=== PATIENT | female | born 1955 | race Caucasian/White ===

== ENCOUNTER → 2017-09-11 16:34 | Outpatient (CLI) | payer MEDICARE, SELFPAY ==
[2017-09-11 17:09] LABS: Basophils # 0.1 K/mm3 (0-0.2); Basophils % 0.6 % (0.1-2.0); Eosinophils # 0.4 K/mm3 (0.0-0.4); Eosinophils % 3.2 % (0.1-12.0); Hematocrit 40.4 % (37.0-47.0); Hemoglobin 12.7 g/dL (12.2-16.2); Lymphocytes # 3.6 K/mm3 (0.7-4.5); Lymphocytes % 31.4 K/mm3 (10-50); Mean Corpuscular HGB Conc 31.5 g/dL (31.8-35.4); Mean Corpuscular Hemoglobin 29.6 pg (27.0-31.2); Mean Corpuscular Volume 93.9 fl (81-99); Mean Platelet Volume 7.4 fl (7.4-10.4); Monocytes # 0.7 K/mm3 (0.1-1.0); Monocytes % 5.9 % (1.7-9.3); Neutrophils # 6.7 K/mm3 (1.8-7.8); Neutrophils % 58.9 % (37.0-80.0); Platelet Count 489 K/mm3 (142-424); White Blood Count 11.4 K/mm3 (4.8-10.8)
[2017-09-11 18:03] LABS: Alanine Aminotransferase 32 U/L (12-78); Albumin Level 3.5 gm/dL (3.4-5.0); Albumin/Globulin Ratio 0.9 (1.1-1.8); Alkaline Phosphatase 109 U/L (46-116); Anion Gap 13.9 mEq/L (5-15); Aspartate Amino Transferase 20 U/L (15-37); Bilirubin,Total 0.2 mg/dL (0.2-1.0); Blood Urea Nitrogen 32 mg/dL (7-18); Carbon Dioxide 28 mmol/L (21.0-32.0); Chloride 106 mmol/L (98-107); Creatinine,Serum 0.97 mg/dL (0.55-1.02); Estimated Glomerular Filt Rate 59 ml/min (>60); Ferritin 29 ng/mL (8-388); Free T4 (Free Thyroxine) 0.81 ng/dl (0.76-1.46); GFR (African American) 71 ML/MIN (>60); Globulin 3.8 gm/dl (1.3-3.2); Glucose 78 mg/dL (74-106); Potassium 4.9 mmoL/L (3.5-5.1); Sodium 143 mmol/L (136-145); Thyroid Stimulating Hormone 1.49 uIU/ml (0.358-3.740); Total Protein,Serum 7.3 gm/dL (6.4-8.2)
[2017-09-15 06:16] LABS: Vitamin D 25 Hydroxy 40.7 ng/mL (30.0-100.0)
== END ==
PROVIDERS: Visit Provider Nurse Practitioner Family
DX: E21.0 Primary hyperparathyroidism (principal); I10 Essential (primary) hypertension; D50.9 Iron deficiency anemia, unspecified; E55.9 Vitamin D deficiency, unspecified
CPT/HCPCS: 36415; 80053; 82652; 82728; 84439; 84443; 85025

== ENCOUNTER → 2018-03-29 15:29 | Outpatient (CLI) | payer MEDICARE, SELFPAY ==
--- NOTE | 2018-03-29 15:36 | MM_ITS ---
MM Dig screening mamm BI w/CAD ORDERING PHYSICIAN : Kaitlin Red PATIENT AGE: 62 years GENDER: Female COMPARISON: May 2014, June 2014, March 2011 INDICATION: ITS.REASON: SCREENING No hormones. No new complaints. HISTORY of ovarian and colon cancer Family history. Maternal great aunt TECHNIQUE: Standard CC and MLO images were obtained. R2 CAD reviewed. FINDINGS: Minimal residual fibroglandular elements bilaterally. RIGHT BREAST: On right MLO view area was highlighted by CAD its superior breast,. Likely merely summation shadow as it seems to dissipate on cc view. However given its dense appearance on MLO view, this and adjacent small focal areas of density labeled A at superior breast right MLO view,- would benefit from MLO and 90 degrees spot view images., With possible cc view if persists. Again favor most likely these are some summation shadow densities. Benign intramammary lymph nodes central and lateral breast are again seen and stable since 2014 LEFT BREAST:\ . No prominent findings at the left breast. However when the patient returns I suggest a MLO and 90 degrees spot view of the area labeled X, possible cc view density persist.. Strongly favor is merely summation shadow.. IMPRESSION: Small focal areas of density at superior right and left breast on MLO views-..Most likely due to summation shadow but would suggest patient return for 90 degree & MLO spot views both right & left breast to verify such BI-RADS Category: 0 Need Additional Imaging Evaluation RECOMMENDED FOLLOW-UP: IMM - IMMEDIATE FOLLOW-UP RECOMMENDED Spot MLO and 90 degrees view both breast (A letter has been sent to the patient regarding results of the study.)
== END ==
PROVIDERS: PCP Nurse Practitioner Family; Visit Provider Nurse Practitioner Family
DX: Z12.31 Encounter for screening mammogram for malignant neoplasm of breast (principal)
CPT/HCPCS: 77067

== ENCOUNTER → 2018-05-21 12:37 | Outpatient (CLI) | payer MEDICARE, SELFPAY ==
--- NOTE | 2018-05-21 13:12 | MM_ITS ---
MM Dig mamm BI DX w/CAD. INDICATION: Follow-up abnormal mammogram ORDERING PHYSICIAN: Kaitlin Red PATIENT AGE: 62 years COMPARISON: 1029 and 18, 05/10/2014, 06/07/2014 TECHNIQUE: Bilateral spot compression views FINDINGS: Average fibroglandular tissue. The asymmetric densities in the superior aspect of both breasts appear to compress out as fibroglandular tissue. No malignant appearing mass or malignant microcalcification. IMPRESSION: No discrete mass. Probably benign findings BI-RADS Category: 3 Probably Benign Finding Short Term Follow-up RECOMMENDED FOLLOW-UP: 6M - 6 MONTH FOLLOW-UP (A letter has been sent to the patient regarding results of the study.)
== END ==
PROVIDERS: PCP Nurse Practitioner Family; Visit Provider Nurse Practitioner Family
DX: R92.8 Other abnormal and inconclusive findings on diagnostic imaging of breast (principal)
CPT/HCPCS: 77066

== ENCOUNTER → 2018-07-26 08:51 | Outpatient (CLI) | payer MEDICARE, SELFPAY ==
[2018-07-26 09:17] LABS: Basophils # 0.1 K/mm3 (0-0.2); Basophils % 0.8 % (0.1-2.0); Eosinophils # 0.4 K/mm3 (0.0-0.4); Eosinophils % 4.1 % (0.1-12.0); Hematocrit 44.6 % (37.0-47.0); Hemoglobin 13.9 g/dL (12.2-16.2); Lymphocytes # 2.5 K/mm3 (0.7-4.5); Lymphocytes % 24.5 % (10-50); Mean Corpuscular HGB Conc 31.2 g/dL (31.8-35.4); Mean Corpuscular Hemoglobin 27.3 pg (27.0-31.2); Mean Corpuscular Volume 87.6 fl (81-99); Monocytes # 0.6 K/mm3 (0.1-1.0); Monocytes % 6.3 % (1.7-9.3); Neutrophils # 6.5 K/mm3 (1.8-7.8); Neutrophils % 64.3 % (37.0-80.0); Red Blood Count 5.09 M/mm3 (4.20-5.40); Red Cell Distribution Width 13.9 % (11.5-17.5); White Blood Count 10.1 K/mm3 (4.8-10.8)
[2018-07-26 09:44] LABS: Platelet Count 626 K/mm3 (142-424)
[2018-07-26 10:24] LABS: Alanine Aminotransferase 18 U/L (12-78); Albumin Level 3.5 gm/dL (3.4-5.0); Alkaline Phosphatase 121 U/L (46-116); Anion Gap 14.8 mEq/L (5-15); Aspartate Amino Transferase 9 U/L (15-37); Bilirubin,Total 0.3 mg/dL (0.2-1.0); Blood Urea Nitrogen 17 mg/dL (7-18); Calcium 8.8 mg/dL (8.5-10.1); Carbon Dioxide 26 mmol/L (21.0-32.0); Chloride 108 mmol/L (98-107); Chol/HDL Ratio 3.1 (1-3.5); Cholesterol 177 mg/dL (140-200); Creatinine,Serum 0.67 mg/dL (0.55-1.02); Estimated Glomerular Filt Rate 90 ml/min (>60); Ferritin 11 ng/mL (8-388); GFR (African American) 109 ML/MIN (>60); Globulin 3.6 gm/dl (1.3-3.2); Glucose 130 mg/dL (74-106); HDL Cholesterol 58 mg/dL (29-89); LDL Cholesterol 102 mg/dL (0-130); Potassium 3.8 mmoL/L (3.5-5.1); Sodium 145 mmol/L (136-145); Thyroid Stimulating Hormone 1.86 uIU/ml (0.358-3.740); Total Protein,Serum 7.1 gm/dL (6.4-8.2); Triglycerides 87 mg/dL (30-200); VLDL Cholesterol 17 mg/dL (0-40)
[2018-07-27 07:32] LABS: Vitamin D 25 Hydroxy 40.5 ng/mL (30.0-100.0)
[2018-07-27 08:23] LABS: Iron 37 ug/dL (27-159); UIBC 417 ug/dL (131-425)
[2018-07-27 09:48] LABS: Iron Saturation 8 % (15-55)
== END ==
PROVIDERS: Visit Provider Nurse Practitioner Family
DX: D50.9 Iron deficiency anemia, unspecified (principal); R73.03 Prediabetes; E78.5 Hyperlipidemia, unspecified; I10 Essential (primary) hypertension; I25.9 Chronic ischemic heart disease, unspecified; E55.9 Vitamin D deficiency, unspecified; M81.0 Age-related osteoporosis without current pathological fracture
CPT/HCPCS: 36415; 80053; 80061; 82652; 82728; 83036; 83540; 83550; 84443; 85025

== ENCOUNTER → 2018-08-03 08:38 | Outpatient (CLI) | payer MEDICARE, SELFPAY ==
--- NOTE | 2018-08-03 08:48 | US_ITS ---
US Arterial Ankle Brachial Ind History: ITS.REASON: skin changes, rest pain, cold extremities, claudication, smoker ORDERING PHYSICIAN: Paula Beck DPM PATIENT AGE: 62 years TECHNIQUE: Segmental pressures obtained of both right and left leg. These are compared to brachial blood pressure to yield index at each level sampled including summary OCTAVIA. The data sheets from the procedure are available in PACS FINDINGS Rest study only performed today No prior studies available for comparison. Blood pressures reported are in millimeters mercury. RIGHT LEG OCTAVIA = 1.0. RIGHT LEG TBI=1.0 Brachial BP: 172 Thigh BP: 169 Calf BP: 172 Ankle PT: 175 Ankle DP : 155 Digit =165 LEFT LEG OCTAVIA = 1.0 LEFT LEG TBI= 0.9 Brachial BPD: 171 Thigh BP: 164 Calf BP: 181 Ankle PT:173 Ankle DP: 164 Digit = 151 Pulses and waveforms: Normal IMPRESSION: The ABIs and TBI s as reported above are within normal limits. Waveforms and pulses are also unremarkable.
== END ==
PROVIDERS: PCP Nurse Practitioner Family; Visit Provider Podiatrist
DX: R09.89 Other specified symptoms and signs involving the circulatory and respiratory systems (principal)
CPT/HCPCS: 93922

== ENCOUNTER 2018-08-25 13:32 | Outpatient (CLI) | payer MEDICARE, SELFPAY ==
[2018-08-25 13:50] VITALS: BP 154/95; PULSE 84; RESP 18; TEMP 36.6; O2SAT 94
[2018-08-25 14:20] VITALS: BP 151/90; PULSE 88; RESP 18; O2SAT 95
[2018-08-25 14:46] VITALS: BP 154/83; PULSE 80; RESP 20; O2SAT 96
== END 2018-08-25 14:50 | disposition home or self-care (01) ==
LOC: INF 13:32
PROVIDERS: Visit Provider Internal Medicine Medical Oncology
DX: D50.9 Iron deficiency anemia, unspecified (principal); T45.4X5A Adverse effect of iron and its compounds, initial encounter
CPT/HCPCS: 96365; J1439

== ENCOUNTER 2018-09-01 13:35 | Outpatient (CLI) | payer MEDICARE, SELFPAY ==
[2018-09-01 13:50] VITALS: BP 131/88; PULSE 78; RESP 18; TEMP 36.4; O2SAT 95
[2018-09-01 14:24] VITALS: BP 136/78; PULSE 69; RESP 18; TEMP 36.4; O2SAT 95
== END 2018-09-01 14:26 | disposition home or self-care (01) ==
LOC: INF 13:55
PROVIDERS: Visit Provider Internal Medicine Medical Oncology
DX: D50.9 Iron deficiency anemia, unspecified (principal); T45.4X5A Adverse effect of iron and its compounds, initial encounter
CPT/HCPCS: 96365; J1439

== ENCOUNTER → 2018-09-02 13:53 | Outpatient (CLI) | payer MEDICARE, SELFPAY ==
--- NOTE | 2018-09-02 13:57 | CT_ITS ---
EXAM: CT LUNG LOW DOSE WO CONTRAST TECHNIQUE: The exam was performed on a GE Light Speed [address] scanner using 3.0 mGy CTDI. A low dose helical CT CHEST was performed on a multi-detector scanner. All CT scans at this facility use one or more dose reduction techniques, viz.: automated exposure control, ma/kV adjustment per patient size (including targeted exams where dose is matched to indication, i.e. head) or iterative reconstruction technique. The LDCT was performed in a facility that meets the criteria for the screening program. Data regarding this exam was submitted to ACR which is an approved registry. The order for this exam indicates that it came as a result of a lung cancer screening counseling shard decision-making visit that included all the elements required of such a visit including smoking cessation. The radiologist interpreting this exam meets the [facility] criteria for the LDCT lung cancer screening program. The exam is reported using the Lung-RADS classification scale and reported to the ACR registry. NOTE: This study was performed for the specific purposes of lung cancer screening and is not an alternative to diagnostic chest CT. RADIATION DOSE: CTDI vol(CT dose Index-volume) = 2.9mGy DLP (Dose Length Product) = 96.38 mGy-cm FINDINGS: COMPARISON: Previous CT chest from November 2013 and July 2011. HISTORY: 1/2-1 pack per day X 48 years = over 30 year pack history total. Current smoker LUNG PARENCHYMA .: . Pronounced chronic changes. Advanced, prominent centrilobular emphysematous changes again seen. Patient demonstrates low-density groundglass opacity throughout anterior aspect of both lungs.. Linear areas of scarring & fibrotic features anteriorly along with some fibrotic honeycombing changes are seen at the anterior aspect of the upper lobes bilateral.. This is been seen on previous studies. . There is a small of 4.5 mm pleural-based slight nodular density Posterior aspect of the right apex axial image along the superior reflection of the major fissure 21 sagittal 35.. This was seen on previous 2013 studies as well with no significant change. There is mild pleural calcification at left base with scarring in this region accounting for some slight nodularity here. Postsurgical changes are seen in this region of the lung. No significant new features here. . Mild airway thickening. There is a 7.5 mm a noncalcified focal area slight nodular density at the anterior aspect of minor fissure on the right. It may may reflect scarring. This was seen previously . Mediastinum. No significant mediastinal adenopathy or mass and no significant change since previous studies... Heart. Prominent coronary artery calcification LAD left main followed by circumflex and right coronary.. Postsurgical changes GE junction and no remarkable findings uppermost abdomen. Cholecystectomy noted. IMPRESSION: 1. Advanced emphysematous changes with prominent chronic changes again seen.. Extensive fibrotic changes with groundglass opacities throughout the lung noriega bilaterally most notable anteriorly. . Overall similar appearance to previous 2014 CT chest 2. Small nodular densities bilaterally are similar to 2014 with no significant new findings . The stability to support benign nature and follow-up in one year adequate for these nodules. Lung RADS Category: 2 .. RECOMMENDATIONS: 12 monthd LDCT follow-up recommended and should be encouraged/emphasized
== END ==
PROVIDERS: PCP Nurse Practitioner Family; Visit Provider Internal Medicine Medical Oncology
DX: Z12.2 Encounter for screening for malignant neoplasm of respiratory organs (principal); Z87.891 Personal history of nicotine dependence

== ENCOUNTER → 2018-10-29 14:40 | Outpatient (CLI) | payer MEDICARE, SELFPAY ==
[2018-10-29 15:11] LABS: Basophils # 0.1 K/mm3 (0-0.2); Basophils % 0.8 % (0.1-2.0); Eosinophils # 0.3 K/mm3 (0.0-0.4); Eosinophils % 3.3 % (0.1-12.0); Hematocrit 43.8 % (37.0-47.0); Hemoglobin 14.5 g/dL (12.2-16.2); Lymphocytes # 2.9 K/mm3 (0.7-4.5); Lymphocytes % 29.8 % (10-50); Mean Corpuscular Hemoglobin 29.5 pg (27.0-31.2); Mean Corpuscular Volume 89.3 fl (81-99); Mean Platelet Volume 7.1 fl (7.4-10.4); Monocytes # 0.6 K/mm3 (0.1-1.0); Monocytes % 6.2 % (1.7-9.3); Neutrophils # 5.9 K/mm3 (1.8-7.8); Neutrophils % 59.9 % (37.0-80.0); Platelet Count 428 K/mm3 (142-424); Red Cell Distribution Width 15.3 % (11.5-17.5); White Blood Count 9.8 K/mm3 (4.8-10.8)
[2018-10-29 17:28] LABS: Ferritin 53 ng/mL (8-388)
[2018-10-31 06:42] LABS: Iron 64 ug/dL (27-159); UIBC 232 ug/dL (131-425)
[2018-10-31 17:08] LABS: Iron Saturation 22 % (15-55)
== END ==
PROVIDERS: Visit Provider Internal Medicine Medical Oncology
DX: D50.9 Iron deficiency anemia, unspecified (principal); Z72.0 Tobacco use
CPT/HCPCS: 36415; 82728; 83540; 83550; 85025

== ENCOUNTER → 2019-04-14 16:59 | Outpatient (CLI) | payer MEDICARE, SELFPAY ==
[2019-04-14 17:24] LABS: Hemoglobin A1C 6.1 % (0.0-7.0)
[2019-04-14 18:47] LABS: Basophils # 0.1 K/mm3 (0-0.2); Eosinophils # 0.7 K/mm3 (0.0-0.4); Eosinophils % 5.3 % (0.1-12.0); Hematocrit 43.4 % (37.0-47.0); Hemoglobin 13.7 g/dL (12.2-16.2); Lymphocytes # 3.9 K/mm3 (0.7-4.5); Lymphocytes % 31.3 % (10-50); Mean Corpuscular HGB Conc 31.5 g/dL (31.8-35.4); Mean Corpuscular Hemoglobin 29.5 pg (27.0-31.2); Mean Corpuscular Volume 93.7 fl (81-99); Monocytes # 0.8 K/mm3 (0.1-1.0); Monocytes % 6.5 % (1.7-9.3); Neutrophils % 55.9 % (37.0-80.0); Platelet Count 519 K/mm3 (142-424); Red Blood Count 4.63 M/mm3 (4.20-5.40); Red Cell Distribution Width 14.8 % (11.5-17.5); White Blood Count 12.6 K/mm3 (4.8-10.8)
[2019-04-14 19:31] LABS: Alanine Aminotransferase 20 U/L (12-78); Albumin Level 3.4 gm/dL (3.4-5.0); Albumin/Globulin Ratio 1.1 (1.1-1.8); Alkaline Phosphatase 96 U/L (46-116); Anion Gap 9.8 mEq/L (5-15); Aspartate Amino Transferase 16 U/L (15-37); Bilirubin,Total 0.3 mg/dL (0.2-1.0); Blood Urea Nitrogen 22 mg/dL (7-18); Calcium 8.3 mg/dL (8.5-10.1); Carbon Dioxide 28 mmol/L (21.0-32.0); Chloride 107 mmol/L (98-107); Creatinine,Serum 0.74 mg/dL (0.55-1.02); Estimated Glomerular Filt Rate 80 ml/min (>60); Ferritin 27 ng/mL (8-388); GFR (African American) 97 ML/MIN (>60); Globulin 3.1 gm/dl (1.3-3.2); Glucose 97 mg/dL (74-106); Potassium 3.8 mmoL/L (3.5-5.1); Sodium 141 mmol/L (136-145); Total Protein,Serum 6.5 gm/dL (6.4-8.2)
[2019-04-16 18:12] LABS: Vitamin D 25 Hydroxy 36.4 ng/mL (30.0-100.0)
== END ==
PROVIDERS: Visit Provider Nurse Practitioner Family
DX: R73.03 Prediabetes (principal); D50.9 Iron deficiency anemia, unspecified; I10 Essential (primary) hypertension; E55.9 Vitamin D deficiency, unspecified
CPT/HCPCS: 36415; 80053; 82652; 82728; 83036; 85025

== ENCOUNTER 2019-12-12 19:44 | Observation (INO) | payer MEDICARE, SELFPAY ==
[2019-12-12 19:45] VITALS: BP 160/87; PULSE 91; RESP 16; TEMP 37.3; O2SAT 94; BMI 31.6
--- NOTE | 2019-12-12 19:55 | XR_ITS ---
PROCEDURE: XR KNEE LT 3V CLINICAL INDICATION: left knee injury Knee pain COMPARISON: [id number] XR knee RT 3V from 04/19/2018 CT KNEE LT WO CON from 12/12/2019 FINDINGS: Prior total knee replacement. There is a nondisplaced mildly impacted fracture of the distal femur at the metaphyseal diaphyseal junction with minimal impaction medially. There is a fat fluid level indicating lipohemarthrosis.. The proximal tibia has an unremarkable appearance. The knee prosthesis is in good position. There is generalized vascular calcification. IMPRESSION: Prior total knee replacement with nondisplaced mildly impacted acute fracture of the distal femur at the diaphyseal metaphyseal junction with lipohemarthrosis Dictated by: Gavino Baeza MD 12/13/2019 07:58 Electronically signed by Gavino Baeza MD in [place] 12/13/2019 07:58
--- NOTE | 2019-12-12 19:55 | CT_ITS ---
PROCEDURE: CT KNEE LT WO CON CLINICAL HISTORY: twisted left knee Posttraumatic pain, injury with with limited range of motion COMPARISON: XR KNEE LT 3V from 12/12/2019 TECHNIQUE: Axial images obtained with sagittal and coronal reformats. All CT scans at the facility use one or more dose reduction, viz: automated exposure control, ma/kV adjustment per patient size (including targeted exams where dose is matched to indication, i.e. head), or iterative reconstruction technique. FINDINGS: There is a minimally impacted fracture of the distal femur at the diaphyseal metaphyseal junction. There is minimal impaction along the medial aspect the fracture. There is minimal medial displacement of the distal fracture fragment medially. Along the posterior aspect of the distal femur the fracture line is 12 mm proximal to the posterior aspect the femoral component of the prosthesis. There is lipohemarthrosis. The tibia has an unremarkable appearance. There is considerable artifact from the prosthesis. IMPRESSION: Mildly displaced and impacted fracture of the distal femur with associated lipohemarthrosis and total knee prosthesis in place. Dictated by: Gavino Baeza MD 12/13/2019 08:29 Electronically signed by Gavino Baeza MD in [place] 12/13/2019 08:29
--- NOTE | 2019-12-12 20:12 | HMH.EDLOEX ---
ED Disposition Clinical Impression: Obesity (BMI 30.0-34.9), Tobacco use Femoral condyle fracture Qualifiers: Encounter type: initial encounter Fracture type: closed Fracture alignment: displaced Laterality: left Qualified Code(s): S72.412A - Displaced unspecified condyle fracture of lower end of left femur, initial encounter for closed fracture COPD (chronic obstructive pulmonary disease) Qualifiers: COPD type: unspecified COPD Qualified Code(s): J44.9 - Chronic obstructive pulmonary disease, unspecified Disposition: Admitted as Observation Condition on Discharge: Good Referrals: Provider,Referral, [Referring] - - Critical Care Critical Care Time: No Attestation: On 12/12/19, the high probability of a clinically significant, sudden or life threatening deterioration of the following system(s) required my full and direct attention, intervention and personal management. The time I documented below is in addition to time spent performing reported procedures but includes the following listed in this critical care notation. Medical Decision Making - Medical Records Medical records reviewed: Yes: I reviewed the patient's medical records. - Raoul Inquiry Pt receiving controlled substance: No Vital Signs: 12/12/19 19:45 Temperature 99.1 F Temperature Source Oral Pulse Rate [Left Radial] 91 H Respiratory Rate 16 Blood Pressure [Right Arm] 160/87 H Blood Pressure Mean [Right Arm] 111 Blood Pressure Source [Right Arm] Automatic Cuff Blood Pressure Position [Right Arm] Sitting 02 Sat by Pulse Oximetry 94 L Oxygen Delivery Method Room Air - Lab Data Lab results reviewed: Yes: I reviewed the patient's lab results. Lab Results 12/12/19 20:49: WBC 15.0 H, RBC 4.72, Hgb 12.6, Hct 41.0, MCV 86.9, MCH 26.8 L, MCHC 30.8 L, RDW 14.8, Plt Count 590 H, MPV 7.7, Neut % (Auto) 76.6, Lymph % (Auto) 15.6, [place] % (Auto) 5.1, Eos % (Auto) 1.9, Baso % (Auto) 0.7, Neut # (Auto) 11.5 H, Lymph # (Auto) 2.3, [place] # (Auto) 0.8, Eos # (Auto) 0.3, Baso # (Auto) 0.1, Total Counted 100, Neutrophils % (Manual) 80 H, Lymphocytes % (Manual) 16, Eosinophils % (Manual) 3, Basophils % (Manual) 1.0, Platelet Estimate Normal, Stomatocytes 1+ 12/12/19 20:49: Sodium 141, Potassium 3.8, Chloride 111 H, Carbon Dioxide 24, Anion Gap 9.8, BUN 24 H, Creatinine 0.90, Estimated Creat Clear 82, Estimated GFR 63, Est GFR ( Amer) 77, Glucose 112 H, Calcium 9.1, Total Bilirubin 0.2, AST 25, ALT 13, Alkaline Phosphatase 102, Total Protein 6.7, Albumin 3.6, Globulin 3.1, Albumin/Globulin Ratio 1.2 Result diagrams: 12/12/19 20:49 12/12/19 20:49 Orders (Tests/Meds): ED MEDICATIONS Generic Name Dose Route Start Last Admin Trade Name Freq PRN Reason Stop Dose Admin Sodium Chloride 1,000 mls @ 999 mls/hr 12/12/19 21:10 12/12/19 21:27 Sod Chlor 0.9% 1000ml Bag IV 12/12/19 22:10 999 mls/hr .Q1H1M KADEEM Administration Discontinued Medications Generic Name Dose Route Start Last Admin Trade Name Freq PRN Reason Stop Dose Admin Morphine Sulfate 4 mg 12/12/19 21:10 12/12/19 21:27 Morphine 4mg/Ml Syringe IV 12/12/19 21:11 4 mg ONCE ONE Administration Ondansetron HCl 4 mg 12/12/19 21:10 12/12/19 21:27 Zofran 4mg/2ml Vial IV 12/12/19 21:11 4 mg ONCE ONE Administration ORDERS Category Date Time Status CT knee LT wo con Stat Cat Scan 12/12/19 19:55 Taken XR knee LT 3V Stat Exams 12/12/19 19:55 Taken Hemoglobin A1C Stat Lab 12/12/19 21:41 Ordered - Radiology Data #1 Image(s): Knee Image Reviewed: Yes I reviewed the patient's radiology image Preliminary Findings: Abnormal (fx seen ) - CT Data CT Scan: Other (knee) Time Received: 21:[address] Reviewed: Yes: I have viewed the radiologist's interpretation Preliminary Findings: Abnormal (fx and hematoma ) - ECG Data Tracing #1 Normal Sinus Rhythm: Yes Ischemic changes: non-specific ST-T wave changes - Physician Consults Physician Consul
--- NOTE | 2019-12-12 20:50 | PC.NURSE ---
speaking with Dr. Sahu
--- NOTE | 2019-12-12 20:54 | PC.NURSE ---
pt reports no ride at home. dr nair advises patient would need to transfer elsewhere for repair.
--- NOTE | 2019-12-12 21:01 | PC.NURSE ---
speaking with Dr. Cosme
--- NOTE | 2019-12-12 21:03 | PC.NURSE ---
calling around for pt placement with Ortho.
[2019-12-12 21:12] LABS: Basophils # 0.1 K/mm3 (0-0.2); Basophils % 0.7 % (0.1-2.0); Chloride 111 mmol/L (98-107); Eosinophils # 0.3 K/mm3 (0.0-0.4); Eosinophils % 1.9 % (0.1-12.0); Hemoglobin 12.6 g/dL (12.2-16.2); Lymphocytes # 2.3 K/mm3 (0.7-4.5); Lymphocytes % 15.6 % (10-50); Mean Corpuscular HGB Conc 30.8 g/dL (31.8-35.4); Mean Corpuscular Hemoglobin 26.8 pg (27.0-31.2); Mean Corpuscular Volume 86.9 fl (81-99); Mean Platelet Volume 7.7 fl (7.4-10.4); Monocytes # 0.8 K/mm3 (0.1-1.0); Monocytes % 5.1 % (1.7-9.3); Neutrophils # 11.5 K/mm3 (1.8-7.8); Neutrophils % 76.6 % (37.0-80.0); Platelet Count 590 K/mm3 (142-424); Red Blood Count 4.72 M/mm3 (4.20-5.40); Red Cell Distribution Width 14.8 % (11.5-17.5); Sodium 141 mmol/L (136-145)
[2019-12-12 21:13] LABS: Potassium 3.8 mmoL/L (3.5-5.1)
[2019-12-12 21:14] LABS: MANUAL DIFFERENTIAL MANUAL DIFFERENTIAL (MANUAL DIFF)
[2019-12-12 21:15] VITALS: BP 145/97; PULSE 67; RESP 16; O2SAT 97
[2019-12-12 21:15] LABS: Alanine Aminotransferase 13 U/L (12-78); Albumin Level 3.6 g/dl (3.5-5.0); Albumin/Globulin Ratio 1.2 (1.1-1.8); Alkaline Phosphatase 102 U/L (38-126); Anion Gap 9.8 mEq/L (5-15); Aspartate Amino Transferase 25 U/L (14-36); Bilirubin,Total 0.2 mg/dl (0.2-1.3); Blood Urea Nitrogen 24 mg/dl (7-17); Carbon Dioxide 24 mmol/L (22.0-30.0); Creatinine Clearance Estimated 82 mL/min (50-200); Estimated Glomerular Filt Rate 63 ml/min (>60); GFR (African American) 77 ML/MIN (>60); Globulin 3.1 g/dL (1.3-3.2); Total Protein,Serum 6.7 g/dl (6.3-8.2)
--- NOTE | 2019-12-12 21:15 | PC.NURSE ---
calling [facility] at this time.
[2019-12-12 21:16] LABS: Calcium 9.1 mg/dl (8.4-10.2); Glucose 112 mg/dl (74-100)
--- NOTE | 2019-12-12 21:19 | PC.NURSE ---
awaiting for dr. dorman to call back.
--- NOTE | 2019-12-12 21:20 | PC.NURSE ---
Dr. Sahu spoke with Dr. Alan about taking pt. he accepted pt. will speak to [facility] for an accepting admitting MD
[2019-12-12 21:33] LABS: Eosinophils % 3 % (0-3); Lymphocytes % 16 % (10-50); Neutrophils % 80 % (42-76); Total Cells Counted 100
--- NOTE | 2019-12-12 21:33 | PC.NURSE ---
on phone with dr. dorman at this time
[2019-12-12 21:34] LABS: Platelet Estimate Normal; Stomatocytes 1+
--- NOTE | 2019-12-12 21:36 | PC.NURSE ---
pt is placed on facility wait list at this time. pt and family updated on plan of care
--- NOTE | 2019-12-12 21:49 | PC.NURSE ---
notified yumi with lab of new orders
[2019-12-12 21:58] LABS: Hemoglobin A1C 6.3 % (4.0-6.0)
[2019-12-12 22:00] VITALS: BP 173/98; PULSE 78; RESP 16; O2SAT 94
[2019-12-12 22:17] LABS: Coronavirus 19 IgG Antibody Negative (Negative); Coronavirus 19 IgM Antibody Negative (Negative)
[2019-12-12 22:30] VITALS: BP 159/84; PULSE 82; RESP 16; O2SAT 95
--- NOTE | 2019-12-12 22:49 | PC.NURSE ---
report called to Sasha Zhao RN
--- NOTE | 2019-12-12 23:13 | PC.NURSE ---
PT ARRIVED TO THE FLOOR VIA STRETCHER FROM ED AT [id number].
[2019-12-12 23:16] VITALS: BP 112/75; PULSE 81; RESP 19; TEMP 36.7; O2SAT 98
[2019-12-12 23:20] VITALS: BMI 33.4
[2019-12-12 23:30] VITALS: BP 157/91; PULSE 77; RESP 20; TEMP 36.7; O2SAT 93
[2019-12-13 04:26] VITALS: BP 149/81; PULSE 71; RESP 18; TEMP 36.9; O2SAT 92
--- NOTE | 2019-12-13 04:49 | PC.NURSE ---
PT. MAIN COMPLAINT IS PAIN IN L KNEE. KNEE IMMOBILIZER AND ICE PACK IN PLACE. PT. HAS NOT C/O N/V/D, SOA OR DIZZINESS.
[2019-12-13 05:30] VITALS: BMI 33.6
[2019-12-13 06:15] LABS: Chloride 109 mmol/L (98-107); Potassium 3.5 mmoL/L (3.5-5.1); Sodium 141 mmol/L (136-145)
[2019-12-13 06:16] LABS: Basophils # 0.1 K/mm3 (0-0.2); Basophils % 0.6 % (0.1-2.0); Eosinophils # 0.4 K/mm3 (0.0-0.4); Eosinophils % 2.6 % (0.1-12.0); Hematocrit 38.6 % (37.0-47.0); Lymphocytes # 3.3 K/mm3 (0.7-4.5); Lymphocytes % 21.9 % (10-50); Mean Corpuscular Volume 87.1 fl (81-99); Mean Platelet Volume 7.8 fl (7.4-10.4); Monocytes # 0.9 K/mm3 (0.1-1.0); Monocytes % 5.7 % (1.7-9.3); Neutrophils # 10.3 K/mm3 (1.8-7.8); Neutrophils % 69.1 % (37.0-80.0); Platelet Count 550 K/mm3 (142-424); Red Blood Count 4.43 M/mm3 (4.20-5.40); Red Cell Distribution Width 14.9 % (11.5-17.5); White Blood Count 14.9 K/mm3 (4.8-10.8)
[2019-12-13 06:18] LABS: Anion Gap 10.5 mEq/L (5-15); Blood Urea Nitrogen 19 mg/dl (7-17); Calcium 8.5 mg/dl (8.4-10.2); Carbon Dioxide 25 mmol/L (22.0-30.0); Creatinine Clearance Estimated 87 mL/min (50-200); Estimated Glomerular Filt Rate 85 ml/min (>60); GFR (African American) 103 ML/MIN (>60); Glucose 108 mg/dl (74-100)
[2019-12-13 06:57] LABS: POC Glucose,Bedside 120 (70-110)
--- NOTE | 2019-12-13 07:30 | HMH.HP ---
*Admission Date: 12/12/19 *Chief complaint: leg pain, knee fracture *History of present illness: Ms. Rocha is a 64-year-old female with multiple comorbidities and extensive tobacco use history who fell, developed onset of knee pain, and came to the ER. Status post bilateral total knee arthroplasty in 2000. Has had minimal difficulty from her prostheses. States she was walking in her yard yesterday when she stepped in a hole, tripped, and fell feeling intense pain in her left knee. She denies hitting her head, loss of consciousness. On arrival to the ER imaging of her knee was performed showing fracture of her distal femur and presence of prosthetic joint. Given complexity of case, orthopedics was consulted and recommended patient be referred to tertiary care center. The emergency room contacted [facility], patient was accepted for transfer however no bed was available. Patient admitted pending transfer to [facility] for surgical intervention. Has been maintained overnight on IV pain meds with intermittent control of her pain. N.p.o. overnight in anticipation of transfer for surgery however given no transfer and site, will allow for clear liquid diet at this time. Patient denies any chest pain, shortness of breath, nausea, vomiting, diarrhea. [facility] History I have reviewed the patient's past medical history: Yes Medical History: Reports:: Cancer (Thyroid CA.), Chronic Obstructive Pulmonary Disease (COPD), Cerebrovascular Accident, Deep Vein Thrombosis, Diabetes Mellitus Type 2, Gastroesophageal Reflux Disease(GERD), Hyperlipidemia, Hypertension, Lung Disease, Myocardial Infarction, Peripheral Vascular Disease Denies:: Diabetes Mellitus Type 1, Internal Pacemaker, MRSA, Seizures *Have you ever received a pneumonia vaccine?: Yes *Have you received a flu vaccine this season?: No Other Medical History: Reports: Anemia, Arthritis, Fibromyalgia, Sinus Problems, Thyroid Disease, Other Laterality Cases: Bilateral: Arthroscopy Knee, Tonsillectomy, Total Knee Replacement Other Surgeries: Yes: Appendectomy, Cancer Surgery, Cardiac Catheterization, Cholecystectomy, Colonoscopy, EGD, Hysterectomy-Total, Hysterectomy-Partial. No: Pacemaker Amputation: No Fractures: Yes - *Social History Last grade of school completed: Some college Smoking Status: Current every day smoker Tobacco Type: cigarettes # Packs/Day (cigarettes): 1 Alcohol Intake: never Alcohol Intake Frequency:: other Substance Use Type: denies use *Occupational Status:: disabled Housing: apartment Household Members: other *Travel in the last 8 weeks: None Family Hx:: Cancer, Diabetes, Heart Attack, Hyperlipidemia, Hypertension, Stroke, Tuberculosis, Alcoholism, Mental illness Review of Systems - Review of Systems Review of systems:: pertinent systems reviewed and negative unless documented below (14 point review of systems performed, pertinent positives and negatives as per HPI) - *Neurologic Denies seizure-like activity Meds Home Medications Medication Instructions Recorded Confirmed Type alprazolam 1 mg tablet 1 mg PO QIDP PRN 30 Days tab 07/26/18 12/12/19 History amlodipine 5 mg tablet 10 mg PO DAILY 30 Days tab 07/26/18 12/12/19 History aspirin 81 mg tablet,delayed 81 mg PO DAILY 07/26/18 12/12/19 History release clopidogrel 75 mg tablet 75 mg PO DAILY 30 Days tab 07/26/18 12/12/19 History duloxetine 60 mg capsule,delayed 60 mg PO DAILY 30 Days cap 07/26/18 12/12/19 History release gabapentin 600 mg tablet 600 mg PO TID 30 Days tab 07/26/18 12/12/19 History omeprazole 40 mg capsule,delayed 40 mg PO DAILY 30 Days cap 07/26/18 12/12/19 History release pravastatin 20 mg tablet 20 mg PO HS 30 Days tab 07/26/18 12/12/19 History ramipril 10 mg capsule 10 mg PO DAILY 30 Days cap 07/26/18 12/12/19 History topiramate 100 mg tablet 100 mg PO BID 30 Days tab 07/26/18 12/13/19 History Metformin HCl 500 mg PO DAILY 12/13/19 12/13/19 History PARoxetine HCL [Paxil] 2
[2019-12-13 08:00] VITALS: BP 158/83; PULSE 83; RESP 20; TEMP 36.9; O2SAT 94
--- NOTE | 2019-12-13 08:04 | HMH.PHAVTE ---
[facility] Pharmacy VTE Monitoring - Patient Demographics Admission date: 12/12/19 Report Date: 12/13/19 Time: 08:04 Allergies/Adverse Reactions: Patient Allergies erythromycin base Allergy (Unknown, Verified 12/12/19 23:45) I-HIVES Penicillins Allergy (Unknown, Verified 12/12/19 23:45) I-HIVES propoxyphene Allergy (Unknown, Verified 12/12/19 23:45) I-HIVES Height: 1.68 m Weight: 94.886 kg Patient Problems: Current Active Problems Femoral condyle fracture (Acute) Obesity (BMI 30.0-34.9) (Acute) Tobacco use (Acute) COPD (chronic obstructive pulmonary disease) (Acute) - VTE Risk Labs: VTE Related Lab Results Hgb 12.0 g/dL (12.2-16.2) L 12/13/19 05:35 Hct 38.6 % (37.0-47.0) 12/13/19 05:35 Plt Count 550 K/mm3 (142-424) H 12/13/19 05:35 BUN 19 mg/dl (7-17) H 12/13/19 05:35 Creatinine 0.70 mg/dl (0.52-1.04) D 12/13/19 05:35 Estimated Creat Clear 87 mL/min (50-200) 12/13/19 05:35 VTE Score: 7 Clinical Trial Participant: No - Prophylaxis VTE Prophylaxis Ordered?: Yes Types of VTE Prophylaxis: TEDS Knee High
--- NOTE | 2019-12-13 09:36 | HMH.PHAINT ---
MEDICATION RECONCILIATION COMPLETED ON PATIENT USING EXTERNAL FILL HISTORY FROM PHARMACY AND LIST FROM MD OFFICE. -RIVKA CROUCHD
[2019-12-13 11:35] LABS: POC Glucose,Bedside 113 (70-110)
[2019-12-13 16:00] VITALS: BP 165/107; PULSE 75; RESP 19; TEMP 36.8; O2SAT 92
--- NOTE | 2019-12-13 16:40 | HMH.HPDC ---
General - General Admission date:: 12/12/19 Discharge date: 12/13/19 *Admission Date: 12/12/19 *Chief complaint: left knee pain/fracture *History of present illness: Ms. Rocha is a 64-year-old female with multiple comorbidities and extensive tobacco use history who fell, developed onset of knee pain, and came to the ER. Status post bilateral total knee arthroplasty in 2000. Has had minimal difficulty from her prostheses. States she was walking in her yard yesterday when she stepped in a hole, tripped, and fell feeling intense pain in her left knee. She denies hitting her head, loss of consciousness. On arrival to the ER imaging of her knee was performed showing fracture of her distal femur and presence of prosthetic joint. Given complexity of case, orthopedics was consulted and recommended patient be referred to tertiary care center. The emergency room contacted [facility], patient was accepted for transfer however no bed was available. Patient admitted pending transfer to [facility] for surgical intervention. Has been maintained overnight on IV pain meds with intermittent control of her pain. N.p.o. overnight in anticipation of transfer for surgery however given no transfer and site, will allow for clear liquid diet at this time. Patient denies any chest pain, shortness of breath, nausea, vomiting, diarrhea. [facility] History I have reviewed the patient's past medical history: Yes Medical History: Reports:: Cancer (Thyroid CA.), Chronic Obstructive Pulmonary Disease (COPD), Cerebrovascular Accident, Deep Vein Thrombosis, Diabetes Mellitus Type 2, Gastroesophageal Reflux Disease(GERD), Hyperlipidemia, Hypertension, Lung Disease, Myocardial Infarction, Peripheral Vascular Disease Denies:: Diabetes Mellitus Type 1, Internal Pacemaker, MRSA, Seizures *Have you ever received a pneumonia vaccine?: Yes *Have you received a flu vaccine this season?: No Other Medical History: Reports: Anemia, Arthritis, Fibromyalgia, Sinus Problems, Thyroid Disease, Other Laterality Cases: Bilateral: Arthroscopy Knee, Tonsillectomy, Total Knee Replacement Other Surgeries: Yes: Appendectomy, Cancer Surgery, Cardiac Catheterization, Cholecystectomy, Colonoscopy, EGD, Hysterectomy-Total, Hysterectomy-Partial. No: Pacemaker Amputation: No Fractures: Yes - *Social History Last grade of school completed: Some college Smoking Status: Current every day smoker Tobacco Type: cigarettes # Packs/Day (cigarettes): 1 Alcohol Intake: never Alcohol Intake Frequency:: other Substance Use Type: denies use *Occupational Status:: disabled Housing: apartment Household Members: other *Travel in the last 8 weeks: None Family Hx:: Cancer, Diabetes, Heart Attack, Hyperlipidemia, Hypertension, Stroke, Tuberculosis, Alcoholism, Mental illness Review of Systems - Review of Systems Review of systems:: pertinent systems reviewed and negative unless documented below (14 point review of systems performed, pertinent positives and negatives as per HPI) - *Neurologic Denies seizure-like activity Exam Vital signs and Labs for Last 24 Hours: Temp Pulse Resp BP Pulse Ox 98.4 F 83 20 158/83 H 94 L 12/13/19 08:00 12/13/19 08:00 12/13/19 08:00 12/13/19 08:00 12/13/19 08:00 Laboratory Results - last 24 hr 12/12/19 20:49: WBC 15.0 H, RBC 4.72, Hgb 12.6, Hct 41.0, MCV 86.9, MCH 26.8 L, MCHC 30.8 L, RDW 14.8, Plt Count 590 H, MPV 7.7, Neut % (Auto) 76.6, Lymph % (Auto) 15.6, [place] % (Auto) 5.1, Eos % (Auto) 1.9, Baso % (Auto) 0.7, Neut # (Auto) 11.5 H, Lymph # (Auto) 2.3, [place] # (Auto) 0.8, Eos # (Auto) 0.3, Baso # (Auto) 0.1, Total Counted 100, Neutrophils % (Manual) 80 H, Lymphocytes % (Manual) 16, Eosinophils % (Manual) 3, Basophils % (Manual) 1.0, Platelet Estimate Normal, Stomatocytes 1+ 12/12/19 20:49: Sodium 141, Potassium 3.8, Chloride 111 H, Carbon Dioxide 24, Anion Gap 9.8, BUN 24 H, Creatinine 0.90, Estimated Creat Clear 82, Estimated GFR 63, Est GFR ( Amer)
--- NOTE | 2019-12-13 17:22 | PC.NURSE ---
delon lam rn at [facility] called for report and with bed @ [phone]
--- NOTE | 2019-12-13 17:23 | PC.NURSE ---
[facility] notified for transport
--- NOTE | 2019-12-13 20:54 | ECG_ITS ---
APPROVED REPORT Exam: Resting ECG HR:72 bpm ECG Measurements Heart Rate 72 AXES AZ 146 P 64 QRSd 82 QRS 14 QT 358 T -2 QTc 392 <Conclusion> Normal sinus rhythm Possible Left atrial enlargement Nonspecific ST-T wave abnormalities Abnormal ECG Electronically signed by : Lamine Jeffrey, 12/13/2019 15:33:46
== END 2019-12-13 18:53 | disposition short-term general hospital (02) ==
LOC: ER 21:43 → 2ND 22:27
PROVIDERS: Admitting Provider Emergency Medicine; Emergency Provider Emergency Medicine; PCP Nurse Practitioner Family; Visit Provider Internal Medicine Adolescent Medicine
DX: M97.12XA Periprosthetic fracture around internal prosthetic left knee joint, initial encounter (principal); S72.412A Displaced unspecified condyle fracture of lower end of left femur, initial encounter for closed fracture; Z72.0 Tobacco use; E11.9 Type 2 diabetes mellitus without complications; W01.0XXA Fall on same level from slipping, tripping and stumbling without subsequent striking against object, initial encounter; Y92.017 Garden or yard in single-family (private) house as the place of occurrence of the external cause; Z96.653 Presence of artificial knee joint, bilateral; Z79.84 Long term (current) use of oral hypoglycemic drugs; Z79.899 Other long term (current) drug therapy; Z79.02 Long term (current) use of antithrombotics/antiplatelets; Z79.82 Long term (current) use of aspirin
CPT/HCPCS: 36415; 73562; 73700; 80048; 80053; 82962; 83036; 85007; 85025; 86328; 93005; 96365; 96375; 99284; G0378; J2405

== ENCOUNTER 2021-11-12 13:35 | Inpatient (IN) | payer MEDICARE, SELFPAY ==
[2021-11-12] VITALS (11 sets, daily range): BP systolic 137–201; BP diastolic 62–88; PULSE 75–94; RESP 16–28; TEMP 36.6–37; O2SAT 96–100; BMI 23.8; BMI 25.1
--- NOTE | 2021-11-12 13:43 | XR_ITS ---
FINAL REPORT CLINICAL HISTORY: trauma, fall COMPARISON: 04/19/2018 FINDINGS: PELVIS A single view was obtained. There is no acute fracture or dislocation. There is chronic appearing deformity of the right greater trochanter which is new since the prior, likely represent sequela of prior fracture. There are mild degenerative changes of both hips. Note is made of vascular calcification. IMPRESSION: Irregularity of the greater trochanter, likely represent sequela of prior fracture. If indicated, CT or MRI could further evaluate. Reviewed, Interpreted and Dictated by Jesus Harding III, MD Transcribed by Ruthie Hagen Authenticated and [facility]
--- NOTE | 2021-11-12 13:43 | XR_ITS ---
FINAL REPORT CLINICAL HISTORY: trauma, fall COMPARISON: 04/19/2018 FINDINGS: SINGLE-VIEW CHEST The heart size is normal. The mediastinum is normal. There is mild pulmonary vascular congestion. There is no pneumothorax. There are postoperative changes in the left thorax. There is an impacted fracture of the right femoral neck and head. IMPRESSION: No acute cardiopulmonary process. Impacted fracture of the right femoral neck and head. Reviewed, Interpreted and Dictated by Jesus Harding III, MD Transcribed by Ruthie Hagen Authenticated and [facility]
--- NOTE | 2021-11-12 13:43 | XR_ITS ---
FINAL REPORT CLINICAL HISTORY: trauma, fall FINDINGS: RIGHT SHOULDER Three views were obtained. There is mild AC joint degenerative change. There is a comminuted, impacted fracture of the right femoral head and neck. There is mild glenohumeral degenerative change. IMPRESSION: Comminuted, impacted fracture of the right femoral head and neck. Reviewed, Interpreted and Dictated by Jesus Harding III, MD Transcribed by Ruthie Hagen Authenticated and [facility]
--- NOTE | 2021-11-12 13:43 | XR_ITS ---
FINAL REPORT CLINICAL HISTORY: trauma, fall FINDINGS: RIGHT FEMUR Two views were obtained. There is no acute fracture or dislocation. There are postoperative changes from right knee arthroplasty. Moderate vascular calcification is identified. There are mild degenerative changes of the hip. There is chronic irregularity of the greater trochanter consistent with a chronic fracture. IMPRESSION: Degenerative and chronic appearing findings as above. Reviewed, Interpreted and Dictated by Jesus Harding III, MD Transcribed by Ruthie Hagen Authenticated and [facility]
--- NOTE | 2021-11-12 13:45 | HMH.EDFALL ---
ED Disposition Clinical Impression: Closed right hip fracture Qualifiers: Encounter type: initial encounter Qualified Code(s): S72.001A - Fracture of unspecified part of neck of right femur, initial encounter for closed fracture Closed right humeral fracture Qualifiers: Encounter type: initial encounter Humerus Location: proximal Fracture morphology: other fracture Fracture alignment: displaced Qualified Code(s): S42.291A - Other displaced fracture of upper end of right humerus, initial encounter for closed fracture UTI (urinary tract infection) Qualifiers: Urinary tract infection type: acute cystitis Hematuria presence: without hematuria Qualified Code(s): N30.00 - Acute cystitis without hematuria Disposition: Admitted As Inpatient Condition on Discharge: Good Referrals: Kaitlin Red APRN [Primary Care Provider] - - Critical Care Critical Care Time: No Attestation: On , the high probability of a clinically significant, sudden or life threatening deterioration of the following system(s) required my full and direct attention, intervention and personal management. The time I documented below is in addition to time spent performing reported procedures but includes the following listed in this critical care notation. Medical Decision Making - Medical Records Medical records reviewed: Yes: I reviewed the patient's medical records. - Raoul Inquiry Pt receiving controlled substance: No Vital Signs: 11/12/21 13:36 11/12/21 14:04 11/12/21 14:07 Temperature 98.6 F Temperature Source Oral Pulse Rate 85 85 Pulse Rate [Radial] 75 Respiratory Rate 28 H 24 24 Blood Pressure 201/87 H 160/78 H Blood Pressure [Right Arm] 137/70 Blood Pressure Mean 125 136 Blood Pressure Mean [Right Arm] 92 Blood Pressure Position [Right Arm] Sitting 02 Sat by Pulse Oximetry 96 100 100 Oxygen Delivery Method Room Air 11/12/21 14:32 11/12/21 15:02 Temperature Temperature Source Pulse Rate 85 84 Pulse Rate [Radial] Respiratory Rate 22 20 Blood Pressure 171/88 H 184/80 H Blood Pressure [Right Arm] Blood Pressure Mean 115 114 Blood Pressure Mean [Right Arm] Blood Pressure Position [Right Arm] 02 Sat by Pulse Oximetry 100 99 Oxygen Delivery Method - Lab Data Lab Results 11/12/21 13:44: WBC 14.7 H, RBC 4.39, Hgb 7.0 L, Hct 25.4 L, MCV 57.9 L, MCH 16.1 L, MCHC 27.7 L, RDW 23.2 H, Plt Count 844 H, MPV 8.4, Neut % (Auto) 88.4 H, Lymph % (Auto) 7.2 L, [place] % (Auto) 4.0, Eos % (Auto) 0.0 L, Baso % (Auto) 0.4, Neut # (Auto) 13.0 H, Lymph # (Auto) 1.0, [place] # (Auto) 0.6, Eos # (Auto) 0.0, Baso # (Auto) 0.1, Total Counted 100, Neutrophils % (Manual) 93 H, Lymphocytes % (Manual) 3 L, Monocytes % (Manual) 4, Platelet Estimate Marked increase, Hypochromasia 3+, Anisocytosis 2+, Microcytosis 3+ 11/12/21 13:44: Sodium 141, Potassium 3.3 L, Chloride 110 H, Carbon Dioxide 22, Anion Gap 12.3, BUN 24 H, Creatinine 0.60, Estimated Creat Clear 54, Estimated GFR 101, Est GFR ( Amer) 122, Glucose 148 H, Calcium 9.1, Total Bilirubin 0.5, AST 53 H, ALT 37, Alkaline Phosphatase 108, Total Creatine Kinase 465 H, Troponin I 0.02, Total Protein 6.8, Albumin 3.7, Globulin 3.1, Albumin/Globulin Ratio 1.2 11/12/21 14:30: Stool Occult Blood Negative 11/12/21 14:55: Urine Color Yellow, Urine Appearance Clear, Urine pH 6.0, Ur Specific [place] 1.015, Urine Protein Negative, Urine Glucose (UA) Negative, Urine Ketones Trace, Urine Blood Trace-i, Urine Nitrate Positive, Urine Bilirubin Negative, Urine Urobilinogen 0.2, Ur Leukocyte Esterase 2+ A, Urine RBC 3-5, Urine WBC 50-100, Ur Squamous Epith Cells Occasional, Amorphous Sediment 1+, Urine Bacteria 4+, Urine Yeast 2+ 11/12/21 15:05: Blood Type O Positive, Antibody Screen Negative, Crossmatch ([facility]) See Detail Result diagrams: 11/12/21 13:44 11/12/21 13:44 Orders (Tests/Meds): ED MEDICATIONS Generic Name Dose Route Start Last Admin Trade Name Freq PRN Reason Stop Dose
[2021-11-12 14:02] LABS: Chloride 110 mmol/L (98-107); Sodium 141 mmol/L (136-145)
[2021-11-12 14:03] LABS: Potassium 3.3 mmoL/L (3.5-5.1)
[2021-11-12 14:05] LABS: Alanine Aminotransferase 37 U/L (12-78); Alkaline Phosphatase 108 U/L (38-126); Anion Gap 12.3 mEq/L (5-15); Aspartate Amino Transferase 53 U/L (14-36); Bilirubin,Total 0.5 mg/dl (0.2-1.3); Blood Urea Nitrogen 24 mg/dl (7-17); Calcium 9.1 mg/dl (8.4-10.2); Carbon Dioxide 22 mmol/L (22.0-30.0); Creatine Kinase 465 U/L (30-135); Creatinine Clearance Estimated 54 mL/min (50-200); Estimated Glomerular Filt Rate 101 ml/min (>60); GFR (African American) 122 ML/MIN (>60); Glucose 148 mg/dl (74-100)
[2021-11-12 14:06] LABS: Albumin Level 3.7 g/dl (3.5-5.0); Albumin/Globulin Ratio 1.2 (1.1-1.8); Globulin 3.1 g/dL (1.3-3.2); Total Protein,Serum 6.8 g/dl (6.3-8.2)
--- NOTE | 2021-11-12 14:12 | PC.NURSE ---
PT CLEANED,DEPENDS CHANGED. CHEST WITH REDNESS NOTED. PT STATES SHE WAS SCOOTING AROUND ON THE FLOOR SINCE THURSDAY
[2021-11-12 14:18] LABS: Troponin I 0.02 ng/ml (0.00-0.034)
[2021-11-12 14:19] LABS: Basophils # 0.1 K/mm3 (0-0.2); Basophils % 0.4 % (0.1-2.0); Hematocrit 25.4 % (37.0-47.0); Lymphocytes % 7.2 % (10-50); Mean Corpuscular HGB Conc 27.7 g/dL (31.8-35.4); Mean Corpuscular Hemoglobin 16.1 pg (27.0-31.2); Mean Corpuscular Volume 57.9 fl (81-99); Mean Platelet Volume 8.4 fl (7.4-10.4); Monocytes # 0.6 K/mm3 (0.1-1.0); Neutrophils % 88.4 % (37.0-80.0); Platelet Count 844 K/mm3 (142-424); Red Blood Count 4.39 M/mm3 (4.20-5.40); Red Cell Distribution Width 23.2 % (11.5-17.5); White Blood Count 14.7 K/mm3 (4.8-10.8)
[2021-11-12 14:20] LABS: MANUAL DIFFERENTIAL MANUAL DIFFERENTIAL (MANUAL DIFF)
--- NOTE | 2021-11-12 14:24 | PC.NURSE ---
rad at for portable xrays
--- NOTE | 2021-11-12 14:30 | ECG_ITS ---
APPROVED REPORT Exam: Resting ECG HR:82 bpm ECG Measurements Heart Rate 82 AXES OH 149 P 53 QRSd 90 QRS 14 QT 387 T 70 QTc 425 Conclusion SINUS RHYTHM LEFT ATRIAL ENLARGEMENT [-0.15mV P-WAVE IN V1/V2] LEFT VENTRICULAR HYPERTROPHY AND ST-T CHANGE [VOLTAGE CRITERIA PLUS ST/T ABNORMALITY] ABNORMAL ECG UNCONFIRMED REPORT Electronically signed by : Bi Díaz MD 11/15/2021 18:07:10
[2021-11-12 14:52] LABS: Occult Blood,Stool Negative (Negative)
[2021-11-12 15:01] LABS: Microscopic, Urine URINE MICROSCOPIC (MICROSCOPIC)
[2021-11-12 15:07] LABS: Lymphocytes % 3 % (10-50); Monocytes % 4 % (2-9); Neutrophils % 93 % (42-76); Total Cells Counted 100
[2021-11-12 15:09] LABS: Microcytosis 3+
[2021-11-12 15:10] LABS: Anisocytosis 2+; Hypochromasia 3+
[2021-11-12 15:11] LABS: Platelet Estimate Marked Increase
--- NOTE | 2021-11-12 15:17 | PC.NURSE ---
waiting pss delivery professional back from dr. cantu, office staff states he is in a room with a pt.
--- NOTE | 2021-11-12 15:26 | CT_ITS ---
FINAL REPORT CLINICAL HISTORY: fall, anemia, hip fracture FINDINGS: Technique: The patient was injected with intravenous contrast. Axial images through the abdomen and pelvis were performed. This study was performed with techniques to keep radiation doses as low as reasonably achievable (ALARA). Individualized dose reduction techniques using automated exposure control or adjustment of mA and/or kV according to the patient's size were employed. Abdomen: There is mild pulmonary scarring. There are postoperative changes near the GE junction. There are postoperative changes from cholecystectomy. The liver is normal in size and attenuation. The spleen is unremarkable. The adrenals are normal. The pancreas is unremarkable. There are multiple nonobstructing bilateral renal stones with the largest measuring 8 mm on the left. There are bilateral renal cysts with the largest measuring 24 mm on the left. The aorta is normal in caliber. There is no free fluid or adenopathy. There are diffuse vascular calcifications. There is a severe L1 compression fracture with up to 80% loss of height, favor chronic. Pelvis: The appendix is normal. A Hernandez catheter is present. There are postoperative changes from hysterectomy. There is a large amount of retained stool within the colon. There is no free fluid or adenopathy. There are subacute to chronic fractures of the bilateral sacral ala. There are left inferior and superior pubic rami fractures which are subacute to chronic. There is a comminuted fracture of the right greater trochanter. A greater trochanter fracture fragment is displaced superiorly approximately 18 mm. This fracture is favored to be subacute or chronic. There is a fracture along the medial proximal femur seen on axial image 113 that may be acute. IMPRESSION: Multiple nonobstructing renal stones. Multiple fractures as described, most are favored subacute to chronic. Fracture along the medial border of the proximal femur may be acute. If indicated, MRI may be helpful to evaluate for bone marrow edema which would indicate an acute fracture. Reviewed, Interpreted and Dictated by Jesus Harding III, MD Transcribed by Rosalba Santos Authenticated and [facility]
[2021-11-12 15:28] LABS: Appearance,Urine CLEAR (Clear); Bilirubin,Urine Negative (Negative); Blood, Urine TRACE-I (Negative); Color,Urine YELLOW (Yellow); Glucose,Urine (UA) Negative (Negative); Ketones,Urine TRACE (Negative); Leukocyte Esterase,Urine 2+ (Negative); Nitrate,Urine POSITIVE (Negative); Protein,Urine Negative (Negative); Specific Gravity, Urine 1.015 (1.005-1.030); Urobilinogen,Urine 0.2 EU/dl (0.2)
--- NOTE | 2021-11-12 15:39 | PC.NURSE ---
waiting customer relations assistant back from dr. alfred, office staff states in a room with a pt
--- NOTE | 2021-11-12 16:07 | PC.NURSE ---
PEr , states that pt injuries are non operative.
[2021-11-12 16:16] LABS: Coronavirus 19, PCR Not Detected (NotDetected); Influenza A, PCR Not Detected (NotDetected); Influenza B, PCR Not Detected (NotDetected)
--- NOTE | 2021-11-12 16:18 | PC.NURSE ---
PT WANTED HER NIECE CALLED AND UPDATE HER ON PLAN OF CARE. CALLED SPOKE WITH BO [place] AND INFORMED HER OF PT'S CONDITION AND PLAN OF CARE
[2021-11-12 16:27] LABS: Amorphous Sediment,Urine 1+ /lpf; Bacteria,Urine 4+ /lpf; Squamous Epithelial Cell,Urine Occasional #/hpf (0-5); WBC,Urine 50-100 #/hpf (0-3)
[2021-11-12 16:28] LABS: Yeast,Urine 2+ /lpf
--- NOTE | 2021-11-12 16:35 | PC.NURSE ---
NO RETURN CALL FROM DR TELLO, CALLED OFFICE, OFFICE CLOSED. DR DE LA VEGA IS AUTO DAMAGE APPRAISER FOR DR KRISHNAN. DR DE LA VEGA PAGED
--- NOTE | 2021-11-12 16:45 | PC.NURSE ---
RETURN CALL FROM DR DE LA VEGA
--- NOTE | 2021-11-12 17:09 | PC.NURSE ---
SLING APPLIED TO RT ARM
--- NOTE | 2021-11-12 17:44 | PC.NURSE ---
pt daughter called at this time (Carley), states she had been trying to call pts cell phone. Told pt daughter that I dont believe pt has her phone with her. Notified her that her daughter (pts grand daughter) lanny is at BS with pt at this time, offered to take the phone to pt/grand daughter, she was agreeable to this. Call transferred to portable phone and taken to pts room.
--- NOTE | 2021-11-12 17:50 | PC.NURSE ---
REPORT CALLED TO FLOOR
--- NOTE | 2021-11-12 17:59 | PC.NURSE ---
Pt to floor via stretcher at this time. [id number]
[2021-11-13] VITALS (22 sets, daily range): BP systolic 115–195; BP diastolic 67–100; PULSE 72–84; RESP 16–20; TEMP 36.6–37; O2SAT 97–100; BMI 25.9
--- NOTE | 2021-11-13 05:56 | PC.NURSE ---
Pt received 1 unit of blood. Pt tolerated well. Pt readjusted in bed and c/o shoulder pain. Pt was given lortab for pain and it was not effective. given 2nd pill and pt reported that she was finally pain free. Pt did c/o anxiety and requested her home xanax be restarted and Dr. Vasquez agreed. Medicaiton admin. and she voiced that she felt better.
[2021-11-13 06:50] LABS: Basophils # 0.1 K/mm3 (0-0.2); Basophils % 0.9 % (0.1-2.0); Eosinophils # 0.2 K/mm3 (0.0-0.4); Eosinophils % 1.5 % (0.1-12.0); Hematocrit 24.3 % (37.0-47.0); Hemoglobin 7.4 g/dL (12.2-16.2); Lymphocytes # 2.2 K/mm3 (0.7-4.5); Lymphocytes % 19.6 % (10-50); Mean Corpuscular HGB Conc 30.6 g/dL (31.8-35.4); Mean Corpuscular Hemoglobin 18.1 pg (27.0-31.2); Mean Platelet Volume 7.9 fl (7.4-10.4); Monocytes # 0.7 K/mm3 (0.1-1.0); Monocytes % 6.5 % (1.7-9.3); Neutrophils % 71.5 % (37.0-80.0); Platelet Count 618 K/mm3 (142-424); Red Blood Count 4.12 M/mm3 (4.20-5.40); White Blood Count 11.2 K/mm3 (4.8-10.8)
[2021-11-13 07:07] LABS: Chloride 111 mmol/L (98-107); Potassium 3.2 mmoL/L (3.5-5.1); Sodium 139 mmol/L (136-145)
[2021-11-13 07:10] LABS: Anion Gap 10.2 mEq/L (5-15); Blood Urea Nitrogen 15 mg/dl (7-17); Calcium 8.3 mg/dl (8.4-10.2); Carbon Dioxide 21 mmol/L (22.0-30.0); Creatinine Clearance Estimated 58 mL/min (50-200); Estimated Glomerular Filt Rate 101 ml/min (>60); GFR (African American) 122 ML/MIN (>60); Glucose 99 mg/dl (74-100)
[2021-11-13 07:11] LABS: Red Cell Distribution Width 25.5 % (11.5-17.5)
--- NOTE | 2021-11-13 07:21 | P.CONPHA_ITS ---
[facility] VTE Monitoring - Patient Demographics Admission date: 11/12/21 Report Date: 11/13/21 Time: 07:21 Allergies/Adverse Reactions: Patient Allergies erythromycin base Allergy (Unknown, Verified 12/12/19 23:45) I-HIVES Penicillins Allergy (Unknown, Verified 12/12/19 23:45) I-HIVES propoxyphene Allergy (Unknown, Verified 12/12/19 23:45) I-HIVES Height: 1.57 m Weight: 63.957 kg Patient Problems: Current Active Problems Closed right hip fracture (Acute) Closed right humeral fracture (Acute) UTI (urinary tract infection) (Acute) - VTE Risk Labs: VTE Related Lab Results Hgb 7.4 g/dL (12.2-16.2) L 11/13/21 06:15 Hct 24.3 % (37.0-47.0) L 11/13/21 06:15 Plt Count 618 K/mm3 (142-424) H D 11/13/21 06:15 BUN 15 mg/dl (7-17) D 11/13/21 06:15 Creatinine 0.60 mg/dl (0.52-1.04) 11/13/21 06:15 Estimated Creat Clear 58 mL/min (50-200) 11/13/21 06:15 Was VTE Risk Assessment Performed: Yes VTE Score: 8 VTE Risk Level: Moderate Risk - Prophylaxis VTE Prophylaxis Ordered?: Yes Types of VTE Prophylaxis: TEDS Knee High Location of Applied Device: Bilateral Lower Extremeties
--- NOTE | 2021-11-13 07:59 | HMH.PHAINT ---
MEDICATION RECONCILIATION COMPLETED ON PATIENT USING EXTERNAL FILL HISTORY FROM PHARMACY. -KATIE VALLE, RIVKAD
--- NOTE | 2021-11-13 08:39 | HMH.HP ---
*Admission Date: 11/12/21 *Chief complaint: Fall at home with significant pain *History of present illness: 65-year-old white female who suffers from significant osteoporosis secondary to hyperparathyroidism in the past with chronic hypocalcemia status post parathyroidectomy, who fell at home slipping on wood floor in her sock feet, and was unable to get up for a couple of days until family checked on her. She was in significant pain in the legs and right shoulder taken to the emergency department. ER evaluation revealed a UTI, and she had a comminuted impacted right humeral fracture along with multiple old fractures of the femur and ribs. She was admitted for pain control, orthopedic consult, and further evaluation. This morning she feels little better except for significant TV issues and pain in the shoulder area. She notes that she is not been out to see our office in over 6 months. She has been afraid of exposure to coronavirus. [facility] History I have reviewed the patient's past medical history: Yes Medical History: Reports:: Cancer, Chronic Obstructive Pulmonary Disease (COPD), Cerebrovascular Accident, Deep Vein Thrombosis, Diabetes Mellitus Type 2, Gastroesophageal Reflux Disease(GERD), Hyperlipidemia, Hypertension, Lung Disease, Myocardial Infarction, Peripheral Vascular Disease Denies:: Diabetes Mellitus Type 1, Internal Pacemaker, MRSA, Seizures *Have you ever received a pneumonia vaccine?: No *Have you received a flu vaccine this season?: No Other Medical History: Reports: Anemia, Arthritis, Fibromyalgia, Sinus Problems, Thyroid Disease, Other Laterality Cases: Bilateral: Arthroscopy Knee, Tonsillectomy Other Surgeries: Yes: Appendectomy, Cancer Surgery, Cardiac Catheterization, Cholecystectomy, Colonoscopy, EGD, Hysterectomy-Total, Hysterectomy-Partial. No: Pacemaker Amputation: No Fractures: Yes - *Social History Smoking Status: Current every day smoker Tobacco Type: cigarettes # Packs/Day (cigarettes): 1 Alcohol Intake: never Alcohol Intake Frequency:: other Substance Use Type: denies use *Occupational Status:: disabled Housing: apartment Household Members: none *Travel in the last 8 weeks: None Family Hx:: Cancer, Diabetes, Heart Attack, Hyperlipidemia, Hypertension, Stroke, Tuberculosis, Alcoholism, Mental illness Review of Systems - Review of Systems Review of systems:: pertinent systems reviewed and negative unless documented below In addition to her pains patient reports increasing fatigue. Reports cough has been nonproductive. Reports no chronic chest pain. Meds Home Medications Medication Instructions Recorded Confirmed Type alprazolam 1 mg tablet 1 mg PO QIDP PRN 30 Days tab 07/26/18 11/12/21 History aspirin 81 mg tablet,delayed 81 mg PO DAILY 07/26/18 11/12/21 History release duloxetine 60 mg capsule,delayed 60 mg PO DAILY 30 Days cap 07/26/18 11/12/21 History release gabapentin 600 mg tablet 600 mg PO TID 30 Days tab 07/26/18 11/12/21 History ramipril 10 mg capsule 20 mg PO DAILY 30 Days cap 07/26/18 11/13/21 History topiramate 100 mg tablet 100 mg PO BID 30 Days tab 07/26/18 11/12/21 History Metformin HCl 500 mg PO DAILY 12/13/19 11/12/21 History Amlodipine Besylate [Amlodipine 10 mg PO DAILY 11/13/21 11/13/21 History 10mg Tab] Bisoprolol Fumarate [Bisoprolol 5 mg PO DAILY 11/13/21 11/13/21 History 5mg Tablet] PARoxetine HCL [Paxil] 10 mg PO DAILY 11/13/21 11/13/21 History Pantoprazole Sodium [Protonix 40mg 40 mg PO DAILY 11/13/21 11/13/21 History tablet] Pravastatin Sodium [Pravachol 40mg 40 mg PO HS 11/13/21 11/13/21 History Tablet] Allergies Allergy/AdvReac Type Severity Reaction Status Date / Time erythromycin base Allergy Unknown I-HIVES Verified 12/12/19 23:45 Penicillins Allergy Unknown I-HIVES Verified 12/12/19 23:45 propoxyphene Allergy Unknown I-HIVES Verified 12/12/19 23:45 Exam Vital signs and Labs for Last 24 Hours: Temp Pulse Resp
--- NOTE | 2021-11-13 10:12 | HMH.OTEV ---
OT Inpatient Evaluation Rehab OT IP Evaluation Start: 11/13/21 08:36 Freq: ONCE Status: Complete Protocol: Document 11/13/21 10:03 JAN (Rec: 11/13/21 10:12 JAN [id number]) Rehab OT IP Assessment Subjective History 65-year-old white female who suffers from significant osteoporosis secondary to hyperparathyroidism in the past with chronic hypocalcemia status post parathyroidectomy , who fell at home slipping on wood floor in her sock feet, and was unable to get up for a couple of days until family checked on her. She was in significant pain in the legs and right shoulder taken to the emergency department. ER evaluation revealed a UTI, and she had a comminuted impacted right humeral fracture along with multiple old fractures of the femur and ribs. She was admitted for pain control, orthopedic consult, and further evaluation. This morning she feels little better except for significant TV issues and pain in the shoulder area. She notes that she is not been out to see our office in over 6 months. She has been afraid of exposure to coronavirus. [facility] History I have reviewed the patient's past medical history: Yes Medical History: Reports:: Cancer, Chronic Obstructive Pulmonary Disease (COPD), Cerebrovascular Accident, Deep Vein Thrombosis, Diabetes Mellitus Type 2, Gastroesophageal Reflux Disease(GERD), Hyperlipidemia, Hypertension, Lung Disease, Myocardial Infarction, Peripheral Vascular Disease Patient stated to live alone
--- NOTE | 2021-11-13 10:25 | MR_ITS ---
FINAL REPORT CLINICAL HISTORY: right hip fracture COMPARISON: 11/12/2021 FINDINGS: Multiplanar MR imaging of the right hip was performed without contrast. There is a fracture of the greater trochanter with up to 18 mm of distraction. The fracture appears chronic. There is however an acute nondisplaced mildly comminuted fracture which extends from the lesser trochanter to the base of the greater trochanter with bone marrow edema. A small joint effusion is identified. There is a moderate to large amount fluid which overlies the greater trochanter, may represent seroma or hematoma. There is hemorrhage or edema in the bilateral adductor musculature, right greater than left. IMPRESSION: Acute nondisplaced fracture extends from the lesser trochanter to the base of the greater trochanter. Chronic fracture of the greater trochanter. Reviewed, Interpreted and Dictated by Jesus Harding III, MD Transcribed by Ruthie Hagen Authenticated and [facility]
--- NOTE | 2021-11-13 10:28 | CT_ITS ---
FINAL REPORT TECHNIQUE: Axial images through the right shoulder was performed by computed tomography. Sagittal and coronal reformatted images were obtained and reviewed. 3D reformats were obtained. This study was performed with techniques to keep radiation doses as low as reasonably achievable (ALARA). Individualized dose reduction techniques using automated exposure control or adjustment of mA and/or kV according to the patient's size were employed. CLINICAL HISTORY: proximal humerus fracture FINDINGS: There is a comminuted, impacted fracture of the humeral head and neck. There is mild posterior rotation of the humeral head fragment. There is no evidence of dislocation. There is mild AC joint degenerative change. Small joint effusion is identified. IMPRESSION: Comminuted, impacted fracture of the humeral head and neck. Reviewed, Interpreted and Dictated by Jesus Harding III, MD Transcribed by Ruthie Hagen Authenticated and [facility]
--- NOTE | 2021-11-13 11:05 | PC.NURSE ---
1103 pt off unit for CT scan then MRI
--- NOTE | 2021-11-13 11:37 | HMH.PTEV ---
Physical Therapy Evaluation Rehab PT IP Evaluation Start: 11/13/21 08:36 Freq: ONCE Status: Active Protocol: Document 11/13/21 11:29 LAWRENCE (Rec: 11/13/21 11:37 LAWRENCE [id number]) Subjective/History History History Patient is a 65-year-old white female who suffers from significant osteoporosis secondary to hyperparathyroidism in the past with chronic hypocalcemia status post parathyroidectomy , who fell at home slipping on wood floor in her sock feet, and was unable to get up for a couple of days until family checked on her. Patient previously required Rollator at home, though it was used seldomly per daughter report. Subjective Subjective I don't want to get up and walk. Patient agreed to participate in PT evaluation. Rehab PT IP Eval Objective Appearance Patient Behavior Appropriate,Cooperative Patient Orientation Person,Place,Birthday Difficulty following instructions none Speech Pattern Clear Ambulation Patient Able to Ambulate No Balance Ability to Arise Unable Sitting Balance Steady, safe Standing Balance Steady, wide stance Dynamic Sitting Balance Ability Good Dynamic Standing Balance Ability Good Transfers Bed Transfer Ability Moderate x 2 (50% assist) Sit to Stand Bed Transfer Ability Moderate x 2 (50% assist) Pain Right Shoulder Pain Intensity 6 ROM RUE PT ROM Status ABN Abnormal ROM Comment NT for ortopedic precautions MMT RUE PT MMT ABN Abnormal MMT Grade NT for othopedic precautions Rehab PT IP prob,goals,plan Problems Date of Evaluation: 11/13/21 PT IP Problems Bed Mobility,Transfers,Gait, Balance,Self care,Safety Rehab Potential Rehab Potential Fair Equipment Needs Assistive Devices Rolling / Wheeled Walker Plan PT Intervention Plan Bed Mobility,Transfers,Gait, Balance,Self care,Safety, Therapeutic Exercise PT Plan Frequency BID Duration LOS Discharge Goals Bed Transfer Ability Minimal x 1 (25% assist) Sit to Stand Chair Transfer Ability Minimal x 1 (25%
--- NOTE | 2021-11-13 12:04 | PC.NURSE ---
back on unit at this time
[2021-11-13 12:22] LABS: POC Glucose,Bedside 165 (70-110)
--- NOTE | 2021-11-13 12:59 | PC.NURSE ---
Addendum entered by Betsy Waters RN 11/13/21 14:26: 1332 Dr Díaz returned call. informed him of Ortho plans to take pt to surgery in the am to repair her hip. Dr Wong requests that dr Díaz look into h/h and hypokalemia. New orders: type and cross 2 units of prbc's infuse 4 10meg runs of potassium. bmp 1999(11/13) and 06 (11/14) Original Note: [address] Díaz per Dr Wong's request to update him on pt POC. message left for MD to return call
--- NOTE | 2021-11-13 13:30 | HMH.ORTHOCON ---
*Admission Date: 11/12/21 <Ashli Mondragon - 11/13/21 13:30> *Reason for consult:: right humerus fracture, right hip fracture <Ashli Mondragon 11/13/21 13:30> *History of present illness: Patient is a 65-year-old female admitted to the acute inpatient service yesterday 11/13/2021 after sustaining a fall at home. She reports that she fell in her own home after slipping on wooden floor, and was unable to get up for a couple days until family found her. She reports that she fell on 11/09/2021. Evaluation in the [facility] emergency department demonstrates a comminuted, impacted right humerus fracture. Subsequent evaluation with MRI of the right hip demonstrates a right nondisplaced intertrochanteric femur fracture. Today the patient continues to report right shoulder pain and right hip pain. She denies any distal numbness/tingling. At baseline she reports that she lives alone in her own home and uses a Rollator to walk. Her past medical history is significant for osteoporosis, hyperparathyroidism, chronic hypocalcemia, diabetes, GERD, hypertension, hyperlipidemia, and COPD without oxygen dependence. She is a chronic smoker. She denies any other injuries, hitting her head, loss of consciousness, chest pain, palpitations, or shortness of breath. She denies any other symptoms or concerns at this time. <Ashli Mondragon 11/13/21 13:50> [facility] History Medical History: Reports:: Cancer, Chronic Obstructive Pulmonary Disease (COPD), Cerebrovascular Accident, Deep Vein Thrombosis, Diabetes Mellitus Type 2, Gastroesophageal Reflux Disease(GERD), Hyperlipidemia, Hypertension, Lung Disease, Myocardial Infarction, Peripheral Vascular Disease Denies:: Diabetes Mellitus Type 1, Internal Pacemaker, MRSA, Seizures <Ashli Mondragon 11/13/21 13:30> *Have you ever received a pneumonia vaccine?: No <Ashli Mondragon 11/13/21 13:30> *Have you received a flu vaccine this season?: No <Ashli Mondragon 11/13/21 13:30> Other Medical History: Reports: Anemia, Arthritis, Fibromyalgia, Sinus Problems, Thyroid Disease, Other <Ashli Mondragon 11/13/21 13:30> Laterality Cases: Bilateral: Arthroscopy Knee, Tonsillectomy <Ashli Mondragon 11/13/21 13:30> Other Surgeries: Yes: Appendectomy, Cancer Surgery, Cardiac Catheterization, Cholecystectomy, Colonoscopy, EGD, Hysterectomy-Total, Hysterectomy-Partial. No: Pacemaker <Ashli Mondragon 11/13/21 13:30> Amputation: No <Ashli Mondragon 11/13/21 13:30> Fractures: Yes <Ashli Mondragon 11/13/21 13:30> - *Social History Smoking Status: Current every day smoker <Ashli Mondragon 11/13/21 13:30> Tobacco Type: cigarettes <Ashli Mondragon 11/13/21 13:30> # Packs/Day (cigarettes): 1 <Ashli Mondragon 11/13/21 13:30> Alcohol Intake: never <Ashli Mondragon 11/13/21 13:30> Alcohol Intake Frequency:: other <Ashli Mondragon 11/13/21 13:30> Substance Use Type: denies use <Ashli Mondragon 11/13/21 13:30> *Occupational Status:: disabled <Ashli Mondragon 11/13/21 13:30> Housing: apartment <Ashli Mondragon 11/13/21 13:30> Household Members: none <Ashli Mondragon 11/13/21 13:30> *Travel in the last 8 weeks: None <Ashli Mondragon 11/13/21 13:30> Family Hx:: Cancer, Diabetes, Heart Attack, Hyperlipidemia, Hypertension, Stroke, Tuberculosis, Alcoholism, Mental illness <Ashli Mondragon 11/13/21 13:30> Review of Systems - Review of Systems Review of systems:: pertinent systems reviewed and negative unless documented below <Ashli Mondragon 11/13/21 13:50> - Constitutional Denies anorexia, Denies body ache(s), Denies chills, Denies fatigue, Denies fever(s), Denies headache(s), Denies malaise <Ashli Mondragon 11/13/21 13:50> - Eyes Denies change in vision, Denies loss of vision <Ashli Mondragon - 11/13/21 13:50> - ENT Denies dizziness, Denies headache(s), Denies nasal congestion, Denies neck lump, Denies neck pain, Denies sore throat <Ashli Mondragon - 11/13/21 13:50>
--- NOTE | 2021-11-13 16:08 | PC.NURSE ---
Pt has rested in room this shift, PT attempted to work with pt, she was able to stand at bedside but did state that she was having pain. lungs are clear, bowel sounds are active in all quads. nad. MRI results show that pt has a fractured R hip that is to be repaired on 11/14. pt is a difficult IV stick. US was attempted. 20 was started in the left fa. Spoke with Dr Díaz at 1605, states that it is ok at this time to focus on infusing the runs of potassium, and once that is complete, start the blood transfusions. family aware of POC
[2021-11-13 20:12] LABS: POC Glucose,Bedside 129 (70-110)
[2021-11-13 20:12] LABS: POC Glucose,Bedside 146 (70-110)
[2021-11-13 21:11] LABS: Chloride 108 mmol/L (98-107); Potassium 3.3 mmoL/L (3.5-5.1); Sodium 137 mmol/L (136-145)
[2021-11-13 21:14] LABS: Anion Gap 8.3 mEq/L (5-15); Blood Urea Nitrogen 13 mg/dl (7-17); Carbon Dioxide 24 mmol/L (22.0-30.0); Creatinine Clearance Estimated 58 mL/min (50-200); Estimated Glomerular Filt Rate 101 ml/min (>60); GFR (African American) 122 ML/MIN (>60)
[2021-11-13 21:15] LABS: Calcium 7.9 mg/dl (8.4-10.2); Glucose 146 mg/dl (74-100)
[2021-11-14] VITALS (30 sets, daily range): BP systolic 97–197; BP diastolic 43–98; PULSE 65–89; RESP 16–20; TEMP 36.4–37.1; O2SAT 92–100; BMI 25.4
--- NOTE | 2021-11-14 04:55 | PC.NURSE ---
Pt received 2 units of blood this shift. Has tolerated well. Pt has been hypertensive t/o night. She has c/o discomfort to shoulder, (R) hip and chronic back pain. MD notified of concerns. New orders received and carried out. Pt was administered one dose of amlodipine 5 mg po. [place] was DC due to pt not tolerating medication. Morphine 2 mg IV was ordered in place. Pt is NPO. Operative consent is signed and on chart. Will continue to monitor.
[2021-11-14 05:15] LABS: POC Glucose,Bedside 128 (70-110)
[2021-11-14 06:22] LABS: Basophils # 0.1 K/mm3 (0-0.2); Basophils % 0.9 % (0.1-2.0); Eosinophils # 0.3 K/mm3 (0.0-0.4); Eosinophils % 2.5 % (0.1-12.0); Hematocrit 33.9 % (37.0-47.0); Lymphocytes % 17.9 % (10-50); Mean Corpuscular HGB Conc 31.3 g/dL (31.8-35.4); Mean Corpuscular Hemoglobin 20.6 pg (27.0-31.2); Mean Corpuscular Volume 65.8 fl (81-99); Mean Platelet Volume 7.6 fl (7.4-10.4); Monocytes % 8.7 % (1.7-9.3); Neutrophils # 7.9 K/mm3 (1.8-7.8); Neutrophils % 70.1 % (37.0-80.0); Platelet Count 545 K/mm3 (142-424); Red Blood Count 5.15 M/mm3 (4.20-5.40); White Blood Count 11.3 K/mm3 (4.8-10.8)
[2021-11-14 06:23] LABS: Chloride 107 mmol/L (98-107); Potassium 3.1 mmoL/L (3.5-5.1); Sodium 140 mmol/L (136-145)
[2021-11-14 06:26] LABS: Anion Gap 10.1 mEq/L (5-15); Blood Urea Nitrogen 14 mg/dl (7-17); Calcium 8.1 mg/dl (8.4-10.2); Carbon Dioxide 26 mmol/L (22.0-30.0); Creatinine Clearance Estimated 57 mL/min (50-200); Estimated Glomerular Filt Rate 101 ml/min (>60); GFR (African American) 122 ML/MIN (>60); Glucose 143 mg/dl (74-100)
[2021-11-14 06:39] LABS: Hemoglobin 10.6 g/dL (12.2-16.2); Red Cell Distribution Width 28.7 % (11.5-17.5)
--- NOTE | 2021-11-14 08:19 | HMH.ACPN2 ---
Internal Medicine - PN: Subj *Date: 11/14/21 *Time: 08:19 Interval history: Overnight patient had pain, had some cognitive changes with [place] earlier and declined this. We tried morphine injection which she did very well for her. Blood pressure has been a little high but I think this is from pain symptomatology. Appreciate Ortho input yesterday. Potassium continues to be slightly low. Blood counts responded extremely well to her 2 units of packed cells. Exam Vital signs and Labs for Last 24 Hours: Temp Pulse Resp BP Pulse Ox 98.4 F 80 16 192/85 H 97 11/14/21 08:00 11/14/21 08:00 11/14/21 08:00 11/14/21 08:00 11/14/21 08:00 Laboratory Results - last 24 hr 11/12/21 14:55: Urine Color Yellow, Urine Appearance Clear, Urine pH 6.0, Ur Specific [place] 1.015, Urine Protein Negative, Urine Glucose (UA) Negative, Urine Ketones Trace, Urine Blood Trace-i, Urine Nitrate Positive, Urine Bilirubin Negative, Urine Urobilinogen 0.2, Ur Leukocyte Esterase 2+ A, Urine RBC 3-5, Urine WBC 50-100, Ur Squamous Epith Cells Occasional, Amorphous Sediment 1+, Urine Bacteria 4+, Urine Yeast 2+ 11/12/21 15:05: Blood Type O Positive, Antibody Screen Negative, Crossmatch (AHG) See Detail 11/13/21 12:12: POC Glucose 165 H 11/13/21 17:15: POC Glucose 146 H 11/13/21 19:50: POC Glucose 129 H 11/13/21 20:55: Sodium 137, Potassium 3.3 L, Chloride 108 H, Carbon Dioxide 24, Anion Gap 8.3, BUN 13, Creatinine 0.60, Estimated Creat Clear 58, Estimated GFR 101, Est GFR ( Amer) 122, Glucose 146 H D, Calcium 7.9 L 11/14/21 05:05: POC Glucose 128 H 11/14/21 05:48: WBC 11.3 H, RBC 5.15, Hgb 10.6 L D, Hct 33.9 L, MCV 65.8 L, MCH 20.6 L, MCHC 31.3 L, RDW 28.7 H*, Plt Count 545 H, MPV 7.6, Neut % (Auto) 70.1, Lymph % (Auto) 17.9, [place] % (Auto) 8.7, Eos % (Auto) 2.5, Baso % (Auto) 0.9, Neut # (Auto) 7.9 H, Lymph # (Auto) 2.0, [place] # (Auto) 1.0, Eos # (Auto) 0.3, Baso # (Auto) 0.1 11/14/21 05:48: Sodium 140, Potassium 3.1 L, Chloride 107, Carbon Dioxide 26, Anion Gap 10.1, BUN 14, Creatinine 0.60, Estimated Creat Clear 57, Estimated GFR 101, Est GFR ( Amer) 122, Glucose 143 H, Calcium 8.1 L I & O for Last 24 hours: Intake & Output 11/11/21 11/12/21 11/13/21 11/14/21 11:59 11:59 11:59 11:59 Intake Total 1910 / 1910 1015 / 1015 Output Total 2130 / 2130 6700 / 6700 Balance -220 / -220 -5685 / -5685 Weight 141 lb 138 lb Microbiology Reports for the Last 24 Hours: Microbiology 11/12/21 14:55 Urine,Clean Catch Urine Culture - Preliminary Gram Negative Rods Narrative: Alert, pleasant. Oriented x3. Lungs have minimal wheezing but good air movement, heart rate regular. Abdomen soft. Arm in the sling. Legs and head stockings. Able to wiggle her toes well. Assessment and Plan (1) Frequent falls Status: Acute Category: Medical Code(s): R29.6 - Repeated falls (2) Microcytic anemia Status: Acute Category: Medical Code(s): D50.9 - Iron deficiency anemia, unspecified (3) Closed right humeral fracture Status: Acute Qualifiers: Encounter type: initial encounter Humerus Location: proximal Fracture morphology: other fracture Fracture alignment: displaced Qualified Code(s): S42.291A - Other displaced fracture of upper end of right humerus, initial encounter for closed fracture Category: Medical Code(s): S42.301A - Unspecified fracture of shaft of humerus, right arm, initial encounter for closed fracture (4) UTI (urinary tract infection) Status: Acute Qualifiers: Urinary tract infection type: acute cystitis Hematuria presence: without hematuria Qualified Code(s): N30.00 - Acute cystitis without hematuria Category: Medical Code(s): N39.0 - Urinary tract infection, site not specified (5) COPD (chronic obstructive pulmonary disease) Status: Chronic Qualifiers: COPD type: unspecified COPD Qualified Code(s): J44.9 - Chronic obstructive
--- NOTE | 2021-11-14 08:51 | HMH.ORTHPN ---
Subjective Date: 11/14/21 <Ashli Mondragon - 11/14/21 08:51> Time: 08:25 <Ashli Mondragon - 11/14/21 08:51> Principal diagnosis: Right hip fracture, right humerus fracture <Ashli Mondragon - 11/14/21 08:51> Interval history: Patient is 65-year-old female admitted to the acute inpatient service 11/13/2021 after sustaining a fall at home. Evaluation at [facility] demonstrates a proximal right humerus fracture and a right nondisplaced intertrochanteric femur fracture. This morning the patient is lying comfortably in bed. She continues to report right shoulder and right hip pain but states that they are well controlled with rest and as needed pain medication. She denies any distal numbness/tingling. She reports that she was able to rest well last night and denies any episodes of nausea or vomiting. She has been n.p.o. since midnight. She denies any chest pain, shortness of breath, or palpitations. She received an additional 2 units of packed red blood cells yesterday. She denies any other symptoms or concerns at this time. <Ashli Mondragon - 11/14/21 08:56> PN: Obj Ex Vital signs: Temp Pulse Resp BP Pulse Ox 97.8 F 73 16 132/83 100 11/14/21 18:35 11/14/21 18:35 11/14/21 18:35 11/14/21 18:35 11/14/21 18:35 <Freddie Wong - 11/14/21 20:39> Temp Pulse Resp BP Pulse Ox 98.4 F 80 16 192/85 H 97 11/14/21 08:00 11/14/21 08:00 11/14/21 08:00 11/14/21 08:00 11/14/21 08:00 <Ashli Mondragon - 11/14/21 08:51> - Constitutional no acute distress, cooperative <Ashli Mondragon - 11/14/21 08:56> - Routine HEENT Exam Head: Present: normocephalic, atraumatic <Ashli Mondragon 11/14/21 08:56> Eye: Present: EOMI, PERRL <Ashli Mondragon 11/14/21 08:56> ENT: Present: mucous membranes moist <Ashli Mondragon 11/14/21 08:56> - Routine Neck Exam Present: supple, full ROM, trachea midline. Absent: JVD, lymphadenopathy <Ashli Mondragon 11/14/21 08:56> - Routine Respiratory Exam Absent: accessory muscle use, respiratory distress <Ashli Mondragon 11/14/21 08:56> Comments: Symmetric chest movement, able to speak in complete sentences <Ashli Mondragon 11/14/21 08:56> - Routine Cardiovascular Exam Present: RRR <Ashli Mondragon 11/14/21 08:56> Comments: Normal peripheral pulses <Ashli Mondragon 11/14/21 08:56> - Routine Abdominal Exam Present: soft. Absent: tenderness <Ashli Mondragon 11/14/21 08:56> - Routine Extremities Exam Comments: Upon examination of the lower extremities: Limb lengths are equal. Upon examination of the right hip, the skin is intact. No lacerations, abrasions, wounds, or ulcerations evident. The right hip and proximal femur are tender to palpation. Attempted movements of the right hip are somewhat painful. Thigh and calf are soft and nontender; Homans' sign is negative. No clinical evidence of DVT noted. Posterior tibial pulse 1+; capillary refill is brisk. Sensation to light touch is grossly intact throughout. Patient is actively mobilizing the foot, ankle, and toes. Upon examination of the right shoulder/upper extremity: The skin is intact. No lacerations, abrasions, wounds, or ulcerations evident. The right shoulder is tender to palpation. Attempted movements of the right shoulder are painful. Range of motion of the elbow, forearm, wrist, and fingers is full and nonpainful. Radial pulse 2+; capillary refill is brisk. Sensation to light touch is grossly intact throughout. <Ashli Mondragon 11/14/21 08:57> - Routine Skin Exam Present: intact, warm, normal turgor. Absent: cyanosis, erythema, lesions, jaundice <Ashli Mondragon 11/14/21 08:56> - Routine Neurological Exam Present: alert, oriented X3, CN II-XII intact, moving all extremities, normal tone, normal speech. Absent: sensory deficit, motor deficit, altered mental status <Ashli Mondragon - 11/14/21 08:56> - Routine Psychiatric Exam Present: normal
[2021-11-14 12:29] LABS: Chloride 111 mmol/L (98-107); Sodium 139 mmol/L (136-145)
[2021-11-14 12:32] LABS: Blood Urea Nitrogen 16 mg/dl (7-17); Creatinine Clearance Estimated 57 mL/min (50-200); Estimated Glomerular Filt Rate 125 ml/min (>60); GFR (African American) 151 ML/MIN (>60)
[2021-11-14 12:33] LABS: Calcium 8.3 mg/dl (8.4-10.2); Carbon Dioxide 23 mmol/L (22.0-30.0); Glucose 153 mg/dl (74-100)
[2021-11-14 12:46] LABS: Anion Gap 10.2 mEq/L (5-15); Potassium 5.2 mmoL/L (3.5-5.1)
--- NOTE | 2021-11-14 14:05 | HMH.ANESCL ---
[facility] Anesthesia Checklist - Patient Identification Patient Identification: Arm Band - Structural Data Admitted From: Home Planned Operative Procedure/s: Gamma nail Consent for Planned Operative Procedure(s) Verified: Yes - NPO Status Verified Time NPO: 00:00 - Additional verifications Anesthesia Reactions: Yes (PONV) - Airway Assessment C-Spine Mobility Assessed: Yes TMJ Mobility Assessed: Yes Dentition: Edentulous - Neurological Assessment Level of Consciousness: Awake Hx Seizures: No Numbness or tingling in extremities: No - Anesthesia Plan Anesthesia Risk discussed: Yes Anesthesia Plan: Verified ASA Class: III Anesthesia Type: MAC w/Spinal [facility] History Medical History: Reports:: Cancer, Chronic Obstructive Pulmonary Disease (COPD), Cerebrovascular Accident, Deep Vein Thrombosis, Diabetes Mellitus Type 2, Gastroesophageal Reflux Disease(GERD), Hyperlipidemia, Hypertension, Lung Disease, Myocardial Infarction, Peripheral Vascular Disease Denies:: Diabetes Mellitus Type 1, Internal Pacemaker, MRSA, Seizures *Have you ever received a pneumonia vaccine?: No *Have you received a flu vaccine this season?: No Other Medical History: Reports: Anemia, Arthritis, Fibromyalgia, Sinus Problems, Thyroid Disease, Other Anesthesia experience/problems:: None Laterality Cases: Bilateral: Arthroscopy Knee, Tonsillectomy Other Surgeries: Yes: Appendectomy, Cancer Surgery, Cardiac Catheterization, Cholecystectomy, Colonoscopy, EGD, Hysterectomy-Total, Hysterectomy-Partial. No: Pacemaker Amputation: No Fractures: Yes - *Social History Smoking Status: Current every day smoker Tobacco Type: cigarettes # Packs/Day (cigarettes): 1 Alcohol Intake: never Alcohol Intake Frequency:: other Substance Use Type: denies use *Occupational Status:: disabled Housing: apartment Household Members: none *Travel in the last 8 weeks: None Family Hx:: Cancer, Diabetes, Heart Attack, Hyperlipidemia, Hypertension, Stroke, Tuberculosis, Alcoholism, Mental illness
--- NOTE | 2021-11-14 14:24 | XR_ITS ---
PROCEDURE INFORMATION: Exam: XR Right Hip Exam date and time: 11/14/2021 2:15 PM Age: 65 years old Clinical indication: Device placement; Other: Right hip gamma nail; Additional info: Orif right hip, gamma nail, c-arm case TECHNIQUE: Imaging protocol: Radiologic exam of the Right hip. Views: 2 or 3 views hip with pelvis when performed. COMPARISON: MR HIP RT WO CON 11/13/2021 11:18 AM FINDINGS: Bones/joints: Fluoroscopic images demonstrating proximal femoral fixation hardware with intramedullary mohini and cannulated cross-locking trochanteric nail. Soft tissues: Unremarkable. IMPRESSION: Proximal femur fixation.
--- NOTE | 2021-11-14 15:33 | SW/DCPLANNER ---
Addendum entered by [facility] 11/19/21 14:39: This patient can discharge to [facility] today per [facility]. COVID swab has been ordered and Sarthak bhatt/ Pharmacy is working on medications. Addendum entered by [facility] 11/19/21 14:22: Lavnone bhatt/ [facility] has received approval and can accept this patient tomorrow. Patient will require a COVID swab prior to discharge. Addendum entered by [facility] 11/19/21 10:43: Per Lavonne [facility]: precert is still pending at this time. Addendum entered by [facility] 11/18/21 14:34: Lavonne stated that insurance requested additional information at this time. Addendum entered by [facility] 11/18/21 10:33: Precert is still pending per Lavonne bhatt/ [facility] at this time. Addendum entered by [facility] 11/15/21 10:20: Precert has been started on this patient. Addendum entered by [facility] 11/15/21 09:33: Patient information has been faxed to Lavonne Duque. Per Lavonne: patient's insurance is in network with [facility]. Original Note: Patient expressed an interest in placement once medically stable for discharge. Patient prefers [place] facility: [facility] have a female bed at this time. [facility] reviewed patient's insurance and is in network. I will fax all patient information once surgery and PT/OT evaluation is completed.
--- NOTE | 2021-11-14 16:47 | PC.NURSE ---
No acute changes noted this shift, patient currently in OR, FC patent and draining clear yellow urine, alert and oriented x4, has been treated for pain x1 this shift with good results, bed bath and linen change completed, remains on RA, vss.
--- NOTE | 2021-11-14 17:41 | HMH.OPNOTE ---
Date of procedure: 11/14/21 Pre-op Diagnosis:: 1. Closed, nondisplaced intertrochanteric fracture, right proximal femur 2. Old, displaced greater trochanter fracture, right proximal femur Post-op Diagnosis:: Same Procedure performed:: 1. Cephalomedullary nailing, right femur 2. Repair of greater trochanter fracture, right proximal femur Surgeon:: Freddie Wong MD Plumbing Manager(s):: Ashli Mondragon PA-C AUTOMATIC BANDSAW TENDER:: Jaxson Simmons Anesthesia: spinal Estimated blood loss (mL): 100 Clinical Note:: Patient is a 65-year-old female who slipped and fell on wooden lori at her home sustaining an injury to her RIGHT hip and right shoulder few days ago. Following evaluation in the emergency room patient was admitted to the hospital for further management. Evaluation including MRI scan of the right hip showed an old displaced fracture of the greater trochanter along with a new nondisplaced intertrochanteric fracture of the right femur. After evaluating the patient, I have discussed the diagnosis and management options in detail including nonsurgical and surgical, with the patient and her daughter. After a detailed discussion with the patient/family, a decision was made to fix the intertrochanteric femur fracture internally with a cephalo-medullary nail. I have discussed the procedure, risks and benefits, postoperative recovery and rehabilitation and the expected outcomes. The complications discussed include but are not limited to DVT, PE, infection, bleeding, injury to nerves and blood vessels, screw cut-out/implant failure, loss of fixation, nonunion, malunion/malrotation, osteonecrosis of the femoral head, femoral shaft fracture, painful hardware, heterotopic ossification, stiffness, weakness, incomplete relief of pain, incomplete return of function or motion and the likely need for further surgery in future, and anesthetic/medical complications including heart attack, stroke, transfusion reaction or . The patient and her daughter wished to proceed with the surgical remediation. Consent form was reviewed and signed by me. The limb was appropriately marked and initialed by me. Following appropriate preoperative workup and medical clearance, patient is brought to the operating room for surgery. The surgery is indicated to reduce and stabilize the fracture, relieve pain and improve function. Patient understood the risks, agreed to proceed with surgery, signed the consent form and no guarantees or assurances were given or implied. She also sustained a right proximal humerus fracture which we have decided to manage nonoperatively. Operative findings:: Nondisplaced intertrochanteric fracture RIGHT proximal femur along with a displaced old radial trochanter fracture, as noted on the preoperative imaging. The fracture is fixed in a stable fashion with a cephalomedullary nailing. The tip-apex distance at the end of the procedure is [15] mm. The greater trochanter fracture fragment was reduced onto the proximal femur and repaired with #2 FiberWire. Bone quality is soft/osteoporotic. Operative note:: Nondisplaced intertrochanteric fracture RIGHT proximal femur along with a displaced old radial trochanter fracture, as noted on the preoperative imaging. The fracture is fixed in a stable fashion with a cephalomedullary nailing. The greater trochanter fracture fragment was reduced onto the proximal femur and repaired with #2 FiberWire. Bone quality is soft/osteoporotic. Following appropriate preoperative workup and medical clearance, patient is brought to the operating room and a spinal anesthesia was administered by the supervisor major appliance assembly. Patient was then positioned supine on the fracture table and all the bony prominences were appropriately padded. The RIGHT foot was secured in the footplate and the footplate was attached to the fracture table. The LEFT leg was placed out of the way in a leg post. The RIGHT hip and thigh were then prepped and draped in the usual sterile fashio
[2021-11-14 18:13] LABS: POC Glucose,Bedside 185 (70-110)
--- NOTE | 2021-11-14 18:15 | SUR.PHASEI ---
Patient awake and answering questions appropriately while in phase I. Spinal still intact. Patient denies pain. Report called to floor. Patient transported to floor. Daughter present in room. Report given to Puma Rock RN.
[2021-11-14 23:19] LABS: POC Glucose,Bedside 174 (70-110)
[2021-11-15 00:35] VITALS: BP 177/89; PULSE 81; RESP 19; TEMP 36.8; O2SAT 99
--- NOTE | 2021-11-15 03:02 | PC.NURSE ---
Patient has been treated per JUL for pain. Patient has slept fairly okay this shift. SCUD remains in place to the left leg. Dressing is clean, dry and intact to the right hip. Patient remains on RA. Patient's henriquez is draining yellow, clear urine at bedside.
[2021-11-15 04:00] VITALS: BP 150/68; PULSE 68; RESP 17; TEMP 36.8; O2SAT 96
[2021-11-15 04:57] VITALS: BMI 25.4
[2021-11-15 06:04] LABS: Basophils # 0.2 K/mm3 (0-0.2); Basophils % 1.5 % (0.1-2.0); Eosinophils # 0.4 K/mm3 (0.0-0.4); Eosinophils % 2.3 % (0.1-12.0); Hematocrit 32.5 % (37.0-47.0); Hemoglobin 9.9 g/dL (12.2-16.2); Lymphocytes # 1.5 K/mm3 (0.7-4.5); Lymphocytes % 9.4 % (10-50); Mean Corpuscular HGB Conc 30.5 g/dL (31.8-35.4); Mean Corpuscular Hemoglobin 20.3 pg (27.0-31.2); Mean Corpuscular Volume 66.5 fl (81-99); Mean Platelet Volume 9.2 fl (7.4-10.4); Monocytes # 1.2 K/mm3 (0.1-1.0); Monocytes % 7.9 % (1.7-9.3); Neutrophils # 12.2 K/mm3 (1.8-7.8); Neutrophils % 78.9 % (37.0-80.0); Platelet Count 339 K/mm3 (142-424); Red Blood Count 4.89 M/mm3 (4.20-5.40); Red Cell Distribution Width 29.2 % (11.5-17.5); White Blood Count 15.5 K/mm3 (4.8-10.8)
[2021-11-15 06:05] LABS: MANUAL DIFFERENTIAL MANUAL DIFFERENTIAL (MANUAL DIFF)
[2021-11-15 06:17] LABS: Chloride 113 mmol/L (98-107); Sodium 137 mmol/L (136-145)
[2021-11-15 06:18] LABS: Potassium 4.7 mmoL/L (3.5-5.1)
[2021-11-15 06:20] LABS: Alanine Aminotransferase 23 U/L (12-78); Albumin Level 2.8 g/dl (3.5-5.0); Alkaline Phosphatase 97 U/L (38-126); Anion Gap 6.7 mEq/L (5-15); Aspartate Amino Transferase 43 U/L (14-36); Bilirubin,Total 0.4 mg/dl (0.2-1.3); Blood Urea Nitrogen 13 mg/dl (7-17); Carbon Dioxide 22 mmol/L (22.0-30.0); Creatinine Clearance Estimated 57 mL/min (50-200); Estimated Glomerular Filt Rate 125 ml/min (>60); GFR (African American) 151 ML/MIN (>60); Globulin 2.9 g/dL (1.3-3.2); Total Protein,Serum 5.7 g/dl (6.3-8.2)
[2021-11-15 06:21] LABS: Calcium 8.3 mg/dl (8.4-10.2); Glucose 132 mg/dl (74-100)
[2021-11-15 06:51] LABS: Eosinophils % 2 % (0-3); Lymphocytes % 12 % (10-50); Monocytes % 5 % (2-9); Neutrophils % 81 % (42-76); Poikilocytosis 1+; Target Cells 1+; Total Cells Counted 100
[2021-11-15 06:52] LABS: Anisocytosis 2+; Hypochromasia 1+; Microcytosis 2+; Ovalocytes 1+; Platelet Estimate Normal
[2021-11-15 07:11] LABS: POC Glucose,Bedside 122 (70-110)
--- NOTE | 2021-11-15 07:26 | HMH.ORTHPN ---
Subjective Date: 11/15/21 Time: 07:10 Principal diagnosis: Right hip fracture, right humerus fracture Interval history: Patient is 65-year-old female who underwent an uneventful right cephalomedullary nailing yesterday 11/14/2021. This morning the patient is postop day #1. This morning she is lying comfortably in bed. She reports some right hip pain but states that it is well controlled with as needed pain medication and rest. She states that her right shoulder pain is worse, she has a proximal right humerus fracture that is being managed nonoperatively in a sling. She reports that she does not have much of an appetite but has been eating and drinking well, she denies any episodes of nausea or vomiting. She has not yet ambulated. She denies any history of fevers, chills, rigors, or distal tingling/numbness. She denies any other symptoms or concerns at this time. PN: Obj Ex Vital signs: Temp Pulse Resp BP Pulse Ox 98.2 F 68 17 150/68 H 96 11/15/21 04:00 11/15/21 04:00 11/15/21 04:00 11/15/21 04:00 11/15/21 04:00 - Constitutional no acute distress, thin, cooperative - Routine HEENT Exam Head: Present: normocephalic, atraumatic Eye: Present: EOMI, PERRL ENT: Present: mucous membranes moist - Routine Neck Exam Present: supple, full ROM, tracheal deviation. Absent: JVD, lymphadenopathy - Routine Respiratory Exam Absent: accessory muscle use, respiratory distress Comments: symmetric chest movement, able to speak in complete sentences - Routine Cardiovascular Exam Present: RRR Comments: normal peripheral pulses - Routine Abdominal Exam Present: soft. Absent: tenderness - Routine Extremities Exam Comments: Upon examination of the lower extremities: Limb lengths are equal. Upon examination of the right hip, dressings present are clean, dry, and intact. No evidence of drainage or bleeding noted. The right hip and proximal femur are tender to palpation. Attempted movements of the right hip are somewhat painful. Thigh and calf are soft and nontender; Homans' sign is negative. No clinical evidence of DVT noted. Posterior tibial pulse 1+; capillary refill is brisk. Sensation to light touch is grossly intact throughout. Patient is actively mobilizing the foot, ankle, and toes. Upon examination of the right shoulder/upper extremity: The skin is intact. No lacerations, abrasions, wounds, or ulcerations evident. The right shoulder is tender to palpation. There is an arm sling in place. Attempted movements of the right shoulder are painful. Range of motion of the elbow, forearm, wrist, and fingers is full and nonpainful. Radial pulse 2+; capillary refill is brisk. Sensation to light touch is grossly intact throughout. - Routine Skin Exam Present: intact, warm, normal turgor. Absent: cyanosis, erythema, lesions, jaundice - Routine Neurological Exam Present: alert, oriented X3, CN II-XII intact, moving all extremities, normal tone, normal speech. Absent: sensory deficit, motor deficit, altered mental status - Routine Psychiatric Exam Present: normal affect, cooperative - Urinary Catheter Management Hernandez Cath placed during this visit: no Urethral indwelling: Yes Progress Note: A&P (1) Frequent falls Status: Acute (2) Microcytic anemia Status: Acute (3) Closed right humeral fracture Status: Acute (4) UTI (urinary tract infection) Status: Acute (5) COPD (chronic obstructive pulmonary disease) Status: Chronic (6) Hypokalemia Status: Acute (7) Hypocalcemia Status: Acute (8) Osteoporosis Status: Acute Assessment and Plan for All Diagnoses:: Right proximal humerus fracture: Continue conservative management with continued sling immobilization and avoid any weightbearing on the right upper extremity. Continue rest, ice, activity modification, and pain medication as needed. Right intertrochanteric femur fracture: I have discussed the clinical findings and
[2021-11-15 08:00] VITALS: BP 189/95; PULSE 84; RESP 18; TEMP 36.9; O2SAT 95
--- NOTE | 2021-11-15 09:25 | HMH.OTEV ---
OT Inpatient Evaluation Rehab OT IP Evaluation Start: 11/13/21 08:36 Freq: ONCE Status: Complete Protocol: Document 11/13/21 10:03 JAN (Rec: 11/13/21 10:12 JAN [id number]) Rehab OT IP Assessment Subjective History 65-year-old white female who suffers from significant osteoporosis secondary to hyperparathyroidism in the past with chronic hypocalcemia status post parathyroidectomy , who fell at home slipping on wood floor in her sock feet, and was unable to get up for a couple of days until family checked on her. She was in significant pain in the legs and right shoulder taken to the emergency department. ER evaluation revealed a UTI, and she had a comminuted impacted right humeral fracture along with multiple old fractures of the femur and ribs. She was admitted for pain control, orthopedic consult, and further evaluation. This morning she feels little better except for significant TV issues and pain in the shoulder area. She notes that she is not been out to see our office in over 6 months. She has been afraid of exposure to coronavirus. [facility] History I have reviewed the patient's past medical history: Yes Medical History: Reports:: Cancer, Chronic Obstructive Pulmonary Disease (COPD), Cerebrovascular Accident, Deep Vein Thrombosis, Diabetes Mellitus Type 2, Gastroesophageal Reflux Disease(GERD), Hyperlipidemia, Hypertension, Lung Disease, Myocardial Infarction, Peripheral Vascular Disease Patient stated to live alone
[2021-11-15 12:00] VITALS: BP 165/97; PULSE 88; RESP 22; TEMP 36.9; O2SAT 95
[2021-11-15 16:00] VITALS: BP 165/60; PULSE 82; RESP 18; TEMP 37.1; O2SAT 95
--- NOTE | 2021-11-15 17:40 | HMH.ACPN2 ---
Internal Medicine - PN: Subj *Date: 11/15/21 *Time: 08:30 Interval history: Did well overnight. Status post surgery yesterday to fix intertrochanteric fracture. Pain controlled on current regimen. Denies shortness of breath, chest pain, nausea, vomiting, diarrhea. Exam Vital signs and Labs for Last 24 Hours: Temp Pulse Resp BP Pulse Ox 98.8 F 82 18 165/60 H 95 11/15/21 16:00 11/15/21 16:00 11/15/21 16:00 11/15/21 16:00 11/15/21 16:00 Laboratory Results - last 24 hr 11/14/21 17:58: POC Glucose 185 H 11/14/21 21:34: POC Glucose 174 H 11/15/21 05:35: POC Glucose 122 H 11/15/21 05:42: WBC 15.5 H D, RBC 4.89, Hgb 9.9 L, Hct 32.5 L, MCV 66.5 L, MCH 20.3 L, MCHC 30.5 L, RDW 29.2 H*, Plt Count 339 D, MPV 9.2, Neut % (Auto) 78.9, Lymph % (Auto) 9.4 L, [place] % (Auto) 7.9, Eos % (Auto) 2.3, Baso % (Auto) 1.5, Neut # (Auto) 12.2 H, Lymph # (Auto) 1.5, [place] # (Auto) 1.2 H, Eos # (Auto) 0.4, Baso # (Auto) 0.2, Total Counted 100, Neutrophils % (Manual) 81 H, Lymphocytes % (Manual) 12, Monocytes % (Manual) 5, Eosinophils % (Manual) 2, Platelet Estimate Normal, Hypochromasia 1+, Poikilocytosis 1+, Anisocytosis 2+, Microcytosis 2+, Target Cells 1+, Ovalocytes 1+ 11/15/21 05:42: Sodium 137, Potassium 4.7, Chloride 113 H, Carbon Dioxide 22, Anion Gap 6.7, BUN 13, Creatinine 0.50 L, Estimated Creat Clear 57, Estimated GFR 125, Est GFR ( Amer) 151, Glucose 132 H, Calcium 8.3 L, Total Bilirubin 0.4, AST 43 H, ALT 23 D, Alkaline Phosphatase 97, Total Protein 5.7 L, Albumin 2.8 L, Globulin 2.9, Albumin/Globulin Ratio 1.0 L I & O for Last 24 hours: Intake & Output 11/12/21 11/13/21 11/14/21 11/15/21 23:59 23:59 23:59 23:59 Intake Total 1290 / 1290 1460 / 1460 425 / 425 1563 / 1563 Output Total 350 / 1150 5480 / 5480 4975 / 4975 2200 / 2200 Balance 940 / 140 -4020 / -4020 -4550 / -4550 -637 / -637 Weight 62.369 kg 63.957 kg 62.86 kg 62.868 kg Microbiology Reports for the Last 24 Hours: Microbiology 11/12/21 14:55 Urine,Clean Catch Urine Culture - Preliminary Gram Negative Rods - Constitutional mild distress, thin, chronically ill appearing - *Routine HEENT Exam Head: Present: normocephalic Eye: Present: EOMI, PERRL ENT: Present: mucous membranes moist - *Routine Neck Exam Present: supple. Absent: lymphadenopathy - *Routine Respiratory Exam Present: CTA bilaterally - *Routine Cardiovascular Exam Present: RRR - *Routine Abdominal Exam Present: soft, normoactive bowel sounds. Absent: tenderness - *Routine Extremities Exam Absent: cyanosis, clubbing, edema Comments: Tender over right hip, right arm in sling, tender over right shoulder. - *Routine Skin Exam Present: warm. Absent: rash - *Routine Neurological Exam Present: alert, oriented X3 Assessment and Plan (1) Frequent falls Status: Acute Category: Medical Code(s): R29.6 - Repeated falls (2) Microcytic anemia Status: Acute Category: Medical Code(s): D50.9 - Iron deficiency anemia, unspecified (3) Closed right humeral fracture Status: Acute Qualifiers: Encounter type: initial encounter Humerus Location: proximal Fracture morphology: other fracture Fracture alignment: displaced Qualified Code(s): S42.291A - Other displaced fracture of upper end of right humerus, initial encounter for closed fracture Category: Medical Code(s): S42.301A - Unspecified fracture of shaft of humerus, right arm, initial encounter for closed fracture (4) UTI (urinary tract infection) Status: Acute Qualifiers: Urinary tract infection type: acute cystitis Hematuria presence: without hematuria Qualified Code(s): N30.00 - Acute cystitis without hematuria Category: Medical Code(s): N39.0 - Urinary tract infection, site not specified (5) COPD (chronic obstructive pulmonary disease) Status: Chronic Qualifiers: COPD type: unspecified COPD Qualified Code(s): J44.9 - C
[2021-11-15 20:00] VITALS: BP 162/82; PULSE 84; RESP 20; TEMP 37.6; O2SAT 95
[2021-11-15 20:36] LABS: POC Glucose,Bedside 120 (70-110)
[2021-11-16] VITALS: BP 165/83; PULSE 84; RESP 18; TEMP 37.2; O2SAT 94
[2021-11-16 04:00] VITALS: BP 142/75; PULSE 77; RESP 20; TEMP 37.7; O2SAT 93
[2021-11-16 05:00] VITALS: BMI 26.1
[2021-11-16 06:22] LABS: POC Glucose,Bedside 101 (70-110)
[2021-11-16 06:41] LABS: Basophils # 0.1 K/mm3 (0-0.2); Basophils % 0.9 % (0.1-2.0); Eosinophils # 0.4 K/mm3 (0.0-0.4); Eosinophils % 3.3 % (0.1-12.0); Hematocrit 32.7 % (37.0-47.0); Lymphocytes # 2.6 K/mm3 (0.7-4.5); Mean Corpuscular HGB Conc 30.5 g/dL (31.8-35.4); Mean Corpuscular Hemoglobin 20.4 pg (27.0-31.2); Mean Corpuscular Volume 66.9 fl (81-99); Mean Platelet Volume 8.1 fl (7.4-10.4); Monocytes # 1.2 K/mm3 (0.1-1.0); Monocytes % 9.2 % (1.7-9.3); Neutrophils # 8.8 K/mm3 (1.8-7.8); Neutrophils % 66.6 % (37.0-80.0); Platelet Count 477 K/mm3 (142-424); Red Blood Count 4.89 M/mm3 (4.20-5.40); White Blood Count 13.2 K/mm3 (4.8-10.8)
[2021-11-16 07:01] LABS: Chloride 113 mmol/L (98-107); Red Cell Distribution Width 29.9 % (11.5-17.5); Sodium 135 mmol/L (136-145)
[2021-11-16 07:02] LABS: Potassium 4.3 mmoL/L (3.5-5.1)
[2021-11-16 07:04] LABS: Blood Urea Nitrogen 12 mg/dl (7-17); Creatinine Clearance Estimated 59 mL/min (50-200); Estimated Glomerular Filt Rate 125 ml/min (>60); GFR (African American) 151 ML/MIN (>60)
[2021-11-16 07:05] LABS: Anion Gap 6.3 mEq/L (5-15); Calcium 8.2 mg/dl (8.4-10.2); Carbon Dioxide 20 mmol/L (22.0-30.0); Glucose 107 mg/dl (74-100); Magnesium 1.7 mg/dl (1.6-2.3)
[2021-11-16 08:00] VITALS: BP 132/82; PULSE 79; RESP 14; TEMP 36.4; O2SAT 91
--- NOTE | 2021-11-16 08:55 | HMH.ACPN2 ---
Internal Medicine - PN: Subj *Date: 11/16/21 *Time: 08:55 Interval history: Patient is alert, talkative. Pleasant. Does have some expected postoperative pain but is tolerating this well. Exam Vital signs and Labs for Last 24 Hours: Temp Pulse Resp BP Pulse Ox 97.6 F 79 14 132/82 91 L 11/16/21 08:00 11/16/21 08:00 11/16/21 08:00 11/16/21 08:00 11/16/21 08:00 Laboratory Results - last 24 hr 11/15/21 20:26: POC Glucose 120 H 11/16/21 06:10: POC Glucose 101 11/16/21 06:35: WBC 13.2 H, RBC 4.89, Hgb 10.0 L, Hct 32.7 L, MCV 66.9 L, MCH 20.4 L, MCHC 30.5 L, RDW 29.9 H*, Plt Count 477 H D, MPV 8.1, Neut % (Auto) 66.6, Lymph % (Auto) 20.0, [place] % (Auto) 9.2, Eos % (Auto) 3.3, Baso % (Auto) 0.9, Neut # (Auto) 8.8 H, Lymph # (Auto) 2.6, [place] # (Auto) 1.2 H, Eos # (Auto) 0.4, Baso # (Auto) 0.1 11/16/21 06:35: Sodium 135 L, Potassium 4.3, Chloride 113 H, Carbon Dioxide 20 L, Anion Gap 6.3, BUN 12, Creatinine 0.50 L, Estimated Creat Clear 59, Estimated GFR 125, Est GFR ( Amer) 151, Glucose 107 H, Calcium 8.2 L, Magnesium 1.7 I & O for Last 24 hours: Intake & Output 11/13/21 11/14/21 11/15/21 11/16/21 11:59 11:59 11:59 11:59 Intake Total 0 / 1910 1015 / 1015 1240 / 1240 693 / 693 Output Total 0 / 0 6700 / 6700 4175 / 4175 1350 / 1350 Balance -220 / -220 -5685 / -5685 -2935 / -2935 -657 / -657 Weight 141 lb 138 lb 138 lb 9.6 oz 142 lb Microbiology Reports for the Last 24 Hours: Microbiology 11/12/21 14:55 Urine,Clean Catch Urine Culture - Preliminary Gram Negative Rods Narrative: Anterior lung noriega are clear, heart rate regular. Perfusion is good. Arm in sling. Hip dressing appropriately clean and dry and intact. She is neurologically intact. Moving all extremities well except for some painful movements with her affected joints and extremities. Assessment and Plan (1) Frequent falls Status: Acute Category: Medical Code(s): R29.6 - Repeated falls (2) Microcytic anemia Status: Acute Category: Medical Code(s): D50.9 - Iron deficiency anemia, unspecified (3) Closed right humeral fracture Status: Acute Qualifiers: Encounter type: initial encounter Humerus Location: proximal Fracture morphology: other fracture Fracture alignment: displaced Qualified Code(s): S42.291A - Other displaced fracture of upper end of right humerus, initial encounter for closed fracture Category: Medical Code(s): S42.301A - Unspecified fracture of shaft of humerus, right arm, initial encounter for closed fracture (4) UTI (urinary tract infection) Status: Acute Qualifiers: Urinary tract infection type: acute cystitis Hematuria presence: without hematuria Qualified Code(s): N30.00 - Acute cystitis without hematuria Category: Medical Code(s): N39.0 - Urinary tract infection, site not specified (5) COPD (chronic obstructive pulmonary disease) Status: Chronic Qualifiers: COPD type: unspecified COPD Qualified Code(s): J44.9 - Chronic obstructive pulmonary disease, unspecified Category: Medical Code(s): J44.9 - Chronic obstructive pulmonary disease, unspecified (6) Hypokalemia Status: Acute Category: Medical Code(s): E87.6 - Hypokalemia (7) Hypocalcemia Status: Acute Category: Medical Code(s): E83.51 - Hypocalcemia (8) Osteoporosis Status: Acute Category: Medical Code(s): M81.0 - Age-related osteoporosis without current pathological fracture (9) Closed right hip fracture Status: Acute Qualifiers: Encounter type: initial encounter Qualified Code(s): S72.001A - Fracture of unspecified part of neck of right femur, initial encounter for closed fracture Category: Medical Code(s): S72.001A - Fracture of unspecified part of neck of right femur, initial encounter for closed fracture - Assessment and plan all Dx Assessment and Plan for all problems:: 1. UTI-continue thera
[2021-11-16 11:08] LABS: POC Glucose,Bedside 122 (70-110)
[2021-11-16 15:58] VITALS: BP 141/77; PULSE 69; RESP 14; TEMP 36.5; O2SAT 91
[2021-11-16 16:14] LABS: POC Glucose,Bedside 133 (70-110)
--- NOTE | 2021-11-16 17:30 | PC.NURSE ---
PT IS ALERT AND ORIENTED. MEDICATED PER JUL 1X THIS SHIFT FOR PAIN WITH ADEQUATE RELIEF. DRESSING TO RIGHT HIP IS C/D/I. PT REMAINS ON ROOM AIR. VOIDING PER FAITH. VSS.
[2021-11-16 20:00] VITALS: BP 145/76; PULSE 81; RESP 20; TEMP 37.1; O2SAT 93; O2SAT 96
[2021-11-16 20:48] LABS: POC Glucose,Bedside 119 (70-110)
--- NOTE | 2021-11-16 20:50 | HMH.ORTHPN ---
Subjective Date: 11/16/21 Time: 20:30 Principal diagnosis: Right hip fracture, right humerus fracture Interval history: Patient is status post right hip cephalomedullary nailing post op day #2. Patient is lying down in the bed and says she is doing well. Patient has minimal pain and says it's well-controlled with medication. No history of any nausea or vomiting. No history of any cough, chest pain, shortness of breath or palpitations. Patient says she is eating and drinking well. No history of any distal tingling or numbness. She also has a right proximal humerus fracture which is being treated nonoperatively. PN: Obj Ex Vital signs: Temp Pulse Resp BP Pulse Ox 97.7 F 69 14 141/77 H 96 11/16/21 15:58 11/16/21 15:58 11/16/21 15:58 11/16/21 15:58 11/16/21 20:00 Narrative: Laboratory Results - last 24 hr 11/16/21 06:10: POC Glucose 101 11/16/21 06:35: WBC 13.2 H, RBC 4.89, Hgb 10.0 L, Hct 32.7 L, MCV 66.9 L, MCH 20.4 L, MCHC 30.5 L, RDW 29.9 H*, Plt Count 477 H D, MPV 8.1, Neut % (Auto) 66.6, Lymph % (Auto) 20.0, [place] % (Auto) 9.2, Eos % (Auto) 3.3, Baso % (Auto) 0.9, Neut # (Auto) 8.8 H, Lymph # (Auto) 2.6, [place] # (Auto) 1.2 H, Eos # (Auto) 0.4, Baso # (Auto) 0.1 11/16/21 06:35: Sodium 135 L, Potassium 4.3, Chloride 113 H, Carbon Dioxide 20 L, Anion Gap 6.3, BUN 12, Creatinine 0.50 L, Estimated Creat Clear 59, Estimated GFR 125, Est GFR ( Amer) 151, Glucose 107 H, Calcium 8.2 L, Magnesium 1.7 11/16/21 11:00: POC Glucose 122 H 11/16/21 16:00: POC Glucose 133 H 11/16/21 20:26: POC Glucose 119 H Exam: General appearance: alert, active, awake, no acute distress Cardiovascular: regular rate & rhythm, normal peripheral pulses Respiratory: No respiratory distress noted, speaks in full sentences ABD: soft and non tender Neuro: alert, awake, oriented x 3 Psych: Appropriate mood and affect On examination of the lower extremities the limb lengths are equal. Thigh and calf are soft and nontender. On examination of the right hip the dressings are clean, dry and intact. No evidence of any bleeding or discharge is noted. Distal pulses are 1+. Distal sensation is intact to light touch throughout. No motor deficits noted distally. On examination of the right shoulder, the skin is intact. She is tender over the right shoulder. Any attempted movements of the right shoulder painful. She has good range of elbow, wrist and finger movements. Distal neurovascular status intact. - Urinary Catheter Management Hernandez Cath placed during this visit: no Urethral indwelling: Yes Progress Note: A&P (1) Frequent falls Status: Acute (2) Microcytic anemia Status: Acute (3) Closed right humeral fracture Status: Acute (4) UTI (urinary tract infection) Status: Acute (5) COPD (chronic obstructive pulmonary disease) Status: Chronic (6) Hypokalemia Status: Acute (7) Hypocalcemia Status: Acute (8) Osteoporosis Status: Acute (9) Closed right hip fracture Status: Acute Assessment and Plan for All Diagnoses:: I have reviewed the clinical findings and progress with the patient. Patient is doing well from an orthopedic standpoint and reports no postop problems. Continue mobilization weightbearing as tolerated on the right lower extremity. No weightbearing on the right upper extremity until further recommendation. Ontinue DVT prophylaxis-recommend DVT prophylaxis for 6 weeks postop. Discontinue IV fluids as patient is eating and drinking well. Case management looking into discharge planning-[facility]. Follow-up in my office in 2 weeks? time with check x-ray right hip and right shoulder. Please feel free to call our office at [phone] for any orthopaedic questions. Continue medical management as per Dr. Díaz.
--- NOTE | 2021-11-16 22:19 | PC.NURSE ---
Dr. Wong came to bedside, d/c fluids at this time considering patient is tolerating eating and drinking well.
[2021-11-17] VITALS: BP 143/79; PULSE 80; RESP 18; TEMP 36.9; O2SAT 89
--- NOTE | 2021-11-17 04:12 | PC.NURSE ---
Patient has been attempting to rest, has been unsuccessful due to shoulder pain and headache. Medications administered per MAR. No other changes or concerns this shift. Will continue to monitor. Call light in place and working appropriately.
[2021-11-17 04:13] VITALS: BP 130/70; PULSE 79; RESP 18; TEMP 36.9; O2SAT 92
[2021-11-17 05:00] VITALS: BMI 27.9
[2021-11-17 07:48] LABS: POC Glucose,Bedside 100 (70-110)
[2021-11-17 08:00] VITALS: BP 151/82; PULSE 82; RESP 16; TEMP 36.8; O2SAT 94
--- NOTE | 2021-11-17 08:48 | HMH.ACPN2 ---
Internal Medicine - PN: Subj *Date: 11/17/21 *Time: 08:48 Interval history: Patient is alert, pleasant, talkative, was able to get up in the chair yesterday for about 3 hours. Exam Vital signs and Labs for Last 24 Hours: Temp Pulse Resp BP Pulse Ox 98.3 F 82 16 151/82 H 94 L 11/17/21 08:00 11/17/21 08:00 11/17/21 08:00 11/17/21 08:00 11/17/21 08:00 Laboratory Results - last 24 hr 11/16/21 11:00: POC Glucose 122 H 11/16/21 16:00: POC Glucose 133 H 11/16/21 20:26: POC Glucose 119 H 11/17/21 05:52: POC Glucose 100 I & O for Last 24 hours: Intake & Output 11/14/21 11/15/21 11/16/21 11/17/21 11:59 11:59 11:59 11:59 Intake Total 1015 / 1015 1240 / 1240 933 / 933 2940 / 2940 Output Total 6700 / 6700 4175 / 4175 1350 / 1350 500 / 500 Balance -5685 / -5685 -2935 / -2935 -417 / -417 2440 / 2440 Weight 138 lb 138 lb 9.6 oz 142 lb 151 lb 11.2 oz Narrative: Alert and pleasant. Lung noriega in the anterior aspect clear, heart rate regular, abdomen soft, extremity exam per orthopedics. No changes in exam, extremities are warm and well-perfused. Pain is minimal with movement Assessment and Plan (1) Frequent falls Status: Acute Category: Medical Code(s): R29.6 - Repeated falls (2) Microcytic anemia Status: Acute Category: Medical Code(s): D50.9 - Iron deficiency anemia, unspecified (3) Closed right humeral fracture Status: Acute Qualifiers: Encounter type: initial encounter Humerus Location: proximal Fracture morphology: other fracture Fracture alignment: displaced Qualified Code(s): S42.291A - Other displaced fracture of upper end of right humerus, initial encounter for closed fracture Category: Medical Code(s): S42.301A - Unspecified fracture of shaft of humerus, right arm, initial encounter for closed fracture (4) UTI (urinary tract infection) Status: Acute Qualifiers: Urinary tract infection type: acute cystitis Hematuria presence: without hematuria Qualified Code(s): N30.00 - Acute cystitis without hematuria Category: Medical Code(s): N39.0 - Urinary tract infection, site not specified (5) COPD (chronic obstructive pulmonary disease) Status: Chronic Qualifiers: COPD type: unspecified COPD Qualified Code(s): J44.9 - Chronic obstructive pulmonary disease, unspecified Category: Medical Code(s): J44.9 - Chronic obstructive pulmonary disease, unspecified (6) Hypokalemia Status: Acute Category: Medical Code(s): E87.6 - Hypokalemia (7) Hypocalcemia Status: Acute Category: Medical Code(s): E83.51 - Hypocalcemia (8) Osteoporosis Status: Acute Category: Medical Code(s): M81.0 - Age-related osteoporosis without current pathological fracture (9) Closed right hip fracture Status: Acute Qualifiers: Encounter type: initial encounter Qualified Code(s): S72.001A - Fracture of unspecified part of neck of right femur, initial encounter for closed fracture Category: Medical Code(s): S72.001A - Fracture of unspecified part of neck of right femur, initial encounter for closed fracture - Assessment and plan all Dx Assessment and Plan for all problems:: Overall doing well, metabolic condition stable after transfusion and electrolyte replacement. Await precertification for transfer to skilled care tomorrow
[2021-11-17 11:12] LABS: POC Glucose,Bedside 123 (70-110)
--- NOTE | 2021-11-17 13:14 | P.PN_ITS ---
Subjective Date: 11/17/21 Time: 13:00 Principal diagnosis: Right hip fracture, right humerus fracture Interval history: Patient is status post right hip cephalomedullary nailing post op day #3. Patient is lying down in the bed and says she is doing well. Patient reports that her pain is well-controlled with as needed pain medication. No history of any nausea or vomiting. No history of any cough, chest pain, shortness of breath or palpitations. Patient says she is eating and drinking well. No history of any distal tingling or numbness. She also has a right proximal humerus fracture which is being treated nonoperatively. PN: Obj Ex Vital signs: Temp Pulse Resp BP Pulse Ox 98.3 F 82 16 151/82 H 94 L 11/17/21 08:00 11/17/21 08:00 11/17/21 08:00 11/17/21 08:00 11/17/21 08:00 Narrative: Laboratory Results - last 24 hr 11/16/21 16:00: POC Glucose 133 H 11/16/21 20:26: POC Glucose 119 H 11/17/21 05:52: POC Glucose 100 11/17/21 11:05: POC Glucose 123 H Exam: General appearance: alert, active, awake, no acute distress Cardiovascular: regular rate & rhythm, normal peripheral pulses Respiratory: No respiratory distress noted, speaks in full sentences ABD: soft and non tender Neuro: alert, awake, oriented x 3 Psych: Appropriate mood and affect On examination of the lower extremities the limb lengths are equal. Thigh and calf are soft and nontender. On examination of the right hip the dressings are clean, dry and intact. The dressings are changed by me. There is no soakage of the dressings. The incision looks clean and healthy. No evidence of any infection or other complications is noted. Distal pulses are 1+. Distal sensation is intact to light touch throughout. No motor deficits noted distally. On examination of the right shoulder, the skin is intact. She is tender over the right shoulder. Any attempted movements of the right shoulder painful. She has good range of elbow, wrist and finger movements. Distal neurovascular status intact. - Urinary Catheter Management Hernandez Cath placed during this visit: no Urethral indwelling: Yes Progress Note: A&P (1) Frequent falls Status: Acute (2) Microcytic anemia Status: Acute (3) Closed right humeral fracture Status: Acute (4) UTI (urinary tract infection) Status: Acute (5) COPD (chronic obstructive pulmonary disease) Status: Chronic (6) Hypokalemia Status: Acute (7) Hypocalcemia Status: Acute (8) Osteoporosis Status: Acute (9) Closed right hip fracture Status: Acute Assessment and Plan for All Diagnoses:: I have reviewed the clinical findings and progress with the patient. Patient is doing well from an orthopedic standpoint and reports no postop problems. Continue mobilization weightbearing as tolerated on the right lower extremity. No weightbearing on the right upper extremity until further recommendation. Ontinue DVT prophylaxis-recommend DVT prophylaxis for 6 weeks postop. Case management looking into discharge planning-likely to be discharged to a senior living facility for rehab after the weekend. Follow-up in my office in 2 weeks? time with check x-ray right hip and right shoulder. Please feel free to call our office at [phone] for any orthopaedic questions. Continue medical management as per Dr. Díaz.
[2021-11-17 15:25] VITALS: BP 151/83; PULSE 78; RESP 16; TEMP 36.7; O2SAT 95
[2021-11-17 17:40] LABS: POC Glucose,Bedside 115 (70-110)
--- NOTE | 2021-11-17 18:29 | PC.NURSE ---
PT IS ALERT AND ORIENTED X4. SHE HAS BEEN MEDICATED PER MAR FOR PAIN X3 AND ANXIETY X1. UP WITH PT TO THE BATHROOM WITH X2 ASSIST TO STAND AND AMBULATES WITH STANDBY TO 1 ASSIST. UNABLE TO EFFECTIVELY USE WALKER DUE TO RIGHT ARM BEING IN A SLING. THE DRESSING TO HER RIGHT HIP WAS REMOVED TODAY AND IS OPEN TO AIR. SURGICAL INCISIONS ARE C/D/I.
[2021-11-17 20:50] VITALS: BP 138/78; PULSE 75; RESP 18; TEMP 36.7; O2SAT 91
[2021-11-18] VITALS: BP 139/71; PULSE 79; RESP 16; TEMP 37.1; O2SAT 92
[2021-11-18 06:13] LABS: POC Glucose,Bedside 106 (70-110)
--- NOTE | 2021-11-18 07:44 | PC.NURSE ---
Pt requested a pain pill last night for leg pain. PT does not want to take pain medication and prefers to Try and wait it out Discussed with patient about proper pain management and she agreed to take the medication. Pt slept all night and appeared pain free after taking the medication.
[2021-11-18 08:00] VITALS: BP 159/81; PULSE 79; RESP 19; RESP 22; TEMP 36.8; O2SAT 94; BMI 27.1
--- NOTE | 2021-11-18 10:13 | HMH.DCSUM ---
General - General Admission date:: 11/12/21 Discharge date: 11/18/21 HPI HPI: 65-year-old white female who suffers from significant osteoporosis secondary to hyperparathyroidism in the past with chronic hypocalcemia status post parathyroidectomy, who fell at home slipping on wood floor in her sock feet, and was unable to get up for a couple of days until family checked on her. She was in significant pain in the legs and right shoulder taken to the emergency department. ER evaluation revealed a UTI, and she had a comminuted impacted right humeral fracture along with multiple old fractures of the femur and ribs. She was admitted for pain control, orthopedic consult, and further evaluation. This morning she feels little better except for significant TV issues and pain in the shoulder area. She notes that she is not been out to see our office in over 6 months. She has been afraid of exposure to coronavirus. Hospital Course Hospital Course: Patient was admitted. Found to have urinary tract infection, placed on broad-spectrum antibiotics. Gram-positive cocci has grown out of urine but final cultures pending. Has been on linezolid and doing well. Found to have humerus fracture, orthopedics recommended nonoperative intervention and pain control. Also found to have new femur fracture, this was treated with ORIF 3 days ago. She done well with that. Found to have significant normocytic anemia, probably from nutrition and chronic medical disease. Transfused with good follow-up, will continue to observe. Given her weakness and significant protein calorie malnutrition halfway placement was recommended for skilled rehab with a goal of going home. Bed was found at [facility] and she will be transferred there today pending precertification from her insurance. Showed a PT/OT/dietary consult. She will need follow-up with orthopedics in the next week. Follow-up will be per our halfway rounds. Pain control as noted with oral narcotics. She will be on linezolid twice daily for the next week to treat her UTI as well as an antibiotic listed. She will need BMP and CBC in 4 days. Objective Vital signs: Temp Pulse Resp BP Pulse Ox 98.2 F 79 22 159/81 H 94 L 11/18/21 08:00 11/18/21 08:00 11/18/21 08:00 11/18/21 08:00 11/18/21 08:00 no acute distress, thin, chronically ill appearing - *Routine HEENT Exam Head: Present: normocephalic Eye: Present: EOMI, PERRL ENT: Present: mucous membranes moist - *Routine Neck Exam Present: supple - *Routine Respiratory Exam Present: rhonchi - *Routine Cardiovascular Exam Present: RRR - *Routine Abdominal Exam Present: soft, normoactive bowel sounds. Absent: tenderness - *Routine Extremities Exam Absent: cyanosis, clubbing, edema Comments: Right arm in a sling. Right leg hip dressing looks good. No evidence of leg length discrepancy. Distal extremities are warm and well-perfused. Wiggling her toes well. - *Routine Skin Exam Present: warm. Absent: rash - Detailed Eye Exam Eyelids: Bilateral normal inspection Results Labs on day of discharge: Labs from last 24 hours 11/18/21 11/17/21 11/17/21 06:06 16:24 11:05 POC Glucose 106 115 H 123 H Preliminary micro results at discharge 11/12/21 14:55 Urine Culture - Preliminary Urine,Clean Catch Gram Positive Cocci DS: Diagnosis - Discharge Diagnosis (1) Frequent falls Status: Chronic (2) Microcytic anemia Status: Chronic (3) Closed right humeral fracture Status: Acute (4) UTI (urinary tract infection) Status: Acute (5) COPD (chronic obstructive pulmonary disease) Status: Chronic (6) Hypokalemia Status: Acute (7) Hypocalcemia Status: Acute (8) Osteoporosis Status: Acute (9) Closed right hip fracture Status: Acute (10) Severe protein-calorie malnutrition Status: Acute (11) Personal hi
--- NOTE | 2021-11-18 10:34 | PC.NURSE ---
DISCHARGE ORDER IS IN HOWEVER STILL WAITING ON [facility]
[2021-11-18 11:45] VITALS: BP 155/83; PULSE 79; RESP 19; TEMP 36.4; O2SAT 96
--- NOTE | 2021-11-18 14:10 | HMH.ORTHPN ---
Subjective Date: 11/18/21 Time: 07:05 Principal diagnosis: Right hip fracture, right humerus fracture Interval history: Patient is status post right hip cephalomedullary nailing post op day #4. This morning the patient is sitting up comfortably in bed and is eating breakfast. She states that her pain is well-controlled with as needed pain medication and rest. No history of any nausea or vomiting. No history of any cough, chest pain, shortness of breath or palpitations. She is eating and drinking well. No history of fever, chills, rigors, or distal tingling/numbness. She also has a right proximal humerus fracture which is being treated nonoperatively. PN: Obj Ex Vital signs: Temp Pulse Resp BP Pulse Ox 97.5 F L 79 19 155/83 H 96 11/18/21 11:45 11/18/21 11:45 11/18/21 11:45 11/18/21 11:45 11/18/21 11:45 - Constitutional no acute distress, thin, cooperative - Routine HEENT Exam Head: Present: normocephalic, atraumatic Eye: Present: EOMI, PERRL ENT: Present: mucous membranes moist - Routine Neck Exam Present: supple, full ROM, trachea midline. Absent: JVD, lymphadenopathy - Routine Respiratory Exam Absent: accessory muscle use, respiratory distress Comments: Symmetric chest movement, able to speak in complete sentences - Routine Cardiovascular Exam Present: RRR Comments: Normal peripheral pulses - Routine Abdominal Exam Present: soft, normoactive bowel sounds. Absent: tenderness - Routine Extremities Exam Comments: Upon examination of the lower extremities: Limb lengths are equal. Upon examination of the right hip, dressings present are clean, dry, and intact. No evidence of drainage or bleeding noted. The right hip and proximal femur are tender to palpation. Attempted movements of the right hip are somewhat painful. Thigh and calf are soft and nontender; Homans' sign is negative. No clinical evidence of DVT noted. Posterior tibial pulse 1+; capillary refill is brisk. Sensation to light touch is grossly intact throughout. Patient is actively mobilizing the foot, ankle, and toes. Upon examination of the right shoulder/upper extremity: The skin is intact. No lacerations, abrasions, wounds, or ulcerations evident. The right shoulder is tender to palpation. There is an arm sling in place. Attempted movements of the right shoulder are painful. Range of motion of the elbow, forearm, wrist, and fingers is full and nonpainful. Radial pulse 2+; capillary refill is brisk. Sensation to light touch is grossly intact throughout. - Routine Skin Exam Present: intact, warm, normal turgor. Absent: cyanosis, erythema, lesions, jaundice - Routine Neurological Exam Present: alert, oriented X3, CN II-XII intact, moving all extremities, normal tone, normal speech. Absent: sensory deficit, motor deficit, altered mental status - Routine Psychiatric Exam Present: normal affect, cooperative - Urinary Catheter Management Hernandez Cath placed during this visit: no Urethral indwelling: No Progress Note: A&P (1) Frequent falls Status: Chronic (2) Microcytic anemia Status: Chronic (3) Closed right humeral fracture Status: Acute (4) UTI (urinary tract infection) Status: Acute (5) COPD (chronic obstructive pulmonary disease) Status: Chronic (6) Hypokalemia Status: Acute (7) Hypocalcemia Status: Acute (8) Osteoporosis Status: Acute (9) Closed right hip fracture Status: Acute (10) Severe protein-calorie malnutrition Status: Acute (11) Personal history of nicotine dependence Status: Acute Assessment and Plan for All Diagnoses:: I have reviewed the clinical findings and progress with the patient. Overall she is doing well from an orthopedic standpoint and can be discharged when medically appropriate. Continue mobilization weightbearing as tolerated on the right lower extremity. No weightbearing on the right upper extremity until further recommendati
--- NOTE | 2021-11-18 14:39 | CARE MANAGER ---
Patient's discharge cancelled as precert will not be obtained today. RAEANN Borja
[2021-11-18 16:00] VITALS: BP 131/74; PULSE 69; RESP 16; TEMP 36.9; O2SAT 95
[2021-11-18 20:00] VITALS: BP 154/80; PULSE 58; RESP 22; TEMP 36.9; O2SAT 90
[2021-11-18 22:42] LABS: POC Glucose,Bedside 110 (70-110)
[2021-11-19] VITALS: BP 165/87; PULSE 80; RESP 18; TEMP 37.1; O2SAT 94
[2021-11-19 04:00] VITALS: BP 150/83; PULSE 79; RESP 20; TEMP 38.1; O2SAT 91
--- NOTE | 2021-11-19 04:24 | PC.NURSE ---
Pt A&O x3. Has rested well this shift. Has c/o discomfort to head, shoulder and (R) hip x1. Medicated per jul. Has ambulated to BR x1. Tolerated fair. Temp is slightly elevated this AM. Other VSS. Will continue to monitor.
[2021-11-19 04:45] VITALS: BMI 24.3
[2021-11-19 06:29] LABS: POC Glucose,Bedside 115 (70-110)
--- NOTE | 2021-11-19 07:40 | XR_ITS ---
FINAL REPORT CLINICAL HISTORY: new O2 requirement and fever COMPARISON: November 12, 2021 FINDINGS: A single portable view of the chest was obtained. The heart size is within normal limits. There is worsening pulmonary vascular congestion. The mediastinum is within normal limits. There are pulmonary opacities, favor edema. There is a worsening small right pleural effusion. The bony thorax is intact. Again noted is a comminuted impacted humeral neck fracture. IMPRESSION: Worsening pulmonary vascular congestion and small right pleural effusion. Pulmonary opacities favoring edema. Reviewed, Interpreted and Dictated by Jesus Harding III, MD Transcribed by Marizol Cespedes Authenticated and [facility]
[2021-11-19 08:00] VITALS: BP 119/63; PULSE 67; PULSE 70; RESP 16; TEMP 36.8; O2SAT 85; O2SAT 95
[2021-11-19 08:21] VITALS: O2SAT 85
[2021-11-19 08:25] VITALS: PULSE 76; PULSE 78; O2SAT 85
[2021-11-19 11:43] LABS: Basophils # 0.1 K/mm3 (0-0.2); Basophils % 0.6 % (0.1-2.0); Eosinophils # 0.2 K/mm3 (0.0-0.4); Eosinophils % 1.8 % (0.1-12.0); Hematocrit 32.1 % (37.0-47.0); Hemoglobin 9.6 g/dL (12.2-16.2); Lymphocytes # 1.9 K/mm3 (0.7-4.5); Lymphocytes % 14.6 % (10-50); Mean Corpuscular HGB Conc 29.9 g/dL (31.8-35.4); Mean Corpuscular Hemoglobin 21.1 pg (27.0-31.2); Mean Corpuscular Volume 70.4 fl (81-99); Mean Platelet Volume 7.4 fl (7.4-10.4); Monocytes # 0.9 K/mm3 (0.1-1.0); Platelet Count 560 K/mm3 (142-424); Red Blood Count 4.56 M/mm3 (4.20-5.40); White Blood Count 13.1 K/mm3 (4.8-10.8)
[2021-11-19 11:47] LABS: Chloride 108 mmol/L (98-107); Potassium 4.2 mmoL/L (3.5-5.1); Sodium 138 mmol/L (136-145)
[2021-11-19 11:49] LABS: Blood Urea Nitrogen 18 mg/dl (7-17); Creatinine Clearance Estimated 55 mL/min (50-200); Estimated Glomerular Filt Rate 85 ml/min (>60); GFR (African American) 102 ML/MIN (>60)
[2021-11-19 11:50] LABS: Alanine Aminotransferase 20 U/L (12-78); Albumin Level 2.8 g/dl (3.5-5.0); Albumin/Globulin Ratio 0.9 (1.1-1.8); Alkaline Phosphatase 114 U/L (38-126); Anion Gap 7.2 mEq/L (5-15); Aspartate Amino Transferase 42 U/L (14-36); Bilirubin,Total 0.3 mg/dl (0.2-1.3); Calcium 8.7 mg/dl (8.4-10.2); Carbon Dioxide 27 mmol/L (22.0-30.0); Globulin 3.2 g/dL (1.3-3.2); Glucose 128 mg/dl (74-100)
[2021-11-19 11:51] LABS: Red Cell Distribution Width 31.5 % (11.5-17.5)
--- NOTE | 2021-11-19 13:29 | HMH.ORTHPN ---
Subjective Date: 11/19/21 Time: 12:45 Principal diagnosis: Right hip fracture, right humerus fracture Interval history: Patient is status post right hip cephalomedullary nailing post op day #5. This morning the patient is sitting up comfortably in bed and is eating lunch. She states that her pain is well-controlled with as needed pain medication and rest. No history of any nausea or vomiting. She is eating and drinking well. No history of chills, rigors, or distal tingling/numbness. She also has a right proximal humerus fracture which is being treated nonoperatively in a sling. She denies any other symptoms or concerns at this time. PN: Obj Ex Vital signs: Temp Pulse Resp BP Pulse Ox 98.3 F 78 16 119/63 85 L 11/19/21 08:00 11/19/21 08:25 11/19/21 08:00 11/19/21 08:00 11/19/21 08:25 - Constitutional no acute distress, thin, cooperative - Routine HEENT Exam Head: Present: normocephalic, atraumatic Eye: Present: EOMI, PERRL ENT: Present: mucous membranes moist - Routine Neck Exam Present: supple, full ROM, trachea midline. Absent: JVD, lymphadenopathy - Routine Respiratory Exam Absent: accessory muscle use, respiratory distress Comments: Symmetric chest movement, able to speak in complete sentences - Routine Cardiovascular Exam Present: RRR Comments: Normal peripheral pulses - Routine Abdominal Exam Present: soft. Absent: tenderness - Routine Extremities Exam Comments: Upon examination of the lower extremities: Limb lengths are equal. Upon examination of the right hip, dressings present are clean, dry, and intact. No evidence of drainage or bleeding noted. The right hip and proximal femur are tender to palpation. Attempted movements of the right hip are somewhat painful. Thigh and calf are soft and nontender; Homans' sign is negative. No clinical evidence of DVT noted. Posterior tibial pulse 1+; capillary refill is brisk. Sensation to light touch is grossly intact throughout. Patient is actively mobilizing the foot, ankle, and toes. Upon examination of the right shoulder/upper extremity: The skin is intact. No lacerations, abrasions, wounds, or ulcerations evident. The right shoulder is tender to palpation. There is an arm sling in place. Attempted movements of the right shoulder are painful. Range of motion of the elbow, forearm, wrist, and fingers is full and nonpainful. Radial pulse 2+; capillary refill is brisk. Sensation to light touch is grossly intact throughout. - Routine Skin Exam Present: intact, warm, normal turgor. Absent: cyanosis, erythema, lesions, jaundice - Routine Neurological Exam Present: alert, oriented X3, CN II-XII intact, moving all extremities, normal tone, normal speech. Absent: sensory deficit, motor deficit, altered mental status - Routine Psychiatric Exam Present: normal affect, cooperative - Urinary Catheter Management Hernandez Cath placed during this visit: no Urethral indwelling: No Progress Note: A&P (1) Frequent falls Status: Chronic (2) Microcytic anemia Status: Chronic (3) Closed right humeral fracture Status: Acute (4) UTI (urinary tract infection) Status: Acute (5) COPD (chronic obstructive pulmonary disease) Status: Chronic (6) Hypokalemia Status: Acute (7) Hypocalcemia Status: Acute (8) Osteoporosis Status: Acute (9) Closed right hip fracture Status: Acute (10) Severe protein-calorie malnutrition Status: Acute (11) Personal history of nicotine dependence Status: Acute Assessment and Plan for All Diagnoses:: I have reviewed the clinical findings and progress with the patient. Overall she is doing well from an orthopedic standpoint and can be discharged when medically appropriate. Continue mobilization weightbearing as tolerated on the right lower extremity. No weightbearing on the right upper extremity until further recommendation. Continue DVT prophylaxis for 6 weeks po
[2021-11-19 14:52] LABS: Coronavirus 19, PCR Not Detected (NotDetected); Influenza A, PCR Not Detected (NotDetected); Influenza B, PCR Not Detected (NotDetected)
--- NOTE | 2021-11-19 14:52 | PC.NURSE ---
PATIENT TO BE DISCHARGED TO [place] WILL NEED COVID SWAB FIRST
--- NOTE | 2021-11-19 16:38 | PC.NURSE ---
Report called to [facility] at [phone]. called PT daughter and informed her of dc at [phone]
--- NOTE | 2021-11-19 17:28 | PC.WOUNDNOTE ---
left with EMS at [phone]
[2021-11-19 18:10] LABS: POC Glucose,Bedside 107 (70-110)
--- NOTE | 2021-11-20 15:02 | CARE MANAGER ---
Spoke with Lucinda at [facility] for post-discharge follow-up, she states no needs at this time.
== END 2021-11-19 17:25 | DRG 481 ==
LOC: ER 16:54 → 2ND 17:26
PROVIDERS: Internal Medicine Adolescent Medicine; Orthopaedic Surgery; Admitting Provider Family Medicine; Emergency Provider Emergency Medicine; PCP Nurse Practitioner Family; Visit Provider Internal Medicine Adolescent Medicine
PROC: 0QS606Z Reposition Right Upper Femur with Intramedullary Internal Fixation Device, Open Approach (ICD-10-PCS; principal; 2021-11-14 15:00)
DX: S72.141A Displaced intertrochanteric fracture of right femur, initial encounter for closed fracture (principal); N30.00 Acute cystitis without hematuria; S72.111A Displaced fracture of greater trochanter of right femur, initial encounter for closed fracture; W01.0XXA Fall on same level from slipping, tripping and stumbling without subsequent striking against object, initial encounter; Z85.850 Personal history of malignant neoplasm of thyroid; F17.210 Nicotine dependence, cigarettes, uncomplicated; J44.9 Chronic obstructive pulmonary disease, unspecified; Z86.73 Personal history of transient ischemic attack (TIA), and cerebral infarction without residual deficits; I73.9 Peripheral vascular disease, unspecified; M81.0 Age-related osteoporosis without current pathological fracture; D50.9 Iron deficiency anemia, unspecified; Z86.718 Personal history of other venous thrombosis and embolism; E87.6 Hypokalemia; E83.51 Hypocalcemia
CPT/HCPCS: 27245; 27248; 36415; 51702; 71045; 72170; 73030; 73200; 73502; 73552; 73721; 74177; 76000; 80048; 80053; 81001; 82272; 82550; 82962; 83735; 84484; 85007; 85025; 86850; 87086; 87088; 87186; 93005; 94640; 94760; 94761; 97110; 97116; 97163; 97165; 97530; 99285; C1713; C1769; C1776; C9803; G0328; J0696; J2704; J3475; P9016; Q9967; U0003; U0005

== ENCOUNTER → 2021-11-27 14:04 | Outpatient (CLI) | payer MEDICARE, SELFPAY ==
--- NOTE | 2021-11-27 14:10 | XR_ITS ---
FINAL REPORT CLINICAL HISTORY: humerus frcture; pt. states fall COMPARISON: November 12, 2021 FINDINGS: RIGHT HUMERUS 2 views were obtained. There is a comminuted fracture of the proximal humeral head and neck. There is medial rotation of the humeral head fracture fragment. The bony alignment is similar to the prior examination. There is increased callus formation at the fracture site. There is no soft tissue abnormality. IMPRESSION: Comminuted fracture of the proximal humeral head and neck with medial rotation of the humeral head the fracture fragment. Reviewed, Interpreted and Dictated by Jesus Harding III, MD Transcribed by Rosalba Santos Authenticated and [facility]
--- NOTE | 2021-11-27 14:10 | XR_ITS ---
FINAL REPORT CLINICAL HISTORY: rt hip pain; pt. states fall; hx ORIF hip COMPARISON: November 12, 2021 FINDINGS: LEFT HIP Two views including an AP pelvis demonstrate postoperative changes of the proximal femur. There is medial displacement of the greater trochanter fracture fragment. There is mild degenerative change. There are vascular calcifications. IMPRESSION: Postoperative changes of the proximal femur. Medial displacement of the greater trochanter fracture fragment. Reviewed, Interpreted and Dictated by Jesus Harding III, MD Transcribed by Rosalba Santos Authenticated and [facility]
== END ==
PROVIDERS: PCP Nurse Practitioner Family; Visit Provider Orthopaedic Surgery
DX: S72.001A Fracture of unspecified part of neck of right femur, initial encounter for closed fracture (principal); S42.301A Unspecified fracture of shaft of humerus, right arm, initial encounter for closed fracture
CPT/HCPCS: 73060; 73502

== ENCOUNTER → 2021-12-25 13:59 | Outpatient (CLI) | payer MEDICARE, SELFPAY ==
--- NOTE | 2021-12-25 14:16 | XR_ITS ---
PROCEDURE INFORMATION: Exam: XR Right Hip Exam date and time: 12/25/2021 2:17 PM Age: 66 years old Clinical indication: Hip pain; Right hip; Prior surgery; Surgery date: 1-6 months; Additional info: S/P RT hip surgery TECHNIQUE: Imaging protocol: Radiologic exam of the Right hip. Views: 2 or 3 views hip with pelvis when performed. COMPARISON: CR XR HIP RT 2-3V W/PELVIS 11/27/2021 2:12 PM FINDINGS: Bones/joints: Intramedullary mohini enters from above the right greater trochanter and terminates in the proximal femoral diaphysis with a single of distal transversely oriented approximation screw. A 2nd intramedullary mohini/screw enters from below the greater trochanter and traverses the 1st, terminating in the femoral head. These prosthetic components are satisfactory and unchanged in configuration. Healing fractures of the left symphysis, medial superior and inferior rami are once again seen. Diffuse bone demineralization. Stable benign bone island in the proximal left femur. Degenerative spondylosis and facet arthropathy within the lower lumbar spine. Soft tissues: Unremarkable. Vasculature: Extensive arterial calcifications. IMPRESSION: Satisfactory configuration internal fixation right hip fracture.
--- NOTE | 2021-12-25 14:16 | XR_ITS ---
PROCEDURE INFORMATION: Exam: XR Right Shoulder Exam date and time: 12/25/2021 2:17 PM Age: 66 years old Clinical indication: Pain; Shoulder; Right; Additional info: RT shoulder fracture TECHNIQUE: Imaging protocol: Radiologic exam of the Right shoulder. Views: 2 or more views. COMPARISON: CT SHOULDER RT WO CON 11/13/2021 11:04 AM FINDINGS: Bones/joints: The comminuted impacted fracture at the junction of the right humeral head and humeral diaphysis is once again identified. There is increased acute angulation to approximately 90 degrees at the fracture site and the distal fragment appears to have migrated slightly cephalad compared to the prior exam. Although there is healing surrounding and callus formation, incomplete union and recurrent injury may be present. Diffuse bone demineralization. Lungs: Diffuse interstitial thickening of the lungs. Vasculature: Calcification of thoracic aorta. Soft tissues: Normal. IMPRESSION: 1. The comminuted impacted fracture at the junction of the right humeral head and humeral diaphysis is once again identified. There is increased acute angulation to approximately 90 degrees at the fracture site and the distal fragment appears to have migrated slightly cephalad compared to the prior exam. Although there is healing surrounding callus formation, incomplete union and recurrent injury may be present. 2. Osteopenia/osteoporosis. 3. Atherosclerotic vascular disease. 4. Diffuse interstitial lung disease.
== END ==
PROVIDERS: PCP Nurse Practitioner Family; Visit Provider Orthopaedic Surgery
DX: S42.91XA Fracture of right shoulder girdle, part unspecified, initial encounter for closed fracture; S72.411A Displaced unspecified condyle fracture of lower end of right femur, initial encounter for closed fracture
CPT/HCPCS: 73030; 73502

== ENCOUNTER → 2022-02-12 13:44 | Outpatient (CLI) | payer MEDICARE, SELFPAY ==
--- NOTE | 2022-02-12 13:49 | XR_ITS ---
FINAL REPORT CLINICAL HISTORY: shoulder fracture COMPARISON: December 25, 2021 FINDINGS: RIGHT SHOULDER: 3 views of the right shoulder were obtained. There is a fracture through the neck of the right humerus. There is significant medial rotation of the humeral head fracture fragment. There is increased callus formation at the fracture site. The joint spaces are intact. There is no soft tissue abnormality. IMPRESSION: Healing fracture of the neck of the right humerus. Reviewed, Interpreted and Dictated by Jesus Hardnig III, MD Transcribed by Irineo Peterson Authenticated and . [facility]
--- NOTE | 2022-02-12 13:49 | XR_ITS ---
FINAL REPORT CLINICAL HISTORY: hip fracture COMPARISON: December 25, 2021 FINDINGS: Right hip with pelvis. There are postoperative changes from ORIF of the proximal right femur. There are chronic fractures of the left superior and inferior pubic rami. There is no dislocation. Vascular calcifications are present. IMPRESSION: Post ORIF changes, stable. Chronic left superior and inferior pubic rami fractures. Reviewed, Interpreted and Dictated by Jesus Harding III, MD Transcribed by Irineo Peterson Authenticated and [facility]
== END ==
PROVIDERS: PCP Nurse Practitioner Family; Visit Provider Orthopaedic Surgery
DX: S42.301A Unspecified fracture of shaft of humerus, right arm, initial encounter for closed fracture (principal); S72.001A Fracture of unspecified part of neck of right femur, initial encounter for closed fracture
CPT/HCPCS: 73030; 73502

== ENCOUNTER → 2022-12-10 14:09 | Outpatient (CLI) | payer MEDICARE, SELFPAY ==
[2022-12-10 14:48] LABS: Basophils # 0.1 K/mm3 (0-0.2); Basophils % 0.6 % (0.1-2.0); Eosinophils # 0.3 K/mm3 (0.0-0.4); Eosinophils % 2.4 % (0.1-12.0); Hematocrit 30.6 % (37.0-47.0); Lymphocytes # 2.1 K/mm3 (0.7-4.5); Lymphocytes % 14.5 % (10-50); Mean Corpuscular HGB Conc 29.3 g/dL (31.8-35.4); Mean Corpuscular Hemoglobin 21.5 pg (27.0-31.2); Mean Corpuscular Volume 73.5 fl (81-99); Mean Platelet Volume 7.8 fl (7.4-10.4); Monocytes # 0.9 K/mm3 (0.1-1.0); Monocytes % 6.2 % (1.7-9.3); Neutrophils # 10.9 K/mm3 (1.8-7.8); Neutrophils % 76.3 % (37.0-80.0); Platelet Count 580 K/mm3 (142-424); Red Blood Count 4.17 M/mm3 (4.20-5.40); Red Cell Distribution Width 20.7 % (11.5-17.5); White Blood Count 14.2 K/mm3 (4.8-10.8)
[2022-12-10 15:32] LABS: Alanine Aminotransferase 31 U/L (12-78); Albumin Level 2.6 g/dl (3.5-5.0); Alkaline Phosphatase 105 U/L (38-126); Anion Gap 7.8 mEq/L (5-15); Aspartate Amino Transferase 51 U/L (14-36); Blood Urea Nitrogen 19 mg/dl (7-17); Calcium 7.9 mg/dl (8.4-10.2); Carbon Dioxide 26 mmol/L (22.0-30.0); Chloride 111 mmol/L (98-107); Chol/HDL Ratio 1.6 (1-3.5); Cholesterol 88 mg/dl (140-200); Estimated Glomerular Filt Rate 84 ml/min (>60); GFR (African American) 102 ML/MIN (>60); Globulin 2.5 g/dL (1.3-3.2); Glucose 102 mg/dl (74-100); HDL Cholesterol 55 mg/dl (40-60); Potassium 3.8 mmoL/L (3.5-5.1); Sodium 141 mmol/L (136-145); Total Protein,Serum 5.1 g/dl (6.3-8.2); Triglycerides 63 mg/dl (30-150); VLDL Cholesterol 13 mg/dL (0-40)
[2022-12-10 15:33] LABS: Bilirubin,Total < 0.1 mg/dl (0.2-1.3)
[2022-12-10 15:45] LABS: Hemoglobin A1C 5.4 % (4.0-6.0)
[2022-12-10 16:41] LABS: Direct LDL Cholesterol 34.74 mg/dL (100-129)
[2022-12-10 16:50] LABS: 25-OH Vitamin D, Total < 12.8 ng/mL (30-100)
[2022-12-10 17:04] LABS: Thyroid Stimulating Hormone 1.35 uIU/mL (0.465-4.68)
[2022-12-10 17:23] LABS: Vitamin B12 295 pg/mL (239-931)
[2022-12-10 17:54] LABS: Iron 23 ug/dL (37-170)
[2022-12-10 18:04] LABS: Total Iron Binding Capacity 402 ug/dL (265-497)
[2022-12-10 18:31] LABS: Ferritin 10.1 ng/ml (11.1-264)
== END ==
LOC: LAB 14:09
PROVIDERS: PCP Nurse Practitioner Family; Visit Provider Nurse Practitioner Family
DX: D50.9 Iron deficiency anemia, unspecified (principal); R73.03 Prediabetes; E78.5 Hyperlipidemia, unspecified; E55.9 Vitamin D deficiency, unspecified; J44.9 Chronic obstructive pulmonary disease, unspecified; M81.0 Age-related osteoporosis without current pathological fracture
CPT/HCPCS: 36415; 80053; 80061; 82306; 82607; 82728; 83036; 83540; 83550; 84443; 85025

== ENCOUNTER 2023-01-06 16:23 | Inpatient (IN) | payer MEDICARE, SELFPAY ==
[2023-01-06 17:02] VITALS: BP 198/81; PULSE 76; RESP 18; TEMP 36.8; O2SAT 98; BMI 30.5
[2023-01-06 17:35] LABS: Basophils % 0.3 % (0.1-2.0); Eosinophils # 0.1 K/mm3 (0.0-0.4); Eosinophils % 0.7 % (0.1-12.0); Hemoglobin 8.6 g/dL (12.2-16.2); Lymphocytes # 1.9 K/mm3 (0.7-4.5); Lymphocytes % 15.2 % (10-50); Mean Corpuscular HGB Conc 30.5 g/dL (31.8-35.4); Mean Corpuscular Hemoglobin 23.1 pg (27.0-31.2); Mean Corpuscular Volume 75.8 fl (81-99); Mean Platelet Volume 7.9 fl (7.4-10.4); Monocytes % 7.8 % (1.7-9.3); Neutrophils # 9.4 K/mm3 (1.8-7.8); Platelet Count 908 K/mm3 (142-424); Red Cell Distribution Width 23.2 % (11.5-17.5); White Blood Count 12.4 K/mm3 (4.8-10.8)
[2023-01-06 17:48] LABS: Anion Gap 6.4 mEq/L (5-15); Blood Urea Nitrogen 11 mg/dl (7-17); Calcium 7.3 mg/dl (8.4-10.2); Carbon Dioxide 26 mmol/L (22.0-30.0); Chloride 114 mmol/L (98-107); Creatinine Clearance Estimated 76 mL/min (50-200); Estimated Glomerular Filt Rate 100 ml/min (>60); GFR (African American) 121 ML/MIN (>60); Glucose 75 mg/dl (74-100); Lactic Acid 0.9 mmol/L (0.7-2.1); Sodium 144 mmol/L (136-145)
[2023-01-06 17:54] LABS: Potassium 2.4 mmoL/L (3.5-5.1)
--- NOTE | 2023-01-06 17:59 | ECG_ITS ---
APPROVED REPORT Exam: Resting ECG HR:70 bpm ECG Measurements Heart Rate 70 AXES WI 154 P 59 QRSd 109 QRS 16 QT 418 T 34 QTc 438 Conclusion SINUS RHYTHM Left atrial abnormality NONSPECIFIC T-WAVE ABNORMALITY BORDERLINE ECG UNCONFIRMED REPORT Electronically signed by : Bi Díaz MD 01/06/2023 20:42:04
--- NOTE | 2023-01-06 18:37 | PC.NURSE ---
notified dr. tejada of abnormal labs, k 2.4, VO for k 40mg po once now. verified clindamycin order. open area to back of rt leg, scattered scabs to rle. stage 2 on coccyx, see pictures on wound note. 20g iv in lfa. alert x4. per terrell, okay to use purewick on pt due to weakness in lower extremities. cb w/i reach. daughter at bedside, no needs at this time.
[2023-01-06 20:00] VITALS: BP 180/64; PULSE 70; RESP 22; TEMP 36.6; O2SAT 98
--- NOTE | 2023-01-06 21:03 | EXP.HP ---
History of Present Illness *Admission Date: 01/06/23 *Reason for visit:: Cellulitis *History of present illness: 67 yr old female seen today in her home at her request secondary to persistent lower extremity edema, erythema, pain. She noted increased lower extremity edema 2-3 weeks ago but did not seek care until her daughter visited her the following weekend. Started oral furosemide then, elevation, but edema persisted. Over the past week has developed erythema and she called me over the weekend reporting worse pain, weeping and persistent edema. Started oral cephalexin and I sent potassium supplement as well but she hasn't started that at this point. On exam today she was hypertensive, tachycardic, with active drainage from her right lower extremity wound, slough and concern for infection that was not improving with outpatient therapy. After much discussion she was agreeable to admission for IV antibiotics and wound care. Of note, she is quite limited by very poor eyesight secondary to stroke history and has some difficulty monitoring her wounds. [facility] Disclaimer: The information contained in this section may have been updated after the patient was seen, as this information can be updated by other users. Medical History (Updated 01/06/23 @ 21:38 by Kaitlin Red APRN) Anemia Anxiety Arthritis Cervical cancer Colon cancer CVA (cerebral vascular accident) Depression DM2 (diabetes mellitus, type 2) DVT (deep venous thrombosis) Fibromyalgia GERD (gastroesophageal reflux disease) Heart attack HLD (hyperlipidemia) HTN (hypertension) PVD (peripheral vascular disease) Skin cancer Surgical History (Updated 01/06/23 @ 21:18 by Kaitlin Red APRN) History of parathyroid surgery History of total bilateral knee replacement Hx of appendectomy Hx of cardiac cath Hx of cholecystectomy Hx of hysterectomy Family History No significant family history Social History Smoking Status: Current every day smoker tobacco type: cigarettes packs per day: 1 alcohol intake: never substance use type: denies use current occupational status: disabled Travel in the last 8 weeks: None household members: none and other housing: apartment caffeine: Yes Review of Systems Review of Systems Review of systems:: pertinent systems reviewed and negative unless documented below Constitutional Constitutional: Denies fever(s), Denies frequent falls and Reports weakness Eyes Eyes: Reports other visual disturbances (poor vision since CVA) ENT Ears, Nose, Mouth, and Throat: Denies change in voice, Reports disequilibrium and Denies vertigo *Cardiovascular Cardiovascular: Reports as per HPI, Denies chest pain and Reports dyspnea (at baseline) *Respiratory Respiratory: Reports dyspnea (at baseline) *Gastrointestinal Gastrointestinal: Denies abdominal pain and Denies change in bowel habits *Genitourinary Genitourinary: Reports urinary incontinence *Musculoskeletal Musculoskeletal: Reports back pain and Reports numbness Integumentary/Breasts Skin/Breast: Reports as per HPI *Neurologic Neurologic: Reports disequilibrium, Denies frequent falls, Reports numbness, Denies vertigo and Reports weakness Psychiatric Psychiatric: Reports anxiety and Reports depression Meds Home Medications and Allergies Home Medications Medication Instructions Recorded Confirmed Type alprazolam 1 mg tablet 1 mg PO QIDP PRN Anxiety 30 days 07/26/18 01/06/23 History aspirin 81 mg tablet,delayed 81 mg PO DAILY HEART HEALTH 07/26/18 01/06/23 History release (Adult Low Dose Aspirin) duloxetine 60 mg capsule,delayed 60 mg PO DAILY Depression 30 days 07/26/18 01/06/23 History release ramipril 10 mg capsule 20 mg PO DAILY Hypertension 30 days 07/26/18 01/06/23 History topiramate 100 mg tablet 100 mg PO BID Headache 30 days 07/26/18 01/06/23 Hi
--- NOTE | 2023-01-07 | CA_ITS ---
FINAL REPORT CLINICAL HISTORY: NON HEALING ULCERS, Smoker, CAD, cellulitis COMPARISON: None FINDINGS: BILATERAL LOWER EXTREMITY DUPLEX DOPPLER Color Doppler and duplex Doppler of the bilateral lower extremity was performed. Spectral analysis was also performed. Velocities were measured at multiple levels. All velocities are in centimeters per second. RIGHT STOKER INSTALLER: 89 Prof: 53 SFA Prox: 112 SFA Mid: 138 SFA Distal: 203 IT SECURITY ARCHITECT: 88 KADY: 57 Per Prox: 75 Waveforms are monophasic throughout the right consistent with inflow disease. LEFT STOKER INSTALLER: 123 Prof: 87 SFA Prox: 169 SFA Mid: 124 SFA Distal: 131 IT SECURITY ARCHITECT: 88 KADY: 141 Per Prox: 72 Waveforms are biphasic with the exception of left anterior tibial which is monophasic worrisome for distal disease. IMPRESSION: Monophasic waveforms on the right consistent with inflow disease. Biphasic waveforms on the left with the exception of left anterior tibial which is monophasic, worrisome for distal disease. Findings can be further evaluated with CT angiogram or catheter angiogram Reviewed, Interpreted and Dictated by Jesus Harding III, MD Transcribed by Marizol Cespedes Authenticated and . [facility]
[2023-01-07 04:00] VITALS: BP 195/78; PULSE 72; RESP 22; TEMP 36.9; O2SAT 92; BMI 31.1
--- NOTE | 2023-01-07 04:29 | PC.NURSE ---
Patient has not rested well tonight. Has been in pain most of the night. Bre was notified and more medication was added. Patient states it helped a little. R leg is starting to weep chucks were put underneath to help. patient still remains unable to get up to bedside due to being weak
[2023-01-07 06:47] LABS: Basophils % 0.3 % (0.1-2.0); Eosinophils # 0.2 K/mm3 (0.0-0.4); Eosinophils % 2.2 % (0.1-12.0); Hematocrit 29.2 % (37.0-47.0); Hemoglobin 8.8 g/dL (12.2-16.2); Lymphocytes # 1.9 K/mm3 (0.7-4.5); Mean Corpuscular Hemoglobin 22.4 pg (27.0-31.2); Mean Corpuscular Volume 74.6 fl (81-99); Mean Platelet Volume 7.6 fl (7.4-10.4); Monocytes # 0.9 K/mm3 (0.1-1.0); Neutrophils # 6.9 K/mm3 (1.8-7.8); Neutrophils % 69.5 % (37.0-80.0); Platelet Count 930 K/mm3 (142-424); Red Blood Count 3.91 M/mm3 (4.20-5.40); Red Cell Distribution Width 22.9 % (11.5-17.5)
[2023-01-07 06:54] LABS: Anion Gap 5.3 mEq/L (5-15); Blood Urea Nitrogen 7 mg/dl (7-17); Calcium 7.2 mg/dl (8.4-10.2); Carbon Dioxide 27 mmol/L (22.0-30.0); Chloride 113 mmol/L (98-107); Creatinine Clearance Estimated 78 mL/min (50-200); Estimated Glomerular Filt Rate 100 ml/min (>60); GFR (African American) 121 ML/MIN (>60); Glucose 80 mg/dl (74-100); Sodium 143 mmol/L (136-145)
[2023-01-07 07:05] LABS: Potassium 2.3 mmoL/L (3.5-5.1)
[2023-01-07 07:56] VITALS: BP 179/79; PULSE 70; RESP 18; TEMP 36.9; O2SAT 92
--- NOTE | 2023-01-07 08:03 | EXP.PHA.CONS ---
Pharmacy Consult Date: 01/07/23 Time: 08:08 Referring provider: DR KRISHNAN Reason for Consult:: VANCOMYCIN DOSING CONSULT Allergies Allergy/AdvReac Type Severity Reaction Status Date / Time erythromycin base Allergy Unknown I-HIVES Verified 02/12/22 14:40 Penicillins Allergy Unknown I-HIVES Verified 02/12/22 14:40 propoxyphene Allergy Unknown I-HIVES Verified 02/12/22 14:40 Home Medications Medication Instructions Recorded Confirmed Type alprazolam 1 mg tablet 1 mg PO QIDP PRN Anxiety 30 days 07/26/18 01/06/23 History aspirin 81 mg tablet,delayed 81 mg PO DAILY HEART HEALTH 07/26/18 01/06/23 History release (Adult Low Dose Aspirin) duloxetine 60 mg capsule,delayed 60 mg PO DAILY Depression 30 days 07/26/18 01/06/23 History release ramipril 10 mg capsule 20 mg PO DAILY Hypertension 30 days 07/26/18 01/06/23 History topiramate 100 mg tablet 100 mg PO BID Headache 30 days 07/26/18 01/06/23 History metformin 500 mg tablet 500 mg PO DAILY Diabetes 12/13/19 01/06/23 History amlodipine 10 mg tablet 10 mg PO DAILY Hypertension 11/13/21 01/06/23 History bisoprolol fumarate 5 mg tablet 5 mg PO DAILY Hypertension 11/13/21 01/06/23 History pantoprazole 40 mg tablet,delayed 40 mg PO DAILY GERD 11/13/21 01/06/23 History release paroxetine HCl 10 mg tablet 10 mg PO DAILY MOOD 11/13/21 01/06/23 History pravastatin 40 mg tablet 40 mg PO HS Cholesterol 11/13/21 01/06/23 History gabapentin 600 mg tablet 600 mg PO TID nerve pain 30 days 11/18/21 01/06/23 Rx #90 tabs ipratropium 0.5 mg-albuterol 3 mg 3 ml inhalation Q6HP PRN Dyspnea 11/19/21 01/06/23 Rx (2.5 mg base)/3 mL nebulization 10 days #120 mL soln cyanocobalamin (vitamin B-12) 100 100 mcg PO DAILY Supplement 01/06/23 01/06/23 History mcg tablet ferrous sulfate 325 mg (65 mg 325 mg PO DAILY ANEMIA 01/06/23 01/06/23 History iron) tablet (FeroSul) fluticasone fur. 100 mcg-umeclid 1 puff IH DAILY Copd 01/06/23 01/06/23 History 62.5 mcg-vilant 25 mcg inhalat.powder furosemide 40 mg tablet 40 mg PO DAILY Fluid 01/06/23 01/06/23 History potassium chloride 10 mEq 10 meq PO BID Supplement 01/06/23 01/06/23 History capsule,extended release New Prescriptions to Start Prescriptions: Height: 1.68 m Weight: 87.77 kg Laboratory Results:: Laboratory Results - last 24 hr 01/06/23 17:14: WBC 12.4 H, RBC 3.70 L, Hgb 8.6 L, Hct 28.0 L, MCV 75.8 L, MCH 23.1 L, MCHC 30.5 L, RDW 23.2 H, Plt Count 908 H*, MPV 7.9, Neut % (Auto) 76.0, Lymph % (Auto) 15.2, [place] % (Auto) 7.8, Eos % (Auto) 0.7, Baso % (Auto) 0.3, Neut # (Auto) 9.4 H, Lymph # (Auto) 1.9, [place] # (Auto) 1.0, Eos # (Auto) 0.1, Baso # (Auto) 0.0, Sodium 144, Potassium 2.4 L*, Chloride 114 H, Carbon Dioxide 26, Anion Gap 6.4, BUN 11, Creatinine 0.60, Estimated Creat Clear 76, Estimated GFR 100, Est GFR ( Amer) 121, Glucose 75, Lactate 0.9, Calcium 7.3 L 01/07/23 06:29: WBC 10.0, RBC 3.91 L, Hgb 8.8 L, Hct 29.2 L, MCV 74.6 L, MCH 22.4 L, MCHC 30.0 L, RDW 22.9 H, Plt Count 930 H*, MPV 7.6, Neut % (Auto) 69.5, Lymph % (Auto) 19.0, [place] % (Auto) 9.0, Eos % (Auto) 2.2, Baso % (Auto) 0.3, Neut # (Auto) 6.9, Lymph # (Auto) 1.9, [place] # (Auto) 0.9, Eos # (Auto) 0.2, Baso # (Auto) 0.0, Sodium 143, Potassium 2.3 L*, Chloride 113 H, Carbon Dioxide 27, Anion Gap 5.3, BUN 7 D, Creatinine 0.60, Estimated Creat Clear 78, Estimated GFR 100, Est GFR ( Amer) 121, Glucose 80, Calcium 7.2 L Medical History: Medical History (Updated 01/06/23 @ 21:38 by Kaitlin Red APRN) Anemia Anxiety Arthritis Cervical cancer Colon cancer CVA (cerebral vascular accident) Depression DM2 (diabetes mellitus, type 2) DVT (deep venous thrombosis) Fibromyalgia GERD (gastroesophageal reflux disease) Heart attack HLD (hyperlipidemia) HTN (hypertension) PVD (peripheral vascular disease) Skin cancer Assessment and Plan Assessment and plan all Dx Assessment and Plan for all problems:: Pharmacokinetic dosing service =
--- NOTE | 2023-01-07 08:30 | EXP.ACUTE.PN ---
Subjective *Date: 01/07/23 *Time: 08:30 Interval history: Patient overnight has felt poorly, and her sleep has been interrupted by staff several times. Ultrasounds have been done this morning of her leg and are pending. PT evaluation for wound care is pending. She tolerated antibiotics well. Appreciate pharmacy input vis-?-vis vancomycin dosing. Blood pressures been slightly elevated without home meds overnight. Medical Exam Vital signs and Labs for Last 24 Hours: Vital Signs Temp Pulse Resp BP Pulse Ox O2 Del Method 01/07/23 07:56 98.5 F 70 18 179/79 H 92 L Room Air 01/07/23 04:00 98.4 F 72 22 195/78 H 92 L Room Air 01/07/23 01:00 Room Air 01/07/23 06:47 Room Air 01/07/23 05:00 Room Air 01/07/23 03:00 Room Air 01/06/23 23:00 Room Air 01/06/23 21:00 Room Air 01/06/23 20:00 Room Air 01/06/23 20:00 98 F 70 22 180/64 H 98 Room Air 01/06/23 18:49 Room Air 01/06/23 17:00 Room Air 01/06/23 17:02 98.3 F 76 18 198/81 H 98 Room Air Intake and Output 01/06/23 01/07/23 01/07/23 19:59 03:59 11:59 Intake Total 1050 / 1050 Output Total 0 / 500 500 / 500 Balance 1050 / 550 -500 / 550 Intake: Intake, Total IV Amount 1050 / 1050 0.9 % Sodium Chloride 1000ML 1, 600 / 600 000 ml @ 50 mls/hr IV .Q20H KADEEM Rx#:[id number] Clindamycin Phosphate/D5w 900 100 / 100 mg In 50 ml @ 100 mls/hr IV Q8H KADEEM Rx#:[id number] Vancomycin/Water For Inj (Peg) 350 / 350 1.75 gm In 350 ml @ 175 mls/hr IV ONCE ONE Rx#:[id number] Output: Output, Urine Amount 0 / 500 500 / 500 Other: Number of Unmeasured Voids 1 Number of Urine Attends/Diapers 1 Number of Bowel Movements 1 Weight 189 lb 1 oz 193 lb 8 oz Patient Weight 01/07/23 11:59 Weight 193 lb 8 oz Laboratory Results - last 24 hr 01/06/23 17:14: WBC 12.4 H, RBC 3.70 L, Hgb 8.6 L, Hct 28.0 L, MCV 75.8 L, MCH 23.1 L, MCHC 30.5 L, RDW 23.2 H, Plt Count 908 H*, MPV 7.9, Neut % (Auto) 76.0, Lymph % (Auto) 15.2, [place] % (Auto) 7.8, Eos % (Auto) 0.7, Baso % (Auto) 0.3, Neut # (Auto) 9.4 H, Lymph # (Auto) 1.9, [place] # (Auto) 1.0, Eos # (Auto) 0.1, Baso # (Auto) 0.0, Sodium 144, Potassium 2.4 L*, Chloride 114 H, Carbon Dioxide 26, Anion Gap 6.4, BUN 11, Creatinine 0.60, Estimated Creat Clear 76, Estimated GFR 100, Est GFR ( Amer) 121, Glucose 75, Lactate 0.9, Calcium 7.3 L 01/07/23 06:29: WBC 10.0, RBC 3.91 L, Hgb 8.8 L, Hct 29.2 L, MCV 74.6 L, MCH 22.4 L, MCHC 30.0 L, RDW 22.9 H, Plt Count 930 H*, MPV 7.6, Neut % (Auto) 69.5, Lymph % (Auto) 19.0, [place] % (Auto) 9.0, Eos % (Auto) 2.2, Baso % (Auto) 0.3, Neut # (Auto) 6.9, Lymph # (Auto) 1.9, [place] # (Auto) 0.9, Eos # (Auto) 0.2, Baso # (Auto) 0.0, Sodium 143, Potassium 2.3 L*, Chloride 113 H, Carbon Dioxide 27, Anion Gap 5.3, BUN 7 D, Creatinine 0.60, Estimated Creat Clear 78, Estimated GFR 100, Est GFR ( Amer) 121, Glucose 80, Calcium 7.2 L I & O for Labs for Last 24 Hours: Intake & Output 01/04/23 01/05/23 01/06/23 01/07/23 11:59 11:59 11:59 11:59 Intake Total 1050 / 1050 Output Total 500 / 500 Balance 550 / 550 Weight 193 lb 8 oz Comment:: Patient is alert, appears chronically ill. Lungs with smokers rhonchi, heart rate regular. Abdomen soft, right leg is significant redness, lots of excoriated cellulitic abrasions on the back of the calf into the lateral aspect of the calf with drainage. Pulses are diminished in both lower extremities which is an old finding. Assessment and Plan *Assessment and plan (1) Cellulitis of both lower extremities: Status: Acute Category: Medical Code(s): L03.115 - Cellulitis of right lower limb; L03.116 - Cellulitis of left lower limb (2) Hypokalemia: Status: Acute Category: Medical Code(s): E87.6 - Hypokalemia (3) Microcytic anemia: Status: Chronic Category: Medical
--- NOTE | 2023-01-07 09:17 | P.CONPHA_ITS ---
Pharmacy Intervention Comments: Patient's home medications were verified by the [facility], [facility], and [facility]. -Rick Vargas, PharmD student
--- NOTE | 2023-01-07 09:17 | HMH.PHAINT1 ---
Pharmacy Intervention Comments: Patient's home medications were verified by the [facility], [facility], and [facility]. -Rick Vargas, PharmD student
[2023-01-07 13:02] LABS: Anion Gap 6.7 mEq/L (5-15); Blood Urea Nitrogen 6 mg/dl (7-17); Calcium 7.3 mg/dl (8.4-10.2); Carbon Dioxide 26 mmol/L (22.0-30.0); Chloride 112 mmol/L (98-107); Creatinine Clearance Estimated 78 mL/min (50-200); Estimated Glomerular Filt Rate 124 ml/min (>60); GFR (African American) 150 ML/MIN (>60); Glucose 81 mg/dl (74-100); Sodium 142 mmol/L (136-145)
[2023-01-07 13:08] LABS: Potassium 2.7 mmoL/L (3.5-5.1)
--- NOTE | 2023-01-07 13:47 | HMH.OTEV ---
OT Inpatient Evaluation Rehab OT IP Evaluation Start: 01/07/23 08:29 Freq: ONCE Status: Active Protocol: Document 01/07/23 13:40 [facility] (Rec: 01/07/23 13:47 [facility] [id number]) Rehab OT IP Assessment Subjective History Pt oriented x 3 on arrival. Pt agreeable to engage in therapy evaluation. Pt admitted on 01/06/23 due to cellulitis in bilateral LE's. Prior to being in the hospital, pt lived at home with her grandson. Pt reports normally she is able to complete all ADLs independently. Pt's family completes all IADLs. Pt did use a rollator during functional transfers. Pt has a past medical history of: Anemia Anxiety Arthritis Cervical cancer Colon cancer CVA (cerebral vascular accident) Depression DM2 (diabetes mellitus, type 2 ) DVT (deep venous thrombosis) Fibromyalgia GERD (gastroesophageal reflux disease) Heart attack HLD (hyperlipidemia) HTN (hypertension) PVD (peripheral vascular disease) Skin cancer Subjective I am still in pain. Objective Patient Orientation Person,Place,Birthday Upper Extremity Gross ROM WFL Bed Mobility bed mobility-scooting,bed mobility - supine/sit,bed mobility - rolling Assist Level Minimal x 1 (25% assist) Rehab OT IP prob,goals,plan Problems Date of Evaluation: 01/07/23 OT IP Problems Bed Mobility,Transfers,Balance ,Self care,Safety Rehab Potential Rehab Potential Good Equipment Needs Assistive Devices Rolling / Wheeled Walker Plan OT intervention Plan Bed Mobility,Transfers,Balance ,Self care,Sa
[2023-01-07 15:06] VITALS: BMI 31.1
--- NOTE | 2023-01-07 15:17 | HMH.PTWOUND ---
Rehab Inpt Wound Evaluation Rehab IP Wound Evaluation Start: 01/07/23 11:53 Freq: ONCE Status: Active Protocol: Document 01/07/23 15:06 BRADAdilsonRASHEEDA (Rec: 01/07/23 15:17 [facility] [id number]) Rehab PT Wound Assessment Subjective Subjective 67 yowf adm to [facility] with B LE cellulitis. She has hx of HTN, HLD, CVA, [place], anxiety, DM, cervical cancer, colon cancer. She reports she lives with family, 1 step to enter the home and she is generally independent with all mobility at baseline. B LE with mild erythema, multiple areas of excoriation noted, moderate serous drainage from R LE. Wound Right Lower Leg Wound Type cellulitis Is This a Chronic Wound Yes Wound Length (cm) 10.0 Wound Width (cm) 6.0 Wound Depth (cm) 0.1 Wound Bed Appearance Parnell Wound Margins Description Indistinct Surrounding Tissue Appearance Parnell Edema Type Pitting Edema Degree 1+ Query Text:1+ Trace, Barely Detectable, Rebound 15-30 seconds 2+ Moderate, Slight Indentation, Rebound 10-20 seconds 3+ Deep, Deeper Indentation, Rebound > 30 seconds 4+ Very Deep, Rebound > 60 seconds Wound Drainage Description Serous Drainage Amount Moderate Primary Dressing Unna Boot Wound Secondary Dressing Type Gauze Roll/Wrap,Adhering Gauze Roll Wound Debridement Method Gauze Wound Debridement Amount of Tissue Minimal Removed Dressing Change Patient Tolerance Tolerated Well Plan/Recommendation Comment Continue Unna Boot changed every 3-4 days as needed. Eval Complexity Eval Charge Codes 84458 - High Complexity PHYSICIAN CERTIFICATION: I certify the specified therapy services for Brandon Rocha are required, authorized, and reviewed every 30 days.
--- NOTE | 2023-01-07 15:19 | HMH.PTEV ---
Physical Therapy Evaluation Rehab PT IP Evaluation Start: 01/07/23 08:29 Freq: ONCE Status: Active Protocol: Document 01/07/23 15:17 [facility] (Rec: 01/07/23 15:19 [facility] [id number]) Subjective/History History History 67 yowf adm to [facility] with B LE cellulitis. She has hx of HTN, HLD, CVA, [place], anxiety, DM, cervical cancer, colon cancer. She reports she lives with family, 1 step to enter the home and she is generally independent with all mobility at baseline. B LE with mild erythema, multiple areas of excoriation noted, moderate serous drainage from R LE. Subjective Subjective Continues to c/o significant pain in B LE. Rehab PT IP Eval Objective Appearance Patient Behavior Appropriate Patient Orientation Person,Place,Time Difficulty following instructions none Speech Pattern Clear Ambulation Patient Able to Ambulate No Balance Ability to Arise Able, uses arms to help Sitting Balance Steady, safe Standing Balance Steady, wide stance Dynamic Sitting Balance Ability Good Dynamic Standing Balance Ability Fair Transfers Bed Transfer Ability Minimal x 1 (25% assist) Chair Transfer Ability Minimal x 1 (25% assist) Sit to Stand Bed Transfer Ability Minimal x 1 (25% assist) Sit to Stand Chair Transfer Ability Minimal x 1 (25% assist) Rehab PT IP prob,goals,plan Problems Date of Evaluation: 01/07/23 PT IP Problems Bed Mobility,Transfers,Gait Rehab Potential Rehab Potential Good Plan PT Intervention Plan Bed Mobility,Transfers,Gait, Therapeutic Exercise PT Plan Frequency Daily Duration LOS Discharge Goals Bed Transfer Ability Contact Guard/Hand Hold Sit to Stand Chair Transfer Ability Contact Guard/Hand Hold Ambulation Assistive Device Rolling Walker Ambulation Distance (feet) 10 Discharge Plan PT Discharge Plan Pt is appropriate to return home once medically stable if she continues to have assistance at home. G -code Required No Eval Complexity Eval Charge Codes 35123 - High Complexity PHYSICIAN CERTIFICATION: I certify the specified therapy services for Brandon Rocha are required, authorized, and reviewed e
[2023-01-07 15:47] VITALS: BP 187/78; PULSE 63; RESP 18; TEMP 36.6; O2SAT 93
--- NOTE | 2023-01-07 16:04 | CA_ITS ---
APPROVED REPORT EXAM: Comprehensive 2D, Doppler, and color-flow Echocardiogram Silviculture Forester: Beth Aguillon CRT Ht: 5 ft 6 in Wt: 193lbs BSA: 1.97 BP: 180/64 mmHg Indications: COPD, CVA/TIA, Diabetes, Hyperlipidemia, Hypertension/HDD, Smoker, CA, old dvt, old mi, pvd 2D Dimensions LVOT 2.01 cm (M/F) 1.5-2.5 LA Volume 65.20 mL LA Volume Index 32.30 mL/m2 (M/F) 16-34 M-Mode Dimensions RVDd 2.64 cm (0.9-2.6) LA Diam 5.01 cm (1.9-4.0) LVDd 4.82 cm (3.5-5.7) Ao Diam 3.60 cm (2.0-3.7) LVDs 3.51 cm (3.5-5.7) IVSd 1.89 cm (0.6-1.1) PWd 1.19 cm (0.6-1.1) EF (Teich) 52.90% FS 27.20% EDV (Teich) 108.60 mL TAPSE 2.17 (<1.7) ESV (Teich) 51.20 mL LV Diastology E Decel Time 93.00 (160-240 msec) E/A Ratio 0.64 MED E' 8.40 (< 7 cm/sec) MED A' 12.10 cm/s E'/MED E' Ratio 8.58 (>14) LAT E' 7.60 (<10 cm/sec) LAT A' 15.10 cm/s E/LAT E' Ratio 9.49 (>14) Aortic Valve LVOT Max 168.00 (70-110 cm/s) LVOT VTI 30.40 cm AoV Peak Bret. 161.00 (50-130 cm/s) AO Peak GR. 10.60 mmHg AO Mean GR. 5.60 (<5 mmHg) AO VTI 29.86 (18-25 cm) TATO (VTI) 3.23 (2.5-4.5 cm2) Mitral Valve MV A Velocity 113.00 (40-130 cm/s) E/A Ratio 0.64 MV Decel. Time 93.00 (160-240 ms) Pulmonary Valve PV Peak Velocity 116.00 (50-150 cm/s) Tricuspid Valve TR P. Velocity 157.00 cm/s RAP Estimate 10.00 mmHg RVSP 19.90 mmHg Left Ventricle The left ventricle is normal size. The left ventricular systolic function is normal. The left ventricular ejection fraction is within the normal range. There is normal left ventricular wall thickness. There is moderate hypokinesis in the lateral and anterolateral LV julien. Transmitral Doppler flow pattern suggests impaired LV relaxation. LVEF is 55%. Right Ventricle The right ventricle is normal size. The right ventricular systolic function is normal. Atria The left atrium size is normal. The right atrium size is normal. There is no Doppler evidence of interatrial shunt. Aortic Valve The aortic valve is trileaflet. The aortic valve opens well. There is no aortic valvular stenosis. Trace aortic regurgitation. Mitral Valve The mitral valve is normal in structure. No evidence of mitral valve stenosis. Trace mitral regurgitation. Tricuspid Valve The tricuspid valve leaflets are thin and pliable. Trace tricuspid regurgitation. RVSP is 20-25 mmHg. Pulmonic Valve The pulmonary valve is normal in structure. Trace pulmonic regurgitation. Great Vessels The aortic root is normal in size. The ascending aorta is not well visualized. The IVC is dilated, but collapsible > 50% with respirophasic variation. RA pressure is estimated at 8 mmHg. Pericardium There is no pericardial effusion. Other Information Study Quality: Fair Conclusion Normal biventricular systolic function. Hypokinesis of the lateral and anterolateral LV julien. No significant valvular disease. Electronically signed by : Aileen Melchor, 01/07/2023 12:22:23
--- NOTE | 2023-01-07 16:04 | CA_ITS ---
FINAL REPORT CLINICAL HISTORY: edema, cellulitis FINDINGS: Color Doppler, duplex Doppler and compression sonography of the bilateral lower extremities was performed. There is no evidence of deep venous thrombosis from the level of the groin to the calf. The deep veins are patent and compressible. IMPRESSION: No evidence of deep venous thrombosis bilateral lower extremities. Reviewed, Interpreted and Dictated by Jesus Harding III, MD Transcribed by Ruthie Hagen Authenticated and [facility]
--- NOTE | 2023-01-07 18:38 | PC.NURSE ---
Patient reported pain throughout day in bilateral day. Patient getting IV antibiotics.
[2023-01-07 19:37] VITALS: BP 133/69; PULSE 67; RESP 16; TEMP 37.1; O2SAT 93
[2023-01-08 04:00] VITALS: BP 130/87; PULSE 60; RESP 20; TEMP 36.9; O2SAT 92; BMI 31.5
--- NOTE | 2023-01-08 04:17 | PC.NURSE ---
NO ACUTE CHANGES THIS SHIFT. PT HAS RESTED WELL. NO C/O PAIN. VSS. REMAINS ON ROOM AIR. A&O X4.
[2023-01-08 07:17] LABS: Basophils % 0.4 % (0.1-2.0); Eosinophils # 0.4 K/mm3 (0.0-0.4); Hematocrit 30.8 % (37.0-47.0); Lymphocytes % 19.6 % (10-50); Mean Corpuscular HGB Conc 29.2 g/dL (31.8-35.4); Mean Corpuscular Hemoglobin 22.3 pg (27.0-31.2); Mean Corpuscular Volume 76.4 fl (81-99); Mean Platelet Volume 7.7 fl (7.4-10.4); Monocytes # 0.8 K/mm3 (0.1-1.0); Monocytes % 7.9 % (1.7-9.3); Platelet Count 851 K/mm3 (142-424); Red Blood Count 4.03 M/mm3 (4.20-5.40); Red Cell Distribution Width 22.5 % (11.5-17.5); White Blood Count 10.2 K/mm3 (4.8-10.8)
[2023-01-08 07:19] LABS: Chloride 114 mmol/L (98-107)
[2023-01-08 07:20] LABS: Sodium 142 mmol/L (136-145)
[2023-01-08 07:22] LABS: Blood Urea Nitrogen 7 mg/dl (7-17)
[2023-01-08 07:23] LABS: Anion Gap 5.8 mEq/L (5-15); Calcium 7.4 mg/dl (8.4-10.2); Carbon Dioxide 25 mmol/L (22.0-30.0); Creatinine Clearance Estimated 79 mL/min (50-200); Estimated Glomerular Filt Rate 100 ml/min (>60); GFR (African American) 121 ML/MIN (>60); Glucose 92 mg/dl (74-100)
[2023-01-08 07:35] LABS: Potassium 2.8 mmoL/L (3.5-5.1)
[2023-01-08 08:00] VITALS: BP 148/68; PULSE 64; RESP 18; TEMP 36.7; O2SAT 95
--- NOTE | 2023-01-08 08:31 | EXP.ACUTE.PN ---
Subjective *Date: 01/08/23 *Time: 08:31 Interval history: Overall patient feels better. Unna boot was placed yesterday and this has enabled her pain control to be much improved and she slept well last night. States that she is breathing well but cannot wait to get home and have a cigarette. No chest pain, eating well. Medical Exam Vital signs and Labs for Last 24 Hours: Vital Signs Temp Pulse Resp BP Pulse Ox O2 Del Method 01/08/23 06:46 Room Air 01/08/23 05:00 Room Air 01/08/23 04:00 98.4 F 60 20 130/87 92 L Room Air 01/08/23 03:00 Room Air 01/08/23 01:00 Room Air 01/07/23 23:00 Room Air 01/07/23 21:00 Room Air 01/07/23 20:00 Room Air 01/07/23 19:37 98.7 F 67 16 133/69 93 L Room Air 01/07/23 15:47 98 F 63 18 187/78 H 93 L Room Air Intake and Output 01/07/23 01/08/23 01/08/23 19:59 03:59 11:59 Intake Total 360 / 360 Output Total 700 / 1500 800 / 1500 Balance -340 / -1140 -800 / -1140 Intake: Intake, Oral Amount 360 / 360 Output: Output, Urine Amount 700 / 1500 800 / 1500 Other: Number of Unmeasured Voids 0 Number of Bowel Movements 1 Weight 193 lb 7.995 oz 196 lb 4.8 oz Patient Weight 01/08/23 11:59 Weight 196 lb 4.8 oz Laboratory Results - last 24 hr 01/07/23 11:20: Sodium 142, Potassium 2.7 L*, Chloride 112 H, Carbon Dioxide 26, Anion Gap 6.7, BUN 6 L, Creatinine 0.50 L, Estimated Creat Clear 78, Estimated GFR 124, Est GFR ( Amer) 150 D, Glucose 81, Calcium 7.3 L 01/08/23 06:47: WBC 10.2, RBC 4.03 L, Hgb 9.0 L, Hct 30.8 L, MCV 76.4 L, MCH 22.3 L, MCHC 29.2 L, RDW 22.5 H, Plt Count 851 H, MPV 7.7, Neut % (Auto) 68.0, Lymph % (Auto) 19.6, [place] % (Auto) 7.9, Eos % (Auto) 4.0, Baso % (Auto) 0.4, Neut # (Auto) 7.0, Lymph # (Auto) 2.0, [place] # (Auto) 0.8, Eos # (Auto) 0.4, Baso # (Auto) 0.0, Sodium 142, Potassium 2.8 L*, Chloride 114 H, Carbon Dioxide 25, Anion Gap 5.8, BUN 7, Creatinine 0.60, Estimated Creat Clear 79, Estimated GFR 100, Est GFR ( Amer) 121, Glucose 92, Calcium 7.4 L I & O for Labs for Last 24 Hours: Intake & Output 01/05/23 01/06/23 01/07/23 01/08/23 11:59 11:59 11:59 11:59 Intake Total 1050 / 1050 360 / 360 Output Total 1100 / 1100 1500 / 1500 Balance -50 / -50 -1140 / -1140 Weight 193 lb 8 oz 196 lb 4.8 oz Microbiology Reports for the Last 24 Hours: Microbiology 01/06/23 19:23 Urine,Clean Catch Urine Culture - Preliminary Comment:: Patient is alert, appears chronically ill. Lungs with smokers rhonchi, heart rate regular. Abdomen soft, Unna boot in place on the right calf. Perfusion in the left leg is diminished as previously noted but no redness or swelling. Patient is much more talkative and happy with her situation. Assessment and Plan *Assessment and plan (1) Cellulitis of both lower extremities: Status: Acute Category: Medical Code(s): L03.115 - Cellulitis of right lower limb; L03.116 - Cellulitis of left lower limb (2) Hypokalemia: Status: Acute Category: Medical Code(s): E87.6 - Hypokalemia (3) Microcytic anemia: Status: Chronic Category: Medical Code(s): D50.9 - Iron deficiency anemia, unspecified (4) COPD (chronic obstructive pulmonary disease): Status: Chronic Qualifiers: COPD type: unspecified COPD Qualified Code(s): J44.9 - Chronic obstructive pulmonary disease, unspecified Category: Medical Code(s): J44.9 - Chronic obstructive pulmonary disease, unspecified (5) Tobacco use: Status: Chronic Category: Social Hx Code(s): Z72.0 - Tobacco use (6) Protein calorie malnutrition: Status: Acute Qualifiers: Protein-calorie malnutrition severity: unspecified severity Qualified Code(s): E46 - Unspecified protein-calorie malnutrition Category: Medical Code(s): E46 - Unspecified protein-calorie malnutrit
--- NOTE | 2023-01-08 08:39 | SW/DCPLANNER ---
Addendum entered by [facility] 01/12/23 14:41: [facility] I have updated patient and MD. Addendum entered by [facility] 01/12/23 14:23: [facility] is not in network with patient's insurance. Patient does NOT want [facility]. Patient information/order has been faxed to [facility] for unaboots, PT/OT and lab draws scheduled for 01/13/23. I will follow up with Luana at [facility] once patient information/order is reviewed. Addendum entered by [facility] 01/09/23 07:44: Patient will discharge home today. I will fax patient information/order to [facility]. Addendum entered by [facility] 01/08/23 11:18: Patient prefers to use [facility] once medically stable for discharge. Original Note: PT evaluated patient yesterday and recommended home health services for this patient. Patient is agreeable to home health services at time of discharge for PT/OT/wound care (unaboots). I will set patient up with home health services once medially stable for discharge. Per MD pending no setbacks patient should be ready for discharge tomorrow.
[2023-01-08 08:41] LABS: Magnesium 1.8 mg/dl (1.6-2.3)
[2023-01-08 16:00] VITALS: BP 147/75; PULSE 72; RESP 22; TEMP 36.9; O2SAT 93
[2023-01-08 17:19] LABS: Chloride 113 mmol/L (98-107); Potassium 3.1 mmoL/L (3.5-5.1); Sodium 140 mmol/L (136-145)
[2023-01-08 17:22] LABS: Blood Urea Nitrogen 8 mg/dl (7-17); Creatinine Clearance Estimated 79 mL/min (50-200); Estimated Glomerular Filt Rate 84 ml/min (>60); GFR (African American) 102 ML/MIN (>60)
[2023-01-08 17:23] LABS: Anion Gap 6.1 mEq/L (5-15); Calcium 7.6 mg/dl (8.4-10.2); Carbon Dioxide 24 mmol/L (22.0-30.0); Glucose 114 mg/dl (74-100)
--- NOTE | 2023-01-08 18:29 | PC.NURSE ---
A&OX4. TOLERATING RA WELL. PT HAS HAD NO C/O THIS SHIFT. HAS BEEN INCONTINENT TO BOWEL AND BLADDER. PT HAS BEEN VERY RELUCTANT TO GET OOB THIS SHIFT BUT DID GET UP TO THE CHAIR WITH PT. CIERRA BOOTS REMAIN IN PLACE. NO NEEDS AT THIS TIME. VSS.
[2023-01-08 20:00] VITALS: BP 153/78; PULSE 69; RESP 20; TEMP 36.8; O2SAT 90
[2023-01-09 04:00] VITALS: BP 184/80; PULSE 66; RESP 18; TEMP 36.5; O2SAT 90; BMI 31.0
--- NOTE | 2023-01-09 04:06 | PC.NURSE ---
No acute changes this shift. Pt has not rested well this shift. Has c/o pain in her right leg x3 and has been medicated per MAR for pain. Has been turning in bed independently. BP is elevated this am. Other vitals are stable. Pt has voiced no other concerns this shift.
[2023-01-09 06:27] LABS: MANUAL DIFFERENTIAL MANUAL DIFFERENTIAL (MANUAL DIFF)
[2023-01-09 06:31] LABS: Basophils % 0.3 % (0.1-2.0); Eosinophils # 0.5 K/mm3 (0.0-0.4); Eosinophils % 5.1 % (0.1-12.0); Hematocrit 29.9 % (37.0-47.0); Hemoglobin 8.6 g/dL (12.2-16.2); Lymphocytes # 2.1 K/mm3 (0.7-4.5); Mean Corpuscular HGB Conc 28.6 g/dL (31.8-35.4); Mean Corpuscular Hemoglobin 21.9 pg (27.0-31.2); Mean Corpuscular Volume 76.7 fl (81-99); Mean Platelet Volume 7.4 fl (7.4-10.4); Monocytes # 0.7 K/mm3 (0.1-1.0); Monocytes % 7.7 % (1.7-9.3); Neutrophils # 5.9 K/mm3 (1.8-7.8); Neutrophils % 63.9 % (37.0-80.0); Platelet Count 718 K/mm3 (142-424); Red Cell Distribution Width 22.6 % (11.5-17.5); White Blood Count 9.3 K/mm3 (4.8-10.8)
[2023-01-09 06:53] LABS: Chloride 114 mmol/L (98-107); Potassium 3.3 mmoL/L (3.5-5.1); Sodium 142 mmol/L (136-145)
[2023-01-09 06:56] LABS: Anion Gap 5.3 mEq/L (5-15); Blood Urea Nitrogen 6 mg/dl (7-17); Calcium 7.5 mg/dl (8.4-10.2); Carbon Dioxide 26 mmol/L (22.0-30.0); Creatinine Clearance Estimated 78 mL/min (50-200); Estimated Glomerular Filt Rate 124 ml/min (>60); GFR (African American) 150 ML/MIN (>60); Glucose 86 mg/dl (74-100)
[2023-01-09 07:04] LABS: Anisocytosis 1+; Eosinophils % 1 % (0-3); Hypochromasia 1+; Lymphocytes % 27 % (10-50); Monocytes % 9 % (2-9); Neutrophils % 63 % (42-76); Ovalocytes 1+; Platelet Estimate Moderate Increase; Total Cells Counted 100
[2023-01-09 07:13] LABS: Vancomycin,Trough 13.2 ug/mL (5.0-10.0)
--- NOTE | 2023-01-09 07:40 | EXP.DC.SUM ---
General Admission date:: 01/06/23 Discharge date: 01/09/23 HPI HPI HPI: 67 yr old female seen today in her home at her request secondary to persistent lower extremity edema, erythema, pain. She noted increased lower extremity edema 2-3 weeks ago but did not seek care until her daughter visited her the following weekend. Started oral furosemide then, elevation, but edema persisted. Over the past week has developed erythema and she called me over the weekend reporting worse pain, weeping and persistent edema. Started oral cephalexin and I sent potassium supplement as well but she hasn't started that at this point. On exam today she was hypertensive, tachycardic, with active drainage from her right lower extremity wound, slough and concern for infection that was not improving with outpatient therapy. After much discussion she was agreeable to admission for IV antibiotics and wound care. Of note, she is quite limited by very poor eyesight secondary to stroke history and has some difficulty monitoring her wounds. Hospital Course Hospital Course Hospital Course: Patient was admitted. Placed on broad-spectrum antibiotics to cover skin infection. Vancomycin and clindamycin were used. She had tolerated these well. Blood cultures were negative. Urine cultures grew 2 species of gram-negative rods which are both greater than 100,000 colonies but sensitivities and official identification are pending at the time of discharge. She had no fevers. PT and wound care evaluate her leg. Dopplers for arterial flow and venous flow were normal and Unna boot was placed. This caused a good deal of symptomatic relief. Patient did well with PT but they felt that she would benefit from home health for wound care, changing Unna boot every 3 to 4 days and follow-up with PT, OT, home safety. Plan to be to discharge home today. We will prescribe cefdinir to treat gram-negative rods as well as skin issues. She was also hypokalemic during her hospital stay and potassium was replaced orally. She will be placed on 20 mEq of potassium at home, as she only recently started on 10 mEq. I would like home health to draw a CBC and a BMP on 01/13/2023. We will follow her up per her normal home visit service per Neda. Of note, she had some erratic blood pressures in the hospital however I will await what she does at home with home health monitoring before we adjust blood pressure medication Exam Data for Last 24 hours Vital signs and Labs for Last 24 Hours: Temp Pulse Resp BP Pulse Ox O2 Del Method 97.7 F 66 18 184/80 H 90 L Room Air 01/09/23 04:00 01/09/23 04:00 01/09/23 04:00 01/09/23 04:00 01/09/23 04:00 01/09/23 06:51 Laboratory Results - last 24 hr 01/08/23 06:47: Magnesium 1.8 01/08/23 17:00: Sodium 140, Potassium 3.1 L, Chloride 113 H, Carbon Dioxide 24, Anion Gap 6.1, BUN 8, Creatinine 0.70, Estimated Creat Clear 79, Estimated GFR 84, Est GFR ( Amer) 102, Glucose 114 H D, Calcium 7.6 L 01/09/23 06:08: WBC 9.3, RBC 3.90 L, Hgb 8.6 L, Hct 29.9 L, MCV 76.7 L, MCH 21.9 L, MCHC 28.6 L, RDW 22.6 H, Plt Count 718 H, MPV 7.4, Neut % (Auto) 63.9, Lymph % (Auto) 23.0, [place] % (Auto) 7.7, Eos % (Auto) 5.1, Baso % (Auto) 0.3, Neut # (Auto) 5.9, Lymph # (Auto) 2.1, [place] # (Auto) 0.7, Eos # (Auto) 0.5 H, Baso # (Auto) 0.0, Total Counted 100, Neutrophils % (Manual) 63, Lymphocytes % (Manual) 27, Monocytes % (Manual) 9, Eosinophils % (Manual) 1, Platelet Estimate Moderate increase, Hypochromasia 1+, Anisocytosis 1+, Ovalocytes 1+, Sodium 142, Potassium 3.3 L, Chloride 114 H, Carbon Dioxide 26, Anion Gap 5.3, BUN 6 L, Creatinine 0.50 L D, Estimated Creat Clear 78, Estimated GFR 124, Est GFR ( Amer) 150 D, Glucose 86 D, Calcium 7.5 L, Vancomycin Trough 13.2 H I & O for Last 24 hours: Intake & Output 01/06/23 01/07/23 01/08/23 01/09/23 11:59 11:59 11:59 11:59 Intake Total 1050 / 1050 840 / 840 2709 / 2709 Output Total 1100 / 1100 1
[2023-01-09 08:00] VITALS: BP 182/90; PULSE 71; RESP 22; TEMP 36.9; O2SAT 93
--- NOTE | 2023-01-09 08:34 | PC.NURSE ---
TECH NOTE; NOTIFIED NURSE OF BLOOD PRESSURE FOR 0800 VITAL SIGNS Alistair LEWIS, SRNA
--- NOTE | 2023-01-12 13:05 | CARE MANAGER ---
Spoke with patient related to hospital discharge. She states she is not doing well. She is waiting to hear from home health. I provided with her the phone number for home health to follow up. She states the doctor will come see her tomorrow and she has her antibiotic. RAEANN Borja
== END 2023-01-09 10:55 | disposition home health service (06) | DRG 603 ==
PROVIDERS: Admitting Provider Internal Medicine Adolescent Medicine; PCP Internal Medicine Adolescent Medicine; Visit Provider Internal Medicine Adolescent Medicine
DX: L03.115 Cellulitis of right lower limb (principal); E46 Unspecified protein-calorie malnutrition; L03.116 Cellulitis of left lower limb; E87.6 Hypokalemia; D50.9 Iron deficiency anemia, unspecified; J44.9 Chronic obstructive pulmonary disease, unspecified; D75.839 Thrombocytosis, unspecified; R60.9 Edema, unspecified; E11.9 Type 2 diabetes mellitus without complications; Z86.718 Personal history of other venous thrombosis and embolism; M79.7 Fibromyalgia; Z85.038 Personal history of other malignant neoplasm of large intestine; K21.9 Gastro-esophageal reflux disease without esophagitis; I25.2 Old myocardial infarction; Z68.31 Body mass index [BMI] 31.0-31.9, adult; Z85.41 Personal history of malignant neoplasm of cervix uteri; M19.90 Unspecified osteoarthritis, unspecified site; E11.51 Type 2 diabetes mellitus with diabetic peripheral angiopathy without gangrene; Z85.828 Personal history of other malignant neoplasm of skin; Z96.653 Presence of artificial knee joint, bilateral; F17.210 Nicotine dependence, cigarettes, uncomplicated
CPT/HCPCS: G0379; 36415; 80048; 80202; 83605; 83735; 85007; 85014; 85018; 85025; 85048; 85049; 87040; 87086; 87088; 87186; 93005; 93306; 93925; 93970; 94640; 97163; 97166; 97530

== ENCOUNTER → 2023-01-13 19:04 | Outpatient (CLI) | payer MEDICARE, SELFPAY ==
[2023-01-13 19:40] LABS: Basophils % 0.5 % (0.1-2.0); Eosinophils # 0.2 K/mm3 (0.0-0.4); Eosinophils % 2.3 % (0.1-12.0); Hematocrit 35.4 % (37.0-47.0); Hemoglobin 10.5 g/dL (12.2-16.2); Lymphocytes % 22.2 % (10-50); Mean Corpuscular HGB Conc 29.5 g/dL (31.8-35.4); Mean Corpuscular Hemoglobin 22.4 pg (27.0-31.2); Monocytes % 10.8 % (1.7-9.3); Neutrophils # 5.9 K/mm3 (1.8-7.8); Neutrophils % 64.2 % (37.0-80.0); Platelet Count 754 K/mm3 (142-424); Red Blood Count 4.66 M/mm3 (4.20-5.40); Red Cell Distribution Width 21.6 % (11.5-17.5); White Blood Count 9.2 K/mm3 (4.8-10.8)
[2023-01-13 21:03] LABS: Anion Gap 13.8 mEq/L (5-15); Blood Urea Nitrogen 12 mg/dl (7-17); Calcium 8.1 mg/dl (8.4-10.2); Carbon Dioxide 28 mmol/L (22.0-30.0); Chloride 104 mmol/L (98-107); Estimated Glomerular Filt Rate 50 ml/min (>60); GFR (African American) 60 ML/MIN (>60); Glucose 97 mg/dl (74-100); Potassium 3.8 mmoL/L (3.5-5.1); Sodium 142 mmol/L (136-145)
== END ==
PROVIDERS: PCP Internal Medicine Adolescent Medicine; Visit Provider Internal Medicine Adolescent Medicine
DX: L03.115 Cellulitis of right lower limb (principal); L03.116 Cellulitis of left lower limb
CPT/HCPCS: 80048; 85025

== ENCOUNTER → 2023-02-14 12:01 | Outpatient (CLI) | payer MEDICARE, SELFPAY | PROVIDERS: PCP Nurse Practitioner Family; Visit Provider Nurse Practitioner Family | DX: L84 Corns and callosities (principal); B96.1 Klebsiella pneumoniae [K. pneumoniae] as the cause of diseases classified elsewhere | CPT/HCPCS: 87070; 87077; 87186; 87205 ==

== ENCOUNTER 2023-05-12 09:51 | Day surgery (SDC) | payer MEDICARE, SELFPAY ==
[2023-05-12] VITALS (8 sets, daily range): BP systolic 134–160; BP diastolic 65–78; PULSE 58–68; RESP 16–20; TEMP 36.4–37.2; O2SAT 94–99; BMI 27.4
[2023-05-12] MEDS: TETRACAINE 0.5% OPTH SOL 15ML OP ×3 (10:53→11:08)
[2023-05-12] MEDS: CYCLOPENTOLATE 2% OPHTH SOLN 2ML BOTTLE OP ×3 (10:53→11:08)
[2023-05-12] MEDS: PHENYLEPHRINE 2.5% OPHTH SOLN 2ML 0.0500000000000000028 ML OP ×3 (10:54→11:08)
[2023-05-12] MEDS: SODIUM CHLORIDE 0.9% 10ML FLUSH SYRINGE 10 ML IV (11:08)
[2023-05-12 11:40] LABS: POC Glucose,Bedside 152 (70-110)
[2023-05-12] MEDS: MIDAZOLAM 2MG/2ML VIAL 1 MG IV (12:06)
[2023-05-12] MEDS: TRI-MOXI 15MG/1MG/ML 1ML OPHTH VIAL 1 ML OP (12:17)
[2023-05-12] MEDS: TIMOLOL 0.5% OPTH SOLN 5ML OP (12:17)
[2023-05-12] MEDS: LIDOCAINE 1% PF 2ML AMPULE 2 ML IJ (12:17)
== END 2023-05-12 12:44 | disposition home or self-care (01) ==
PROVIDERS: PCP Nurse Practitioner Family; Visit Provider Ophthalmology
PROC: (CPT 66982; principal; 2023-05-12 12:30)
DX: E11.36 Type 2 diabetes mellitus with diabetic cataract (principal); H25.89 Other age-related cataract
CPT/HCPCS: 66982; 82962; V2632

== ENCOUNTER 2023-06-09 08:53 | Day surgery (SDC) | payer MEDICARE, SELFPAY ==
[2023-06-04 16:45] VITALS: BMI 28.2
[2023-06-09] VITALS (8 sets, daily range): BP systolic 158–186; BP diastolic 71–86; PULSE 59–71; RESP 17–20; TEMP 36.3–36.4; O2SAT 92–100
[2023-06-09] MEDS: TETRACAINE 0.5% OPTH SOL 15ML OP ×3 (09:15→09:16)
[2023-06-09] MEDS: CYCLOPENTOLATE 2% OPHTH SOLN 2ML BOTTLE OP ×3 (09:16→09:17)
[2023-06-09] MEDS: PHENYLEPHRINE 2.5% OPHTH SOLN 2ML 0.0500000000000000028 ML OP ×3 (09:17)
[2023-06-09] MEDS: SODIUM CHLORIDE 0.9% 10ML FLUSH SYRINGE 10 ML IV (10:27)
[2023-06-09] MEDS: MIDAZOLAM 2MG/2ML VIAL 1 MG IV (10:27)
[2023-06-09] MEDS: LIDOCAINE 1% PF 2ML AMPULE 2 ML IJ (10:35)
[2023-06-09] MEDS: TIMOLOL 0.5% OPTH SOLN 5ML OP (10:36)
[2023-06-09] MEDS: TRI-MOXI 15MG/1MG/ML 1ML OPHTH VIAL 1 ML OP (10:37)
[2023-06-09 11:33] LABS: POC Glucose,Bedside 146 (70-110)
== END 2023-06-09 11:09 | disposition home or self-care (01) ==
PROVIDERS: PCP Nurse Practitioner Family; Visit Provider Ophthalmology
PROC: (CPT 66982; principal; 2023-06-09 10:30)
DX: E11.36 Type 2 diabetes mellitus with diabetic cataract (principal); H25.9 Unspecified age-related cataract
CPT/HCPCS: 66982; 82962; V2632

== ENCOUNTER 2023-09-20 19:25 | Inpatient (IN) | payer MEDICARE, SELFPAY ==
[2023-09-20 19:25] VITALS: BP 136/70; PULSE 88; RESP 22; TEMP 36.7; O2SAT 91; BMI 35.2
--- NOTE | 2023-09-20 19:28 | ED_ITS ---
<Statement entered by Yonatan Broderick MD - 09/21/23 00:32> I was consulted by the CARMELO, and we discussed the complexity of the problems being addressed. I approved the treatment and management plan for this patient's care in the emergency department, thus performing a substantive portion of the medical decision making. Yonatan Broderick MD Discharge Plan Disposition Patient Disposition: Admitted Condition: Serious Clinical Impressions Clinical Impression: Acute and chronic respiratory failure with hypoxia, Community acquired pneumonia, Sepsis, Acute non-ST elevation myocardial infarction (NSTEMI), Atrial fibrillation with rapid ventricular response Discharge ED Provider: Yonatan Broderick HPI <ALEXSANDER Willett - Last Filed: 09/20/23 23:28> General Chief Complaint: Shortness of Breath/Dyspnea Stated Complaint: SOA Time Seen by Provider: 09/20/23 19:29 History of Present Illness HPI narrative: Patient presents for evaluation of hypoxia. Patient was seen by EMS earlier this date after having fallen out of her mechanical chair and unable to get back up patient refused transport at that time. EMS was called back this evening after it was noted that she was hypoxic. When EMS arrived patient was satting in the 70s. She reports a headache and some subjective shortness of breath but no chest pain fever chills hemoptysis hematochezia melena nausea vomit diarrhea. When patient arrived she was noted to be in atrial fibrillation with rapid ventricular response with a right sustained above 140. She does not have a previous history of A-fib that I can find and is not anticoagulated. Related Data Home Medications Medication Instructions Recorded Confirmed alprazolam 1 mg tablet 1 mg PO QIDP PRN Anxiety 30 days 07/26/18 09/20/23 aspirin 81 mg tablet,delayed 81 mg PO DAILY heart health 07/26/18 09/20/23 release (Adult Low Dose Aspirin) duloxetine 60 mg capsule,delayed 60 mg PO DAILY Mood 30 days 07/26/18 09/20/23 release ramipril 10 mg capsule 20 mg PO DAILY Blood preussre 30 07/26/18 09/20/23 days topiramate 100 mg tablet 100 mg PO BID Headache 30 days 07/26/18 09/20/23 metformin 500 mg tablet 500 mg PO DAILY Diabetes 12/13/19 09/20/23 amlodipine 10 mg tablet 10 mg PO DAILY Blood pressure 11/13/21 09/20/23 bisoprolol fumarate 5 mg tablet 5 mg PO DAILY Blood pressure 11/13/21 09/20/23 pantoprazole 40 mg tablet,delayed 40 mg PO DAILY Acid Reflux 11/13/21 09/20/23 release paroxetine HCl 10 mg tablet 10 mg PO DAILY MOOD 11/13/21 09/20/23 pravastatin 40 mg tablet 40 mg PO HS Cholesterol 11/13/21 09/20/23 cyanocobalamin (vitamin B-12) 100 100 mcg PO DAILY Supplement 01/06/23 09/20/23 mcg tablet ferrous sulfate 325 mg (65 mg 325 mg PO DAILY Supplement 01/06/23 09/20/23 iron) tablet (FeroSul) furosemide 40 mg tablet 40 mg PO DAILY PRN Fluid 01/06/23 09/20/23 ergocalciferol (vitamin D2) 1,250 50,000 unit PO WEEKLY Supplement 01/07/23 09/20/23 mcg (50,000 unit) capsule Previous Rx's Medication Instructions Recorded gabapentin 600 mg tablet 600 mg PO TID nerve pain 30 days 11/18/21 #90 tabs potassium chloride 10 mEq 10 meq PO BID Supplement 30 days 01/09/23 capsule,extended release #60 caps Allergies Allergy/AdvReac Type Severity Reaction Status Date / Time erythromycin base Allergy Unknown I-HIVES Verified 05/12/23 10:43 Penicillins Allergy Unknown I-HIVES Verified 05/12/23 10:43 propoxyphene Allergy Unknown I-HIVES Verified 05/12/23 10:43 [facility] <ALEXSANDER Willett - Last Filed: 09/20/23 23:28> [facility] Disclaimer: The information contained in this section may have been updated after the patient was seen, as this information can be updated by other users. Medical History (Updated 09/20/23 @ 23:28 by ALEXSANDER Willett) Skin cancer CVA (cerebral vascular accident) Heart attack Colon cancer Cervical cancer Anxiety Depression Fibromyalgia Arthritis Anemia PVD (peripheral vascular disease) HTN (hypertension) HLD (hyperlipidemia) DVT (deep venous thrombosis) DM2 (diabetes mellitus, type 2) GERD (gastroesophageal reflux disease) Surgical History History of parathyroid surgery Hx of appendectomy Hx of cardiac cath Hx of cholecystectomy History of total bilateral knee replacement Hx of hysterectomy Family History No significant family history Social History Smoking Status: Current every day smoker tobacco type: cigarettes packs per day: 1 alcohol intake: never substance use type: denies use current occupational status: disabled Travel in the last 8 weeks: None household members: none and other housing: apartment caffeine: Yes <ALEXSANDER Willett - Last Filed: 09/20/23 23:28> ROS Obtained: Yes Systems reviewed as appropriate & no additional complaints except as documented Physical Exam <ALEXSANDER Willett - Last Filed: 09/20/23 23:28> General General appearance: alert and in no apparent distress Head Head exam: atraumatic and normal inspection Eye Eye exam: Present normal appearance, PERRL and EOMI ENT ENT exam: Present normal exam, normal oropharynx and mucous membranes moist Neck Neck exam: Present normal inspection, full ROM and trachea midline; Absent lymphadenopathy Chest Chest inspection: Present normal inspection and symmetric chest wall rise Respiratory Respiratory exam: Present wheezes (Inspiratory wheezes); Absent normal lung sounds bilaterally (Rales in all 4 noriega) or accessory muscle use Cardiovascular Cardiovascular exam: Present normal heart sounds, +S1, +S2 and other (Patient has a fast irregularly irregular rate and rhythm on arrival greater than 140 on the bedside monitor) Abdominal Exam Abdominal exam: Present soft (Obese) and normal bowel sounds; Absent tenderness Extremities Exam Extremities exam: Present normal inspection and full ROM Back Exam Back exam: Present normal inspection and full ROM Neurological Exam Neurological exam: Present alert, oriented X3 and CN II-XII intact Psychiatric Psychiatric exam: Present normal affect and normal mood Skin Skin exam: Present warm, dry and normal color HEART Score <ALEXSANDER Willett - Last Filed: 09/20/23 23:28> HEART Score HEART Score assessment performed?: Yes History (anamnesis): Slightly suspicious ECG: Non-specific disturbance Age: >65 years Risk factors: 3 or more risk factors Troponin: 1-3x normal limit HEART Score: 6 <Yonatan Broderick MD - Last Filed: 09/21/23 00:31> HEART Score HEART Score: 6 Critical Care <ALEXSANDER Willett - Last Filed: 09/20/23 23:28> Critical Care Time Critical Care Time: Yes Attestation: On 09/20/23, the high probability of a clinically significant, sudden or life threatening deterioration of the following system(s) required my full and direct attention, intervention and personal management. The time I documented below is in addition to time spent performing reported procedures but includes the following listed in this critical care notation. Total Time Total Critical Care Time: 35 Medical Decision Making <ALEXSANDER Willett - Last Filed: 09/20/23 23:28> Medical Records Medical records reviewed: Yes I reviewed the patient's medical records. Vital Signs Vital Signs: 09/20/23 19:25 09/20/23 20:20 09/20/23 20:30 Temperature 98.1 F Temperature Source Oral Pulse Rate 90 Pulse Rate [Left] 88 Respiratory Rate 22 Blood Pressure Blood Pressure [Right Arm] 136/70 Blood Pressure Mean [Right Arm] 92 Blood Pressure Source Blood Pressure Source [Right Arm] Automatic Cuff Blood Pressure Position 02 Sat by Pulse Oximetry 91 L Oxygen Delivery Method Room Air Vapotherm Oxygen Flow Rate (LPM) 25 09/20/23 21:17 09/20/23 21:31 09/20/23 21:49 Temperature 98.1 F Temperature Source Oral Pulse Rate 94 H 91 H 89 Pulse Rate [Left] Respiratory Rate 24 28 H 27 H Blood Pressure 141/73 H 158/76 H 158/76 H Blood Pressure [Right Arm] Blood Pressure Mean [Right Arm] Blood Pressure Source Automatic Cuff Blood Pressure Source [Right Arm] Blood Pressure Position Sitting 02 Sat by Pulse Oximetry 96 96 Oxygen Delivery Method Vapotherm Oxygen Flow Rate (LPM) 30 30 30 Lab Data Lab results reviewed: Yes I reviewed the patient's lab results. Labs: Lab Results 09/20/23 19:33: Specimen Source rr, O2 % ra, ABG pH 7.29 L, ABG pCO2 35.2, ABG pO2 68.8 L, ABG HCO3 16.6 L, ABG Total CO2 17.7 L, ABG O2 Saturation 92, ABG Base Excess -9.9 L, Gavino Test y 09/20/23 19:34: WBC 20.5 H*, RBC 5.03, Hgb 13.4, Hct 44.3, MCV 88.0, MCH 26.6 L, MCHC 30.2 L, RDW 18.3 H, Plt Count 476 H, MPV 8.3, Neut % (Auto) 79.8, Lymph % (Auto) 12.0, Mitchell % (Auto) 6.4, Eos % (Auto) 1.3, Baso % (Auto) 0.5, Neut # (Auto) 16.4 H, Lymph # (Auto) 2.5, Mitchell # (Auto) 1.3 H, Eos # (Auto) 0.3, Baso # (Auto) 0.1, Total Counted 100, Neutrophils % (Manual) 82 H, Lymphocytes % (Manual) 12, Monocytes % (Manual) 4, Eosinophils % (Manual) 2, Platelet Estimate Slight increase, Hypochromasia 2+, Target Cells 1+, PT 10.3, INR 0.95, Sodium 149 H, Potassium 3.2 L, Chloride 120 H, Carbon Dioxide 22, Anion Gap 10.2, BUN 27 H, Creatinine 0.70, Estimated Creat Clear 90, Estimated GFR 84, Est GFR ( Amer) 102, Glucose 137 H, Lactate 1.2, Calcium 9.4, Magnesium 2.0, Total Bilirubin 0.3, AST 36, ALT 34, Alkaline Phosphatase 132 H, Troponin I 0.04 H, NT-Pro-B Natriuret Pep 3480 H, Total Protein 6.9 D, Albumin 3.7, Globulin 3.2, Albumin/Globulin Ratio 1.2, Procalcitonin 0.054, TSH 1.27 09/20/23 20:01: Chlamy pneumoniae PCR TNP, Adenovirus (PCR) Not detected, B. pertussis DNA (PCR) TNP, Coronavirus OC43 (PCR) Not detected, Coronavirus HKU1 (PCR) Not detected, Coronavirus 229E (PCR) Not detected, SARS-CoV-2 (PCR) Not detected, Coronavirus NL63 (PCR) Not detected, Human Metapneumovir PCR Not detected, Influenza A (H1) PCR Not detected, Influ A (H1N1/09) PCR Not detected, Influenza A (H3) PCR Not detected, Influenza Type A (PCR) Not detected, Influenza Type B (PCR) Not detected, M. pneumoniae (PCR) TNP, Parainfluenza 1 (PCR) Not detected, Parainfluenza 2 (PCR) Not detected, Parainfluenza 3 (PCR) Not detected, Parainfluenza 4 (PCR) Not detected, RSV (PCR) Not detected, Entero/Rhino (PCR) Not detected 09/20/23 20:15: Urine Color Yellow, Urine Appearance Clear, Urine pH 6.0, Ur Specific [place] 1.020, Urine Protein Negative, Urine Glucose (UA) Negative, Urine Ketones Negative, Urine Blood Negative, Urine Nitrate Negative, Urine Bilirubin Negative, Urine Urobilinogen 0.2, Ur Leukocyte Esterase Negative, Urine RBC None, Urine WBC 3-5, Ur Squamous Epith Cells Occasional, Urine Bacteria Trace 09/20/23 19:34 09/20/23 19:34 Response Orders (Tests/Meds): ED MEDICATIONS Generic Name Dose Route Start Last Admin Trade Name Freq PRN Reason Stop Dose Admin Acetaminophen 650 mg 09/20/23 22:13 Acetaminophen 325mg Tab PO 10/20/23 22:12 Q4HP PRN Fever or Mild Pain (1-3) Enoxaparin Sodium 40 mg 09/21/23 09:00 Enoxaparin 40mg/0.4ml Syringe SQ 10/21/23 08:59 DAILY KADEEM Ceftriaxone Sodium 1 gm/ 50 mls @ 100 mls/hr 09/20/23 19:30 09/20/23 20:20 Sodium Chloride IV 09/30/23 19:29 100 mls/hr Q24H KADEEM Administration Morphine Sulfate 2 mg 09/20/23 22:13 Morphine 2mg/Ml Syringe IV 10/20/23 22:12 Q2HP PRN Severe Pain (7-10) Nicotine 21 mg 09/20/23 22:13 Nicotine 21mg/24hr Patch TD 10/20/23 22:12 DAILYP PRN Nicotine Cravings Ondansetron HCl 4 mg 09/20/23 22:13 Ondansetron 4mg/2ml Vial IV 10/20/23 22:12 Q8HP PRN Nausea Pantoprazole Sodium 40 mg 09/21/23 09:00 Pantoprazole 40mg Tablet PO 10/21/23 08:59 DAILY KADEEM Sodium Chloride 10 ml 09/20/23 20:56 09/20/23 20:57 Sodium Chloride 0.9% 10ml Syr (Rad Only) IV 10/20/23 20:55 10 ml NEEDED PRN Administration Maintain IV Site Discontinued Medications Generic Name Dose Route Start Last Admin Trade Name Chaz PRN Reason Stop Dose Admin Acetaminophen 1,000 mg 09/20/23 19:29 09/20/23 19:41 Acetaminophen 1,000mg/100ml Vial IV 09/20/23 19:30 1,000 mg ONCE ONE Administration Albuterol/Ipratropium 3 ml 09/20/23 19:29 09/20/23 20:00 Ipratropium/Albuterol 3 Ml Neb IH 09/20/23 19:30 3 ml ONCE ONE Administration Aspirin 324 mg 09/20/23 19:43 09/20/23 20:08 Aspirin 81mg Chewable Tablet PO 09/20/23 19:44 Not Given ONCE ONE Iopamidol 70 ml 09/20/23 20:56 09/20/23 20:57 Iopamidol-370 (76%);100ml Bottle IV 09/20/23 20:57 70 ml ONCE ONE Administration Methylprednisolone Sodium Succinate 125 mg 09/20/23 19:43 09/20/23 20:05 Methylprednisolone Sod Succ 125mg Vial IV 09/20/23 19:44 125 mg ONCE ONE Administration Sodium Chloride 50 ml 09/20/23 20:56 09/20/23 20:57 0.9 % Sodium Chloride 50 Ml Vial IV 09/20/23 20:57 50 ml ONCE ONE Administration ORDERS Category Date Time Status CT angio chest PE protocol Stat Cat Scan 09/20/23 19:[address] head/brain wo con Stat Cat Scan 09/20/23 19:31 Completed BNP [NT Pro Brain Natriuretic Pep.] Stat Lab 09/20/23 19:34 Completed CBC w/Auto Diff [Complete Blood Count Auto Diff] Stat Lab 09/20/23 19:34 Completed CMP [Comprehensive Metabolic Panel] Stat Lab 09/20/23 19:34 Completed Full Resp Panel w/COVID ([facility]) Routine Lab 09/20/23 20:01 Completed INR [Prothrombin Time INR] Stat Lab 09/20/23 19:34 Completed Lactic Acid Stat Lab 09/20/23 19:34 Completed Magnesium Stat Lab 09/20/23 19:34 Completed Procalcitonin Stat Lab 09/20/23 19:34 Completed TSH [Thyroid Stimulating Hormone] Stat Lab 09/20/23 19:34 Completed Trop I [Troponin I] Stat Lab 09/20/23 19:34 Completed Troponin I Q3H Lab 09/20/23 22:35 Received Troponin I Q3H Lab 09/21/23 01:45 Ordered UA [Urinalysis and Microscopic] Stat Lab 09/20/23 20:15 Completed Blood Culture Stat Micro 09/20/23 20:25 Received Arterial Blood Gas Stat RT 09/20/23 19:33 Completed MDM Narrative Medical Decision Narrative: In summary patient is a 67-year-old female who presents to the emergency department for evaluation of shortness of breath. Patient is patient is normotensive but with a heart rate greater than 140 palpable upon arrival, but afebrile. Physical exam shows a unwell appearing 67-year-old female does not appear to be in acute distress. Physical exam is remarkable for diminished breath sounds at the bases with rales. Differential diagnosis includes A-fib RVR, ACS, pneumonia, COPD exacerbation etc. Initial workup will be conducted with hematologic labs CT scan of the head and chest. Initial interventions include breathing treatment Toradol Tylenol. Initial workup reviewed by me shows that she has elevated white count elevated troponin elevated NT proBNP and my informal read of her CT scan of her chest shows interstitial disease versus early infiltrates. Given the findings thus far I had a discussion about patient management with hospital medicine. Patient is spontaneously converted out of A- fib RVR however remains critically ill with 1 or more system dysfunctions that remain a threat to life. Subsequently she was going to be admitted for further evaluation and care <Yonatan Broderick MD - Last Filed: 09/21/23 00:31> Raoul Inquiry Pt receiving controlled substance: No Vital Signs Vital Signs: 09/20/23 19:25 09/20/23 20:20 09/20/23 20:30 Temperature 98.1 F Temperature Source Oral Pulse Rate 90 Pulse Rate [Left] 88 Respiratory Rate 22 Blood Pressure Blood Pressure [Right Arm] 136/70 Blood Pressure Mean [Right Arm] 92 Blood Pressure Source Blood Pressure Source [Right Arm] Automatic Cuff Blood Pressure Position 02 Sat by Pulse Oximetry 91 L Oxygen Delivery Method Room Air Vapotherm Oxygen Flow Rate (LPM) 09/20/23 21:17 09/20/23 21:31 09/20/23 21:49 Temperature 98.1 F Temperature Source Oral Pulse Rate 94 H 91 H 89 Pulse Rate [Left] Respiratory Rate 24 28 H 27 H Blood Pressure 141/73 H 158/76 H 158/76 H Blood Pressure [Right Arm] Blood Pressure Mean [Right Arm] Blood Pressure Source Automatic Cuff Blood Pressure Source [Right Arm] Blood Pressure Position Sitting 02 Sat by Pulse Oximetry 96 96 Oxygen Delivery Method Vapotherm Oxygen Flow Rate (LPM) 30 30 30 Lab Data Labs: Lab Results 09/20/23 19:33: Specimen Source rr, O2 % ra, ABG pH 7.29 L, ABG pCO2 35.2, ABG pO2 68.8 L, ABG HCO3 16.6 L, ABG Total CO2 17.7 L, ABG O2 Saturation 92, ABG Base Excess -9.9 L, Gavino Test y 09/20/23 19:34: WBC 20.5 H*, RBC 5.03, Hgb 13.4, Hct 44.3, MCV 88.0, MCH 26.6 L, MCHC 30.2 L, RDW 18.3 H, Plt Count 476 H, MPV 8.3, Neut % (Auto) 79.8, Lymph % (Auto) 12.0, Mitchell % (Auto) 6.4, Eos % (Auto) 1.3, Baso % (Auto) 0.5, Neut # (Auto) 16.4 H, Lymph # (Auto) 2.5, Mitchell # (Auto) 1.3 H, Eos # (Auto) 0.3, Baso # (Auto) 0.1, Total Counted 100, Neutrophils % (Manual) 82 H, Lymphocytes % (Manual) 12, Monocytes % (Manual) 4, Eosinophils % (Manual) 2, Platelet Estimate Slight increase, Hypochromasia 2+, Target Cells 1+, PT 10.3, INR 0.95, Sodium 149 H, Potassium 3.2 L, Chloride 120 H, Carbon Dioxide 22, Anion Gap 10.2, BUN 27 H, Creatinine 0.70, Estimated Creat Clear 90, Estimated GFR 84, Est GFR ( Amer) 102, Glucose 137 H, Lactate 1.2, Calcium 9.4, Magnesium 2.0, Total Bilirubin 0.3, AST 36, ALT 34, Alkaline Phosphatase 132 H, Troponin I 0.04 H, NT-Pro-B Natriuret Pep 3480 H, Total Protein 6.9 D, Albumin 3.7, Globulin 3.2, Albumin/Globulin Ratio 1.2, Procalcitonin 0.054, TSH 1.27 09/20/23 20:01: Chlamy pneumoniae PCR TNP, Adenovirus (PCR) Not detected, B. pertussis DNA (PCR) TNP, Coronavirus OC43 (PCR) Not detected, Coronavirus HKU1 (PCR) Not detected, Coronavirus 229E (PCR) Not detected, SARS-CoV-2 (PCR) Not detected, Coronavirus NL63 (PCR) Not detected, Human Metapneumovir PCR Not detected, Influenza A (H1) PCR Not detected, Influ A (H1N1/09) PCR Not detected, Influenza A (H3) PCR Not detected, Influenza Type A (PCR) Not detected, Influenza Type B (PCR) Not detected, M. pneumoniae (PCR) TNP, Parainfluenza 1 (PCR) Not detected, Parainfluenza 2 (PCR) Not detected, Parainfluenza 3 (PCR) Not detected, Parainfluenza 4 (PCR) Not detected, RSV (PCR) Not detected, Entero/Rhino (PCR) Not detected 09/20/23 20:15: Urine Color Yellow, Urine Appearance Clear, Urine pH 6.0, Ur Specific [place] 1.020, Urine Protein Negative, Urine Glucose (UA) Negative, Urine Ketones Negative, Urine Blood Negative, Urine Nitrate Negative, Urine Bilirubin Negative, Urine Urobilinogen 0.2, Ur Leukocyte Esterase Negative, Urine RBC None, Urine WBC 3-5, Ur Squamous Epith Cells Occasional, Urine Bacteria Trace Response Orders (Tests/Meds): ED MEDICATIONS Generic Name Dose Route Start Last Admin Trade Name Freq PRN Reason Stop Dose Admin Acetaminophen 650 mg 09/20/23 22:13 Acetaminophen 325mg Tab PO 10/20/23 22:12 Q4HP PRN Fever or Mild Pain (1-3) Enoxaparin Sodium 40 mg 09/21/23 09:00 Enoxaparin 40mg/0.4ml Syringe SQ 10/21/23 08:59 DAILY KADEEM Ceftriaxone Sodium 1 gm/ 50 mls @ 100 mls/hr 09/20/23 19:30 09/20/23 20:20 Sodium Chloride IV 09/30/23 19:29 100 mls/hr Q24H KADEEM Administration Morphine Sulfate 2 mg 09/20/23 22:13 Morphine 2mg/Ml Syringe IV 10/20/23 22:12 Q2HP PRN Severe Pain (7-10) Nicotine 21 mg 09/20/23 22:13 Nicotine 21mg/24hr Patch TD 10/20/23 22:12 DAILYP PRN Nicotine Cravings Ondansetron HCl 4 mg 09/20/23 22:13 Ondansetron 4mg/2ml Vial IV 10/20/23 22:12 Q8HP PRN Nausea Pantoprazole Sodium 40 mg 09/21/23 09:00 Pantoprazole 40mg Tablet PO 10/21/23 08:59 DAILY KADEEM Sodium Chloride 10 ml 09/20/23 20:56 09/20/23 20:57 Sodium Chloride 0.9% 10ml Syr (Rad Only) IV 10/20/23 20:55 10 ml NEEDED PRN Administration Maintain IV Site Discontinued Medications Generic Name Dose Route Start Last Admin Trade Name Freq PRN Reason Stop Dose Admin Acetaminophen 1,000 mg 09/20/23 19:29 09/20/23 19:41 Acetaminophen 1,000mg/100ml Vial IV 09/20/23 19:30 1,000 mg ONCE ONE Administration Albuterol/Ipratropium 3 ml 09/20/23 19:29 09/20/23 20:00 Ipratropium/Albuterol 3 Ml Neb IH 09/20/23 19:30 3 ml ONCE ONE Administration Aspirin 324 mg 09/20/23 19:43 09/20/23 20:08 Aspirin 81mg Chewable Tablet PO 09/20/23 19:44 Not Given ONCE ONE Iopamidol 70 ml 09/20/23 20:56 09/20/23 20:57 Iopamidol-370 (76%);100ml Bottle IV 09/20/23 20:57 70 ml ONCE ONE Administration Methylprednisolone Sodium Succinate 125 mg 09/20/23 19:43 09/20/23 20:05 Methylprednisolone Sod Succ 125mg Vial IV 09/20/23 19:44 125 mg ONCE ONE Administration Sodium Chloride 50 ml 09/20/23 20:56 09/20/23 20:57 0.9 % Sodium Chloride 50 Ml Vial IV 09/20/23 20:57 50 ml ONCE ONE Administration ORDERS Category Date Time Status CT angio chest PE protocol Stat Cat Scan 09/20/23 19:[address] head/brain wo con Stat Cat Scan 09/20/23 19:31 Completed BNP [NT Pro Brain Natriuretic Pep.] Stat Lab 09/20/23 19:34 Completed CBC w/Auto Diff [Complete Blood Count Auto Diff] Stat Lab 09/20/23 19:34 Completed CMP [Comprehensive Metabolic Panel] Stat Lab 09/20/23 19:34 Completed Full Resp Panel w/COVID ([facility]) Routine Lab 09/20/23 20:01 Completed INR [Prothrombin Time INR] Stat Lab 09/20/23 19:34 Completed Lactic Acid Stat Lab 09/20/23 19:34 Completed Magnesium Stat Lab 09/20/23 19:34 Completed Procalcitonin Stat Lab 09/20/23 19:34 Completed TSH [Thyroid Stimulating Hormone] Stat Lab 09/20/23 19:34 Completed Trop I [Troponin I] Stat Lab 09/20/23 19:34 Completed Troponin I Q3H Lab 09/20/23 22:35 Received Troponin I Q3H Lab 09/21/23 01:45 Ordered UA [Urinalysis and Microscopic] Stat Lab 09/20/23 20:15 Completed Blood Culture Stat Micro 09/20/23 20:25 Received Arterial Blood Gas Stat RT 09/20/23 19:33 Completed ECG Data Tracing #1: ECG Narrative: Independently interpreted by me, rate is 180, rhythm is irregular, A-fib with RVR, no ST elevation in anatomical contiguous leads MDM Narrative Medical Decision Narrative: In summary patient is a 67-year-old female who presents to the emergency department for evaluation of shortness of breath. Patient is patient is normotensive but with a heart rate greater than 140 palpable upon arrival, but afebrile. Physical exam shows a unwell appearing 67-year-old female does not appear to be in acute distress. Physical exam is remarkable for diminished breath sounds at the bases with rales. Differential diagnosis includes A-fib RVR, ACS, pneumonia, COPD exacerbation etc. Initial workup will be conducted with hematologic labs CT scan of the head and chest. Initial interventions include breathing treatment Toradol Tylenol, DuoNebs, ceftriaxone, methylprednisolone. Azithromycin will be deferred given allergy to erythromycin. Initial workup reviewed by me shows that she has elevated white count elevated troponin elevated NT proBNP and my informal read of her CT scan of her chest shows interstitial disease versus early infiltrates. Given the findings thus far I had a discussion about patient management with hospital medicine. Patient is spontaneously converted out of A-fib RVR however remains critically ill with 1 or more system dysfunctions that remain a threat to life. Subsequently she was going to be admitted for further evaluation and care.
--- NOTE | 2023-09-20 19:31 | CT_ITS ---
PROCEDURE INFORMATION: Exam: CTA Chest With Contrast Exam date and time: 09/20/2023 8:49 PM Age: 67 years old Clinical indication: Shortness of breath; Additional info: Acute on chronic hypoxemic respiratory failure TECHNIQUE: Imaging protocol: Computed tomographic angiography of the chest with contrast. Exam focused on the arteries. 3D rendering (Not supervised by radiologist): MIP and/or 3D reconstructed images were created by the technologist. Radiation optimization: All CT scans at this facility use at least one of these dose optimization techniques: automated exposure control; mA and/or kV adjustment per patient size (includes targeted exams where dose is matched to clinical indication); or iterative reconstruction. Contrast material: ISOUVE 370; Contrast volume: 70 ml; Contrast route: INTRAVENOUS (IV); COMPARISON: [facility] CT lung screening 09/02/2018 2:09 PM FINDINGS: Pulmonary arteries: Normal. No pulmonary emboli. Aorta: Unremarkable. No aortic aneurysm. No aortic dissection. Lungs: Chronic interstitial lung disease and pulmonary fibrosis. Scattered superimposed atelectasis less likely pneumonia. 5 mm pulmonary nodule in the right upper lobe. Pleural spaces: Unremarkable. No pneumothorax. No pleural effusion. Heart: Cardiomegaly. Lymph nodes: Unremarkable. No enlarged lymph nodes. Bones/joints: Unremarkable. No acute fracture. Soft tissues: Unremarkable. IMPRESSION: 1. No pulmonary embolism 2. Chronic interstitial lung disease and pulmonary fibrosis. Scattered superimposed atelectasis less likely pneumonia. For patients at low risk (minimal or absent history of smoking and of other known risk factors), no routine follow-up is indicated. For patients at high risk (history of smoking or of other known risk factors), consider optional CT at 12 months. (rodney Shukla., Fle[employer], 2017)
--- NOTE | 2023-09-20 19:31 | CT_ITS ---
PROCEDURE INFORMATION: Exam: CT Head Without Contrast Exam date and time: 09/20/2023 8:43 PM Age: 67 years old Clinical indication: Pain; Headache TECHNIQUE: Imaging protocol: Computed tomography of the head without contrast. Radiation optimization: All CT scans at this facility use at least one of these dose optimization techniques: automated exposure control; mA and/or kV adjustment per patient size (includes targeted exams where dose is matched to clinical indication); or iterative reconstruction. COMPARISON: No relevant prior studies available. FINDINGS: Brain: There is diffuse enlargement CSF containing spaces consistent with global parenchymal volume loss. No acute intracranial hemorrhage. Patchy encephalomalacia within the right frontal and temporal lobes Encephalomalacia within the right temporal/occipital lobe. Remote lacunar infarct left thalamus. No significant cerebral edema, mass effect, or midline shift. Cerebral ventricles: No hydrocephalus. Paranasal sinuses: Mild mucosal thickening within the maxillary sinuses and ethmoidal air cells. Mastoid air cells: The mastoid air cells are clear. Orbital cavities: Postsurgical changes of the lenses. Bones/joints: No acute fracture. Soft tissues: The superficial soft tissues are normal. IMPRESSION: 1. No acute intracranial hemorrhage. 2. Encephalomalacia involving the right MCA and [employer] territories likely represent remote infarcts. Recommend correlation with history/physical exam and if acute on chronic injury is suspected recommend further evaluation with MRI. 3. Other findings as above.
--- NOTE | 2023-09-20 19:38 | ECG_ITS ---
APPROVED REPORT Exam: Resting ECG HR:180 bpm ECG Measurements Heart Rate 180 AXES QRSd 92 QRS 13 QT 248 T 179 QTc 343 Conclusion ATRIAL FIBRILLATION WITH RAPID VENTRICULAR RESPONSE MODERATE VOLTAGE CRITERIA FOR LVH, CONSIDER NORMAL VARIANT [MEETS CRITERIA IN ONE OF: R(aVL), S(V1), R(V5), R(V5/V6)+S(V1)] POSSIBLE SEPTAL MYOCARDIAL INFARCTION , OF INDETERMINATE AGE [30 ms Q WAVE IN V1/V2] MODERATE T-WAVE ABNORMALITY, CONSIDER LATERAL ISCHEMIA [-0.1+ mV T-WAVE IN I/aVL/V5/V6] CRITICAL TEST RESULT UNCONFIRMED REPORT Electronically signed by : JOSE BRASWELL, 09/21/2023 02:55:57
[2023-09-20] MEDS: ACETAMINOPHEN 1,000MG/100ML VIAL 1000 MG IV (19:41)
--- NOTE | 2023-09-20 19:42 | PC.NURSE ---
pt o2 sat dropped to 84% on RA placed on 3L NC and then titrated to 4L NC
[2023-09-20 19:53] LABS: Basophils # 0.1 K/mm3 (0-0.2); Basophils % 0.5 % (0.1-2.0); Eosinophils # 0.3 K/mm3 (0.0-0.4); Eosinophils % 1.3 % (0.1-12.0); Hematocrit 44.3 % (37.0-47.0); Hemoglobin 13.4 g/dL (12.2-16.2); Lymphocytes # 2.5 K/mm3 (0.7-4.5); Mean Corpuscular HGB Conc 30.2 g/dL (31.8-35.4); Mean Corpuscular Hemoglobin 26.6 pg (27.0-31.2); Mean Platelet Volume 8.3 fl (7.4-10.4); Monocytes # 1.3 K/mm3 (0.1-1.0); Monocytes % 6.4 % (1.7-9.3); Neutrophils # 16.4 K/mm3 (1.8-7.8); Neutrophils % 79.8 % (37.0-80.0); Platelet Count 476 K/mm3 (142-424); Red Blood Count 5.03 M/mm3 (4.20-5.40); Red Cell Distribution Width 18.3 % (11.5-17.5); White Blood Count 20.5 K/mm3 (4.8-10.8)
[2023-09-20 19:54] LABS: MANUAL DIFFERENTIAL MANUAL DIFFERENTIAL (MANUAL DIFF)
[2023-09-20 19:56] LABS: INR 0.95 (0.9-1.1); Prothrombin Time 10.3 seconds (10.1-12.5)
--- NOTE | 2023-09-20 19:57 | PC.NURSE ---
Pt bathed, brief applied, purewick connected, lab notified to draw BC x 2 before starting Rocephin
[2023-09-20 19:58] LABS: Alanine Aminotransferase 34 U/L (12-78); Albumin Level 3.7 g/dl (3.5-5.0); Albumin/Globulin Ratio 1.2 (1.1-1.8); Alkaline Phosphatase 132 U/L (38-126); Anion Gap 10.2 mEq/L (5-15); Aspartate Amino Transferase 36 U/L (14-36); Bilirubin,Total 0.3 mg/dl (0.2-1.3); Blood Urea Nitrogen 27 mg/dl (7-17); Calcium 9.4 mg/dl (8.4-10.2); Carbon Dioxide 22 mmol/L (22.0-30.0); Chloride 120 mmol/L (98-107); Creatinine Clearance Estimated 90 mL/min (50-200); Estimated Glomerular Filt Rate 84 ml/min (>60); GFR (African American) 102 ML/MIN (>60); Globulin 3.2 g/dL (1.3-3.2); Glucose 137 mg/dl (74-100); Potassium 3.2 mmoL/L (3.5-5.1); Sodium 149 mmol/L (136-145); Total Protein,Serum 6.9 g/dl (6.3-8.2)
[2023-09-20 19:59] LABS: Lactic Acid 1.2 mmol/L (0.7-2.1)
[2023-09-20] MEDS: IPRATROPIUM/ALBUTEROL 3 ML NEB IH (20:00)
[2023-09-20 20:04] LABS: ABG Base Excess -9.9 mmol/L (-2.4-2.3); ABG HCO3 16.6 mmhg (22.0-26.0); ABG Oxygen Saturation 92 % (90-100); ABG PCO2 35.2 mmhg (35.0-45.0); ABG PH 7.29 mmol/L (7.35-7.45); ABG PO2 68.8 mmhg (80-100); ABG TCO2 17.7 mmhg (23-27)
[2023-09-20 20:05] LABS: Allen's Test y; Oxygen ra %; Source rr
[2023-09-20] MEDS: METHYLPREDNISOLONE SOD SUCC 125MG VIAL 125 MG IV (20:05)
[2023-09-20 20:06] LABS: Adenovirus,PCR Not Detected (NotDetected); Coronavirus 19, PCR Not Detected (NotDetected); Coronavirus 229E Not Detected (NotDetected); Coronavirus NL63 Not Detected (NotDetected); Coronavirus OC43 Not Detected (NotDetected); Coronovirus HKU1,PCR Not Detected (NotDetected); Human Metapneumovirus Not Detected (NotDetected); Influenza A, PCR Not Detected (NotDetected); Influenza AH1, 2009 Not Detected (NotDetected); Influenza AH1, PCR Not Detected (NotDetected); Influenza AH3,PCR Not Detected (NotDetected); Influenza B, PCR Not Detected (NotDetected); Parainfluenza 1, PCR Not Detected (NotDetected); Parainfluenza 2, PCR Not Detected (NotDetected); Parainfluenza 3, PCR Not Detected (NotDetected); Parainfluenza 4, PCR Not Detected (NotDetected); Respiratory Syncytial Virus Not Detected (NotDetected); Rhinovirus/Enterovirus Not Detected (NotDetected)
[2023-09-20 20:07] LABS: NT Pro Brain Natriuretic Pep. 3480 pg/mL (0-125)
[2023-09-20 20:09] LABS: Troponin I 0.04 ng/ml (0.00-0.034)
[2023-09-20 20:15] LABS: Eosinophils % 2 % (0-3); Lymphocytes % 12 % (10-50); Monocytes % 4 % (2-9); Neutrophils % 82 % (42-76); Procalcitonin 0.054 ng/mL (0.0-2.0); Total Cells Counted 100
[2023-09-20 20:16] LABS: Hypochromasia 2+; Platelet Estimate Slight Increase; Target Cells 1+
[2023-09-20 20:20] VITALS: PULSE 90
[2023-09-20 20:20] LABS: Microscopic, Urine URINE MICROSCOPIC (MICROSCOPIC)
[2023-09-20] MEDS: CEFTRIAXONE SODIUM 1 GM in 0.9 % SODIUM CHLORIDE 50 ML IV (20:20)
[2023-09-20 20:22] LABS: Appearance,Urine CLEAR (Clear); Bilirubin,Urine Negative (Negative); Blood, Urine Negative (Negative); Color,Urine YELLOW (Yellow); Glucose,Urine (UA) Negative (Negative); Ketones,Urine Negative (Negative); Leukocyte Esterase,Urine Negative (Negative); Nitrate,Urine Negative (Negative); Protein,Urine Negative (Negative); Urobilinogen,Urine 0.2 EU/dl (0.2)
[2023-09-20 20:28] LABS: Thyroid Stimulating Hormone 1.27 uIU/mL (0.465-4.68)
[2023-09-20 20:32] LABS: Bacteria,Urine Trace /lpf; Squamous Epithelial Cell,Urine Occasional #/hpf (0-5)
[2023-09-20] MEDS: SODIUM CHLORIDE 0.9% 10ML SYR (RAD ONLY) 10 ML IV (20:57)
[2023-09-20] MEDS: 0.9 % SODIUM CHLORIDE 50 ML VIAL IV (20:57)
[2023-09-20] MEDS: IOPAMIDOL-370 (76%);100ML BOTTLE 70 ML IV (20:57)
[2023-09-20 21:17] VITALS: BP 141/73; PULSE 94; RESP 24; O2SAT 96
--- NOTE | 2023-09-20 21:19 | PC.NURSE ---
Resp at bedside, pt provided water, no needs at this time
[2023-09-20 21:31] VITALS: BP 158/76; PULSE 91; RESP 28; O2SAT 96
[2023-09-20 21:49] VITALS: BP 158/76; PULSE 89; RESP 27; TEMP 36.7; O2SAT 98
--- NOTE | 2023-09-20 21:52 | PC.NURSE ---
Report called to Janeen CARY
[2023-09-20 22:00] VITALS: BP 130/75; PULSE 83; RESP 20; TEMP 37.1; O2SAT 97
--- NOTE | 2023-09-20 22:16 | P.HP_ITS ---
History of Present Illness *Admission Date: 09/20/23 *Reason for visit:: SOB *History of present illness: This is a 67 yo female with PMHx of COPD, current smoker, HTN, presented to ED for evaluation of hypoxia. Patient was seen by EMS earlier this date after having fallen out of her mechanical chair and unable to get back up patient refused transport at that time. EMS was called back this evening after it was noted that she was hypoxic. When EMS arrived patient was satting in the 70s. She reports a headache and some subjective shortness of breath but no chest pain fever chills hemoptysis hematochezia melena nausea vomit diarrhea. When patient arrived she was noted to be in atrial fibrillation with rapid ventricular response with a right sustained above 140. She does not have a previous history of A-fib that I can find and is not anticoagulated. Admitted for management. [facility] Disclaimer: The information contained in this section may have been updated after the aldo ent was seen, as this information can be updated by other users. Medical History (Updated 09/21/23 @ 11:31 by Honorio Smith MD) Fibrosis of lung ILD (interstitial lung disease) Skin cancer CVA (cerebral vascular accident) Heart attack Colon cancer Cervical cancer Anxiety Depression Fibromyalgia Arthritis Anemia PVD (peripheral vascular disease) HTN (hypertension) HLD (hyperlipidemia) DVT (deep venous thrombosis) DM2 (diabetes mellitus, type 2) GERD (gastroesophageal reflux disease) Surgical History History of parathyroid surgery Hx of appendectomy Hx of cardiac cath Hx of cholecystectomy History of total bilateral knee replacement Hx of hysterectomy Family History No significant family history Social History Smoking Status: Current every day smoker tobacco type: cigarettes packs per day: 1 alcohol intake: never substance use type: denies use current occupational status: disabled Travel in the last 8 weeks: None household members: none and other housing: apartment caffeine: Yes Review of Systems Review of Systems Review of systems:: pertinent systems reviewed and negative unless documented below Meds Home Medications and Allergies Home Medications Medication Instructions Recorded Confirmed Type alprazolam 1 mg tablet 1 mg PO QIDP PRN Anxiety 30 days 07/26/18 09/20/23 History aspirin 81 mg tablet,delayed 81 mg PO DAILY heart health 07/26/18 09/20/23 History release (Adult Low Dose Aspirin) duloxetine 60 mg capsule,delayed 60 mg PO DAILY 30 days 07/26/18 09/20/23 History release ramipril 10 mg capsule 20 mg PO DAILY 30 days 07/26/18 09/20/23 History topiramate 100 mg tablet 100 mg PO BID 30 days 07/26/18 09/20/23 History metformin 500 mg tablet 500 mg PO DAILY 12/13/19 09/20/23 History amlodipine 10 mg tablet 10 mg PO DAILY 11/13/21 09/20/23 History bisoprolol fumarate 5 mg tablet 5 mg PO DAILY 11/13/21 09/20/23 History pantoprazole 40 mg tablet,delayed 40 mg PO DAILY 11/13/21 09/20/23 History release paroxetine HCl 10 mg tablet 10 mg PO DAILY 11/13/21 09/21/23 History pravastatin 40 mg tablet 40 mg PO HS 11/13/21 09/20/23 History gabapentin 600 mg tablet 600 mg PO TID nerve pain 30 days 11/18/21 09/20/23 Rx #90 tabs cyanocobalamin (vitamin B-12) 100 100 mcg PO DAILY 01/06/23 09/20/23 History mcg tablet ferrous sulfate 325 mg (65 mg 325 mg PO .3X A WEEK 01/06/23 09/21/23 History iron) tablet (FeroSul) ergocalciferol (vitamin D2) 1,250 50,000 unit PO WEEKLY 01/07/23 09/20/23 History mcg (50,000 unit) capsule potassium chloride 10 mEq 10 meq PO BID Supplement 30 days 01/09/23 09/20/23 Rx capsule,extended release #60 caps tamsulosin 0.4 mg capsule 0.4 mg PO DAILY 09/21/23 09/21/23 History New Prescriptions to Start Prescriptions: Allergies Allergy/AdvReac Type Severity Reaction Status Date / Time erythromycin base Allergy Unknown I-HIVES Verified 05/12/23 10:43 Penicillins Allergy Unknown I-HIVES Verified 05/12/23 10:43 propoxyphene Allergy Unknown I-HIVES Verified 05/12/23 10:43 Exam Data for Last 24 hours Vital signs and Labs for Last 24 Hours: Temp Pulse Resp BP Pulse Ox O2 Del Method O2 Flow Rate 98.1 F 89 27 H 158/76 H 96 Vapotherm 30 09/20/23 21:49 09/20/23 21:49 09/20/23 21:49 09/20/23 21:49 09/20/23 21:31 09/20/23 21:49 09/20/23 21:49 Laboratory Results - last 24 hr 09/20/23 19:33: Specimen Source rr, O2 % ra, ABG pH 7.29 L, ABG pCO2 35.2, ABG pO2 68.8 L, ABG HCO3 16.6 L, ABG Total CO2 17.7 L, ABG O2 Saturation 92, ABG Ba se Excess -9.9 L, Gavino Test y 09/20/23 19:34: WBC 20.5 H*, RBC 5.03, Hgb 13.4, Hct 44.3, MCV 88.0, MCH 26.6 L, MCHC 30.2 L, RDW 18.3 H, Plt Count 476 H, MPV 8.3, Neut % (Auto) 79.8, Lymph % (Auto) 12.0, [place] % (Auto) 6.4, Eos % (Auto) 1.3, Baso % (Auto) 0.5, Neut # (Auto) 16.4 H, Lymph # (Auto) 2.5, [place] # (Auto) 1.3 H, Eos # (Auto) 0.3, Baso # (Auto) 0.1, Total Counted 100, Neutrophils % (Manual) 82 H, Lymphocytes % (Manual) 12, Monocytes % (Manual) 4, Eosinophils % (Manual) 2, Platelet Estimate Slight increase, Hypochromasia 2+, Target Cells 1+, PT 10.3, INR 0.95, Sodium 149 H, Potassium 3.2 L, Chloride 120 H, Carbon Dioxide 22, Anion Gap 10.2, BUN 27 H, Creatinine 0.70, Estimated Creat Clear 90, Estimated GFR 84, Est GFR ( Amer) 102, Glucose 137 H, Lactate 1.2, Calcium 9.4, Magnesium 2.0, Total Bilirubin 0.3, AST 36, ALT 34, Alkaline Phosphatase 132 H, Troponin I 0.04 H, NT-Pro-B Natriuret Pep 3480 H, Total Protein 6.9 D, Albumin 3.7, Globulin 3.2, Albumin/Globulin Ratio 1.2, Procalcitonin 0.054, TSH 1.27 09/20/23 20:15: Urine Color Yellow, Urine Appearance Clear, Urine pH 6.0, Ur Specific [place] 1.020, Urine Protein Negative, Urine Glucose (UA) Negative, Urine Ketones Negative, Urine Blood Negative, Urine Nitrate Negative, Urine Bilirubin Negative, Urine Urobilinogen 0.2, Ur Leukocyte Esterase Negative, Urine RBC None, Urine WBC 3-5, Ur Squamous Epith Cells Occasional, Urine Bacteria Trace Temp Pulse Resp BP Pulse Ox O2 Del Method 98 F 70 22 180/64 H 98 Room Air 01/06/23 20:00 01/06/23 20:00 01/06/23 20:00 01/06/23 20:00 01/06/23 20:00 01/06/23 20:00 Laboratory Results - last 24 hr 01/06/23 17:14: WBC 12.4 H, RBC 3.70 L, Hgb 8.6 L, Hct 28.0 L, MCV 75.8 L, MCH 23.1 L, MCHC 30.5 L, RDW 23.2 H, Plt Count 908 H*, MPV 7.9, Neut % (Auto) 76.0, Lymph % (Auto) 15.2, [place] % (Auto) 7.8, Eos % (Auto) 0.7, Baso % (Auto) 0.3, Neut # (Auto) 9.4 H, Lymph # (Auto) 1.9, [place] # (Auto) 1.0, Eos # (Auto) 0.1, Baso # (Auto) 0.0, Sodium 144, Potassium 2.4 L*, Chloride 114 H, Carbon Dioxide 26, Anion Gap 6.4, BUN 11, Creatinine 0.60, Estimated Creat Clear 76, Estimated GFR 100, Est GFR ( Amer) 121, Glucose 75, Lactate 0.9, Calcium 7.3 L I & O for Last 24 hours: Intake & Output 09/17/23 09/18/23 09/19/23 09/20/23 23:59 23:59 23:59 23:59 Weight 102.058 kg Intake & Output 08/0601/05/23 01/06/23 01/07/23 11:59 11:59 11:59 11:59 Output Total 0 / 0 Balance 0 / 0 Weight 189 lb 1 oz Constitutional Constitutional: mild distress and combative *Routine HEENT Exam Head: Present normocephalic Eye: Present conjunctivae pink ENT: Present mucous membranes moist *Routine Neck Exam Neck: Present supple; Absent lymphadenopathy *Routine Respiratory Exam Respiratory: Present decreased breath sounds, CTA bilaterally, crackles and diminished air movement; Absent accessory muscle use *Routine Cardiovascular Exam Cardiovascular: Present RRR and murmur *Routine Abdominal Exam Abdominal: Present soft and normoactive bowel sounds; Absent tenderness *Routine Rectal Exam Rectal:: deferred *Routine Genitalia Exam Genitalia:: deferred *Routine Extremities Exam Extremities: Present clubbing, edema and pulses intact *Routine Skin Exam Comments: erythema bilateral lower extremities, right worse than left, with open areas on the posterior right lower leg, slough and some darker areas concerning for eschar *Routine Neurological Exam Neurological: Present alert, oriented X3 and normal speech H&P: Result Imaging and Cardiology EKG: Status: image reviewed by me, Preliminary report and final report CT scan - chest: Status: image reviewed by me, Preliminary report and final report Assessment and Plan *Assessment and plan (1) Acute and chronic respiratory failure with hypoxia: Status: Acute Category: Medical Code(s): J96.21 - Acute and chronic respiratory failure with hypoxia (2) Atrial fibrillation with rapid ventricular response: Status: Acute Category: Medical Code(s): I48.91 - Unspecified atrial fibrillation (3) Acute non-ST elevation myocardial infarction (NSTEMI): Status: Acute Category: Medical Code(s): I21.4 - Non-ST elevation (NSTEMI) myocardial infarction (4) COPD exacerbation: Status: Acute Category: Medical Code(s): J44.1 - Chronic obstructive pulmonary disease with (acute) exacerbation (5) HTN (hypertension): Status: Acute Qualifiers: Hypertension type: unspecified Qualified Code(s): I10 - Essential (pr imary) hypertension Category: Medical Code(s): I10 - Essential (primary) hypertension (6) Personal history of nicotine dependence: Status: Acute Category: Medical Code(s): Z87.891 - Personal history of nicotine dependence Plan 67 yo female with PMHx of COPD, current smoker, HTN, presented to ED for evaluation of hypoxia. Initially patient had a fall. Later on EMS was called back for hypoxia. Patient was found satting send on the 70's. Brought to the ER. Arrived on atrial fibrillation with RVR. initial work up showed elevated white count, elevated troponin, elevated NT proBNP and CT scan of her chest shows interstitial disease and pulmonary fibrosis. Findings discussed with ED. Agreed for admission. Plan as follow: -Acute hypoxic respiratory failure Secondary to COPD exacerbation: Diagnosis to rule out are community acquired pneumonia versus aspiration pneumonia Chronic interstitial disease with fibrosis Admit patient for services. Dispo stepdown Pulmonary consult Plan continue BiPAP. Improved moved to high flow Vapotherm at 60% Monitor for O2 saturation DuoNeb every 6 Monitor for sepsis. CBC daily watch white count On ceftriaxone Sputum pending Speech therapy to rule out to rule out dysphagia and aspiration Atrial fibrillation with rapid ventricular response: Resolved on his own after saturation normalized Continue monitoring Cardiac monitoring Serial troponin elevated. Likely to oxygen demand Cardiac consult Hypertension Resume amlodipine bisoprolol aspirin ramipril on statin, and lasix Patient referred Per patient she has medical history of diabetes, there is not documentation of prior diagnosis. Per chart review patient is taking metformin 500 mg daily Will continue to Accu-Chek before meals Obtain A1c in the morning Nicotine dependence: On nicotine patch
[2023-09-21] VITALS (17 sets, daily range): BP systolic 121–151; BP diastolic 66–74; PULSE 65–89; RESP 18–118; TEMP 36.7–37.5; O2SAT 90–100; BMI 31.8
[2023-09-21 00:32] LABS: Troponin I 0.06 ng/ml (0.00-0.034)
[2023-09-21 02:49] LABS: Troponin I 0.09 ng/ml (0.00-0.034)
--- NOTE | 2023-09-21 05:48 | PC.NURSE ---
pt has wore vapotherm t/o night and tolerated well. per hospitalist bedside swallow was performed by this RN with pt sitting straight up, patient demonstrated frequent coughing and throat clearing after drinking thin liquid, now awaiting speech eval. 2+/3+ pitting edema in the BLE. Daughter called and reports that patient is suppose to wear oxygen at home but doesn't and refuses and also frequently falls at home - patient has been found with vapotherm off 2x tonight and educated on the importance of wearing oxygen. Bed alarm is on.
[2023-09-21 07:02] LABS: Basophils # 0.1 K/mm3 (0-0.2); Basophils % 0.4 % (0.1-2.0); Eosinophils % 0.2 % (0.1-12.0); Hematocrit 39.8 % (37.0-47.0); Lymphocytes # 1.4 K/mm3 (0.7-4.5); Lymphocytes % 7.8 % (10-50); Mean Corpuscular Hemoglobin 25.6 pg (27.0-31.2); Mean Corpuscular Volume 88.3 fl (81-99); Mean Platelet Volume 8.3 fl (7.4-10.4); Monocytes # 0.6 K/mm3 (0.1-1.0); Monocytes % 3.2 % (1.7-9.3); Neutrophils # 15.6 K/mm3 (1.8-7.8); Neutrophils % 88.4 % (37.0-80.0); Platelet Count 439 K/mm3 (142-424); Red Cell Distribution Width 18.1 % (11.5-17.5); White Blood Count 17.7 K/mm3 (4.8-10.8)
[2023-09-21 07:07] LABS: Chloride 122 mmol/L (98-107); MANUAL DIFFERENTIAL MANUAL DIFFERENTIAL (MANUAL DIFF); Potassium 3.2 mmoL/L (3.5-5.1); Sodium 147 mmol/L (136-145)
[2023-09-21 07:09] LABS: Blood Urea Nitrogen 25 mg/dl (7-17); Creatinine Clearance Estimated 82 mL/min (50-200); Estimated Glomerular Filt Rate 100 ml/min (>60); GFR (African American) 121 ML/MIN (>60)
[2023-09-21 07:10] LABS: Alanine Aminotransferase 27 U/L (12-78); Albumin/Globulin Ratio 1.1 (1.1-1.8); Alkaline Phosphatase 97 U/L (38-126); Anion Gap 5.2 mEq/L (5-15); Aspartate Amino Transferase 27 U/L (14-36); Bilirubin,Total 0.3 mg/dl (0.2-1.3); Calcium 8.9 mg/dl (8.4-10.2); Carbon Dioxide 23 mmol/L (22.0-30.0); Globulin 2.8 g/dL (1.3-3.2); Glucose 159 mg/dl (74-100); Phosphorous 4.7 mg/dl (2.5-4.5); Total Protein,Serum 5.8 g/dl (6.3-8.2)
--- NOTE | 2023-09-21 07:38 | HMH.PHAINT1 ---
Pharmacy Intervention Comments: HOME MEDICATION LIST VERIFIED VIA OUTSIDE PHARMACY AND LAST ER DISCHARGE
[2023-09-21 08:18] LABS: Lymphocytes % 4 % (10-50); Monocytes % 5 % (2-9); Neutrophils % 91 % (42-76); Platelet Estimate Slight Increase; RBC Morphology Normal; Total Cells Counted 100
[2023-09-21] MEDS: FERROUS SULFATE 325MG TABLET 325 MG PO (08:39)
[2023-09-21] MEDS: TOPIRAMATE 100MG TABLET 100 MG PO ×2 (08:39→21:14)
[2023-09-21] MEDS: ASPIRIN EC 81MG TABLET 81 MG PO (08:39)
[2023-09-21] MEDS: RAMIPRIL 10MG CAPSULE 20 MG PO (08:39)
[2023-09-21] MEDS: GABAPENTIN 600MG TABLET 600 MG PO ×3 (08:39→21:14)
[2023-09-21] MEDS: BISOPROLOL 5MG TABLET 5 MG PO (08:39)
[2023-09-21] MEDS: DULOXETINE 30MG CAPSULE.DR 60 MG PO (08:40)
[2023-09-21] MEDS: PARoxetine 10MG TABLET 10 MG PO (08:40)
[2023-09-21] MEDS: ENOXAPARIN 40MG/0.4ML SYRINGE 40 MG SQ (08:40)
[2023-09-21 08:41] LABS: Hemoglobin 11.5 g/dL (12.2-16.2)
[2023-09-21] MEDS: AMLODIPINE 10MG TABLET 10 MG PO (08:41)
--- NOTE | 2023-09-21 09:56 | P.CONS_ITS ---
History of Present Illness History of present illness: Ms. Rocha is a 67-year-old female current smoker, greater than 30 PPD used to smoke 4 to 5 packs a day currently down to 1 pack/week, carries a diagnosis COPD, not using any oxygen supplementation at baseline, hypertension presented with worsening respiratory's and hypoxia and pulmonary was called for further evaluation and management. Upon admission patient was also found to be in A-fib RVR. She admits worsening respiratory along with cough and productive cough for the last 3 to 4 days prior to admission [facility] Disclaimer: The information contained in this section may have been updated after the patient was seen, as this information can be updated by other users. Medical History (Updated 09/21/23 @ 11:31 by Honorio Smith MD) Fibrosis of lung ILD (interstitial lung disease) Skin cancer CVA (cerebral vascular accident) Heart attack Colon cancer Cervical cancer Anxiety Depression Fibromyalgia Arthritis Anemia PVD (peripheral vascular disease) HTN (hypertension) HLD (hyperlipidemia) DVT (deep venous thrombosis) DM2 (diabetes mellitus, type 2) GERD (gastroesophageal reflux disease) Surgical History History of parathyroid surgery Hx of appendectomy Hx of cardiac cath Hx of cholecystectomy History of total bilateral knee replacement Hx of hysterectomy Family History No significant family history Social History Smoking Status: Current every day smoker tobacco type: cigarettes packs per day: 1 alcohol intake: never substance use type: denies use current occupational status: disabled Travel in the last 8 weeks: None household members: none and other housing: apartment caffeine: Yes Review of Systems Constitutional Constitutional: Reports anorexia, Reports body ache(s) and Reports fatigue Eyes Eyes: Denies eye discharge, Denies dry eyes, Denies irritation and Denies itchy eyes ENT Ears, Nose, Mouth, and Throat: Denies epistaxis, Denies facial pain, Denies lip swelling and Denies throat swelling *Cardiovascular Cardiovascular: Reports dyspnea and Reports dyspnea on exertion *Respiratory Respiratory: Reports chest congestion, Reports cough, Reports dyspnea, Reports dyspnea on exertion, Reports excessive phlegm production, Denies hemoptysis, Denies pain on inspiration, Denies pain with cough and Reports wheezing *Gastrointestinal Gastrointestinal: Denies abdominal pain, Denies belching and Denies cramping *Musculoskeletal Musculoskeletal: Reports back pain, Reports myalgias and Reports other (No small joint swelling or Pain) Psychiatric Psychiatric: Denies homicidal ideation and Denies suicidal ideation Endocrine Endocrine: Reports fatigue and Denies heat intolerance Hematologic/Lymphatic Hematologic/Lymphatic: Denies easy bleeding and Denies lymphadenopathy Allergic/Immunologic Allergic/Immunologic: Denies itchy eyes, Denies lip swelling, Denies throat swelling and Reports wheezing Pulmonology Exam Inpatient Vital signs and Labs for Last 24 Hours: Temp Pulse Resp BP Pulse Ox O2 Del Method O2 Flow Rate 98.1 F 79 20 144/74 H 100 Vapotherm 20 09/21/23 08:00 09/21/23 08:00 09/21/23 08:00 09/21/23 08:00 09/21/23 08:06 09/21/23 08:55 09/21/23 08:55 FiO2 70 09/21/23 08:06 Laboratory Results - last 24 hr 09/20/23 19:33: Specimen Source rr, O2 % ra, ABG pH 7.29 L, ABG pCO2 35.2, ABG pO2 68.8 L, ABG HCO3 16.6 L, ABG Total CO2 17.7 L, ABG O2 Saturation 92, ABG Base Excess -9.9 L, Gavino Test y 09/20/23 19:34: WBC 20.5 H*, RBC 5.03, Hgb 13.4, Hct 44.3, MCV 88.0, MCH 26.6 L, MCHC 30.2 L, RDW 18.3 H, Plt Count 476 H, MPV 8.3, Neut % (Auto) 79.8, Lymph % (Auto) 12.0, Gem % (Auto) 6.4, Eos % (Auto) 1.3, Baso % (Auto) 0.5, Neut # (Auto) 16.4 H, Lymph # (Auto) 2.5, Gem # (Auto) 1.3 H, Eos # (Auto) 0.3, Baso # (Auto) 0.1, Total Counted 100, Neutrophils % (Manual) 82 H, Lymphocytes % (Manual) 12, Monocytes % (Manual) 4, Eosinophils % (Manual) 2, Platelet Estimate Slight increase, Hypochromasia 2+, Target Cells 1+, PT 10.3, INR 0.95, Sodium 149 H, Potassium 3.2 L, Chloride 120 H, Carbon Dioxide 22, Anion Gap 10.2, BUN 27 H, Creatinine 0.70, Estimated Creat Clear 90, Estimated GFR 84, Est GFR ( Amer) 102, Glucose 137 H, Lactate 1.2, Calcium 9.4, Magnesium 2.0, Total Bilirubin 0.3, AST 36, ALT 34, Alkaline Phosphatase 132 H, Troponin I 0.04 H, NT-Pro-B Natriuret Pep 3480 H, Total Protein 6.9 D, Albumin 3.7, Globulin 3.2, Albumin/Globulin Ratio 1.2, Procalcitonin 0.054, TSH 1.27 09/20/23 20:01: Chlamy pneumoniae PCR TNP, Adenovirus (PCR) Not detected, B. pertussis DNA (PCR) TNP, Coronavirus OC43 (PCR) Not detected, Coronavirus HKU1 (PCR) Not detected, Coronavirus 229E (PCR) Not detected, SARS-CoV-2 (PCR) Not detected, Coronavirus NL63 (PCR) Not detected, Human Metapneumovir PCR Not detected, Influenza A (H1) PCR Not detected, Influ A (H1N1/09) PCR Not detected, Influenza A (H3) PCR Not detected, Influenza Type A (PCR) Not detected, Influenza Type B (PCR) Not detected, M. pneumoniae (PCR) TNP, Parainfluenza 1 (PCR) Not detected, Parainfluenza 2 (PCR) Not detected, Parainfluenza 3 (PCR) Not detected, Parainfluenza 4 (PCR) Not detected, RSV (PCR) Not detected, Entero/Rhino (PCR) Not detected 09/20/23 20:15: Urine Color Yellow, Urine Appearance Clear, Urine pH 6.0, Ur Specific [place] 1.020, Urine Protein Negative, Urine Glucose (UA) Negative, Urine Ketones Negative, Urine Blood Negative, Urine Nitrate Negative, Urine Bilirubin Negative, Urine Urobilinogen 0.2, Ur Leukocyte Esterase Negative, Urine RBC None, Urine WBC 3-5, Ur Squamous Epith Cells Occasional, Urine Bacteria Trace 09/20/23 22:35: Troponin I 0.06 H 09/21/23 02:10: Troponin I 0.09 H 09/21/23 05:31: WBC 17.7 H, RBC 4.50, Hgb 11.5 L D, Hct 39.8, MCV 88.3, MCH 25.6 L, MCHC 29.0 L, RDW 18.1 H, Plt Count 439 H, MPV 8.3, Neut % (Auto) 88.4 H, L ymph % (Auto) 7.8 L, Gem % (Auto) 3.2, Eos % (Auto) 0.2, Baso % (Auto) 0.4, N eut # (Auto) 15.6 H, Lymph # (Auto) 1.4, Gem # (Auto) 0.6, Eos # (Auto) 0.0, Baso # (Auto) 0.1, Total Counted 100, Neutrophils % (Manual) 91 H, Lymphocytes % (Manual) 4 L, Monocytes % (Manual) 5, Platelet Estimate Slight increase, RBC Morphology Normal, Sodium 147 H, Potassium 3.2 L, Chloride 122 H, Carbon Dioxide 23, Anion Gap 5.2, BUN 25 H, Creatinine 0.60, Estimated Creat Clear 82, Estimated GFR 100, Est GFR ( Amer) 121, Glucose 159 H, Hemoglobin A1c 6.0, Calcium 8.9, Phosphorus 4.7 H, Magnesium 2.0, Total Bilirubin 0.3, AST 27, ALT 27, Alkaline Phosphatase 97, Total Protein 5.8 L, Albumin 3.0 L D, Globulin 2.8, Albumin/Globulin Ratio 1.1 I & O for Labs for Last 24 Hours: Intake & Output 09/18/23 09/19/23 09/20/23 09/21/23 23:59 23:59 23:59 23:59 Intake Total 342 / 342 Output Total 500 / 500 Balance -158 / -158 Weight 225 lb 203 lb 4.8 oz Constitutional: Present moderate distress Head: Present normocephalic and atraumatic ENT: Present normal exam, normal oropharynx and mucous membranes moist Neck: Present normal inspection and full ROM Respiratory: Present rales, respiratory distress, rhonchi, wheezes and diminished air movement; Absent able to speak in complete sentences Cardiac: Present S1/S2, Tachycardia and radial pulses present GI: Present soft and distention; Absent tenderness or guarding Rectal (female): Present deferred (female): Present deferred Skin: Present intact; Absent cyanosis or jaundice Neuro: Present alert, awake and oriented x 3 Extremities: Present normal inspection; Absent clubbing or cyanosis Psychiatric: Present normal affect and cooperative Meds Home Medications and Allergies Home Medications Medication Instructions Recorded Confirmed Type alprazolam 1 mg tablet 1 mg PO QIDP PRN Anxiety 30 days 07/26/18 09/20/23 History aspirin 81 mg tablet,delayed 81 mg PO DAILY heart health 07/26/18 09/20/23 History release (Adult Low Dose Aspirin) duloxetine 60 mg capsule,delayed 60 mg PO DAILY 30 days 07/26/18 09/20/23 History release ramipril 10 mg capsule 20 mg PO DAILY 30 days 07/26/18 09/20/23 History topiramate 100 mg tablet 100 mg PO BID 30 days 07/26/18 09/20/23 History metformin 500 mg tablet 500 mg PO DAILY 12/13/19 09/20/23 History amlodipine 10 mg tablet 10 mg PO DAILY 11/13/21 09/20/23 History bisoprolol fumarate 5 mg tablet 5 mg PO DAILY 11/13/21 09/20/23 History pantoprazole 40 mg tablet,delayed 40 mg PO DAILY 11/13/21 09/20/23 History release paroxetine HCl 10 mg tablet 10 mg PO DAILY 11/13/21 09/21/23 History pravastatin 40 mg tablet 40 mg PO HS 11/13/21 09/20/23 History gabapentin 600 mg tablet 600 mg PO TID nerve pain 30 days 11/18/21 09/20/23 Rx #90 tabs cyanocobalamin (vitamin B-12) 100 100 mcg PO DAILY 01/06/23 09/20/23 History mcg tablet ferrous sulfate 325 mg (65 mg 325 mg PO .3X A WEEK 01/06/23 09/21/23 History iron) tablet (FeroSul) ergocalciferol (vitamin D2) 1,250 50,000 unit PO WEEKLY 01/07/23 09/20/23 History mcg (50,000 unit) capsule potassium chloride 10 mEq 10 meq PO BID Supplement 30 days 01/09/23 09/20/23 Rx capsule,extended release #60 caps tamsulosin 0.4 mg capsule 0.4 mg PO DAILY 09/21/23 09/21/23 History New Prescriptions to Start Prescriptions: Allergies Allergy/AdvReac Type Severity Reaction Status Date / Time erythromycin base Allergy Unknown I-HIVES Verified 05/12/23 10:43 Penicillins Allergy Unknown I-HIVES Verified 05/12/23 10:43 propoxyphene Allergy Unknown I-HIVES Verified 05/12/23 10:43 Results Laboratory Findings 09/21/23 05:31 09/21/23 05:31 ABG ABG pH 7.29 mmol/L (7.35-7.45) L 09/20/23 19:33 ABG pCO2 35.2 mmhg (35.0-45.0) 09/20/23 19:33 ABG pO2 68.8 mmhg (80-100) L 09/20/23 19:33 ABG O2 Saturation 92 % (90-100) 09/20/23 19:33 PT/INR, D-dimer PT 10.3 seconds (10.1-12.5) 09/20/23 19:34 INR 0.95 (0.9-1.1) 09/20/23 19:34 Abnormal lab findings: Abnormal Labs 09/20/23 09/20/23 09/20/23 19:33 19:34 22:35 WBC 20.5 H* Hgb MCH 26.6 L MCHC 30.2 L RDW 18.3 H Plt Count 476 H Neut % (Auto) Lymph % (Auto) Neut # (Auto) 16.4 H Gem # (Auto) 1.3 H Neutrophils % (Manual) 82 H Lymphocytes % (Manual) ABG pH 7.29 L ABG pO2 68.8 L ABG HCO3 16.6 L ABG Total CO2 17.7 L ABG Base Excess -9.9 L Sodium 149 H Potassium 3.2 L Chloride 120 H BUN 27 H Glucose 137 H Phosphorus Alkaline Phosphatase 132 H Troponin I 0.04 H 0.06 H NT-Pro-B Natriuret Pep 3480 H Total Protein Albumin 09/21/23 09/21/23 02:10 05:31 WBC 17.7 H Hgb 11.5 L D MCH 25.6 L MCHC 29.0 L RDW 18.1 H Plt Count 439 H Neut % (Auto) 88.4 H Lymph % (Auto) 7.8 L Neut # (Auto) 15.6 H Gem # (Auto) Neutrophils % (Manual) 91 H Lymphocytes % (Manual) 4 L ABG pH ABG pO2 ABG HCO3 ABG Total CO2 ABG Base Excess Sodium 147 H Potassium 3.2 L Chloride 122 H BUN 25 H Glucose 159 H Phosphorus 4.7 H Alkaline Phosphatase Troponin I 0.09 H NT-Pro-B Natriuret Pep Total Protein 5.8 L Albumin 3.0 L D Assessment and Plan *Assessment and plan (1) Acute and chronic respiratory failure with hypoxia: Status: Acute Category: Medical Code(s): J96.21 - Acute and chronic respiratory failure with hypoxia (2) COPD exacerbation: Status: Acute Category: Medical Code(s): J44.1 - Chronic obstructive pulmonary disease with (acute) exacerbation (3) ILD (interstitial lung disease): Status: Acute Category: Medical Code(s): J84.9 - Interstitial pulmonary disease, unspecified (4) Fibrosis of lung: Status: Acute Category: Medical Code(s): J84.10 - Pulmonary fibrosis, unspecified Plan Ms. Rocha is a 67-year-old female current smoker, greater than 30 PPD used to smoke 4 to 5 packs a day currently down to 1 pack/week, carries a diagnosis COPD, not using any oxygen supplementation at baseline, hypertension presented with worsening respiratory's and hypoxia and pulmonary was called for further evaluation and management. Upon admission patient was also found to be in A-fib RVR. Significant neutrophilic leukocytosis upon admission. Arterial blood gas upon admission showed metabolic acidosis with hypoxic respiratory failure. Comprehensive respiratory viral PCR panel negative. CTA upon admission no evidence of pulmonary embolism. Bilateral interstitial groundglass opacity which are new from her prior CT from 2019 along with chronic fibrotic changes noted. Patient low-dose CT from 2019 also showed upper lobe predominant interstitial lung disease along with upper lobe predominant honeycombing. Patient was initiated on ceftriaxone upon admission. On examination patient appeared to be in severe respiratory distress, needing high flow nasal cannula oxygen supplementation. Wheezing noted on auscultation. Plan: Continue high flow nasal oxygen supplementation, wean as tolerated to nasal cannula. Initiate DuoNebs every 4 hours and Pulmicort every 12 scheduled Continue ceftriaxone, add doxycycline Follow with autoimmune workup for the noted ILD. Also concerning for smoking- related ILD. ILD review of systems otherwise negative. Continue prednisone 40 mg daily # Thank you for involving pulmonary in this patient care. Will continue to follow.
[2023-09-21 11:21] LABS: C-Reactive Protein 128.7 mg/L (0-4)
[2023-09-21 11:31] LABS: POC Glucose,Bedside 165 (70-110)
[2023-09-21 11:47] LABS: Lactate Dehydrogenase 222 U/L (313-618)
[2023-09-21 12:00] LABS: POC Glucose,Bedside 152 (70-110)
[2023-09-21] MEDS: DOXYCYCLINE HYCL 100 MG TABLET PO ×2 (12:10→21:14)
[2023-09-21] MEDS: predniSONE 20MG TAB 40 MG PO (12:10)
[2023-09-21] MEDS: ALPRAZolam 1MG TABLET 1 MG PO ×2 (12:11→19:28)
[2023-09-21] MEDS: SODIUM CHLORIDE 3% 15ML NEB 3 ML IH (13:46)
[2023-09-21] MEDS: IPRATROPIUM/ALBUTEROL 3 ML NEB IH ×3 (13:46→22:08)
--- NOTE | 2023-09-21 13:57 | HMH.OTEV ---
OT Inpatient Evaluation Rehab OT IP Evaluation Start: 09/21/23 10:25 Freq: ONCE Status: Active Protocol: Document 09/21/23 13:53 [facility] (Rec: 09/21/23 13:57 [facility] [id number]) Rehab OT IP Assessment Subjective History Pt oriented x 3 on arrival. Pt agreeable to engage in therapy evaluation. Pt admitted on 09/20/23 due to PNA and respiratory failure. History and physical: This is a 67 yo female with PMHx of COPD, current smoker, HTN, presented to ED for evaluation of hypoxia. Patient was seen by EMS earlier this date after having fallen out of her mechanical chair and unable to get back up patient refused transport at that time. EMS was called back this evening after it was noted that she was hypoxic. When EMS arrived patient was satting in the 70s. She reports a headache and some subjective shortness of breath but no chest pain fever chills hemoptysis hematochezia melena nausea vomit diarrhea. When patient arrived she was noted to be in atrial fibrillation with rapid ventricular response with a right sustained above 140. She does not have a previous history of A-fib that I can find and is not anticoagulated . Admitted for management. Subjective I live alone. Pt reports prior to being in the hospital, she lived alone. Pt claims normally she is independent with all ADLs such as dressing, feeding, and bathing. She does use a rollator during funcitonal transfers and a shower bench. However, she is dependent upon family for completing some IADLs such as cleaning. She is able to complete simple microwave meals independently . Objective Patient Orientation Person,Place,Birthday Right Upper Extremity Gross ROM WFL Left Upper Extremity Gross ROM WFL Bed Mobility bed mobility-scooting,bed mobility - supine/sit Assist Level Minimal x 1 (25% assist) Transfer Training Sit/Stand Transfer Assist Level Minimal x 1 (25% assist) Rehab OT IP prob,goals,plan Problems Date of Evaluation: 09/21/23 OT IP Problems Bed Mobility,Transfers,Balance ,Self care,Safety Rehab Potential Rehab Potential Good Equipment Needs Assistive Devices Rolling / Wheeled Walker Plan OT intervention Plan Bed Mobility,Transfers,Balance ,Self care,Safety,Therapeutic Exercise OT Plan Frequency Daily Duration LOS Discharge Goals Bed Mobility Ability Standby Assistance Sit to Stand Chair Transfer Ability Contact Guard/Hand Hold Chair Transfer Ability Contact Guard/Hand Hold Chair Transfer Technique Sit to/from Ambulatory Chair Transfer Assistive Devices Rolling Walker Feeding Ability Assist with Tray Set Up Lower Body Dressing Ability Minimal Assistance Upper Body Dressing Ability Standby Assistance Bathing Ability Minimal Assistance Performing Toilet Hygiene Ability Minimal Assistance Overall Commode/Toilet Transfer Ability Contact Guard Commode/Toilet Transfer Technique Sit to/from Ambulatory Commode/Toilet Transfer Assistive Grab Bars Devices Oral Care Assist Standby Assistance Decrease in Endurance Yes Discharge Plan OT Discharge Plan Pt will continue to be seen for OT services while at [facility]. Pt would benefit most from short term rehab at [facility] following hopsital stay. Continued skilled therapy is important in order for patient to improve strength, safety, endurance, ADL independence, and functional transfers to reach PLOF. Eval Complexity Eval Charge Codes 85632 - Moderate Complexity PHYSICIAN CERTIFICATION: I certify the specified therapy services for Brandon Rocha are required, authorized, and reviewed every 30 days.
--- NOTE | 2023-09-21 14:15 | EXP.PN ---
Subjective *Date: 09/21/23 *Time: 14:15 Interval history: patient is seen at bedside, denied CP, SOB Exam Data for Last 24 hours Vital signs and Labs for Last 24 Hours: Temp Pulse Resp BP Pulse Ox O2 Del Method O2 Flow Rate 98.0 F 65 20 121/67 95 Nasal Cannula 3 09/21/23 13:33 09/21/23 14:00 09/21/23 14:00 09/21/23 14:00 09/21/23 14:00 09/21/23 14:00 09/21/23 14:00 FiO2 50 09/21/23 12:00 Laboratory Results - last 24 hr 09/20/23 19:33: Specimen Source rr, O2 % ra, ABG pH 7.29 L, ABG pCO2 35.2, ABG pO2 68.8 L, ABG HCO3 16.6 L, ABG Total CO2 17.7 L, ABG O2 Saturation 92, ABG Base Excess -9.9 L, Gavino Test y 09/20/23 19:34: WBC 20.5 H*, RBC 5.03, Hgb 13.4, Hct 44.3, MCV 88.0, MCH 26.6 L, MCHC 30.2 L, RDW 18.3 H, Plt Count 476 H, MPV 8.3, Neut % (Auto) 79.8, Lymph % (Auto) 12.0, [place] % (Auto) 6.4, Eos % (Auto) 1.3, Baso % (Auto) 0.5, Neut # (Auto) 16.4 H, Lymph # (Auto) 2.5, [place] # (Auto) 1.3 H, Eos # (Auto) 0.3, Baso # (Auto) 0.1, Total Counted 100, Neutrophils % (Manual) 82 H, Lymphocytes % (Manual) 12, Monocytes % (Manual) 4, Eosinophils % (Manual) 2, Platelet Estimate Slight increase, Hypochromasia 2+, Target Cells 1+, PT 10.3, INR 0.95, Sodium 149 H, Potassium 3.2 L, Chloride 120 H, Carbon Dioxide 22, Anion Gap 10.2, BUN 27 H, Creatinine 0.70, Estimated Creat Clear 90, Estimated GFR 84, Est GFR ( Amer) 102, Glucose 137 H, Lactate 1.2, Calcium 9.4, Magnesium 2.0, Total Bilirubin 0.3, AST 36, ALT 34, Alkaline Phosphatase 132 H, Troponin I 0.04 H, NT-Pro-B Natriuret Pep 3480 H, Total Protein 6.9 D, Albumin 3.7, Globulin 3.2, Albumin/Globulin Ratio 1.2, Procalcitonin 0.054, TSH 1.27 09/20/23 20:01: Chlamy pneumoniae PCR TNP, Adenovirus (PCR) Not detected, B. pertussis DNA (PCR) TNP, Coronavirus OC43 (PCR) Not detected, Coronavirus HKU1 (PCR) Not detected, Coronavirus 229E (PCR) Not detected, SARS-CoV-2 (PCR) Not detected, Coronavirus NL63 (PCR) Not detected, Human Metapneumovir PCR Not detected, Influenza A (H1) PCR Not detected, Influ A (H1N1/09) PCR Not detected, Influenza A (H3) PCR Not detected, Influenza Type A (PCR) Not detected, Influenza Type B (PCR) Not detected, M. pneumoniae (PCR) TNP, Parainfluenza 1 (PCR) Not detected, Parainfluenza 2 (PCR) Not detected, Parainfluenza 3 (PCR) Not detected, Parainfluenza 4 (PCR) Not detected, RSV (PCR) Not detected, Entero/Rhino (PCR) Not detected 09/20/23 20:15: Urine Color Yellow, Urine Appearance Clear, Urine pH 6.0, Ur Specific [place] 1.020, Urine Protein Negative, Urine Glucose (UA) Negative, Urine Ketones Negative, Urine Blood Negative, Urine Nitrate Negative, Urine Bilirubin Negative, Urine Urobilinogen 0.2, Ur Leukocyte Esterase Negative, Urine RBC None, Urine WBC 3-5, Ur Squamous Epith Cells Occasional, Urine Bacteria Trace 09/20/23 22:35: Troponin I 0.06 H 09/21/23 02:10: Troponin I 0.09 H 09/21/23 05:31: WBC 17.7 H, RBC 4.50, Hgb 11.5 L D, Hct 39.8, MCV 88.3, MCH 25.6 L, MCHC 29.0 L, RDW 18.1 H, Plt Count 439 H, MPV 8.3, Neut % (Auto) 88.4 H, Lymph % (Auto) 7.8 L, [place] % (Auto) 3.2, Eos % (Auto) 0.2, Baso % (Auto) 0.4, Neut # (Auto) 15.6 H, Lymph # (Auto) 1.4, [place] # (Auto) 0.6, Eos # (Auto) 0.0, Baso # (Auto) 0.1, Total Counted 100, Neutrophils % (Manual) 91 H, Lymphocytes % (Manual) 4 L, Monocytes % (Manual) 5, Platelet Estimate Slight increase, RBC Morphology Normal, Sodium 147 H, Potassium 3.2 L, Chloride 122 H, Carbon Dioxide 23, Anion Gap 5.2, BUN 25 H, Creatinine 0.60, Estimated Creat Clear 82, Estimated GFR 100, Est GFR ( Amer) 121, Glucose 159 H, Hemoglobin A1c 6.0, Calcium 8.9, Phosphorus 4.7 H, Magnesium 2.0, Total Bilirubin 0.3, AST 27, ALT 27, Alkaline Phosphatase 97, Lactate Dehydrogenase 222 L, C-Reactive Protein 128.7 H, Total Protein 5.8 L, Albumin 3.0 L D, Globulin 2.8, Albumin/Globulin Ratio 1.1 09/21/23 06:51: POC Glucose 152 H 09/21/23 11:23: POC Glucose 165 H I & O for Last 24 hours: Intake & Output 09/18/23 09/19/23 09/20/23 09/21/23 23:59 23:59 23:59 23:59 Intake Total 804 / 804 Output Total 500 / 500 Balance 304 / 304 Weight 102.058 kg 92.215 kg Constitutional Constitutional: no acute distress *Routine HEENT Exam Head: Present normocephalic Eye: Present EOMI and PERRL ENT: Present mucous membranes moist *Routine Neck Exam Neck: Present supple; Absent lymphadenopathy *Routine Respiratory Exam Respiratory: Present distant breath sounds *Routine Cardiovascular Exam Cardiovascular: Present RRR *Routine Abdominal Exam Abdominal: Present soft and normoactive bowel sounds; Absent tenderness *Routine Extremities Exam Extremities: Absent cyanosis, clubbing or edema *Routine Skin Exam Skin: Present warm; Absent rash *Routine Neurological Exam Neurological: Present alert and oriented X3 Assessment and Plan *Assessment and plan (1) Acute and chronic respiratory failure with hypoxia: Status: Acute Category: Medical Code(s): J96.21 - Acute and chronic respiratory failure with hypoxia (2) Atrial fibrillation with rapid ventricular response: Status: Acute Category: Medical Code(s): I48.91 - Unspecified atrial fibrillation (3) Acute non-ST elevation myocardial infarction (NSTEMI): Status: Acute Category: Medical Code(s): I21.4 - Non-ST elevation (NSTEMI) myocardial infarction (4) COPD exacerbation: Status: Acute Category: Medical Code(s): J44.1 - Chronic obstructive pulmonary disease with (acute) exacerbation (5) HTN (hypertension): Status: Acute Qualifiers: Hypertension type: unspecified Qualified Code(s): I10 - Essential (primary) hypertension Category: Medical Code(s): I10 - Essential (primary) hypertension (6) Personal history of nicotine dependence: Status: Acute Category: Medical Code(s): Z87.891 - Personal history of nicotine dependence Plan 67 yo female with PMHx of COPD, current smoker, HTN, presented to ED for evaluation of hypoxia. Initially patient had a fall. Later on EMS was called back for hypoxia. Patient was found satting send on the 70's. Brought to the ER. Arrived on atrial fibrillation with RVR. initial work up showed elevated white count, elevated troponin, elevated NT proBNP and CT scan of her chest shows interstitial disease and pulmonary fibrosis. Findings discussed with ED. Agreed for admission. Plan as follow: Acute hypoxic respiratory failure Secondary to COPD exacerbation: Diagnosis to rule out are community acquired pneumonia versus aspiration pneumonia Chronic interstitial disease with fibrosis Pulmonary consulted, discussed with pulmonary, added on doxycycline on ceftriaxone Plan continue BiPAP. Improved moved to high flow Vapotherm at 60% Monitor for O2 saturation DuoNeb every 6 Monitor for sepsis. Sputum pending Speech therapy to rule out to rule out dysphagia and aspiration Atrial fibrillation with rapid ventricular response: Resolved on his own after saturation normalized Continue monitoring Cardiac monitoring Serial troponin elevated. Likely to oxygen demand Cardiac consult - pending recs Hypertension Resume amlodipine bisoprolol aspirin ramipril on statin, and lasix Patient referred Per patient she has medical history of diabetes, there is not documentation of prior diagnosis. Per chart review patient is taking metformin 500 mg daily Will continue to Accu-Chek before meals Obtain A1c in the morning Nicotine dependence: On nicotine patch continue IV abx, consult PT/OT, wean down o2 needs from Vapotherm to nasal canula, ok for medsurge
--- NOTE | 2023-09-21 14:23 | HMH.PTEV ---
Physical Therapy Evaluation Rehab PT IP Evaluation Start: 09/21/23 10:25 Freq: ONCE Status: Active Protocol: Document 09/21/23 14:04 DORI (Rec: 09/21/23 14:22 DORI [id number]) Subjective/History History History Per H&P: This is a 67 yo female with PMHx of COPD, current smoker, HTN, presented to ED for evaluation of hypoxia. Patient was seen by EMS earlier this date after having fallen out of her mechanical chair and unable to get back up patient refused transport at that time. EMS was called back this evening after it was noted that she was hypoxic. When EMS arrived patient was satting in the 70s. She reports a headache and some subjective shortness of breath but no chest pain fever chills hemoptysis hematochezia melena nausea vomit diarrhea. When patient arrived she was noted to be in atrial fibrillation with rapid ventricular response with a right sustained above 140. She does not have a previous history of A-fib that I can find and is not anticoagulated. Admitted for management. Subjective Subjective The patient is agreeable to PT and is oriented x4. The patient reports that she lives in an apartment by herself and her daughter checks on her often. She reports that she is ind in all ADLs and cooks and cleans by herself. She reports that she does use a Rollator for ambulation. New diagnosis of cancer in past 12 No months? Rehab PT IP Eval Objective Appearance Patient Behavior Appropriate,Distractible, Talkative Patient Orientation Person,Place,Time,Birthday Difficulty following instructions mild Speech Pattern Patient Baseline Ambulation Patient Able to Ambulate No Balance Ability to Arise Able, uses arms to help Sitting Balance Steady, safe Standing Balance Steady, wide stance Dynamic Sitting Balance Ability Good Dynamic Standing Balance Ability Fair Transfers Bed Transfer Ability Minimal x 2 (25% assist) Chair Transfer Ability Moderate x 2 (50% assist) Sit to Stand Bed Transfer Ability Moderate x 2 (50% assist) Rehab PT IP prob,goals,plan Problems Date of Evaluation: 09/21/23 PT IP Problems Bed Mobility,Transfers,Gait, Balance,Self care,Safety Rehab Potential Rehab Potential Fair Equipment Needs Assistive Devices Rolling / Wheeled Walker Plan PT Intervention Plan Bed Mobility,Transfers,Gait, Balance,Self care,Safety, Therapeutic Exercise PT Plan Frequency Daily Duration LOS Discharge Goals Bed Transfer Ability Supervision/Stand by Sit to Stand Chair Transfer Ability Supervision/Stand by Ambulation Assistive Device Rolling Walker Ambulation Distance (feet) 20 Discharge Plan PT Discharge Plan Patient presents below baseline in functional mobility, transfers and endurance. Skilled PT is indicated for this patient during her acute stay, in order to promote a return to her prior level of function and prevent further injuries. Upon discharge, the patient may be most appropriate for placement for further therapy. Eval Complexity Eval Charge Codes 40103 - High Complexity PHYSICIAN CERTIFICATION: I certify the specified therapy services for Brandon Rocha are required, authorized, and reviewed every 30 days.
--- NOTE | 2023-09-21 14:44 | EXP.CARD.CON ---
History of Present Illness History of Present Illness Consult date: 09/21/23 Requesting physician: Sherley Lenz Consult reason: shortness of breath Chief complaint: Pneumonia, Resp Failure, A. fib History of present illness: Patient presents for evaluation of hypoxia. Patient was seen by EMS earlier this date after having fallen out of her mechanical chair and unable to get back up patient refused transport at that time. EMS was called back this evening after it was noted that she was hypoxic. When EMS arrived patient was satting in the 70s. She reports a headache and some subjective shortness of breath but no chest pain fever chills hemoptysis hematochezia melena nausea vomit diarrhea. When patient arrived she was noted to be in atrial fibrillation with rapid ventricular response with a right sustained above 140. She does not have a previous history of A-fib that I can find and is not anticoagulated. In summary patient is a 67-year-old female who presents to the emergency department for evaluation of shortness of breath. Patient is patient is normotensive but with a heart rate greater than 140 palpable upon arrival, but afebrile. Physical exam shows a unwell appearing 67-year-old female does not appear to be in acute distress. Physical exam is remarkable for diminished breath sounds at the bases with rales. Differential diagnosis includes A-fib RVR, ACS, pneumonia, COPD exacerbation etc. Initial workup will be conducted with hematologic labs CT scan of the head and chest. Initial interventions include breathing treatment Toradol Tylenol, DuoNebs, ceftriaxone, methylprednisolone. Azithromycin will be deferred given allergy to erythromycin. Initial workup reviewed by me shows that she has elevated white count elevated troponin elevated NT proBNP and my informal read of her CT scan of her chest shows interstitial disease versus early infiltrates. Given the findings thus far I had a discussion about patient management with hospital medicine. Patient is spontaneously converted out of A-fib RVR however remains critically ill with 1 or more system dysfunctions that remain a threat to life. Subsequently she was going to be admitted for further evaluation and care. The above per Dr. Medhat Broderick This is a 67 yo female with PMHx of COPD, current smoker, HTN, presented to ED for evaluation of hypoxia. Patient was seen by EMS earlier this date after having fallen out of her mechanical chair and unable to get back up patient refused transport at that time. EMS was called back this evening after it was noted that she was hypoxic. When EMS arrived patient was satting in the 70s. She reports a headache and some subjective shortness of breath but no chest pain fever chills hemoptysis hematochezia melena nausea vomit diarrhea. When patient arrived she was noted to be in atrial fibrillation with rapid ventricular response with a right sustained above 140. She does not have a previous history of A-fib that I can find and is not anticoagulated. Admitted for management. The above per Alex Massey APRN for the hospitalist service Patient confirms events as noted above. Cardiology consulted for A-fib with RVR that spontaneously converted back to sinus rhythm in the ER. Troponins slowly trending up from 0.04, 0.06, 0.09 C-reactive protein 128.7 proBNP 3480 TSH normal Admitted for hypoxemia resulting from acute on chronic respiratory failure. Initial white count 20,000, improving ABG on admission, pH 7.29, pCO2 35, pO2 68.8 bicarb 16.6 all on room air Hyponatremia at 149, improving Hypokalemia at 3.2 with normal creatinine CTA of the chest, 09/20/2023, no pulmonary embolism. Chronic interstitial lung disease and pulmonary fibrosis. Scattered superimposed atelectasis less likely pneumonia Head CT, 09/20/2023, no acute intracranial hemorrhage. Encephalomalacia involving the right MCA and [employer] territories likely represent remote infarct. [facility] Disclaimer: The information contained in this section may have been updated after the patient was seen, as this information can be updated by other users. Medical History (Updated 09/21/23 @ 14:56 by ALEXSANDER [place]) Fibrosis of lung ILD (interstitial lung disease) Skin cancer CVA (cerebral vascular accident) Heart attack Colon cancer Cervical cancer Anxiety Depression Fibromyalgia Arthritis Anemia PVD (peripheral vascular disease) HTN (hypertension) HLD (hyperlipidemia) DVT (deep venous thrombosis) DM2 (diabetes mellitus, type 2) GERD (gastroesophageal reflux disease) Surgical History History of parathyroid surgery Hx of appendectomy Hx of cardiac cath Hx of cholecystectomy History of total bilateral knee replacement Hx of hysterectomy Family History No significant family history Social History Smoking Status: Current every day smoker tobacco type: cigarettes packs per day: 1 alcohol intake: never substance use type: denies use current occupational status: disabled Travel in the last 8 weeks: None household members: none and other housing: apartment caffeine: Yes Review of Systems Review of Systems Review of systems:: pertinent systems reviewed and negative unless documented below *Cardiovascular Cardiovascular: Reports chest pain, Reports dyspnea and Reports dyspnea on exertion *Respiratory Respiratory: Reports dyspnea and Reports dyspnea on exertion Exam Data for Last 24 hours Vital signs and Labs for Last 24 Hours: Temp Pulse Resp BP Pulse Ox O2 Del Method O2 Flow Rate 98.0 F 65 20 121/67 95 Nasal Cannula 3 09/21/23 13:33 09/21/23 14:00 09/21/23 14:00 09/21/23 14:00 09/21/23 14:00 09/21/23 14:00 09/21/23 14:00 FiO2 50 09/21/23 12:00 Laboratory Results - last 24 hr 09/20/23 19:33: Specimen Source rr, O2 % ra, ABG pH 7.29 L, ABG pCO2 35.2, ABG pO2 68.8 L, ABG HCO3 16.6 L, ABG Total CO2 17.7 L, ABG O2 Saturation 92, ABG Base Excess -9.9 L, Gavino Test y 09/20/23 19:34: WBC 20.5 H*, RBC 5.03, Hgb 13.4, Hct 44.3, MCV 88.0, MCH 26.6 L, MCHC 30.2 L, RDW 18.3 H, Plt Count 476 H, MPV 8.3, Neut % (Auto) 79.8, Lymph % (Auto) 12.0, Cuming % (Auto) 6.4, Eos % (Auto) 1.3, Baso % (Auto) 0.5, Neut # (Auto) 16.4 H, Lymph # (Auto) 2.5, Cuming # (Auto) 1.3 H, Eos # (Auto) 0.3, Baso # (Auto) 0.1, Total Counted 100, Neutrophils % (Manual) 82 H, Lymphocytes % (Manual) 12, Monocytes % (Manual) 4, Eosinophils % (Manual) 2, Platelet Estimate Slight increase, Hypochromasia 2+, Target Cells 1+, PT 10.3, INR 0.95, Sodium 149 H, Potassium 3.2 L, Chloride 120 H, Carbon Dioxide 22, Anion Gap 10.2, BUN 27 H, Creatinine 0.70, Estimated Creat Clear 90, Estimated GFR 84, Est GFR ( Amer) 102, Glucose 137 H, Lactate 1.2, Calcium 9.4, Magnesium 2.0, Total Bilirubin 0.3, AST 36, ALT 34, Alkaline Phosphatase 132 H, Troponin I 0.04 H, NT-Pro-B Natriuret Pep 3480 H, Total Protein 6.9 D, Albumin 3.7, Globulin 3.2, Albumin/Globulin Ratio 1.2, Procalcitonin 0.054, TSH 1.27 09/20/23 20:01: Chlamy pneumoniae PCR TNP, Adenovirus (PCR) Not detected, B. pertussis DNA (PCR) TNP, Coronavirus OC43 (PCR) Not detected, Coronavirus HKU1 (PCR) Not detected, Coronavirus 229E (PCR) Not detected, SARS-CoV-2 (PCR) Not detected, Coronavirus NL63 (PCR) Not detected, Human Metapneumovir PCR Not detected, Influenza A (H1) PCR Not detected, Influ A (H1N1/09) PCR Not detected, Influenza A (H3) PCR Not detected, Influenza Type A (PCR) Not detected, Influenza Type B (PCR) Not detected, M. pneumoniae (PCR) TNP, Parainfluenza 1 (PCR) Not detected, Parainfluenza 2 (PCR) Not detected, Parainfluenza 3 (PCR) Not detected, Parainfluenza 4 (PCR) Not detected, RSV (PCR) Not detected, Entero/Rhino (PCR) Not detected 09/20/23 20:15: Urine Color Yellow, Urine Appearance Clear, Urine pH 6.0, Ur Specific [place] 1.020, Urine Protein Negative, Urine Glucose (UA) Negative, Urine Ketones Negative, Urine Blood Negative, Urine Nitrate Negative, Urine Bilirubin Negative, Urine Urobilinogen 0.2, Ur Leukocyte Esterase Negative, Urine RBC None, Urine WBC 3-5, Ur Squamous Epith Cells Occasional, Urine Bacteria Trace 09/20/23 22:35: Troponin I 0.06 H 09/21/23 02:10: Troponin I 0.09 H 09/21/23 05:31: WBC 17.7 H, RBC 4.50, Hgb 11.5 L D, Hct 39.8, MCV 88.3, MCH 25.6 L, MCHC 29.0 L, RDW 18.1 H, Plt Count 439 H, MPV 8.3, Neut % (Auto) 88.4 H, Lymph % (Auto) 7.8 L, Cuming % (Auto) 3.2, Eos % (Auto) 0.2, Baso % (Auto) 0.4, Neut # (Auto) 15.6 H, Lymph # (Auto) 1.4, Cuming # (Auto) 0.6, Eos # (Auto) 0.0, Baso # (Auto) 0.1, Total Counted 100, Neutrophils % (Manual) 91 H, Lymphocytes % (Manual) 4 L, Monocytes % (Manual) 5, Platelet Estimate Slight increase, RBC Morphology Normal, Sodium 147 H, Potassium 3.2 L, Chloride 122 H, Carbon Dioxide 23, Anion Gap 5.2, BUN 25 H, Creatinine 0.60, Estimated Creat Clear 82, Estimated GFR 100, Est GFR ( Amer) 121, Glucose 159 H, Hemoglobin A1c 6.0, Calcium 8.9, Phosphorus 4.7 H, Magnesium 2.0, Total Bilirubin 0.3, AST 27, ALT 27, Alkaline Phosphatase 97, Lactate Dehydrogenase 222 L, C-Reactive Protein 128.7 H, Total Protein 5.8 L, Albumin 3.0 L D, Globulin 2.8, Albumin/Globulin Ratio 1.1 09/21/23 06:51: POC Glucose 152 H 09/21/23 11:23: POC Glucose 165 H I & O for Last 24 hours: Intake & Output 09/19/23 09/20/23 09/21/23 09/22/23 11:59 11:59 11:59 11:59 Intake Total 342 / 582 462 / 462 Output Total 500 / 500 Balance -158 / 82 462 / 462 Weight 203 lb 4.8 oz Constitutional Constitutional: no acute distress *Routine Respiratory Exam Respiratory: Present rhonchi and wheezes *Routine Cardiovascular Exam Cardiovascular: Present RRR and murmur; Absent gallop or rubs *Routine Extremities Exam Extremities: Present edema *Routine Neurological Exam Neurological: Present alert, oriented X3 and CN II-XII intact Meds Home Medications and Allergies Home Medications Medication Instructions Recorded Confirmed Type alprazolam 1 mg tablet 1 mg PO QIDP PRN Anxiety 30 days 07/26/18 09/20/23 History aspirin 81 mg tablet,delayed 81 mg PO DAILY heart health 07/26/18 09/20/23 History release (Adult Low Dose Aspirin) duloxetine 60 mg capsule,delayed 60 mg PO DAILY 30 days 07/26/18 09/20/23 History release ramipril 10 mg capsule 20 mg PO DAILY 30 days 07/26/18 09/20/23 History topiramate 100 mg tablet 100 mg PO BID 30 days 07/26/18 09/20/23 History metformin 500 mg tablet 500 mg PO DAILY 12/13/19 09/20/23 History amlodipine 10 mg tablet 10 mg PO DAILY 11/13/21 09/20/23 History bisoprolol fumarate 5 mg tablet 5 mg PO DAILY 11/13/21 09/20/23 History pantoprazole 40 mg tablet,delayed 40 mg PO DAILY 11/13/21 09/20/23 History release paroxetine HCl 10 mg tablet 10 mg PO DAILY 11/13/21 09/21/23 History pravastatin 40 mg tablet 40 mg PO HS 11/13/21 09/20/23 History gabapentin 600 mg tablet 600 mg PO TID nerve pain 30 days 11/18/21 09/20/23 Rx #90 tabs cyanocobalamin (vitamin B-12) 100 100 mcg PO DAILY 01/06/23 09/20/23 History mcg tablet ferrous sulfate 325 mg (65 mg 325 mg PO .3X A WEEK 01/06/23 09/21/23 History iron) tablet (FeroSul) ergocalciferol (vitamin D2) 1,250 50,000 unit PO WEEKLY 01/07/23 09/20/23 History mcg (50,000 unit) capsule potassium chloride 10 mEq 10 meq PO BID Supplement 30 days 01/09/23 09/20/23 Rx capsule,extended release #60 caps tamsulosin 0.4 mg capsule 0.4 mg PO DAILY 09/21/23 09/21/23 History New Prescriptions to Start Prescriptions: Allergies Allergy/AdvReac Type Severity Reaction Status Date / Time erythromycin base Allergy Unknown I-HIVES Verified 05/12/23 10:43 Penicillins Allergy Unknown I-HIVES Verified 05/12/23 10:43 propoxyphene Allergy Unknown I-HIVES Verified 05/12/23 10:43 Assessment and Plan *Assessment and plan (1) Acute and chronic respiratory failure with hypoxia: Status: Acute Category: Medical Code(s): J96.21 - Acute and chronic respiratory failure with hypoxia (2) Atrial fibrillation with rapid ventricular response: Status: Acute Category: Medical Code(s): I48.91 - Unspecified atrial fibrillation (3) Acute non-ST elevation myocardial infarction (NSTEMI): Status: Acute Category: Medical Code(s): I21.4 - Non-ST elevation (NSTEMI) myocardial infarction (4) ILD (interstitial lung disease): Status: Acute Category: Medical Code(s): J84.9 - Interstitial pulmonary disease, unspecified (5) Fibrosis of lung: Status: Acute Category: Medical Code(s): J84.10 - Pulmonary fibrosis, unspecified (6) Encephalomalacia on imaging study: Status: Acute Category: Medical Code(s): G93.89 - Other specified disorders of brain Plan 1. Acute on chronic respiratory failure with hypoxia -Pulmonary following -On supplemental oxygen, antibiotics along with prednisone therapy 2. Newly diagnosed atrial fibrillation with rapid ventricular response, spontaneously converted to sinus rhythm -[id number] score of at least 6 (CHF, hypertension, prior stroke, age, sex) -Likely as a result of pulmonary issues -Continue Lovenox therapy but increase to therapeutic dosing with plans to switch to oral anticoagulation before discharge -Continue beta-lawrence therapy and increase as needed 3. Non-STEMI felt secondary to demand ischemia from pulmonary issues and atrial fibrillation -Significant coronary artery calcifications noted on CT of the lung, 2018 -continue aspirin therapy -Plan for cardiac catheterization prior to discharge -Continue beta-lawrence and amlodipine therapy 4. Tobacco use with interstitial lung disease and pulmonary fibrosis -Tobacco cessation recommended 5. Encephalomalacia with chronic ischemic white matter changes on head CT -Complicates all care 6. Prior history of CAD with prior AL -Prior echo 12/2022 showing EF 55% with hypokinesis of the lateral and anterolateral LV julien 7. Hyperlipidemia -Continue statin therapy with LDL goal less than 55 8. Hypertension -Continue Altace, bisoprolol and amlodipine Continue beta-lawrence for control of A-fib and increase as needed Continue Lovenox for now and switch to oral anticoagulation at discharge Plan for cardiac catheterization this admission when pulmonary status improved
--- NOTE | 2023-09-21 14:48 | HMH.SLDYSPHA ---
Speech & Language Evaluation Speech/Language Dysphagia Evaluation Start: 09/21/23 14:05 Freq: ONCE Status: Active Protocol: Document 09/21/23 14:08 ANTELMOANKUSH (Rec: 09/21/23 14:48 [id number] Dysphagia Assess/Goals/Plan Assessment Date of Evaluation: 09/21/23 Evaluation Type Initial Certification Assessment/Problems dysphagia per MD order Does Patient Qualify for Service Yes Qualify/Failure Comment Based on clinical observations made during bedside swallow evlaution and nursing report, pt would benefit from OVERNIGHT STOCKER f/u for diet texture analysis and tolerance. Recommendations PHYSICIAN CERTIFICATION: The specified therapy services are required, authorized, and reviewed every 30 days. Pt will be seen # times/week 1 for # weeks 4 Diet Recommendations Mechanical Soft Liquid Type Recommendations Normal/Thin SL Swallow Guidelines Alt bite w/sip thru meal, Standard Aspiration Prec.,Eat at slow rate,Reflux precautions Dysphagia Swallow Precautions/Strategies Sitting Upright (90 deg),Small Bites and Sips,Alternate Liquids/Solids Plan Anticipate reaching STG in # weeks 2 Anticipate reaching LTG in # weeks 4 Pt/Guardian verbally ack understanding Yes of dx/prognosis/goals G -code Required No Process Control Specialist Goals Diet mechanical soft chopped with Liquids Thin Liquids Education Instructions provided Discussed CSE results, diet recommendations, compensatory strategies, and aspiration precautions with pt, nursing, and care management all of which expressed understanding. Pt/Caregiver able to recall information Able to recall/restate Reinforcement needed No Speech & Language HPI History Present Illness Description of Patient Problem OVERNIGHT STOCKER pulled following information from H&P dated , 67 yo female with PMHx of COPD, current smoker, HTN, presented to ED for evaluation of hypoxia. Patient was seen by EMS earlier this date after having fallen out of her mechanical chair and unable to get back up patient refused transport at that time. EMS was called back this evening after it was noted that she was hypoxic. When EMS arrived patient was satting in the 70s. She reports a headache and some subjective shortness of breath but no chest pain fever chills hemoptysis hematochezia melena nausea vomit diarrhea. When patient arrived she was noted to be in atrial fibrillation with rapid ventricular response with a right sustained above 140. She does not have a previous history of A-fib that I can find and is not anticoagulated . Chest CTA impressions reported : 1. No pulmonary embolism 2. Chronic interstitial lung disease and pulmonary fibrosis. Scattered superimposed atelectasis less likely pneumonia. Rehab Services Assessed Speech therapy Language Primary Language Persian General Information General Current Food Consistancy NPO Dentition Edentulous Patient Orientation Person,Place,Time Ability to Follow Directions Good Dysphagia:Food Presentation Evaluation Food Type Pureed,Mechanical Soft,Liquid, Pudding Dysphagia Evaluation Summary Pt seen sitting upright in bed this afternoon for CSE. A&Ox3 . Oral care provided prior to administering trials. No overt s/sxs of aspiration were observed across all consistencies. Regulars not trialed 2' edentulous status. Pt refused multiple trials of solids. She was given thin liquids (via ice chips, spoonful of water, open cup/ straw sip, and two consecutive sips from open cup/straw), pudding, pureed applesauce, and mechanical soft (soft lemon cookie.) No residuals noted within the oral cavitys and O2 sats remained in 90s throughout assessment. Pt would benefit from skilled speech therapy service for diet tolerance. Stroke Dysphagia Assessment PHYSICIAN CERTIFICATION: I certify the specified therapy services for Brandon Rocha are required, authorized, and reviewed every 30 days.
--- NOTE | 2023-09-21 15:13 | SW/DCPLANNER ---
Addendum entered by Josselin Owens RN 09/23/23 12:11: Patient discharging to [facility] today into a SNF bed. Addendum entered by Anne-Marie Meléndez 09/22/23 09:46: Per Pauly this patient has been approved SNF level of care. Addendum entered by Anne-Marie Meléndez 09/22/23 08:59: Pauly w/ [facility] stated that she is willing to accept this patient and will start precert today. Original Note: I spoke w/ this patient regarding plans once medically stable for discharge. PT/OT evaluated patient and recommended placement. Patient is agreeable to placement at this time and prefers [facility] or [facility]. Patient information has been faxed to both facilities and I will continue to follow up. Discharge date is unknown at this time.
[2023-09-21] MEDS: ENOXAPARIN 100MG/ML SYRINGE 90 MG SQ (15:53)
[2023-09-21] MEDS: POTASSIUM CHLORIDE 20MEQ TAB 20 MEQ PO ×2 (16:00→21:15)
[2023-09-21 16:09] LABS: POC Glucose,Bedside 170 (70-110)
--- NOTE | 2023-09-21 16:28 | PC.NURSE ---
pt is resting in bed. alert and oriented x4. pt vomited one time this morning after drinking a mt.dew. pt stated she thinks she vomited b/c she needed her xanax. pt was weaned off vapotherm to 3 l nc. o2 saturation has maintained 90-95%. pt will occasionally remove her oxygen and desat to the mid 80's. pt's daughter called for an update this afternoon and stated that pt is supposed to be wearing oxygen at home but she refuses. pt tolerated sitting up in the chair for a few hours this shift. will continue to monitor.
[2023-09-21] MEDS: BUDESONIDE 0.5MG/2ML NEB 0.5 MG IH (18:40)
--- NOTE | 2023-09-21 18:49 | PC.NURSE ---
RESP NOTE: PT NOT CHECKED FOR A ROOM AIR SAT DUE TO PT ONLY BEING 91% ON 3L
[2023-09-21] MEDS: CEFTRIAXONE SODIUM 1 GM in 0.9 % SODIUM CHLORIDE 50 ML IV (19:49)
--- NOTE | 2023-09-21 20:25 | PC.NURSE ---
Specimen cup at bedside. Pt made aware of need of sputum sample. Pt verbalizes understanding
[2023-09-21] MEDS: TAMSULOSIN 0.4MG CAPSULE 0.400000000000000022 MG PO (21:14)
[2023-09-21] MEDS: PRAVASTATIN 40MG TAB 40 MG PO (21:14)
[2023-09-21] MEDS: PANTOPRAZOLE 40MG TABLET 40 MG PO (21:14)
[2023-09-21] MEDS: ACETAMINOPHEN 325MG TAB 650 MG PO (21:16)
[2023-09-21 21:40] LABS: POC Glucose,Bedside 261 (70-110)
[2023-09-22] VITALS (26 sets, daily range): BP systolic 126–197; BP diastolic 63–107; PULSE 72–90; RESP 18–22; TEMP 36.4–36.8; O2SAT 91–95; BMI 32.5
[2023-09-22] MEDS: IPRATROPIUM/ALBUTEROL 3 ML NEB IH ×4 (02:16→18:01)
[2023-09-22] MEDS: ALPRAZolam 1MG TABLET 1 MG PO (03:58)
[2023-09-22] MEDS: ENOXAPARIN 100MG/ML SYRINGE 90 MG SQ (03:58)
[2023-09-22] MEDS: BUDESONIDE 0.5MG/2ML NEB 0.5 MG IH (06:06)
[2023-09-22 06:35] LABS: POC Glucose,Bedside 111 (70-110)
[2023-09-22 06:37] LABS: Chloride 117 mmol/L (98-107); Potassium 3.6 mmoL/L (3.5-5.1); Sodium 143 mmol/L (136-145)
[2023-09-22 06:40] LABS: Anion Gap 5.6 mEq/L (5-15); Blood Urea Nitrogen 20 mg/dl (7-17); Calcium 8.7 mg/dl (8.4-10.2); Carbon Dioxide 24 mmol/L (22.0-30.0); Creatinine Clearance Estimated 83 mL/min (50-200); Estimated Glomerular Filt Rate 100 ml/min (>60); GFR (African American) 121 ML/MIN (>60); Glucose 109 mg/dl (74-100)
[2023-09-22 06:42] LABS: Basophils # 0.1 K/mm3 (0-0.2); Basophils % 0.6 % (0.1-2.0); Eosinophils # 0.2 K/mm3 (0.0-0.4); Eosinophils % 1.4 % (0.1-12.0); Hematocrit 36.1 % (37.0-47.0); Hemoglobin 10.6 g/dL (12.2-16.2); Lymphocytes # 2.3 K/mm3 (0.7-4.5); Mean Corpuscular HGB Conc 29.3 g/dL (31.8-35.4); Mean Corpuscular Hemoglobin 25.9 pg (27.0-31.2); Mean Corpuscular Volume 88.1 fl (81-99); Mean Platelet Volume 9.2 fl (7.4-10.4); Monocytes # 1.2 K/mm3 (0.1-1.0); Monocytes % 7.9 % (1.7-9.3); Neutrophils # 11.5 K/mm3 (1.8-7.8); Neutrophils % 75.1 % (37.0-80.0); Platelet Count 477 K/mm3 (142-424); White Blood Count 15.3 K/mm3 (4.8-10.8)
[2023-09-22 06:43] LABS: MANUAL DIFFERENTIAL MANUAL DIFFERENTIAL (MANUAL DIFF)
[2023-09-22 09:02] LABS: Eosinophils % 1 % (0-3); Hypochromasia 1+; Lymphocytes % 23 % (10-50); Monocytes % 1 % (2-9); Neutrophils % 75 % (42-76); Platelet Estimate Slight Increase; Total Cells Counted 100
[2023-09-22] MEDS: TOPIRAMATE 100MG TABLET 100 MG PO ×2 (09:32→20:40)
[2023-09-22] MEDS: DOXYCYCLINE HYCL 100 MG TABLET PO ×2 (09:32→20:39)
[2023-09-22] MEDS: GABAPENTIN 600MG TABLET 600 MG PO ×2 (09:32→20:41)
[2023-09-22] MEDS: BISOPROLOL 5MG TABLET 5 MG PO ×2 (09:32→20:40)
[2023-09-22] MEDS: AMLODIPINE 10MG TABLET 10 MG PO (09:32)
[2023-09-22] MEDS: ASPIRIN EC 81MG TABLET 81 MG PO (09:32)
[2023-09-22] MEDS: DULOXETINE 30MG CAPSULE.DR 60 MG PO (09:33)
[2023-09-22] MEDS: POTASSIUM CHLORIDE 20MEQ TAB 20 MEQ PO ×3 (09:33→20:39)
[2023-09-22] MEDS: RAMIPRIL 10MG CAPSULE 20 MG PO (09:33)
[2023-09-22] MEDS: FERROUS SULFATE 325MG TABLET 325 MG PO (09:34)
[2023-09-22] MEDS: predniSONE 20MG TAB 40 MG PO (09:35)
[2023-09-22] MEDS: PARoxetine 10MG TABLET 10 MG PO (09:36)
--- NOTE | 2023-09-22 09:40 | P.PN_ITS ---
Subjective *Date: 09/22/23 *Time: 11:05 Interval history: No acute respiratory events overnight. Patient denies any new respiratory complaints. Pulmonology Exam Inpatient Vital signs and Labs for Last 24 Hours: Temp Pulse Resp BP Pulse Ox O2 Del Method O2 Flow Rate 97.7 F 80 22 126/63 92 L Nasal Cannula 3 09/22/23 08:00 09/22/23 08:00 09/22/23 08:00 09/22/23 08:00 09/22/23 08:00 09/22/23 08:00 09/22/23 08:00 FiO2 50 09/21/23 12:00 Laboratory Results - last 24 hr 09/21/23 05:31: Lactate Dehydrogenase 222 L, C-Reactive Protein 128.7 H 09/21/23 06:51: POC Glucose 152 H 09/21/23 11:23: POC Glucose 165 H 09/21/23 15:57: POC Glucose 170 H 09/21/23 21:26: POC Glucose 261 H 09/22/23 05:31: WBC 15.3 H, RBC 4.10 L, Hgb 10.6 L, Hct 36.1 L, MCV 88.1, MCH 2 5.9 L, MCHC 29.3 L, RDW 18.0 H, Plt Count 477 H, MPV 9.2, Neut % (Auto) 75.1, Lymph % (Auto) 15.0, [place] % (Auto) 7.9, Eos % (Auto) 1.4, Baso % (Auto) 0.6, Neut # (Auto) 11.5 H, Lymph # (Auto) 2.3, [place] # (Auto) 1.2 H, Eos # (Auto) 0.2, Baso # (Auto) 0.1, Total Counted 100, Neutrophils % (Manual) 75, Lymphocytes % (Manual) 23, Monocytes % (Manual) 1 L, Eosinophils % (Manual) 1, Platelet Estimate Slight increase, Hypochromasia 1+, Sodium 143, Potassium 3.6, Chloride 117 H, Carbon Dioxide 24, Anion Gap 5.6, BUN 20 H, Creatinine 0.60, Estimated Creat Clear 83, Estimated GFR 100, Est GFR ( Amer) 121, Glucose 109 H D, Calcium 8.7 09/22/23 05:42: POC Glucose 111 H Temp Pulse Resp BP Pulse Ox O2 Del Method O2 Flow Rate 98.1 F 79 20 144/74 H 100 Vapotherm 20 09/21/23 08:00 09/21/23 08:00 09/21/23 08:00 09/21/23 08:00 09/21/23 08:06 09/21/23 08:55 09/21/23 08:55 FiO2 70 09/21/23 08:06 Laboratory Results - last 24 hr 09/20/23 19:33: Specimen Source rr, O2 % ra, ABG pH 7.29 L, ABG pCO2 35.2, ABG pO2 68.8 L, ABG HCO3 16.6 L, ABG Total CO2 17.7 L, ABG O2 Saturation 92, ABG Base Excess -9.9 L, Gavino Test y 09/20/23 19:34: WBC 20.5 H*, RBC 5.03, Hgb 13.4, Hct 44.3, MCV 88.0, MCH 26.6 L, MCHC 30.2 L, RDW 18.3 H, Plt Count 476 H, MPV 8.3, Neut % (Auto) 79.8, Lymph % (Auto) 12.0, [place] % (Auto) 6.4, Eos % (Auto) 1.3, Baso % (Auto) 0.5, Neut # (Au to) 16.4 H, Lymph # (Auto) 2.5, [place] # (Auto) 1.3 H, Eos # (Auto) 0.3, Baso # (Auto) 0.1, Total Counted 100, Neutrophils % (Manual) 82 H, Lymphocytes % (Manual) 12, Monocytes % (Manual) 4, Eosinophils % (Manual) 2, Platelet Estimate Slight increase, Hypochromasia 2+, Target Cells 1+, PT 10.3, INR 0.95, Sodium 149 H, Potassium 3.2 L, Chloride 120 H, Carbon Dioxide 22, Anion Gap 10.2, BUN 27 H, Creatinine 0.70, Estimated Creat Clear 90, Estimated GFR 84, Est GFR ( Amer) 102, Glucose 137 H, Lactate 1.2, Calcium 9.4, Magnesium 2.0, Total Bilirubin 0.3, AST 36, ALT 34, Alkaline Phosphatase 132 H, Troponin I 0.04 H, NT-Pro-B Natriuret Pep 3480 H, Total Protein 6.9 D, Albumin 3.7, Globulin 3.2, Albumin/Globulin Ratio 1.2, Procalcitonin 0.054, TSH 1.27 09/20/23 20:01: Chlamy pneumoniae PCR TNP, Adenovirus (PCR) Not detected, B. pertussis DNA (PCR) TNP, Coronavirus OC43 (PCR) Not detected, Coronavirus HKU1 (PCR) Not detected, Coronavirus 229E (PCR) Not detected, SARS-CoV-2 (PCR) Not detected, Coronavirus NL63 (PCR) Not detected, Human Metapneumovir PCR Not detected, Influenza A (H1) PCR Not detected, Influ A (H1N1/09) PCR Not detected, Influenza A (H3) PCR Not detected, Influenza Type A (PCR) Not detected, Influenza Type B (PCR) Not detected, M. pneumoniae (PCR) TNP, Parainfluenza 1 (PCR) Not detected, Parainfluenza 2 (PCR) Not detected, Parainfluenza 3 (PCR) Not detected, Parainfluenza 4 (PCR) Not detected, RSV (PCR) Not detected, Entero/Rhino (PCR) Not detected 09/20/23 20:15: Urine Color Yellow, Urine Appearance Clear, Urine pH 6.0, Ur Specific [place] 1.020, Urine Protein Negative, Urine Glucose (UA) Negative, Urine Ketones Negative, Urine Blood Negative, Urine Nitrate Negative, Urine Bilirubin Negative, Urine Urobilinogen 0.2, Ur Leukocyte Esterase Negative, Urine RBC None, Urine WBC 3-5, Ur Squamous Epith Cells Occasional, Urine Bacteria Trace 09/20/23 22:35: Troponin I 0.06 H 09/21/23 02:10: Troponin I 0.09 H 09/21/23 05:31: WBC 17.7 H, RBC 4.50, Hgb 11.5 L D, Hct 39.8, MCV 88.3, MCH 25.6 L, MCHC 29.0 L, RDW 18.1 H, Plt Count 439 H, MPV 8.3, Neut % (Auto) 88.4 H, Lymph % (Auto) 7.8 L, [place] % (Auto) 3.2, Eos % (Auto) 0.2, Baso % (Auto) 0.4, Neut # (Auto) 15.6 H, Lymph # (Auto) 1.4, [place] # (Auto) 0.6, Eos # (Auto) 0.0, Baso # (Auto) 0.1, Total Counted 100, Neutrophils % (Manual) 91 H, Lymphocytes % (Manual) 4 L, Monocytes % (Manual) 5, Platelet Estimate Slight increase, RBC Morphology Normal, Sodium 147 H, Potassium 3.2 L, Chloride 122 H, Carbon Dioxide 23, Anion Gap 5.2, BUN 25 H, Creatinine 0.60, Estimated Creat Clear 82, Estimated GFR 100, Est GFR ( Amer) 121, Glucose 159 H, Hemoglobin A1c 6.0, Calcium 8.9, Phosphorus 4.7 H, Magnesium 2.0, Total Bilirubin 0.3, AST 27, ALT 27, Alkaline Phosphatase 97, Total Protein 5.8 L, Albumin 3.0 L D, Globulin 2.8, Albumin/Globulin Ratio 1.1 I & O for Labs for Last 24 Hours: Intake & Output 09/19/23 09/20/23 09/21/23 09/22/23 23:59 23:59 23:59 23:59 Intake Total 1386 / 1436 320 / 320 Output Total 850 / 1450 950 / 950 Balance 536 / -14 -630 / -630 Weight 225 lb 203 lb 4.8 oz 207 lb 11.2 oz Intake & Output 09/18/23 09/19/23 09/20/23 09/21/23 23:59 23:59 23:59 23:59 Intake Total 342 / 342 Output Total 500 / 500 Balance -158 / -158 Weight 225 lb 203 lb 4.8 oz Constitutional: Present moderate distress Head: Present normocephalic and atraumatic ENT: Present normal exam, normal oropharynx and mucous membranes moist Neck: Present normal inspection and full ROM Respiratory: Present rales, respiratory distress, rhonchi, wheezes and diminished air movement; Absent able to speak in complete sentences Cardiac: Present S1/S2, Tachycardia and radial pulses present GI: Present soft and distention; Absent tenderness or guarding Rectal (female): Present deferred (female): Present deferred Skin: Present intact; Absent cyanosis or jaundice Neuro: Present alert, awake and oriented x 3 Extremities: Present normal inspection; Absent clubbing or cyanosis Psychiatric: Present normal affect and cooperative Assessment and Plan *Assessment and plan (1) Acute and chronic respiratory failure with hypoxia: Status: Acute Category: Medical Code(s): J96.21 - Acute and chronic respiratory failure with hypoxia (2) COPD exacerbation: Status: Acute Category: Medical Code(s): J44.1 - Chronic obstructive pulmonary disease with (acute) exacerbation (3) Personal history of nicotine dependence: Status: Acute Category: Medical Code(s): Z87.891 - Personal history of nicotine dependence (4) ILD (interstitial lung disease): Status: Acute Category: Medical Code(s): J84.9 - Interstitial pulmonary disease, unspecified (5) Fibrosis of lung: Status: Acute Category: Medical Code(s): J84.10 - Pulmonary fibrosis, unspecified Plan Ms. Rocha is a 67-year-old female current smoker, greater than 30 PPD used to smoke 4 to 5 packs a day currently down to 1 pack/week, carries a diagnosis COPD, not using any oxygen supplementation at baseline, hypertension presented with worsening respiratory's and hypoxia and pulmonary was called for further evaluation and management. Upon admission patient was also found to be in A-fib RVR. Significant neutrophilic leukocytosis upon admission. Arterial blood gas upon admission showed metabolic acidosis with hypoxic respiratory failure. Comprehensive respiratory viral PCR panel negative. CTA upon admission no evidence of pulmonary embolism. Bilateral interstitial groundglass opacity which are new from her prior CT from 2019 along with chronic fibrotic changes noted. Patient low-dose CT from 2019 also showed upper lobe predominant interstitial lung disease along with upper lobe predominant honeycombing. Patient was initiated on ceftriaxone upon admission. On initial examination patient appeared to be in severe respiratory distress, needing high flow nasal cannula oxygen supplementation. Wheezing noted on auscultation. Interval update: No acute respiratory vents overnight. Weaned to nasal cannula. Tolerating well. Improving wheezing on auscultation. Afebrile. Hemodynamically stable. Improving leukocytosis. CRP elevated at 128.7. Continue to receive prednisone 40 mg oral daily along with ceftriaxone and doxycycline pending culture results Plan: Continue nasal cannula oxygen supplementation to maintain O2 saturation below 89% and above, currently on 3 L. Incentive spirometry and flutter valve Initiate Trelegy 100 inhaler along with DuoNebs every 6 hours on as-needed basis Continue ceftriaxone and doxycycline pending culture results. Continue prednisone 40 mg daily Follow with autoimmune workup for the noted ILD. Also concerning for smoking- related ILD. ILD review of systems otherwise negative. # Thank you for involving pulmonary in this patient care. Will continue to follow.
--- NOTE | 2023-09-22 10:07 | EXP.CARD.PN ---
Subjective Subjective Date: 09/22/23 Time: 10:08 Principal diagnosis: Pneumonia, Resp Failure, New A. fib Interval history: 67-year-old white female in bed in no acute distress. Currently getting a breathing treatment. Continues to improve. Again discussed recommendation for cardiac catheterization however patient does not wish to have it performed at this time. Will switch Lovenox over to Eliquis in preparation of discharge. Exam Data for Last 24 hours Vital signs and Labs for Last 24 Hours: Temp Pulse Resp BP Pulse Ox O2 Del Method O2 Flow Rate 97.7 F 82 22 126/63 93 L Nasal Cannula 3 09/22/23 08:00 09/22/23 09:46 09/22/23 08:00 09/22/23 08:00 09/22/23 09:46 09/22/23 09:46 09/22/23 09:46 FiO2 50 09/21/23 12:00 Laboratory Results - last 24 hr 09/21/23 05:31: Lactate Dehydrogenase 222 L, C-Reactive Protein 128.7 H 09/21/23 06:51: POC Glucose 152 H 09/21/23 11:23: POC Glucose 165 H 09/21/23 15:57: POC Glucose 170 H 09/21/23 21:26: POC Glucose 261 H 09/22/23 05:31: WBC 15.3 H, RBC 4.10 L, Hgb 10.6 L, Hct 36.1 L, MCV 88.1, MCH 25.9 L, MCHC 29.3 L, RDW 18.0 H, Plt Count 477 H, MPV 9.2, Neut % (Auto) 75.1, Lymph % (Auto) 15.0, [place] % (Auto) 7.9, Eos % (Auto) 1.4, Baso % (Auto) 0.6, Neut # (Auto) 11.5 H, Lymph # (Auto) 2.3, [place] # (Auto) 1.2 H, Eos # (Auto) 0.2, Baso # (Auto) 0.1, Total Counted 100, Neutrophils % (Manual) 75, Lymphocytes % (Manual) 23, Monocytes % (Manual) 1 L, Eosinophils % (Manual) 1, Platelet Estimate Slight increase, Hypochromasia 1+, Sodium 143, Potassium 3.6, Chloride 117 H, Carbon Dioxide 24, Anion Gap 5.6, BUN 20 H, Creatinine 0.60, Estimated Creat Clear 83, Estimated GFR 100, Est GFR ( Amer) 121, Glucose 109 H D, Calcium 8.7 09/22/23 05:42: POC Glucose 111 H I & O for Last 24 hours: Intake & Output 09/19/23 09/20/23 09/21/23 09/22/23 11:59 11:59 11:59 11:59 Intake Total 342 / 582 1364 / 1364 Output Total 500 / 500 1300 / 1300 Balance -158 / 82 64 / 64 Weight 203 lb 4.8 oz 207 lb 11.2 oz Constitutional Constitutional: no acute distress *Routine Respiratory Exam Respiratory: Present rhonchi *Routine Cardiovascular Exam Cardiovascular: Present RRR Progress Note: A&P Assessment and plan (1) Acute and chronic respiratory failure with hypoxia: Status: Acute (2) COPD exacerbation: Status: Acute (3) Personal history of nicotine dependence: Status: Acute (4) ILD (interstitial lung disease): Status: Acute (5) Fibrosis of lung: Status: Acute Assessment and Plan Assessment and Plan for All Diagnoses:: 1. Acute on chronic respiratory failure with hypoxia -Pulmonary following -On supplemental oxygen, antibiotics along with prednisone therapy 2. Newly diagnosed atrial fibrillation with rapid ventricular response, spontaneously converted to sinus rhythm -[id number] score of at least 6 (CHF, hypertension, prior stroke, age, sex) -Likely as a result of pulmonary issues -Switch lovenox to eliquis 5 mg twice daily -Continue beta-lawrence therapy and increase as needed 3. Non-STEMI felt secondary to demand ischemia from pulmonary issues and atrial fibrillation -Significant coronary artery calcifications noted on CT of the lung, 2018 -continue aspirin therapy -Continue beta-lawrence and amlodipine therapy -Recommend cardiac catheterization, patient agrees to proceed.. 4. Tobacco use with interstitial lung disease and pulmonary fibrosis -Tobacco cessation recommended 5. Encephalomalacia with chronic ischemic white matter changes on head CT -Complicates all care 6. Prior history of CAD with prior IA -Prior echo 12/2022 showing EF 55% with hypokinesis of the lateral and anterolateral LV julien 7. Hyperlipidemia -Continue statin therapy with LDL goal less than 55 8. Hypertension -Continue Altace, bisoprolol and amlodipine 9. Hypernatremia and hypokalemia, resolved Patient changed her mind and decided she wants to proceed with cardiac catheterization while here. Risk, benefits and procedure explained to the patient and she agrees to proceed. Patient has requested groin access due to family members having problems with radial access in the past.
--- NOTE | 2023-09-22 12:29 | IR_ITS ---
APPROVED REPORT Patient Location: Inpatient Passenger Coach Driver: RYAN Berger RT (R) PROCEDURES Right retrograde femoral angiogram Bare-metal stent deployment to the ostial proximal common right iliac artery Left heart catheterization Left ventriculogram Selective coronary angiogram Drug-eluting stent deployment to the proximal mid LAD INDICATION Acute non-ST elevation myocardial infarction, Right common iliac artery stenosis, Peripheral artery disease, Coronary artery disease Informed consent was obtained prior to the procedure. COMPLICATIONS None Estimated Blood Loss: Less than 10 mls TECHNIQUE One percent lidocaine was used to anesthetize the right groin. The right femoral artery was accessed via the Seldinger technique. A 4-[place] sheath was placed in the right femoral artery. The JL-4 and JR-4 catheter was also used to perform left heart catheterization left ventriculogram and selective coronary angiogram. There was some difficulty getting the 4 [place] catheters through the groin. At the end of the diagnostic angiogram retrograde iliac artery angiography demonstrated stenosis in the right common iliac artery. An advantage wire was used to traverse the stenosis. Therapeutic Was administered giving a therapeutic ACT and the 4 [place] sheath was exchanged for a 6 [place] sheath. An 8 mm x 37 mm bare-metal balloon expandable stent was deployed at 15 lakisha reducing the critical stenosis. This allowed the addition of an EBU 3.75 guide catheter into the left main artery followed by Choice PT extra-support wire down the LAD. A 3 mm x 30 mm [place] frontier stent was placed in the proximal to mid LAD and deployed at 23 lakisha reducing the severe calcified stenosis to 0%. EULALIA-3 flow was present before and after the procedure. The end of procedure the apparatus was removed the groin is reprepped closure change sheath was removed and hemostasis was achieved using Perclose device patient was transferred to the postop holding in stable condition ANGIOGRAPHIC RESULTS The left main artery Is externally calcified with no intraluminal encroachment or stenosis The left anterior descending artery Has proximal 20% stenoses followed by a mid vessel calcified 60 and then 70% stenosis with remaining vessel having mild to moderate atheromatous plaque The circumflex artery Large and dominant with diffuse 10 to 20% luminal irregularities The right coronary artery Small nondominant with proximal calcified 20 to 30% stenoses The AGUIRRE ventriculogram reveals Slight left ventricular dilatation ejection fraction 40% with anterior wall hypokinesis The left ventricular end-diastolic pressure 20 mmHg Right common iliac artery heavily calcified severely stenosed IMPRESSION Proximal to mid LAD disease which is the culprit for the non-ST elevation myocardial infarction Successful stent to the proximal and mid LAD severe disease reduced to 0% with 1 drug-eluting stent Reduced ejection fraction with regional wall motion abnormality Elevated LVEDP Severe right common iliac artery stenosis Successful stent to the right common iliac artery severe disease reduced to 0% with 1 bare-metal balloon mounted stent PLAN 1. Dual antiplatelet therapy for 30 days then discontinue the aspirin should patient remain on a DOAC 2. LDL less than 55 to proceed with high intensity statin 3. Treatment of lung disease 4. Cardiac rehabilitation 5. Avoidance of tobacco products Electronically signed by : Cash Cameron MD 09/22/2023 14:04:53
[2023-09-22] MEDS: LIDOCAINE 1% 10ML MDV 20 ML IJ (12:59)
[2023-09-22] MEDS: 0.9 % SODIUM CHLORIDE 500 ML 25 ML IV (12:59)
[2023-09-22] MEDS: HEPARIN 1,000 UNITS/500ML NS (CATH LAB) 3000 UNIT IV (12:59)
[2023-09-22] MEDS: diphenhydrAMINE 50MG/ML VIAL 50 MG IV (13:00)
[2023-09-22] MEDS: FENTANYL 100MCG/2ML VIAL 25 MCG IV (13:29)
[2023-09-22] MEDS: HEPARIN 1,000 UNITS/ML 10ML VIAL (CATH LAB) 10000 UNIT IV (13:56)
[2023-09-22] MEDS: CLOPIDOGREL 300MG TABLET 600 MG PO (14:00)
--- NOTE | 2023-09-22 14:32 | CA_ITS ---
APPROVED REPORT EXAM: Comprehensive 2D, Doppler, and color-flow Echocardiogram Deck Steward: GERSON Mercado, RVS Ht: 5 ft 6 in Wt: 207lbs BSA: 2.03 BP: 148/66 mmHg Indications: copd, pneumonia,resp.failure, CAD-old IA,Stroke,PVD,Smoker, HTN,HLD Echo Enhancing Agent Comments: Technically difficult due to lung impedance 2D Dimensions Left Atrium 4.98 cm F: 2.7 - 3.8 LA Volume 68.30 mL LA Volume Index [id number] mL/m2 (M/F) 16-34 M-Mode Dimensions RVDd 2.39 cm (0.9-2.6) LA Diam 4.61 cm (1.9-4.0) LVDd 5.32 cm (3.5-5.7) LVDs 4.22 cm (3.5-5.7) IVSd 1.18 cm (0.6-1.1) PWd 1.25 cm (0.6-1.1) EF (Teich) 41.80% EPSs 0.80 cm FS 20.70% EDV (Teich) 136.50 mL TAPSE 1.79 (<1.7) ESV (Teich) 79.50 mL LV Diastology E Decel Time 150 (160-240 msec) E/A Ratio 0.65 MED A' 11.90 cm/s LAT A' 16.90 cm/s Aortic Valve TATO Index 1.09 cm2/m2 AoV Peak Bret. 183.0 (50-130 cm/s) AO Peak GR. 13.30 mmHg AO Mean GR. 6.60 (<5 mmHg) AO VTI 34.7 (18-25 cm) TATO (VTI) 2.27 (2.5-4.5 cm2) Mitral Valve MV A Velocity 141.0 (40-130 cm/s) E/A Ratio 0.65 Pulmonary Valve PV Peak Velocity 108.0 (50-150 cm/s) Tricuspid Valve TR P. Velocity 286.00 cm/s RAP Estimate 10.00 mmHg RVSP 42.70 mmHg Left Ventricle The left ventricle is normal size. The left ventricular systolic function is low normal. There is increased LV wall thickness. there is mild hypokinesis of the anterior and anterolateral LV julien. Transmitral Doppler flow pattern suggests impaired LV relaxation. LVEF is 50%. Right Ventricle The right ventricle is mildly dilated. The right ventricular systolic function is normal. Atria The left atrium size is normal. The right atrium size is normal. There is no Doppler evidence of interatrial shunt. Aortic Valve Aortic valve is mildly thickened. There is no aortic valvular stenosis. Trace aortic regurgitation. Mitral Valve The mitral valve leaflets are mildly thickened. No evidence of mitral valve stenosis. Mild mitral regurgitation. Tricuspid Valve The tricuspid valve leaflets are thin and pliable. Mild tricuspid regurgitation. RVSP is 20-25 mmHg. Pulmonic Valve The pulmonary valve is normal in structure. Trace pulmonic regurgitation. Great Vessels The aortic root is normal in size. The ascending aorta is not well-visualized. IVC is normal in size and collapses >50% with inspiration. Pericardium There is no pericardial effusion. Other Information Study Quality: Fair Conclusion Low normal LV systolic function (LVEF 50%). Mild hypokinesis of the anterior and anterolateral LV julien. Mild RV dilation. Mild MR, mild TR. Electronically signed by : Aileen Melchor MD 09/23/2023 11:57:40
[2023-09-22] MEDS: IOPAMIDOL-370 (76%);100ML BOTTLE 120 ML IV (14:35)
[2023-09-22 14:38] LABS: CATHL Activated Clotting Time 260 SEC (74-125)
--- NOTE | 2023-09-22 16:20 | PC.NURSE ---
heart cath with multiple stents this shift. femoral approach site c/d/i. requiring 3lnc humidified for o2 support.
[2023-09-22] MEDS: APIXABAN 5MG TABLET 5 MG PO ×2 (16:29→20:40)
--- NOTE | 2023-09-22 18:34 | P.PN_ITS ---
Subjective *Date: 09/22/23 *Time: 18:34 Interval history: Discussed case with cardiology this morning, has significant coronary calcifications, recommend cath. Patient denies any chest pain at this time. Working with therapy. Needs placement. No nausea or vomiting. Stable on 3 L oxygen. White cell count improving on morning labs. No fever overnight. Medical Exam Vital signs and Labs for Last 24 Hours: Vital Signs Temp Pulse Pulse Resp BP Pulse Ox O2 Del Method 09/22/23 18:33 Nasal Cannula 09/22/23 18:32 80 09/22/23 18:32 81 09/22/23 17:20 85 18 161/84 H 93 L Nasal Cannula 09/22/23 17:00 Nasal Cannula 09/22/23 16:50 83 18 165/80 H 93 L Nasal Cannula 09/22/23 16:20 79 18 158/86 H 94 L Nasal Cannula 09/22/23 16:00 80 09/22/23 15:50 75 18 152/79 H 93 L Nasal Cannula 09/22/23 15:22 97.6 F 09/22/23 15:20 76 18 163/90 H 93 L Nasal Cannula 09/22/23 15:05 81 18 160/88 H 95 Nasal Cannula 09/22/23 15:00 Nasal Cannula 09/22/23 14:50 87 18 154/67 H 94 L Nasal Cannula 09/22/23 14:35 97.9 F 80 18 153/77 H 93 L Nasal Cannula 09/22/23 14:20 97.6 F 81 18 162/90 H 93 L Nasal Cannula 09/22/23 14:10 98 F 81 19 157/100 H 93 L Nasal Cannula 09/22/23 14:09 83 09/22/23 14:05 98 F 85 19 197/107 H 93 L Nasal Cannula 09/22/23 11:27 97.9 F 78 21 142/75 H 94 L Nasal Cannula 09/22/23 09:46 82 09/22/23 09:46 78 09/22/23 09:46 93 L Nasal Cannula 09/22/23 08:00 Nasal Cannula 09/22/23 08:00 90 09/22/23 08:00 97.7 F 80 22 126/63 92 L Nasal Cannula 09/22/23 06:23 Nasal Cannula 09/22/23 06:07 73 09/22/23 06:07 73 09/22/23 06:07 93 L Nasal Cannula 09/22/23 05:00 Nasal Cannula 09/22/23 04:00 74 09/22/23 04:00 98.2 F 72 20 146/85 H 94 L Nasal Cannula 09/22/23 04:00 93 L Nasal Cannula 09/22/23 03:00 Nasal Cannula 09/22/23 02:24 74 09/22/23 02:24 72 09/22/23 01:00 Nasal Cannula 09/22/23 00:00 91 L Nasal Cannula 09/22/23 00:00 98.1 F 77 18 156/82 H 91 L Nasal Cannula 09/22/23 00:00 77 09/21/23 23:00 Nasal Cannula 09/21/23 22:13 75 09/21/23 22:13 76 09/21/23 21:00 Nasal Cannula 09/21/23 20:00 81 09/21/23 20:00 98.8 F 74 20 141/66 H 91 L Nasal Cannula 09/21/23 20:00 90 L Nasal Cannula 09/21/23 19:01 72 09/21/23 19:01 72 09/21/23 19:01 91 L Nasal Cannula O2 Flow Rate FiO2 09/22/23 18:33 3 32 09/22/23 18:32 09/22/23 18:32 09/22/23 17:20 3 09/22/23 17:00 3 09/22/23 16:50 3 09/22/23 16:20 3 09/22/23 16:00 09/22/23 15:50 3 09/22/23 15:22 09/22/23 15:20 3 09/22/23 15:05 3 09/22/23 15:00 3 09/22/23 14:50 3 09/22/23 14:35 3 09/22/23 14:20 3 09/22/23 14:10 3 09/22/23 14:09 09/22/23 14:05 3 09/22/23 11:27 3 09/22/23 09:46 09/22/23 09:46 09/22/23 09:46 3 09/22/23 08:00 3 09/22/23 08:00 09/22/23 08:00 3 09/22/23 06:23 3 09/22/23 06:07 09/22/23 06:07 09/22/23 06:07 3 09/22/23 05:00 3 09/22/23 04:00 09/22/23 04:00 3 09/22/23 04:00 3 09/22/23 03:00 3 09/22/23 02:24 09/22/23 02:24 09/22/23 01:00 3 09/22/23 00:00 3 09/22/23 00:00 3 09/22/23 00:00 09/21/23 23:00 3 09/21/23 22:13 09/21/23 22:13 09/21/23 21:00 3 09/21/23 20:00 09/21/23 20:00 09/21/23 20:00 3 09/21/23 19:01 09/21/23 19:01 09/21/23 19:01 3 Intake and Output 09/22/23 09/22/23 09/22/23 07:59 15:59 23:59 Intake Total 50 / 760 440 / 760 270 / 760 Output Total 950 / 1450 500 / 1450 Balance -900 / -690 -60 / -690 270 / -690 Intake: Intake, Oral Amount 440 / 710 270 / 710 Intake, Total IV Amount 50 / 50 Ceftriaxone Sodium 1 gm In 0.9 50 / 50 % Sodium Chloride 50 ml @ 100 mls/hr IV Q24H [facility] Rx#:[id number] Output: Output, Urine Amount 950 / 1450 500 / 1450 Other: Number of Unmeasured Voids 0 1 1 Number of Bowel Movements 1 Weight 94.211 kg Patient Weight 09/22/23 23:59 Weight 94.211 kg Laboratory Results - last 24 hr 09/21/23 21:26: POC Glucose 261 H 09/22/23 05:31: WBC 15.3 H, RBC 4.10 L, Hgb 10.6 L, Hct 36.1 L, MCV 88.1, MCH 25.9 L, MCHC 29.3 L, RDW 18.0 H, Plt Count 477 H, MPV 9.2, Neut % (Auto) 75.1, Lymph % (Auto) 15.0, [place] % (Auto) 7.9, Eos % (Auto) 1.4, Baso % (Auto) 0.6, Neut # (Auto) 11.5 H, Lymph # (Auto) 2.3, [place] # (Auto) 1.2 H, Eos # (Auto) 0.2, Baso # (Auto) 0.1, Total Counted 100, Neutrophils % (Manual) 75, Lymphocytes % (Manual) 23, Monocytes % (Manual) 1 L, Eosinophils % (Manual) 1, Platelet Estimate Slight increase, Hypochromasia 1+, Sodium 143, Potassium 3.6, Chloride 117 H, Carbon Dioxide 24, Anion Gap 5.6, BUN 20 H, Creatinine 0.60, Estimated Creat Clear 83, Estimated GFR 100, Est GFR ( Amer) 121, Glucose 109 H D, Calcium 8.7 09/22/23 05:42: POC Glucose 111 H 09/22/23 13:41: Activated Clotting Time 260 H* I & O for Labs for Last 24 Hours: Intake & Output 09/19/23 09/20/23 09/21/23 09/22/23 23:59 23:59 23:59 23:59 Intake Total 1386 / 1436 760 / 760 Output Total 850 / 1450 1450 / 1450 Balance 536 / -14 -690 / -690 Weight 102.058 kg 92.215 kg 94.211 kg Constitutional: Present no acute distress, obese, chronically ill appearing and cooperative Head: Present atraumatic and normocephalic Neck: Present normal inspection Respiratory: Present prolonged expiratory phase, rhonchi, wheezes and normal respiratory effort; Absent crackles Cardiac: Present Reg Rate and Rhythm GI: Present soft and normal bowel sounds; Absent distention or tenderness Extremities: Present normal inspection and full ROM Skin: Present intact; Absent erythema Neuro: Present Grossly Intact, alert, awake, oriented x 3 and moves all extremities Assessment and Plan *Assessment and plan (1) Acute and chronic respiratory failure with hypoxia: Status: Acute Category: Medical Code(s): J96.21 - Acute and chronic respiratory failure with hypoxia (2) Community acquired pneumonia: Status: Acute Category: Medical Code(s): J18.9 - Pneumonia, unspecified organism (3) Atrial fibrillation with rapid ventricular response: Status: Acute Category: Medical Code(s): I48.91 - Unspecified atrial fibrillation (4) Acute non-ST elevation myocardial infarction (NSTEMI): Status: Acute Category: Medical Code(s): I21.4 - Non-ST elevation (NSTEMI) myocardial infarction (5) COPD exacerbation: Status: Acute Category: Medical Code(s): J44.1 - Chronic obstructive pulmonary disease with (acute) exacerbation (6) HTN (hypertension): Status: Acute Qualifiers: Hypertension type: unspecified Qualified Code(s): I10 - Essential (primary) hypertension Category: Medical Code(s): I10 - Essential (primary) hypertension (7) Personal history of nicotine dependence: Status: Acute Category: Medical Code(s): Z87.891 - Personal history of nicotine dependence (8) ILD (interstitial lung disease): Status: Acute Category: Medical Code(s): J84.9 - Interstitial pulmonary disease, unspecified (9) Fibrosis of lung: Status: Acute Category: Medical Code(s): J84.10 - Pulmonary fibrosis, unspecified Plan 67 yo female with PMHx of COPD, current smoker, HTN, presented to ED for evaluation of hypoxia. Initially patient had a fall. Later on EMS was called back for hypoxia. Patient was found satting send on the 70's. Brought to the ER. Arrived on atrial fibrillation with RVR. initial work up showed elevated white count, elevated troponin, elevated NT proBNP and CT scan of her chest shows interstitial disease and pulmonary fibrosis. Findings discussed with ED. Agreed for admission. Pulmonology and cardiology consulted and assisting with care. Patient going for heart cath today. Plan as follow: Acute hypoxic respiratory failure Secondary to COPD exacerbation vs pneumonia Chronic interstitial disease with fibrosis Discussed case with pulmonology, continue supplemental oxygen as needed. Goal saturation greater 90%. Currently on 3 L. Continue prednisone 40 mg daily along with ceftriaxone and doxycycline pending cultures. Initiate Trelegy inhaler 100 along with DuoNebs every 6 hours as needed. Sputum pending White cell count improved to 15, repeat CBC, CMP, magnesium ordered for the morning. Atrial fibrillation with rapid ventricular response NSTEMI Hypertension -Cardiology consulted, appreciate their recommendations. Discussed case today, recommend heart cath given significant coronary calcifications on chest imaging/CT -Will transition to Eliquis after heart cath for anticoagulation in the setting of A-fib - Continue amlodipine 10 mg daily, aspirin 81 mg daily, bisoprolol 5 mg twice daily, Plavix 75 mg daily, ramipril 20 mg daily Diabetes Per chart review patient is taking metformin 500 mg daily Will continue to Accu-Chek before meals A1c 6.0, well-controlled. Nicotine dependence: On nicotine patch Patient needing placement, has been accepted by [facility]. Continues to work with therapy while admitted. Anticipate discharge tomorrow.
[2023-09-22] MEDS: TAMSULOSIN 0.4MG CAPSULE 0.400000000000000022 MG PO (20:40)
[2023-09-22] MEDS: PRAVASTATIN 40MG TAB 40 MG PO (20:40)
[2023-09-22] MEDS: CEFTRIAXONE SODIUM 1 GM in 0.9 % SODIUM CHLORIDE 50 ML IV (20:41)
[2023-09-22] MEDS: PANTOPRAZOLE 40MG TABLET 40 MG PO (20:41)
[2023-09-22 21:06] LABS: POC Glucose,Bedside 172 (70-110)
[2023-09-23] VITALS (9 sets, daily range): BP systolic 142–170; BP diastolic 72–99; PULSE 72–83; RESP 16–22; TEMP 36.6–36.9; O2SAT 92–99; BMI 33.0
[2023-09-23] MEDS: IPRATROPIUM/ALBUTEROL 3 ML NEB IH ×3 (00:01→10:45)
[2023-09-23 01:59] LABS: POC Glucose,Bedside 201 (70-110)
[2023-09-23 05:04] LABS: POC Glucose,Bedside 133 (70-110)
[2023-09-23] MEDS: FLUTICASONE/UMECLIDIN/VILANTER 100/62.5/25MCG INHALER 1 PUFF IH (06:23)
[2023-09-23 07:05] LABS: Chloride 115 mmol/L (98-107)
[2023-09-23 07:06] LABS: Potassium 3.9 mmoL/L (3.5-5.1); Sodium 143 mmol/L (136-145)
--- NOTE | 2023-09-23 07:07 | EXP.DC.SUM ---
General Admission date:: 09/20/23 Discharge date: 09/23/23 HPI HPI HPI: This is a 67 yo female with PMHx of COPD, current smoker, HTN, presented to ED for evaluation of hypoxia. Patient was seen by EMS earlier this date after having fallen out of her mechanical chair and unable to get back up patient refused transport at that time. EMS was called back this evening after it was noted that she was hypoxic. When EMS arrived patient was satting in the 70s. She reports a headache and some subjective shortness of breath but no chest pain fever chills hemoptysis hematochezia melena nausea vomit diarrhea. When patient arrived she was noted to be in atrial fibrillation with rapid ventricular response with a right sustained above 140. She does not have a previous history of A-fib that I can find and is not anticoagulated. Admitted for management. Hospital Course Hospital Course Hospital Course: 67 yo female with PMHx of COPD, current smoker, HTN, presented to ED for evaluation of hypoxia. Initially patient had a fall. Later on EMS was called back for hypoxia. Patient was found satting send on the 70's. Brought to the ER. Arrived on atrial fibrillation with RVR. initial work up showed elevated white count, elevated troponin, elevated NT proBNP and CT scan of her chest shows interstitial disease and pulmonary fibrosis. Findings discussed with ED. Agreed for admission. Pulmonology and cardiology consulted and assisting with care. Patient is showing good response to antibiotics and steroids. Taken for heart cath on 09/21. Tolerated well with 1 stent to the LAD and 1 to her right iliac. Stable to discharge to rehab. Problems addressed as follows: Acute hypoxic respiratory failure Secondary to COPD exacerbation vs pneumonia Chronic interstitial disease with fibrosis Pulmonology was consulted. Patient continuing supplemental oxygen. Weaning as tolerated. Tolerating 2 to 3 L currently for sats greater than 90%. Patient initiated on antibiotics and steroids. Will continue 5 days of antibiotics with completion of course using cefdinir and doxycycline. Transition to prednisone taper with 40 mg daily for total of 14 days followed by 20 mg daily for 14 days and 10 mg daily for 14 days. Continue DuoNebs every 6 hours and Trelegy inhaler. Plan for follow-up with cardiology and pulmonology in the coming weeks. White cell count normalizing, 13.6 on day of discharge, down from the 20s. Recommend repeat CBC, CMP, magnesium in 1 week. Atrial fibrillation with rapid ventricular response NSTEMI Hypertension -Cardiology consulted, decision made to take patient for left heart cath. Findings of coronary artery disease with stent placed in the LAD. Also had peripheral disease with iliac stenosis. Stent placed in the right iliac on 09/21. Tolerated procedure well. Continue Eliquis for her A-fib anticoagulation. Will also continue aspirin and Plavix daily. Discontinue aspirin after 30 days and continue with Plavix and Eliquis at that point only. Continue amlodipine 10 mg daily, bisoprolol 5 mg twice daily, ramipril 20 mg daily. Increase statin therapy to higher intensity Lipitor 40 mg nightly. Diabetes Per chart review patient is taking metformin 500 mg daily, continue oral therapy at this time. A1c well-controlled at 6.0. Nicotine dependence: On nicotine patch Therapy worked with patient during admission. Needs placement for rehab. Stable to discharge to [facility] at this time. Appreciate their help in further management of this patient. Total time spent on discharge 32 minutes in counseling, documentation, chart review, and direct care with patient. Exam Data for Last 24 hours Vital signs and Labs for Last 24 Hours: Temp Pulse Resp BP Pulse Ox O2 Del Method O2 Flow Rate 97.9 F 73 18 142/89 H 94 L Nasal Cannula 3 09/23/23 04:00 09/23/23 06:23 09/23/23 04:00 09/23/23 04:00 09/23/23 06:23 09/23/23 06:42 09/23/23 06:42 FiO2 32 09/22/23 18:33 Laboratory Results - last 24 hr 09/22/23 05:31: Total Counted 100, Neutrophils % (Manual) 75, Lymphocytes % (Manual) 23, Monocytes % (Manual) 1 L, Eosinophils % (Manual) 1, Platelet Estimate Slight increase, Hypochromasia 1+ 09/22/23 13:41: Activated Clotting Time 260 H* 09/22/23 16:33: POC Glucose 201 H 09/22/23 20:59: POC Glucose 172 H 09/23/23 04:57: POC Glucose 133 H 09/23/23 06:00: Sodium 143, Potassium 3.9, Chloride 115 H I & O for Last 24 hours: Intake & Output 09/20/23 09/21/23 09/22/23 09/23/23 23:59 23:59 23:59 23:59 Intake Total 1386 / 1436 1250 / 1490 480 / 480 Output Total 850 / 1450 2350 / 2350 Balance 536 / -14 -1100 / -860 480 / 480 Weight 102.058 kg 92.215 kg 94.211 kg 95.527 kg Constitutional Constitutional: no acute distress, obese, chronically ill appearing and cooperative *Routine HEENT Exam Head: Present normocephalic Eye: Present EOMI and PERRL ENT: Present mucous membranes moist *Routine Neck Exam Neck: Present supple; Absent lymphadenopathy *Routine Respiratory Exam Respiratory: Present prolonged expiratory phase, rhonchi and wheezes; Absent crackles *Routine Cardiovascular Exam Cardiovascular: Present RRR *Routine Abdominal Exam Abdominal: Present soft and normoactive bowel sounds; Absent tenderness *Routine Rectal Exam Patient deferred: visual exam *Routine Exam Patient deferred: external exam *Routine Extremities Exam Extremities: Absent cyanosis, clubbing or edema *Routine Skin Exam Skin: Present intact and warm; Absent rash *Routine Neurological Exam Neurological: Present alert, oriented X3 and moving all extremities; Absent altered mental status Results Data Completed and Pending Labs on day of discharge: Labs from last 24 hours 09/23/23 09/23/23 09/22/23 06:00 04:57 20:59 Total Counted Neutrophils % (Manual) Lymphocytes % (Manual) Monocytes % (Manual) Eosinophils % (Manual) Platelet Estimate Hypochromasia Activated Clotting Time Sodium 143 Potassium 3.9 Chloride 115 H POC Glucose 133 H 172 H 09/22/23 09/22/23 09/22/23 16:33 13:41 05:31 Total Counted 100 Neutrophils % (Manual) 75 Lymphocytes % (Manual) 23 Monocytes % (Manual) 1 L Eosinophils % (Manual) 1 Platelet Estimate Slight increase Hypochromasia 1+ Activated Clotting Time 260 H* Sodium Potassium Chloride POC Glucose 201 H DS: Diagnosis Discharge Diagnosis (1) Acute and chronic respiratory failure with hypoxia: Status: Acute Code(s): J96.21 - Acute and chronic respiratory failure with hypoxia (2) Community acquired pneumonia: Status: Acute Code(s): J18.9 - Pneumonia, unspecified organism (3) Atrial fibrillation with rapid ventricular response: Status: Acute Code(s): I48.91 - Unspecified atrial fibrillation (4) Acute non-ST elevation myocardial infarction (NSTEMI): Status: Acute Code(s): I21.4 - Non-ST elevation (NSTEMI) myocardial infarction (5) COPD exacerbation: Status: Acute Code(s): J44.1 - Chronic obstructive pulmonary disease with (acute) exacerbation (6) HTN (hypertension): Status: Acute Code(s): I10 - Essential (primary) hypertension Qualifiers: Hypertension type: unspecified Qualified Code(s): I10 - Essential (primary) hypertension (7) Personal history of nicotine dependence: Status: Acute Code(s): Z87.891 - Personal history of nicotine dependence (8) ILD (interstitial lung disease): Status: Acute Code(s): J84.9 - Interstitial pulmonary disease, unspecified (9) Fibrosis of lung: Status: Acute Code(s): J84.10 - Pulmonary fibrosis, unspecified Meds Home Medications and Allergies Home Medications Medication Instructions Recorded Confirmed Type aspirin 81 mg tablet,delayed [address] [facility] 07/26/18 09/20/23 History release (Adult Low Dose Aspirin) duloxetine 60 mg capsule,delayed 60 mg PO DAILY 30 days 07/26/18 09/20/23 History release ramipril 10 mg capsule 20 mg PO DAILY 30 days 07/26/18 09/20/23 History topiramate 100 mg tablet 100 mg PO BID 30 days 07/26/18 09/20/23 History metformin 500 mg tablet 500 mg PO DAILY 12/13/19 09/20/23 History amlodipine 10 mg tablet 10 mg PO DAILY 11/13/21 09/20/23 History pantoprazole 40 mg tablet,delayed 40 mg PO DAILY 11/13/21 09/20/23 History release paroxetine HCl 10 mg tablet 10 mg PO DAILY 11/13/21 09/21/23 History cyanocobalamin (vitamin B-12) 100 100 mcg PO DAILY 01/06/23 09/20/23 History mcg tablet ferrous sulfate 325 mg (65 mg 325 mg PO .3X A WEEK 01/06/23 09/21/23 History iron) tablet (FeroSul) ergocalciferol (vitamin D2) 1,250 50,000 unit PO WEEKLY 01/07/23 09/20/23 History mcg (50,000 unit) capsule potassium chloride 10 mEq 10 meq PO BID Supplement 30 days 01/09/23 09/20/23 Rx capsule,extended release #60 caps guaifenesin 600 mg tablet, 600 mg PO DAILY Congestion 09/21/23 09/21/23 History extended release 12 hr (Mucinex) tamsulosin 0.4 mg capsule 0.4 mg PO DAILY 09/21/23 09/21/23 History alprazolam 1 mg tablet 1 mg PO QIDP PRN Anxiety 10 days 09/23/23 Rx #40 tabs apixaban 5 mg tablet (Eliquis) 5 mg PO BID 30 days #60 tabs 09/23/23 Rx atorvastatin 40 mg tablet 80 mg (2 x 40 mg) PO HS #0 tabs 09/23/23 Rx bisoprolol fumarate 5 mg tablet 5 mg PO BID 30 days #0 tabs 09/23/23 09/20/23 Rx cefdinir 300 mg capsule 300 mg PO BID 1 day #2 caps 09/23/23 Rx clopidogrel 75 mg tablet 75 mg PO DAILY 30 days #30 tabs 09/23/23 Rx doxycycline hyclate 100 mg tablet 100 mg PO BID 2 days #4 tabs 09/23/23 Rx fluticasone fur. 100 mcg-umeclid 1 inh inhalation DAILY 30 days #0 09/23/23 Rx 62.5 mcg-vilant 25 mcg ea inhalat.powder (Trelegy Ellipta) gabapentin 600 mg tablet 600 mg PO TID nerve pain 10 days 09/23/23 Rx #30 tabs ipratropium 0.5 mg-albuterol 3 mg 3 ml inhalation Q6RT #0 mL 09/23/23 Rx (2.5 mg base)/3 mL nebulization soln nicotine 21 mg/24 hr daily 21 mg transdermal DAILYP PRN 09/23/23 Rx transdermal patch Nicotine Cravings 30 days #30 ea prednisone 20 mg tablet See Rx Instructions .Route 09/23/23 Rx .COMPLEX #45 tabs New Prescriptions to Start Prescriptions: Bruce Lindo apixaban [Eliquis] Lizeth,Bruce cefdinir Lizeth,Bruce clopidogrel Lizeth,Bruce doxycycline hyclate Lizeth,Bruce gabapentin Lizeth,Bruce nicotine Lizeth,Bruce prednisone Lizeth,Bruce Allergies Allergy/AdvReac Type Severity Reaction Status Date / Time erythromycin base Allergy Unknown I-HIVES Verified 05/12/23 10:43 Penicillins Allergy Unknown I-HIVES Verified 05/12/23 10:43 propoxyphene Allergy Unknown I-HIVES Verified 05/12/23 10:43 Discharge Plan Disposition Patient Disposition: Xfer SNF Condition: Fair Discharge Order Discharge Orders: Discharge Order (Routine); Ordered 09/23/23 Ordered By: Bruce Stanley Follow up Plan Follow up with: Cash Cameron MD [Staff Physician] - 09/30/23 1:45 pm Honorio Smith MD [Physician] - 10/01/23 1:00 pm Prescriptions/Medication Reconciliation: New clopidogrel 75 mg Tablet 75 mg PO DAILY 30 Days Qty: 30 0RF nicotine 21 mg/24 hr Patch 24 Hour 21 mg transdermal DAILYP PRN (Reason: Nicotine Cravings) 30 Days Qty: 30 0RF Eliquis 5 mg Tablet 5 mg PO BID 30 Days Qty: 60 0RF Trelegy Ellipta 100-62.5-25 mcg Blister With Device 1 inh inhalation DAILY 30 Days Qty: 0 0RF atorvastatin 40 mg Tablet 80 mg PO HS Qty: 0 0RF doxycycline hyclate 100 mg Tablet 100 mg PO BID 2 Days Qty: 4 0RF cefdinir 300 mg capsule 300 mg PO BID 1 Days Qty: 2 0RF ipratropium-albuterol 0.5 mg-3 mg(2.5 mg base)/3 mL Solution For Nebulization 3 ml inhalation Q6RT Qty: 0 0RF prednisone 20 mg tablet 40 mg PO DAILY 2 Days Qty: 4 0RF prednisone 20 mg Tablet See Rx Instructions .ROUTE .COMPLEX Qty: 45 0RF Rx Instructions: 40mg daily for 12 days, 20mg daily for 14 days, followed by 10mg daily for 14days. Continued ramipril 10 mg capsule 20 mg PO DAILY 30 Days duloxetine 60 mg capsule,delayed release(DR/EC) 60 mg PO DAILY 30 Days Rx Instructions: @ 0900 topiramate 100 mg tablet 100 mg PO BID 30 Days Rx Instructions: @0900 & 1700 aspirin [Adult Low Dose Aspirin] 81 mg tablet,delayed release (DR/EC) 81 mg PO DAILY paroxetine HCl 10 MG tablet 10 mg PO DAILY amlodipine 10 MG tablet 10 mg PO DAILY Rx Instructions: @ 0900 pantoprazole 40 MG tablet,delayed release (DR/EC) 40 mg PO DAILY Rx Instructions: @0900 metformin 500 MG tablet 500 mg PO DAILY Rx Instructions: @0900 cyanocobalamin (vitamin B-12) 100 mcg tablet 100 mcg PO DAILY Patient Comments: TAKE ONE TABLET BY MOUTH DAILY AT 9 AM ferrous sulfate [FeroSul] 325 mg (65 mg iron) tablet 325 mg PO .3X A WEEK Patient Comments: TAKE ONE TABLET BY MOUTH THREE TIMES A WEEK (VIAL) ergocalciferol (vitamin D2) 1,250 mcg (50,000 unit) capsule 50,000 unit PO WEEKLY Patient Comments: TAKE ONE CAPSULE BY MOUTH TWICE A WEEK (VIAL) potassium chloride 10 mEq capsule, extended release 10 meq PO BID 30 Days Qty: 60 1RF tamsulosin 0.4 mg capsule 0.4 mg PO DAILY guaifenesin [Mucinex] 600 mg Tablet Extended Release 12hr 600 mg PO DAILY gabapentin 600 mg tablet 600 mg PO TID 10 Days Qty: 30 2RF alprazolam 1 mg tablet 1 mg PO QIDP PRN (Reason: Anxiety) 10 Days Qty: 40 0RF Changed bisoprolol fumarate 5 MG tablet 5 mg PO BID 30 Days Qty: 0 0RF Rx Instructions: @ 0900 Discontinued pravastatin 40 MG tablet 40 mg PO HS Rx Instructions: @ 1700 Problem Reconciliation Problems Reviewed?: Yes Patient Discharge Instructions ACTIVITY: Ambulate as tolerated and Up with assistance DIET: continue same diet Patient Instructions: Carbohydrate-Counting Diet, DI for Pneumonia -- Adult, DI for Surgical Site Infection, DI for Sepsis -- Adult, DI for Respiratory Failure Providers Primary Care Provider: Provider,Referral Admit Provider: Sherley Lenz Attending Provider: Sherley Lenz
[2023-09-23 07:09] LABS: Anion Gap 6.9 mEq/L (5-15); Blood Urea Nitrogen 16 mg/dl (7-17); Calcium 8.7 mg/dl (8.4-10.2); Carbon Dioxide 25 mmol/L (22.0-30.0); Creatinine Clearance Estimated 85 mL/min (50-200); Estimated Glomerular Filt Rate 100 ml/min (>60); GFR (African American) 121 ML/MIN (>60); Glucose 116 mg/dl (74-100)
[2023-09-23 07:58] LABS: Basophils # 0.1 K/mm3 (0-0.2); Basophils % 0.5 % (0.1-2.0); Eosinophils # 0.3 K/mm3 (0.0-0.4); Eosinophils % 2.3 % (0.1-12.0); Hematocrit 35.6 % (37.0-47.0); Hemoglobin 10.8 g/dL (12.2-16.2); Lymphocytes # 2.6 K/mm3 (0.7-4.5); Lymphocytes % 19.3 % (10-50); Mean Corpuscular HGB Conc 30.2 g/dL (31.8-35.4); Mean Corpuscular Hemoglobin 26.5 pg (27.0-31.2); Mean Corpuscular Volume 87.8 fl (81-99); Mean Platelet Volume 8.7 fl (7.4-10.4); Monocytes # 1.3 K/mm3 (0.1-1.0); Monocytes % 9.4 % (1.7-9.3); Neutrophils # 9.3 K/mm3 (1.8-7.8); Neutrophils % 68.5 % (37.0-80.0); Platelet Count 413 K/mm3 (142-424); Red Blood Count 4.06 M/mm3 (4.20-5.40); Red Cell Distribution Width 17.8 % (11.5-17.5); White Blood Count 13.6 K/mm3 (4.8-10.8)
--- NOTE | 2023-09-23 08:09 | EXP.PHA.PN ---
Subjective *Date: 09/23/23 *Time: 08:09 Medical Exam Vital signs and Labs for Last 24 Hours: Vital Signs Temp Pulse Pulse Resp BP Pulse Ox O2 Del Method 09/23/23 06:42 Nasal Cannula 09/23/23 06:23 73 09/23/23 06:23 76 09/23/23 06:23 94 L Nasal Cannula 09/23/23 05:00 Nasal Cannula 09/23/23 04:00 97.9 F 75 18 142/89 H 96 09/23/23 04:00 74 09/23/23 03:00 Nasal Cannula 09/23/23 00:53 Nasal Cannula 09/23/23 00:31 92 L Room Air 09/23/23 00:30 83 09/23/23 00:28 83 09/23/23 00:00 98.2 F 72 16 170/99 H 99 09/23/23 00:00 75 09/22/23 23:00 Nasal Cannula 09/22/23 21:20 98.0 F 80 20 176/90 H 93 L Nasal Cannula 09/22/23 21:00 Nasal Cannula 09/22/23 20:20 98.0 F 76 20 166/95 H 92 L Nasal Cannula 09/22/23 20:00 77 09/22/23 20:00 91 L Nasal Cannula 09/22/23 19:20 98.3 F 78 20 163/81 H 91 L Nasal Cannula 09/22/23 18:57 Nasal Cannula 09/22/23 18:33 Nasal Cannula 09/22/23 18:32 80 09/22/23 18:32 81 09/22/23 17:20 85 18 161/84 H 93 L Nasal Cannula 09/22/23 17:00 Nasal Cannula 09/22/23 16:50 83 18 165/80 H 93 L Nasal Cannula 09/22/23 16:20 79 18 158/86 H 94 L Nasal Cannula 09/22/23 16:00 80 09/22/23 15:50 75 18 152/79 H 93 L Nasal Cannula 09/22/23 15:22 97.6 F 09/22/23 15:20 76 18 163/90 H 93 L Nasal Cannula 09/22/23 15:05 81 18 160/88 H 95 Nasal Cannula 09/22/23 15:00 Nasal Cannula 09/22/23 14:50 87 18 154/67 H 94 L Nasal Cannula 09/22/23 14:35 97.9 F 80 18 153/77 H 93 L Nasal Cannula 09/22/23 14:20 97.6 F 81 18 162/90 H 93 L Nasal Cannula 09/22/23 14:10 98 F 81 19 157/100 H 93 L Nasal Cannula 09/22/23 14:09 83 09/22/23 14:05 98 F 85 19 197/107 H 93 L Nasal Cannula 09/22/23 11:27 97.9 F 78 21 142/75 H 94 L Nasal Cannula 09/22/23 09:46 82 09/22/23 09:46 78 09/22/23 09:46 93 L Nasal Cannula O2 Flow Rate FiO2 09/23/23 06:42 3 09/23/23 06:23 09/23/23 06:23 09/23/23 06:23 3 09/23/23 05:00 3 09/23/23 04:00 09/23/23 04:00 09/23/23 03:00 3 09/23/23 00:53 3 09/23/23 00:31 09/23/23 00:30 09/23/23 00:28 09/23/23 00:00 09/23/23 00:00 09/22/23 23:00 3 09/22/23 21:20 3 09/22/23 21:00 3 09/22/23 20:20 3 09/22/23 20:00 09/22/23 20:00 3 09/22/23 19:20 3 09/22/23 18:57 09/22/23 18:33 3 32 09/22/23 18:32 09/22/23 18:32 09/22/23 17:20 3 09/22/23 17:00 3 09/22/23 16:50 3 09/22/23 16:20 3 09/22/23 16:00 09/22/23 15:50 3 09/22/23 15:22 09/22/23 15:20 3 09/22/23 15:05 3 09/22/23 15:00 3 09/22/23 14:50 3 09/22/23 14:35 3 09/22/23 14:20 3 09/22/23 14:10 3 09/22/23 14:09 09/22/23 14:05 3 09/22/23 11:27 3 09/22/23 09:46 09/22/23 09:46 09/22/23 09:46 3 Intake and Output 09/22/23 09/23/23 09/23/23 23:59 07:59 15:59 Intake Total 760 / 1490 480 / 480 Output Total 900 / 2350 Balance -140 / -860 480 / 480 Intake: Intake, Oral Amount 710 / 1390 480 / 480 Intake, Total IV Amount 50 / 100 Ceftriaxone Sodium 1 gm In 0.9 50 / 100 % Sodium Chloride 50 ml @ 100 mls/hr IV Q24H [facility] Rx#:[id number] Output: Output, Urine Amount 900 / 2350 Other: Number of Voids 3 Number of Unmeasured Voids 1 3 Weight 95.527 kg Patient Weight 09/23/23 23:59 Weight 95.527 kg Laboratory Results - last 24 hr 09/22/23 05:31: Total Counted 100, Neutrophils % (Manual) 75, Lymphocytes % (Manual) 23, Monocytes % (Manual) 1 L, Eosinophils % (Manual) 1, Platelet Estimate Slight increase, Hypochromasia 1+ 09/22/23 13:41: Activated Clotting Time 260 H* 09/22/23 16:33: POC Glucose 201 H 09/22/23 20:59: POC Glucose 172 H 09/23/23 04:57: POC Glucose 133 H 09/23/23 06:00: Sodium 143, Potassium 3.9, Chloride 115 H, Carbon Dioxide 25, Anion Gap 6.9, BUN 16, Creatinine 0.60, Estimated Creat Clear 85, Estimated GFR 100, Est GFR ( Amer) 121, Glucose 116 H, Calcium 8.7 I & O for Labs for Last 24 Hours: Intake & Output 09/20/23 09/21/23 09/22/23 09/23/23 23:59 23:59 23:59 23:59 Intake Total 1386 / 1436 1250 / 1490 480 / 480 Output Total 850 / 1450 2350 / 2350 Balance 536 / -14 -1100 / -860 480 / 480 Weight 102.058 kg 92.215 kg 94.211 kg 95.527 kg The patient's infection will respond to the chosen ABx?: Yes (BLOOD AND SPUTUM CULTURES PENDING, AFEBRILE OVER 24 HOURS.) Is the patient receiving the right drug, dose, and route?: Yes Could a more targeted ABx be ordered?: No
[2023-09-23] MEDS: ASPIRIN EC 81MG TABLET 81 MG PO (09:04)
[2023-09-23] MEDS: AMLODIPINE 10MG TABLET 10 MG PO (09:04)
[2023-09-23] MEDS: APIXABAN 5MG TABLET 5 MG PO (09:04)
[2023-09-23] MEDS: DOXYCYCLINE HYCL 100 MG TABLET PO (09:04)
[2023-09-23] MEDS: BISOPROLOL 5MG TABLET 5 MG PO (09:04)
[2023-09-23] MEDS: FERROUS SULFATE 325MG TABLET 325 MG PO (09:04)
[2023-09-23] MEDS: CLOPIDOGREL 75MG TAB 75 MG PO (09:04)
[2023-09-23] MEDS: PARoxetine 10MG TABLET 10 MG PO (09:04)
[2023-09-23] MEDS: GABAPENTIN 600MG TABLET 600 MG PO ×2 (09:04→12:14)
[2023-09-23] MEDS: DULOXETINE 30MG CAPSULE.DR 60 MG PO (09:05)
[2023-09-23] MEDS: RAMIPRIL 10MG CAPSULE 20 MG PO (09:05)
[2023-09-23] MEDS: TOPIRAMATE 100MG TABLET 100 MG PO (09:05)
[2023-09-23] MEDS: predniSONE 20MG TAB 40 MG PO (09:05)
[2023-09-23] MEDS: ACETAMINOPHEN 325MG TAB 650 MG PO (09:06)
--- NOTE | 2023-09-23 09:38 | P.PN_ITS ---
Subjective *Date: 09/23/23 *Time: 10:36 Interval history: No acute respiratory events overnight. Improving oxygen requirements. Pulmonology Exam Inpatient Vital signs and Labs for Last 24 Hours: Temp Pulse Resp BP Pulse Ox O2 Del Method O2 Flow Rate 98.4 F 74 22 146/72 H 94 L Nasal Cannula 2 09/23/23 08:00 09/23/23 08:00 09/23/23 08:00 09/23/23 08:00 09/23/23 08:00 09/23/23 08:00 09/23/23 08:00 FiO2 32 09/22/23 18:33 Laboratory Results - last 24 hr 09/22/23 13:41: Activated Clotting Time 260 H* 09/22/23 16:33: POC Glucose 201 H 09/22/23 20:59: POC Glucose 172 H 09/23/23 04:57: POC Glucose 133 H 09/23/23 06:00: WBC 13.6 H, RBC 4.06 L, Hgb 10.8 L, Hct 35.6 L, MCV 87.8, MCH 26.5 L, MCHC 30.2 L, RDW 17.8 H, Plt Count 413, MPV 8.7, Neut % (Auto) 68.5, Lymph % (Auto) 19.3, [place] % (Auto) 9.4 H, Eos % (Auto) 2.3, Baso % (Auto) 0.5, Neut # (Auto) 9.3 H, Lymph # (Auto) 2.6, [place] # (Auto) 1.3 H, Eos # (Auto) 0.3, Baso # (Auto) 0.1, Sodium 143, Potassium 3.9, Chloride 115 H, Carbon Dioxide 25, Anion Gap 6.9, BUN 16, Creatinine 0.60, Estimated Creat Clear 85, Estimated GFR 100, Est GFR ( Amer) 121, Glucose 116 H, Calcium 8.7 Temp Pulse Resp BP Pulse Ox O2 Del Method O2 Flow Rate 98.1 F 79 20 144/74 H 100 Vapotherm 20 09/21/23 08:00 09/21/23 08:00 09/21/23 08:00 09/21/23 08:00 09/21/23 08:06 09/21/23 08:55 09/21/23 08:55 FiO2 70 09/21/23 08:06 Laboratory Results - last 24 hr 09/20/23 19:33: Specimen Source rr, O2 % ra, ABG pH 7.29 L, ABG pCO2 35.2, ABG pO2 68.8 L, ABG HCO3 16.6 L, ABG Total CO2 17.7 L, ABG O2 Saturation 92, ABG Base Excess -9.9 L, Gavino Test y 09/20/23 19:34: WBC 20.5 H*, RBC 5.03, Hgb 13.4, Hct 44.3, MCV 88.0, MCH 26.6 L, MCHC 30.2 L, RDW 18.3 H, Plt Count 476 H, MPV 8.3, Neut % (Auto) 79.8, Lymph % (Auto) 12.0, [place] % (Auto) 6.4, Eos % (Auto) 1.3, Baso % (Auto) 0.5, Neut # (Auto) 16.4 H, Lymph # (Auto) 2.5, [place] # (Auto) 1.3 H, Eos # (Auto) 0.3, Baso # (Auto) 0.1, Total Counted 100, Neutrophils % (Manual) 82 H, Lymphocytes % (Manual) 12, Monocytes % (Manual) 4, Eosinophils % (Manual) 2, Platelet Estimate Slight increase, Hypochromasia 2+, Target Cells 1+, PT 10.3, INR 0.95, Sodium 149 H, Potassium 3.2 L, Chloride 120 H, Carbon Dioxide 22, Anion Gap 10.2, BUN 27 H, Creatinine 0.70, Estimated Creat Clear 90, Estimated GFR 84, Est GFR ( Amer) 102, Glucose 137 H, Lactate 1.2, Calcium 9.4, Magnesium 2.0, Total Bilirubin 0.3, AST 36, ALT 34, Alkaline Phosphatase 132 H, Troponin I 0.04 H, NT-Pro-B Natriuret Pep 3480 H, Total Protein 6.9 D, Albumin 3.7, Globulin 3.2, Albumin/Globulin Ratio 1.2, Procalcitonin 0.054, TSH 1.27 09/20/23 20:01: Chlamy pneumoniae PCR TNP, Adenovirus (PCR) Not detected, B. pertussis DNA (PCR) TNP, Coronavirus OC43 (PCR) Not detected, Coronavirus HKU1 (PCR) Not detected, Coronavirus 229E (PCR) Not detected, SARS-CoV-2 (PCR) Not detected, Coronavirus NL63 (PCR) Not detected, Human Metapneumovir PCR Not detected, Influenza A (H1) PCR Not detected, Influ A (H1N1/09) PCR Not detected, Influenza A (H3) PCR Not detected, Influenza Type A (PCR) Not detected, Influenza Type B (PCR) Not detected, M. pneumoniae (PCR) TNP, Parainfluenza 1 (PCR) Not detected, Parainfluenza 2 (PCR) Not detected, Parainfluenza 3 (PCR) Not detected, Parainfluenza 4 (PCR) Not detected, RSV (PCR) Not detected, Entero/Rhino (PCR) Not detected 09/20/23 20:15: Urine Color Yellow, Urine Appearance Clear, Urine pH 6.0, Ur Specific [place] 1.020, Urine Protein Negative, Urine Glucose (UA) Negative, Urine Ketones Negative, Urine Blood Negative, Urine Nitrate Negative, Urine Bilirubin Negative, Urine Urobilinogen 0.2, Ur Leukocyte Esterase Negative, Urine RBC None, Urine WBC 3-5, Ur Squamous Epith Cells Occasional, Urine Bacteria Trace 09/20/23 22:35: Troponin I 0.06 H 09/21/23 02:10: Troponin I 0.09 H 09/21/23 05:31: WBC 17.7 H, RBC 4.50, Hgb 11.5 L D, Hct 39.8, MCV 88.3, MCH 25.6 L, MCHC 29.0 L, RDW 18.1 H, Plt Count 439 H, MPV 8.3, Neut % (Auto) 88.4 H, Lymph % (Auto) 7.8 L, [place] % (Auto) 3.2, Eos % (Auto) 0.2, Baso % (Auto) 0.4, Neut # (Auto) 15.6 H, Lymph # (Auto) 1.4, [place] # (Auto) 0.6, Eos # (Auto) 0.0, Baso # (Auto) 0.1, Total Counted 100, Neutrophils % (Manual) 91 H, Lymphocytes % (Manual) 4 L, Monocytes % (Manual) 5, Platelet Estimate Slight increase, RBC Morphology Normal, Sodium 147 H, Potassium 3.2 L, Chloride 122 H, Carbon Dioxide 23, Anion Gap 5.2, BUN 25 H, Creatinine 0.60, Estimated Creat Clear 82, Estimated GFR 100, Est GFR ( Amer) 121, Glucose 159 H, Hemoglobin A1c 6.0, Calcium 8.9, Phosphorus 4.7 H, Magnesium 2.0, Total Bilirubin 0.3, AST 27, ALT 27, Alkaline Phosphatase 97, Total Protein 5.8 L, Albumin 3.0 L D, Globulin 2.8, Albumin/Globulin Ratio 1.1 I & O for Labs for Last 24 Hours: Intake & Output 09/20/23 09/21/23 09/22/23 09/23/23 23:59 23:59 23:59 23:59 Intake Total 1386 / 1436 1250 / 1490 480 / 480 Output Total 850 / 1450 2350 / 2350 0 / 0 Balance 536 / -14 -1100 / -860 480 / 480 Weight 225 lb 203 lb 4.8 oz 207 lb 11.2 oz 210 lb 9.6 oz Intake & Output 09/18/23 09/19/23 09/20/23 09/21/23 23:59 23:59 23:59 23:59 Intake Total 342 / 342 Output Total 500 / 500 Balance -158 / -158 Weight 225 lb 203 lb 4.8 oz Constitutional: Present moderate distress Head: Present normocephalic and atraumatic ENT: Present normal exam, normal oropharynx and mucous membranes moist Neck: Present normal inspection and full ROM Respiratory: Present rales, respiratory distress, rhonchi and able to speak in complete sentences; Absent wheezes Cardiac: Present S1/S2, Tachycardia and radial pulses present GI: Present soft and distention; Absent tenderness or guarding Rectal (female): Present deferred (female): Present deferred Skin: Present intact; Absent cyanosis or jaundice Neuro: Present alert, awake and oriented x 3 Extremities: Present normal inspection; Absent clubbing or cyanosis Psychiatric: Present normal affect and cooperative Assessment and Plan *Assessment and plan (1) Acute and chronic respiratory failure with hypoxia: Status: Acute Category: Medical Code(s): J96.21 - Acute and chronic respiratory failure with hypoxia (2) COPD exacerbation: Status: Acute Category: Medical Code(s): J44.1 - Chronic obstructive pulmonary disease with (acute) exacerbation (3) Personal history of nicotine dependence: Status: Acute Category: Medical Code(s): Z87.891 - Personal history of nicotine dependence (4) ILD (interstitial lung disease): Status: Acute Category: Medical Code(s): J84.9 - Interstitial pulmonary disease, unspecified (5) Fibrosis of lung: Status: Acute Category: Medical Code(s): J84.10 - Pulmonary fibrosis, unspecified Plan Ms. Rocha is a 67-year-old female current smoker, greater than 30 PPD used to smoke 4 to 5 packs a day currently down to 1 pack/week, carries a diagnosis COPD, not using any oxygen supplementation at baseline, hypertension presented with worsening respiratory's and hypoxia and pulmonary was called for further evaluation and management. Upon admission patient was also found to be in A-fib RVR. Significant neutrophilic leukocytosis upon admission. Arterial blood gas upon admission showed metabolic acidosis with hypoxic respiratory failure. Comprehensive respiratory viral PCR panel negative. CTA upon admission no evidence of pulmonary embolism. Bilateral interstitial groundglass opacity which are new from her prior CT from 2019 along with chronic fibrotic changes noted. Patient low-dose CT from 2019 also showed upper lobe predominant interstitial lung disease along with upper lobe predominant honeycombing. Patient was initiated on ceftriaxone upon admission. On initial examination patient appeared to be in severe respiratory distress, needing high flow nasal cannula oxygen supplementation. Wheezing noted on auscultation. CRP elevated at 128.7. Interval update: Afebrile. Hemodynamically stable. Improving leukocytosis. No acute respiratory vents overnight. Tolerating nasal cannula well. Continue to receive prednisone 40 mg oral daily along with ceftriaxone and doxycycline pending culture results Plan: Continue nasal cannula oxygen supplementation to maintain O2 saturation below 89% and above. On 2 L nasal cannula throughout saturating 96%. Wean to regular nasal cannula at 1 L. Continue to wean as tolerated. Incentive spirometry and flutter valve Continue Trelegy 100 inhaler along with DuoNebs every 6 hours on as-needed basis Continue ceftriaxone and doxycycline pending culture results. Continue prednisone 40 mg daily to complete a total of 14 days followed by 20 mg daily for 14 days, followed by 10 mg daily for 14 days and then discontinue. Follow with autoimmune workup for the noted ILD. Also concerning for smoking-r elated ILD. ILD review of systems otherwise negative. # Thank you for involving pulmonary in this patient care. Will continue to follow.
--- NOTE | 2023-09-23 09:38 | XR_ITS ---
FINAL REPORT CLINICAL HISTORY: PNM COMPARISON: 11/19/2021 FINDINGS: A single portable view of the chest was obtained. Mild cardiomegaly is present. The mediastinum is within normal limits. There are patchy right upper and left lower lobe airspace opacities present, which may represent pneumonia. Recommend follow-up radiographs for further evaluation. IMPRESSION: Patchy right upper and left lower lobe airspace opacities, possibly pneumonia. Recommend follow-up radiographs. Reviewed, Interpreted and Dictated by Olivier Steele MD Transcribed by Shanell Vincent Authenticated and [facility]
--- NOTE | 2023-09-23 10:09 | P.PN_ITS ---
Subjective Subjective Date: 09/23/23 Time: 10:09 Principal diagnosis: Pneumonia, Resp Failure, New A. fib Interval history: 67-year-old white female in bed in no acute distress. Denies any specific complaints but just states she does not feel well. Right groin cath access site looks good. Exam Data for Last 24 hours Vital signs and Labs for Last 24 Hours: Temp Pulse Resp BP Pulse Ox O2 Del Method O2 Flow Rate 98.4 F 74 22 146/72 H 94 L Nasal Cannula 2 09/23/23 08:00 09/23/23 08:00 09/23/23 08:00 09/23/23 08:00 09/23/23 08:00 09/23/23 08:00 09/23/23 08:00 FiO2 32 09/22/23 18:33 Laboratory Results - last 24 hr 09/22/23 13:41: Activated Clotting Time 260 H* 09/22/23 16:33: POC Glucose 201 H 09/22/23 20:59: POC Glucose 172 H 09/23/23 04:57: POC Glucose 133 H 09/23/23 06:00: WBC 13.6 H, RBC 4.06 L, Hgb 10.8 L, Hct 35.6 L, MCV 87.8, MCH 26.5 L, MCHC 30.2 L, RDW 17.8 H, Plt Count 413, MPV 8.7, Neut % (Auto) 68.5, Lymph % (Auto) 19.3, [place] % (Auto) 9.4 H, Eos % (Auto) 2.3, Baso % (Auto) 0.5, Neut # (Auto) 9.3 H, Lymph # (Auto) 2.6, [place] # (Auto) 1.3 H, Eos # (Auto) 0.3, Baso # (Auto) 0.1, Sodium 143, Potassium 3.9, Chloride 115 H, Carbon Dioxide 25, Anion Gap 6.9, BUN 16, Creatinine 0.60, Estimated Creat Clear 85, Estimated GFR 100, Est GFR ( Amer) 121, Glucose 116 H, Calcium 8.7 I & O for Last 24 hours: Intake & Output 09/20/23 09/21/23 09/22/23 09/23/23 11:59 11:59 11:59 11:59 Intake Total 342 / 582 1364 / 1364 1410 / 1410 Output Total 500 / 500 1800 / 1800 900 / 900 Balance -158 / 82 -436 / -436 510 / 510 Weight 203 lb 4.8 oz 207 lb 11.2 oz 210 lb 9.6 oz Constitutional Constitutional: no acute distress *Routine Respiratory Exam Respiratory: Present rhonchi *Routine Cardiovascular Exam Cardiovascular: Present RRR and murmur Progress Note: A&P Assessment and plan (1) Acute and chronic respiratory failure with hypoxia: Status: Acute (2) COPD exacerbation: Status: Acute (3) Personal history of nicotine dependence: Status: Acute (4) ILD (interstitial lung disease): Status: Acute (5) Fibrosis of lung: Status: Acute (6) CAD (coronary artery disease): Status: Acute (7) S/P coronary artery stent placement: Status: Acute (8) PAD (peripheral artery disease): Status: Acute Assessment and Plan Assessment and Plan for All Diagnoses:: 1. Acute on chronic respiratory failure with hypoxia -Pulmonary following -On supplemental oxygen, antibiotics along with prednisone therapy 2. Newly diagnosed atrial fibrillation with rapid ventricular response, spontaneously converted to sinus rhythm -[id number] score of at least 6 (CHF, hypertension, prior stroke, age, sex) -Likely as a result of pulmonary issues -Switch lovenox to eliquis 5 mg twice daily -Continue beta-lawrence therapy and increase as needed 3. Non-STEMI felt secondary to demand ischemia from pulmonary issues and atrial fibrillation -Significant coronary artery calcifications noted on CT of the lung, 2019 -continue aspirin therapy and Plavix -Continue beta-lawrence and amlodipine therapy -[facility], 09/22/2023, [facility] to LAD 4. Tobacco use with interstitial lung disease and pulmonary fibrosis -Tobacco cessation recommended 5. Encephalomalacia with chronic ischemic white matter changes on head CT -Complicates all care 6. Prior history of CAD with prior MS -Prior echo 12/2022 showing EF 55% with hypokinesis of the lateral and anterolateral LV julien -Echo, 09/22/2023, EF at least 40% though official report pending 7. Hyperlipidemia -Continue statin (switch to atorvastatin) LDL goal less than 55 8. Hypertension -Continue Altace, bisoprolol and amlodipine 9. PAD -Right iliac bare-metal stent, 09/22/2023 Clinically stable from cardiac standpoint for discharge. Official echo report is pending with preliminary showing EF at least 40%. Will discuss at follow-up. Medication recommendations: Aspirin 81 mg daily for 30 days only (discontinue on 10/22/2023) Plavix 75 mg daily Eliquis 5 mg twice daily Pantoprazole 40 mg daily Norvasc 10 mg daily Altace 10 mg daily Bisoprolol 5 mg twice daily Atorvastatin 80 mg daily Follow-up in our office in 1 to 2 weeks. Echo results: Low normal LV systolic function (LVEF 50%). Mild hypokinesis of the anterior and anterolateral LV julien. Mild RV dilation. Mild MR, mild TR.
[2023-09-23] MEDS: ALPRAZolam 1MG TABLET 1 MG PO (12:11)
--- NOTE | 2023-09-23 12:20 | PC.NURSE ---
attempted to call report at this time. no answer will try again
[2023-09-24 08:46] LABS: Antinuclear Antibodies (ANA) Negative
== END 2023-09-23 14:41 | DRG 321 ==
LOC: ER 21:35 → 2ND 21:43
PROVIDERS: Internal Medicine; Internal Medicine Pulmonary Disease; Nurse Practitioner Family; Physician Assistant; Admitting Provider Internal Medicine; Emergency Provider Emergency Medicine; Visit Provider Internal Medicine
PROC: 027034Z Dilation of Coronary Artery, One Artery with Drug-eluting Intraluminal Device, Percutaneous Approach (ICD-10-PCS; principal; 2023-09-22 12:30)
DX: I21.A1 Myocardial infarction type 2 (principal); J18.9 Pneumonia, unspecified organism; J96.21 Acute and chronic respiratory failure with hypoxia; J44.1 Chronic obstructive pulmonary disease with (acute) exacerbation; J84.9 Interstitial pulmonary disease, unspecified; E87.20 Acidosis, unspecified; E87.1 Hypo-osmolality and hyponatremia; J44.0 Chronic obstructive pulmonary disease with (acute) lower respiratory infection; J84.10 Pulmonary fibrosis, unspecified; Z85.828 Personal history of other malignant neoplasm of skin; Z85.41 Personal history of malignant neoplasm of cervix uteri; I10 Essential (primary) hypertension; Z86.73 Personal history of transient ischemic attack (TIA), and cerebral infarction without residual deficits; I25.2 Old myocardial infarction; M79.7 Fibromyalgia; M19.90 Unspecified osteoarthritis, unspecified site; Z86.718 Personal history of other venous thrombosis and embolism; E11.9 Type 2 diabetes mellitus without complications; K21.9 Gastro-esophageal reflux disease without esophagitis; Z85.038 Personal history of other malignant neoplasm of large intestine; Z96.653 Presence of artificial knee joint, bilateral; I25.10 Atherosclerotic heart disease of native coronary artery without angina pectoris; I48.91 Unspecified atrial fibrillation; E87.6 Hypokalemia; E11.51 Type 2 diabetes mellitus with diabetic peripheral angiopathy without gangrene; D64.9 Anemia, unspecified; F17.210 Nicotine dependence, cigarettes, uncomplicated; I70.201 Unspecified atherosclerosis of native arteries of extremities, right leg; Z79.84 Long term (current) use of oral hypoglycemic drugs; F32.A Depression, unspecified; I73.9 Peripheral vascular disease, unspecified
CPT/HCPCS: 36415; 37221; 70450; 71045; 71275; 80048; 80053; 81001; 82803; 82962; 83036; 83605; 83615; 83735; 83880; 84100; 84145; 84443; 84484; 85007; 85025; 85347; 85610; 86038; 86140; 87040; 87070; 87205; 87632; 87635; 92526; 92610; 92928; 93005; 93306; 93458; 94640; 94760; 94761; 97116; 97163; 97166; 97530; 99152; 99153; 99291; C1725; C1760; C1769; C1874; C1876; C1894; C9600; J0131; J0696; J1644; Q9967

== ENCOUNTER 2023-09-30 14:25 | Outpatient (CLI) | payer MEDICARE, SELFPAY | END 2023-09-30 23:59 | disposition home or self-care (01) | LOC: RT 14:26 | PROVIDERS: PCP Nurse Practitioner Family; Visit Provider Physician Assistant | DX: I48.91 Unspecified atrial fibrillation (principal) | CPT/HCPCS: 93225 ==